=== PATIENT | male | born 1975 | race Caucasian/White ===

== ENCOUNTER → 2016-07-12 | Outpatient (CLI) | payer OTHER ==
--- NOTE | 2016-07-12 12:44 | XR ---
EXAMINATION TYPE: XR chest 2V DATE OF EXAM: 07/12/2016 12:38 PM COMPARISON: 10/17/2013 INDICATION: Sore throat and white spots, cough and congestion TECHNIQUE: Frontal and lateral views of the chest are obtained. FINDINGS: The heart size is normal. The pulmonary vasculature is normal. The lungs are clear. IMPRESSION: 1. No acute pulmonary process.
== END | disposition home or self-care (01) ==
LOC: RADXRMAIN 12:18
PROVIDERS: ATTEND Nurse Practitioner Family
DX: R05 Cough (principal); R50.9 Fever, unspecified
CPT/HCPCS: 71020

== ENCOUNTER → 2016-12-06 | Outpatient (CLI) | payer OTHER ==
--- NOTE | 2016-12-06 19:36 | CT ---
EXAMINATION TYPE: CT abdomen pelvis w con DATE OF EXAM: 12/06/2016 COMPARISON: NONE HISTORY: LLQ pain x2 weeks. Hx of diverticulitits. CT DLP: 643.3 mGycm Automated exposure control for dose reduction was used. TECHNIQUE: Helical acquisition of images was performed from the lung bases through the pelvis. CONTRAST: Performed with Oral Contrast and with IV Contrast, patient injected with 100 mL of Omnipaque 300. FINDINGS: There is mild atelectasis at the posterior lung bases. There is no pleural effusion. Liver spleen pancreas appear normal. Bile ducts are not dilated. Gallbladder is absent. There is no a drenal mass. There is an 8 mm calcification in the upper pole right kidney. There is no hydronephrosi s. Ureters are not dilated. There is no retroperitoneal adenopathy. There is no ascites. Bladder dist ends smoothly. There is no pelvic mass. Appendix appears normal. I see no intestinal wall thickening. I see no bony destructive process.: There is spurring in the thoracic and lumbar spine. IMPRESSION: NEGATIVE CT SCAN OF THE ABDOMEN AND PELVIS. NO EVIDENCE OF INFLAMMATORY BOWEL DISEASE OR DIVERTICULIT IS. NORMAL APPENDIX. MINIMAL SUBSEGMENTAL ATELECTASIS AT THE LUNG BASES. THE ATELECTASIS IS NEW MARYANNE RED TO OLD CT SCAN OF 03/28/2016.
== END | disposition home or self-care (01) ==
LOC: RADCTMAIN 17:05
PROVIDERS: ATTEND Surgery
DX: K57.32 Diverticulitis of large intestine without perforation or abscess without bleeding (principal)
CPT/HCPCS: 74177; Q9967

== ENCOUNTER → 2017-04-22 | Outpatient (CLI) | payer OTHER ==
--- NOTE | 2017-04-22 23:01 | MR ---
EXAMINATION TYPE: MR cervical spine wo con DATE OF EXAM: 04/22/2017 COMPARISON: NONE HISTORY: Neck pain, headaches, trent arm weakness x 1 year TECHNIQUE: Multiplanar, multisequence images of the cervical spine were acquired. The cervical vertebra have normal alignment. Cervical spinal cord appears normal. There is no evidenc e of edema. There are small posterior disc herniation to C5-6 C6-7 into the spinal canal. There is de velopmentally adequate canal and no evidence of spinal stenosis. Brainstem appears normal. I see no f ocal bone destruction. There is small posterior C3-4 disc bulge. There are large anterior hypertrophi c osteophytes in the lower cervical spine. IMPRESSION: Small posterior disc herniations at C5-6 and C6-7. No spinal stenosis. Large hypertrophic anterior br idging osteophyte formation at C5-6 and C6-7. This is quite prominent in this relatively young patien t and the possibility of dysphagia exists.
== END | disposition home or self-care (01) ==
LOC: RADMRIMAIN 18:37
PROVIDERS: ATTEND Family Medicine
DX: M50.222 Other cervical disc displacement at C5-C6 level (principal)
CPT/HCPCS: 72141

== ENCOUNTER → 2017-04-25 | Outpatient (CLI) | payer OTHER ==
--- NOTE | 2017-04-25 18:20 | FL ---
EXAMINATION TYPE: Left shoulder fluoroscopic-guided arthrogram injection. 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 PROCEDURES: 1. Left shoulder fluoroscopy. 2. Left shoulder arthrogram. Total fluoroscopy time: 1 minute. Total images: 2 TECHNIQUE: The procedure, risks, and alternatives, were discussed with the patient, who requested that mar goodman The consent form was signed, and teach-back occurred. The site/side of the procedure was marked with a line with participation by the patient. The accompan mayra paperwork was verified for consistency. A directed history and physical exam was performed prior to the procedure. Medication reconciliation was performed by ancillary personnel. A critical pause was performed with assisting personnel just pr ior to the procedure, and the patient's identity was confirmed using 2 identifiers. Imaging guidance was utilized to select the precise skin entry point just prior to the procedure. The left shoulder was prepped and draped in the usual sterile fashion and local 1% lidocaine anesthes ia was instilled. Under fluoroscopic guidance, a 22 gauge spinal needle was introduced into the left glenohumeral joint. Appropriate needle tip position was confirmed after a small amount of contrast i njection. Approximately 12 ml of a mixture of Omnipaque 240 iodinated contrast and gadolinium was injected into the glenohumeral joint. Postprocedure images show inadvertent prominent injection into the subcoraco id bursa. The needle was removed and dressing placed. The patient tolerated the procedure well. There was no immediate complication. After the procedure, the patient's condition was unchanged. Estimated blood loss was minimal. IMPRESSION: Technically successful left shoulder arthrogram injection for MRI. Some inadvertent prominent subcora coid bursal injection is noted. No immediate complication.
--- NOTE | 2017-04-29 07:22 | MR ---
EXAMINATION TYPE: MR arthrogram left shoulder DATE OF EXAM: 04/25/2017 COMPARISON: 09/06/2026 HISTORY: 42-year-old male left shoulder pain, strain or ligament, pain for 4 weeks. 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 Technique: Multiplanar, multisequence images of the left shoulder were obtained after intra-articular injection of a gadolinium mixture. Refer to arthrogram injection of the same day for further details . FINDINGS: The long head biceps tendon is intact and remains appropriately situated along the bicipital groove. There was inadvertent partial injection into the subscapularis tendon with some injected contrast dis secting along the planes of the subscapularis myotendinous junction. The subscapularis tendon remains intact. Additional inadvertent injection distending the subcoracoid bursa. There is mild to moderate distention of the glenohumeral joint after arthrogram injection. Mild degenerative changes at the acromioclavicular joint. No significant mass effect onto the underly ing myotendinous junction of the supraspinatus. There is trace fluid within the subacromial/subdeltoid bursa and heterogeneous signal of the supraspi natus tendon. Some intrasubstance changes noted on the coronal T2 FS image but no abnormal extension of contrast noted within the tendon. The infraspinatus tendon remains intact. There is isolated mild fatty filtration and mild edema of the teres minor muscle belly. No mass lesio n within the quadrilateral space. Otherwise, no atrophy of the rotator cuff musculature. There is a small tear of the superior labrum at and just behind the biceps anchor, new from 2009. The re is some fluid signal extending along the labral chondral junction of the anterior superior quadran t that was present previously suspected represent a sublabral foramen. Mild dysplasia of the posterio r inferior corner of the glenoid. No para labral cyst. Overall glenohumeral joint appears intact and overall articular cartilage appears maintained. No Hill-Sachs deformity or os acromiale. IMPRESSION: 1. New small SLAP tear. 2. Supraspinatus and lesser degree of infraspinatus tendinosis. There is some intrasubstance change n oted within the supraspinatus tendon. No high-grade partial or full-thickness rotator cuff tear. 3. Isolated mild fatty atrophy and mild muscle edema of the teres minor. This can be seen in the sett ing of quadrilateral space syndrome. Clinically correlate. 4. Mild subacromial/subdeltoid bursal effusion could represent a mild bursitis.
== END | disposition home or self-care (01) ==
LOC: RADFLMAIN 13:04
PROVIDERS: ATTEND Family Medicine
DX: S43.492A Other sprain of left shoulder joint, initial encounter (principal); M75.92 Shoulder lesion, unspecified, left shoulder; R60.0 Localized edema; M62.58 Muscle wasting and atrophy, not elsewhere classified, other site; M25.412 Effusion, left shoulder
CPT/HCPCS: 23350; 73040; 73222; Q9966; A9581

== ENCOUNTER → 2020-09-23 | Outpatient (CLI) | payer OTHER ==
--- NOTE | 2020-09-23 09:08 | XR ---
EXAMINATION TYPE: XR shoulder complete RT DATE OF EXAM: 09/23/2020 COMPARISON: NONE HISTORY: Pain TECHNIQUE: Shoulder examined in 3 views FINDINGS: The humeral head articulates with the glenoid. The acromio-clavicular junction is normal. No acute fractures or dislocations are evident. If dedicated imaging of the acromioclavicular joints would be of benefit, without with weights could be performed to evaluate for ligament injury. A follow up study can be performed 7-10 days from acute trauma for continued pain. IMPRESSION: 1. Normal three-view right Shoulder
== END | disposition home or self-care (01) ==
LOC: RADXRMAIN 08:32
PROVIDERS: ATTEND Family Medicine
DX: M25.511 Pain in right shoulder (principal)

== ENCOUNTER 2020-12-22 14:04 | Emergency (ER) | payer OTHER ==
[2020-12-22 14:13] VITALS: RESP 16; TEMP 97.4
[2020-12-22 15:05] LABS: Basophils # (A) 0.1 k/uL (0-0.2); Basophils % (A) 1 %; Eosinophils # (A) 0.1 k/uL (0-0.7); Eosinophils % (A) 1 %; HCT 42.2 % (39.0-53.0); HGB 14.2 gm/dL (13.0-17.5); Lymphocytes % (A) 20 %; MCH 29.5 pg (25.0-35.0); MCHC 33.7 g/dL (31.0-37.0); MCV 87.4 fL (80.0-100.0); Mean Platelet Volume 8.5; Monocytes # (A) 0.6 k/uL (0-1.0); Monocytes % (A) 6 %; Neutrophils # (A) 7.1 k/uL (1.3-7.7); Neutrophils % (A) 71 %; Platelet Count 201 k/uL (150-450); RBC 4.83 m/uL (4.30-5.90); RDW 13.7 % (11.5-15.5)
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
--- NOTE | 2020-12-22 15:15 | XR ---
EXAMINATION TYPE: XR chest 2V DATE OF EXAM: 12/22/2020 COMPARISON: 07/12/2016 HISTORY: 45-year-old male weakness, dizziness and headaches. TECHNIQUE: PA and lateral views FINDINGS: Heart borderline enlarged. Aorta within normal limits. Interstitial prominence new from prior. No con solidation, pneumothorax, or pleural effusion. Some asymmetric widening of the left AC joint. IMPRESSION: 1. Borderline heart size and new interstitial prominence. Consider surveillance to exclude early pulm onary vascular congestion. 2. Asymmetric widening of the left AC joint new from 2017. This could still reflect an old injury. Co rrelate for any point tenderness here.
[2020-12-22 15:18] LABS: ALT 28 U/L (4-49); AST 25 U/L (17-59); African American GFR (CKD) >90 (>60 ml/min/1.73 sqM); Alkaline Phosphatase 103 U/L (38-126); Anion Gap 6 mmol/L; Blood Urea Nitrogen 10 mg/dL (9-20); Calcium 9.2 mg/dL (8.4-10.2); Carbon Dioxide 27 mmol/L (22-30); Chloride 108 mmol/L (98-107); Creatine Kinase 108 U/L (55-170); Glucose 110 mg/dL (74-99); Magnesium 1.9 mg/dL (1.6-2.3); Non-African American GFR(CKD) >90 (>60 ml/min/1.73 sqM); Sodium 141 mmol/L (137-145); Total Bilirubin 0.4 mg/dL (0.2-1.3); Total Protein 6.8 g/dL (6.3-8.2)
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
[2020-12-22] MEDS ORDERED: KETOROLAC 15 MG/ML 1 ML VIAL IVP STA (16:25)
[2020-12-22] MEDS ORDERED: ORPHENADRINE 30 MG/ML 2 ML VIAL IVP STA (16:25)
[2020-12-22 17:20] VITALS: BP 141/73; PULSE 78
== END 2020-12-22 17:19 | disposition home or self-care (01) ==
LOC: EC 14:04
DX: T75.00XA Unspecified effects of lightning, initial encounter (principal); R51.9 Headache, unspecified; E78.5 Hyperlipidemia, unspecified; F17.200 Nicotine dependence, unspecified, uncomplicated; I10 Essential (primary) hypertension; K21.9 Gastro-esophageal reflux disease without esophagitis; M19.90 Unspecified osteoarthritis, unspecified site; F12.90 Cannabis use, unspecified, uncomplicated
CPT/HCPCS: 36415; 93005; 80053; 82550; 83605; 83735; 84484; 85025; 71046; 70450; 99284; 96374; 96375; J2360; J1885

== ENCOUNTER → 2021-05-30 | Outpatient (CLI) | payer OTHER ==
--- NOTE | 2021-05-31 09:05 | ECHOS ---
STRESS ECHOCARDIOGRAM INDICATIONS: Chest pain. BASELINE HEART RATE: 84 BASELINE BLOOD PRESSURE: 149/92 MAXIMUM HEART RATE: 169 MAXIMUM BLOOD PRESSURE: 235/112 85% MPHR: 148 100% MPHR: 174 METS: 10.7 MAXIMUM STAGE REACHED: 4 TOTAL EXERCISE TIME: 9:20 CLINICAL INFORMATION: Baseline EKG shows sinus rhythm, normal axis, normal intervals. Patient exercised on Misbah protocol for a total of 9-1/2 minutes, achieving 11 METS, 97% of predicted maximal heart rate, without chest pain or diagnostic ST-segment depression. Baseline echo shows normal left ventricular size, wall motion, systolic function. Post exercise there is normal hyperdynamic response of all segments of myocardium noted. CONCLUSIONS: 1. Good exercise tolerance. 2. Negative stress test by EKG criteria. 3. Negative stress echo. MMODL / IJN: [id number] /
== END | disposition home or self-care (01) ==
LOC: RADNMMAIN 08:46
PROVIDERS: ATTEND Family Medicine
DX: R07.9 Chest pain, unspecified (principal)
CPT/HCPCS: 93351

== ENCOUNTER 2021-09-22 06:03 | Day surgery (SDC) | payer OTHER ==
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
[2021-09-21 11:39] VITALS: BMI 28.7
[2021-09-22] MEDS ORDERED: HYDROmorphone 0.5 MG/0.5 ML SYRINGE IVP PRN (06:15)
[2021-09-22] MEDS ORDERED: LIDOCAINE 1% (10MG/ML) FOR IV START INTRADERMA PRN (06:15)
[2021-09-22] MEDS ORDERED: LACTATED RINGERS 1,000 ML IV SCH (06:15)
[2021-09-22] MEDS ORDERED: MIDAZOLAM 2 MG/2 ML VIAL IV PRN (06:15)
[2021-09-22] MEDS ORDERED: DEXAMETHASONE SOD PHOSPHATE 4 MG/ML 1 ML VIAL IV ONE (06:15)
[2021-09-22] MEDS ORDERED: ONDANSETRON 4 MG/2 ML VIAL IVP ONE (06:15)
[2021-09-22] MEDS ORDERED: MIDAZOLAM 2 MG/2 ML VIAL IV ONE (06:58)
[2021-09-22 07:23] LABS: Basophils # (A) 0.1 k/uL (0-0.2); Basophils % (A) 1 %; Eosinophils # (A) 0.2 k/uL (0-0.7); Eosinophils % (A) 2 %; HCT 45.6 % (39.0-53.0); HGB 15.6 gm/dL (13.0-17.5); Lymphocytes # (A) 2.3 k/uL (1.0-4.8); Lymphocytes % (A) 26 %; MCH 30.3 pg (25.0-35.0); MCHC 34.1 g/dL (31.0-37.0); MCV 88.7 fL (80.0-100.0); Mean Platelet Volume 8.6; Monocytes # (A) 0.6 k/uL (0-1.0); Monocytes % (A) 7 %; Neutrophils # (A) 5.4 k/uL (1.3-7.7); Neutrophils % (A) 63 %; Platelet Count 235 k/uL (150-450); RBC 5.14 m/uL (4.30-5.90); RDW 13.9 % (11.5-15.5); WBC 8.6 k/uL (3.8-10.6)
[2021-09-22 07:38] LABS: ALT 25 U/L (4-49); AST 26 U/L (17-59); African American GFR (CKD) >90 (>60 ml/min/1.73 sqM); Albumin 4.2 g/dL (3.5-5.0); Alkaline Phosphatase 106 U/L (38-126); Anion Gap 8 mmol/L; Blood Urea Nitrogen 18 mg/dL (9-20); Calcium 9.3 mg/dL (8.4-10.2); Carbon Dioxide 25 mmol/L (22-30); Chloride 108 mmol/L (98-107); Glucose 113 mg/dL (74-99); Non-African American GFR(CKD) >90 (>60 ml/min/1.73 sqM); Potassium 4.4 mmol/L (3.5-5.1); Sodium 141 mmol/L (137-145); Total Bilirubin 0.7 mg/dL (0.2-1.3); Total Protein 7.6 g/dL (6.3-8.2)
[2021-09-22] MEDS ORDERED: PHENYLEPHRINE-0.9% NACL SYG 1,000 MCG/10 ML SYRINGE ONE (07:40)
[2021-09-22] MEDS ORDERED: fentaNYL (PF) 50 MCG/ML 2 ML AMP ONE (07:40)
[2021-09-22] MEDS ORDERED: SUCCINYLCHOLINE CHLORIDE VIAL 200 MG/10 ML VIAL IV ONE (07:40)
[2021-09-22] MEDS ORDERED: LIDOCAINE 1% INJ 10MG/ML (20 ML MDV) ONE (07:40)
[2021-09-22] MEDS ORDERED: ROPIVACAINE 5 MG/ML 30 ML VIAL ONE (07:40)
[2021-09-22] MEDS ORDERED: PROPOFOL 10 MG/ML 20 ML VIAL IV ONE (07:40)
[2021-09-22] MEDS ORDERED: EPINEPHrine (PF) 1 ML in SODIUM CHLORIDE 0.9% IRRIGATIO 3,000 ML IRRIGATION ONE ×8 (07:44)
[2021-09-22] MEDS ORDERED: LACTATED RINGERS 1,000 ML IV ONE (08:52)
--- NOTE | 2021-09-22 09:20 | P.OP ---
Date of Procedure: 09/22/21 Preoperative Diagnosis: Right rotator cuff tearsymptomatic Postoperative Diagnosis: 3 cm rotator cuff tear Procedure(s) Performed: Right shoulder arthroscopic subacromial decompression/rotator cuff repair Implants: Arthrex 4.75 mm swivel lock anchor 2, 5.5 mm swivel lock anchor 2 Anesthesia: abebe REES Surgeon: Pa Nguyen Lobbyist #1: Hector Higgins Estimated Blood Loss (ml): 10 Pathology: none sent Condition: stable Disposition: PACU Indications for Procedure: The patient's a 46-year-old male presents with right shoulder pain after a recent injury. Upon evaluation he is noted of an acute rotator cuff tear. A di scussion of the risks and benefits of operative intervention was made with patient. He opted to proceed with surgery. Operative risks to include infection, neurovascular injury, development of blood clots, possible tendon rerupture, possible postoperative stiffness and need for subsequent procedures was discussed. Informed consent was obtained. Operative Findings: As below Description of Procedure: The patient was brought to the operating room, and after induction of general anesthesia was placed in a beachchair position. A preoperative interscalene block was placed for postoperative analgesia. I examined the right shoulder. There was no gross block to passive motion or gross glenohumeral instability. The right upper extremity was prepped and draped in normal fashion. The bony outlines the acromion, distal clavicle, and coracoid process were outlined with a skin marker. The glenohumeral joint was inflated with 50 mL of saline utilizing a spinal needle from posterior approach. A posterior portal was made through a 5 mm skin incision 1 cm medial and inferior to the posterior lateral border time. A blunt trocar was used to easily into the joint. Diagnostic arthroscopy was performed. An anterior portal was made just lateral to the coracoid process entering the joint above the subscapularis tendon. The subscapularis tendon appeared to be intact. Anterior labrum was intact. The inferior recess was inspected. The posterior labrum was intact. The biceps tendon along with its anchor appeared to be intact. On inspection the rotator cuff, a full-thickness tear involving the supraspinatus was noted. The arthroscope was placed into the subacromial space. A lateral portal was made 2 centimeters inferior to the anterior lateral border of the acromion. The rotator cuff was then mobilized with a traction suture. This was then easily brought back to the greater tuberosity. The soft tissue on the undersurface of the acromion was debrided with a motorized shaver and electrocautery clearly defining the anterior medial and lateral borders as well as the distal clavicle. An anterior inferior acromioplasty was performed with a motorized be starting anterolateral, then extending this posteriorly, then extending this medially. I converted to a flat acromion and this was verified in the posterior and lateral viewing portals. The greater tuberosity was lightly decorticating with a shaver down to a bleeding bony surface. An accessory superior lateral portals made just off the lateral edge of the acromion for anchor placement. 2 anchors were then placed just off the articular surface with the appropriate starting awl. 4.75 mm anchors preloaded with #2 fiber tape were placed. Good purchase was o btained. These fiber tapes were then passed the rotator cuff with a scorpion suture passer. A lateral row was created crisscrossing these tapes. 5.5 mm swivel lock anchors x2 were placed laterally. Good purchase was obtained. Final arthroscopic view showed adequate compression at the footprint. The arthroscope was then removed. The portals were closed with simple 3-0 nylon sutures. A sterile dressing was applied in addition to a sling. The patient was then awoken from general anesthesia and transferred to recovery room in good condition. Blood loss was estimated at 10 mL. No complications were incurred. Sponge and needle counts were correct in the case. Hectro RILEY assisted and the major components of the case to include arm positioning, anchor placement, and rotator cuff repair.
[2021-09-22 09:28] VITALS: TEMP 97.2
[2021-09-22 10:45] VITALS: RESP 18
[2021-09-22 10:55] VITALS: BP 145/91; PULSE 81
--- NOTE | 2021-09-24 21:17 | P.ANPRN ---
Procedure Note - Anesthesia - Nerve Block Performed Right Interscalene Single Time Out Performed: Yes Date of Procedure: 09/22/21 Procedure Start Time: 06:57 Procedure Stop Time: 07:02 Location of Patient: PreOp Indication: Acute Post-Operative Pain, Requested by Surgeon Sedation Type: Sedate with meaningful contact maintained Preparation: Sterile Prep Position: Supine Needle Types: Pajunk Needle Gauge: 21 Ultrasound used to visualize needle placement: Yes Ultrasound used to observe medication spread: Yes Blood Aspirated: No Pain Paresthesia on Injection Noted: No Resistance on Injection: Normal Image Stored and Saved: Yes Events: Uneventful and Well Tolerated (Ropivacaine 0.5% 25 mL plus dexamethasone 4 mg)
== END 2021-09-22 11:32 | disposition home or self-care (01) ==
LOC: OR 06:03
PROVIDERS: ATTEND Orthopaedic Surgery
DX: M75.101 Unspecified rotator cuff tear or rupture of right shoulder, not specified as traumatic (principal); I10 Essential (primary) hypertension; F41.9 Anxiety disorder, unspecified; M19.90 Unspecified osteoarthritis, unspecified site; F17.210 Nicotine dependence, cigarettes, uncomplicated; Z79.899 Other long term (current) drug therapy; Z80.9 Family history of malignant neoplasm, unspecified
CPT/HCPCS: 29826; 29827; 64415; 76942; 80053; 85025; C1713 ×3; C1894; J2250; J0330; J1100; J0690; J2405; J0171; J2001; J3010; J2795; J2370; J2704

== ENCOUNTER → 2022-07-11 | Outpatient (CLI) | payer OTHER ==
--- NOTE | 2022-07-11 08:11 | MR ---
EXAMINATION TYPE: MR shoulder RT wo con DATE OF EXAM: 07/11/2022 COMPARISON: Prior MRI right shoulder August 07, 2021 HISTORY: Rt shoulder pain for 3 months with difficulty raising arm overhead, history of prior surgery September 22, 2021 TECHNIQUE: Multiplanar, multisequence imaging of the right shoulder is performed without contrast. FINDINGS: Rotator Cuff: Interval surgical repair of distal supraspinatus tear with artifact from metallic nails noted. There is increased signal with areas of partial tearing throughout the distal supraspinatus t endon, a smaller residual or new articular surface tear is identified measuring 7 mm in length AP dakota meter sagittal image 6 by 4 to 5 mm in diameter coronal image 11. Some new interstitial tearing along the distal infraspinatus tendon with increased signal. Rotator cuff muscle bulk is preserved. Acromioclavicular Joint: Moderate to severe narrowing and mild spurring redemonstrated. Mild to moder ate capsular hypertrophy redemonstrated. Mass effect with change in the course of the underlying supr aspinatus muscle bulk near the myotendinous junction is again seen. Glenohumeral Joint: Small to moderate size joint effusion on current exam new from prior. No signific ant spurring. Labrum: The superior labrum show some areas of increased signal suggesting degenerative tearing simil ar to prior. Biceps Tendon: The long head of biceps is in normal location within bicipital groove. Bone marrow signal: No focal abnormal marrow signal is appreciated. Other: No additional significant abnormality is appreciated. IMPRESSION: 1. Interval rotator cuff surgery. Small full-thickness articular surface tear of supraspinatus tendon on current study is identified. There is more prominent tendinopathy/interstitial tearing of the dis gian supraspinatus tendon on current study. Some new interstitial tearing of the distal infraspinatus tendon on current study. Persistent AC joint arthropathy with suggestion of underlying impingement.
== END | disposition home or self-care (01) ==
LOC: RADMRIMAIN 06:32
PROVIDERS: ATTEND Orthopaedic Surgery
DX: M75.111 Incomplete rotator cuff tear or rupture of right shoulder, not specified as traumatic (principal); M19.011 Primary osteoarthritis, right shoulder

== ENCOUNTER 2022-09-14 06:08 | Day surgery (SDC) | payer OTHER ==
--- NOTE | 2022-09-13 08:19 | P.HPOR ---
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 He is reaching way from his body when he felt a pop. He previously underwent rotator cuff repair September 2021 and initially did well. He is now having pain with overhead activity and at night. Review of Systems As per HPI Past Medical History Past Medical History: GERD/Reflux, Hyperlipidemia, Hypertension, Osteoarthritis (OA) Additional Past Medical History / Comment(s): Hx Diverticulosis, hx pancreatitis, irregular heartbeat, chronic lower back and right shoulder pain. History of Any Multi-Drug Resistant Organisms: None Reported Past Surgical History: Cholecystectomy, Orthopedic Surgery Additional Past Surgical History / Comment(s): Heel surgery, left shoulder surgery , rt shoulder sx. Past Anesthesia/Blood Transfusion Reactions: Previous Problems w/ Anesthesia Additional Past Anesthesia/Blood Transfusion Reaction / Comment(s): Difficult to awaken.Groggy Smoking Status: Current every day smoker - Past Family History Mother Family Medical History: Cancer Additional Family Medical History / Comment(s): Lymphoma. Father Family Medical History: Coronary Artery Disease (CAD), Eye Disorder, Hyperlipidemia, Hypertension, Myocardial Infarction ([place]) Additional Family Medical History / Comment(s): Bone cancer, , CABG, macular degeneration. Medications and Allergies Home Medications Medication Instructions Recorded Confirmed Type lisinopriL [Zestril] 20 mg PO QAM 10/17/13 09/11/22 History Meloxicam [Mobic] 15 mg PO QAM 01/02/16 09/11/22 History Atorvastatin [Lipitor] 20 mg PO DAILY #90 tablet 04/19/16 09/11/22 Rx atenoloL [Tenormin] 50 mg PO HS 12/22/20 09/11/22 History HYDROcodone/APAP 7.5-325MG [[place] 1 each PO Q6HR PRN #28 tab 09/22/21 09/11/22 Rx 7.5] Allergies Allergy/AdvReac Type Severity Reaction Status Date / Time No Known Allergies Allergy Verified 09/11/22 11:44 Physical Examination - Shoulder right Tenderness with palpation: anterior Pain: with forward flexion ROM: forward flexion: 160 degrees ROM: internal rotation: lower lumbar ROM: external rotation: 50 degrees Strength: abduction: 5/5 Strength: external rotation: 5/5 Tests: internal impingement tests: positive Results The patient is a well-developed well-nourished male proximal 5 foot 10, 202 pounds of mesomorphic habitus. HEENT exam is nonfocal, neck is supple. He's tender about the right shoulder anterior subacromial space. Moderate crepitus is noted. Impingement tests positive. His distal neurovascular appears intact right upper extremity. - Diagnostic results Shoulder MRI: image reviewed (MRI of the right shoulder shows evidence of a small full-thickness tear involving the distal supraspinatus as well as interstitial tearing. Acromioclavicular joint arthritis is noted. There is also potentially a labral tear.) Assessment and Plan Assessment: Recurrent right rotator cuff tear Right proximal bicipital tendinosis/subluxation Right acromioclavicular joint arthritis Plan: I talked to the patient regarding his condition along with treatment options. At this point he is quite symptomatic after this recurrent injury. After thorough discussion he opts to proceed with surgery. We'll plan to proceed with right shoulder arthroscopic evaluation with possible revision rotator cuff repair/subacromial decompression/distal clavicular resection. We'll also consider biceps tenotomy if needed. We will perform as an outpatient procedure. Risks and benefits were discussed at length Rolanda Capps.
[~2022-09-14 06:08] MED LIST: DEXAMETHASONE SOD PHOSPHATE 4 MG/ML 1 ML VIAL IV ONE; LACTATED RINGERS 1,000 ML IV SCH; LIDOCAINE 1% (10MG/ML) FOR IV START INTRADERMA PRN; ONDANSETRON 4 MG/2 ML VIAL IVP ONE
[2022-09-14 06:41] VITALS: TEMP 97.2
[2022-09-14] MEDS ORDERED: METOCLOPRAMIDE 5 MG/ML 2 ML VIAL IVP PRN (07:00)
[2022-09-14] MEDS ORDERED: HYDROmorphone 0.5 MG/0.5 ML SYRINGE IVP PRN (07:00)
[2022-09-14] MEDS ORDERED: MIDAZOLAM 2 MG/2 ML VIAL IVP ONE (07:12)
[2022-09-14] MEDS ORDERED: fentaNYL (PF) 50 MCG/ML 2 ML AMP ONE (07:53)
[2022-09-14] MEDS ORDERED: PROPOFOL 10 MG/ML 20 ML VIAL IV ONE (07:53)
[2022-09-14] MEDS ORDERED: GLYCOPYRROLATE 0.2 MG/ML 2 ML VIAL ONE (07:53)
[2022-09-14] MEDS ORDERED: DEXAMETHASONE SOD PHOSPHATE 4 MG/ML 1 ML VIAL ONE (07:53)
[2022-09-14] MEDS ORDERED: NEOSTIGMINE 1 MG/ML 10 ML VIAL ONE (07:53)
[2022-09-14] MEDS ORDERED: ROPIVACAINE 5 MG/ML 30 ML VIAL ONE (07:53)
[2022-09-14] MEDS ORDERED: SUCCINYLCHOLINE CHLORIDE 200 MG/10 ML VIAL IV ONE (07:53)
[2022-09-14] MEDS ORDERED: ROCURONIUM 10 MG/ML (5 ML VIAL) IV ONE (07:53)
[2022-09-14] MEDS ORDERED: LIDOCAINE 2% INJ 20 MG/ML (2 ML VIAL) ONE (07:53)
[2022-09-14] MEDS ORDERED: EPINEPHrine (PF) 1 ML in SODIUM CHLORIDE 0.9% IRRIGATIO 3,000 ML IRRIGATION ONE ×8 (07:56)
--- NOTE | 2022-09-14 09:01 | P.OP ---
Date of Procedure: 09/14/22 Preoperative Diagnosis: Status post right rotator cuff repair with possible re-tear Postoperative Diagnosis: Type II superior labral tear/proximal biceps partial tear, bursitis right shoulder, partial thickness rotator cuff tear Procedure(s) Performed: Right shoulder arthroscopic revision subacromial decompression/bursectomy/biceps tenotomy/rotator cuff debridement Anesthesia: abebe REES Surgeon: Pa Nguyen Towel Sewer #1: Hector Higgins Estimated Blood Loss (ml): 10 Pathology: none sent Condition: stable Disposition: PACU Indications for Procedure: The patient's a 47-year-old male who presents after reinjuring his right shoulder with persistent pain and mechanical symptoms. He previously underwent right rotator cuff repair in September 2021. A discussion of the risks and benefits of operative intervention versus conservative measures was made with the patient. He opted to proceed with surgery. Operative risks to include infection, neurovascular injury, development of blood clots, possible incomplete resolution of symptoms, possible tendon rerupture, and possible need for subsequent procedures was discussed. Informed consent was obtained. Operative Findings: As below Description of Procedure: The patient was brought to the operating room, and after induction of general anesthesia was placed in a beachchair position. A preoperative interscalene block was placed for postoperative analgesia. I examined the right shoulder. There was no gross block to passive motion or gross glenohumeral instability. The right upper extremity was prepped and draped in normal fashion. The bony outlines the acromion, distal clavicle, and coracoid process were outlined with a skin marker. The glenohumeral joint was inflated with 50 mL of saline utilizing a spinal needle from posterior approach. A posterior portal was made through a 5 mm skin incision 1 cm medial and inferior to the posterior lateral border time. A blunt trocar was used to easily into the joint. Diagnostic arthroscopy was performed. An anterior portal was made just lateral to the coracoid process entering the joint above the subscapularis tendon. The subscapularis tendon appeared to be intact. Anterior labrum was intact. The inferior recess was inspected. The posterior labrum was intact. There was a high-grade partial-thickness tear of the long head of the biceps involving interarticular portion along with a type II superior labral tear. It was elected to proceed with release at this point. This was released from the superior labrum with electrocautery and was allowed to retract to the bicipital groove. On inspection the rotator cuff, there was partial tearing of the anterior aspect the supraspinatus involving approximately 10-20% of the thickness. The remaining rotator cuff appeared to be intact. This was debrided with a motorized shaver. The arthroscope was placed into the subacromial space. A lateral portal was made 2 centimeters inferior to the anterior lateral border of the acromion. The soft tissue on the undersurface of the acromion was debrided with a motorized shaver and electrocautery clearly defining the anterior medial and lateral borders as well as the distal clavicle. There appeared to be some recurrence of anterior calcification that was removed with a motorized bur. Significant bursitis was encountered. This was debrided with a motorized shaver. The rotator cuff was inspected on the bursal surface. It appeared to be intact. The previous repair appeared intact. The arthroscope was then removed. The portals were closed with simple 3-0 nylon sutures. A sterile dressing was applied in addition to a sling. The patient was then awoken from general anesthesia and transferred to recovery room in good condition. Blood loss was estimated at 10 mL. No complications were incurred. Sponge and needle counts were correct in the case. Hector RILEY assisted and the major components of the case to include arm positioning, debridement, decompression, and tenotomy.
[2022-09-14 10:29] VITALS: PULSE 69; RESP 18
[2022-09-14 10:46] VITALS: BP 133/86
== END 2022-09-14 11:43 | disposition home or self-care (01) ==
LOC: OR 06:08
PROVIDERS: ATTEND Orthopaedic Surgery
DX: M75.51 Bursitis of right shoulder (principal); S43.431A Superior glenoid labrum lesion of right shoulder, initial encounter; M75.111 Incomplete rotator cuff tear or rupture of right shoulder, not specified as traumatic; G89.18 Other acute postprocedural pain; I10 Essential (primary) hypertension; E78.5 Hyperlipidemia, unspecified; F17.200 Nicotine dependence, unspecified, uncomplicated; K21.9 Gastro-esophageal reflux disease without esophagitis; M19.90 Unspecified osteoarthritis, unspecified site; Z90.49 Acquired absence of other specified parts of digestive tract; Z98.890 Other specified postprocedural states; Z82.49 Family history of ischemic heart disease and other diseases of the circulatory system; Z83.49 Family history of other endocrine, nutritional and metabolic diseases; Z79.899 Other long term (current) drug therapy
CPT/HCPCS: 64415; 76942; 29823; 29826; J2250; J0330; J1100; J2710; J0690; J2405; J0171; J3010; J2795; J2704; J2001

== ENCOUNTER → 2023-01-28 | Outpatient (CLI) | payer OTHER ==
[2023-01-29 03:37] LABS: HGB 15.4 d/dL (13.0-17.0); MCH 29.5 pg (27.0-32.0); MCHC 32.8 d/dL (32.0-37.0); Mean Platelet Volume 12.8 FL (9.5-12.2); NRBC Per 100 WBC 0 X 10*3/uL (0.00-0.01); Platelet Count 223 X 10*3/uL (140-440); RBC 5.22 X 10*6/uL (4.40-5.60)
[2023-01-29 03:38] LABS: Basophils # (A) 0.05 X 10*3/uL (0.00-0.10); Basophils % (A) 0.4 %; Eosinophils # (A) 0.11 X 10*3/uL (0.04-0.35); Eosinophils % (A) 0.9 %; Lymphocytes # (A) 2.34 X 10*3/uL (0.90-5.00); Monocytes # (A) 0.88 X 10*3/uL (0.20-1.00); Monocytes % (A) 7.5 %; Neutrophils # (A) 8.27 X 10*3/uL (1.80-7.70); Neutrophils % (A) 70.8 %
[2023-01-29 03:46] LABS: ALT 23 U/L (10-49); AST 21 U/L (14-35); Albumin 4.8 d/dL (3.8-4.9); Albumin/Globulin Ratio 1.71 Ratio (1.60-3.17); Alkaline Phosphatase 123 U/L (41-126); BUN/Creat Ratio 15.09 Ratio (12.00-20.00); Blood Urea Nitrogen 16.6 mg/dL (9.0-27.0); Calcium 10.2 mg/dL (8.7-10.3); Chloride 106 mmol/L (96-109); Globulin 2.8 d/dL (1.6-3.3); Glucose 91 mg/dL (70-110); Lipase 27 U/L (14-60); Potassium 5.1 mmol/L (3.5-5.5); Sodium 143 mmol/L (135-145); Total Bilirubin 0.4 mg/dL (0.3-1.2); Total Protein 7.6 d/dL (6.2-8.2)
[2023-01-29 15:08] LABS: Cryptosporidium Antigen Negative (Negative)
== END | disposition home or self-care (01) ==
LOC: LABWHC1 16:14
PROVIDERS: ATTEND Family Medicine
DX: R19.7 Diarrhea, unspecified (principal); R10.32 Left lower quadrant pain
CPT/HCPCS: 36415; 80053; 83690; 85025; 87045; 87046; 87324; 87328; 87329

== ENCOUNTER 2023-05-01 07:58 | Day surgery (SDC) | payer OTHER ==
[2023-04-29 12:43] VITALS: BMI 26.5
[~2023-05-01 07:58] MED LIST changes: -DEXAMETHASONE SOD PHOSPHATE 4 MG/ML 1 ML VIAL IV ONE; -LIDOCAINE 1% (10MG/ML) FOR IV START INTRADERMA PRN; -ONDANSETRON 4 MG/2 ML VIAL IVP ONE
[2023-05-01 08:52] VITALS: TEMP 97.5
[2023-05-01] MEDS ORDERED: PROPOFOL 10 MG/ML 20 ML VIAL IV ONE (08:54)
[2023-05-01] MEDS ORDERED: LIDOCAINE 2% (PF) 20 MG/ML 5 ML VIAL ONE (08:54)
--- NOTE | 2023-05-01 09:11 | P.PCN ---
Date of Procedure: 05/01/23 Procedure(s) Performed: Brief history: Patient is a pleasant 48-year-old white male scheduled for an elective upper endoscopy as well as colonoscopy as a part of evaluation of upper abdominal pain associated with chronic diarrhea of since December of this year. His been having problems anywhere from 5-10 a day which are loose to watery in consistency with no blood or mucus in the stool. Stool studies were negative. Procedure performed: Esophagogastroduodenoscopy with biopsy Colonoscopy with biopsy Preoperative diagnosis: Abdominal pain Chronic diarrhea Anesthesia: MAC Procedure: After informed consent was obtained from the patient was brought into the endoscopy unit and IV sedation was administered by anesthesia under continuous monitoring. Initially upper endoscopy was done. The Olympus GF 160 video endoscope was inserted inserted into the mouth and esophagus intubated without any difficulty and was gradually advanced into the stomach and duodenum and carefully examined. The bulb and second part of the duodenum appeared normal. Biopsies were done from the duodenum to rule out celiac disease. The scope was then withdrawn into the stomach adequately insufflated with air and upon careful examination the antrum had mild gastritis and biopsies were done from this area. Mucosa of the body, cardia and fundus appeared normal. There was small amount of retained food in the stomach suggestive of gastroparesis. The scope was then withdrawn into the esophagus. The GE junction was located at 40 cm to the incisors. It appeared regular with no erythema erosions or ulcerations. Rest of the esophagus appeared normal. Patient tolerated the procedure well. At this time the patient continued to remain sedation. Initial digital rectal examination was normal. Olympus CF 160 video colonoscope was then inserted into the rectum and gradually advanced to the cecum without any difficulty. Careful examination was performed as the scope was gradually being withdrawn. The prep was excellent. The cecum, ascending colon, transverse colon, descending colon, sigmoid colon and rectum appeared normal. In the sigmoid colon there was a 3 mm polyp that was removed by cold biopsy. Random biopsies were done from ascending and descending colon to rule out microscopic/collagenous colitis Retroflexion was performed in the rectum and no lesions were noted. Patient tolerated the procedure well. Impression: 1. Upper endoscopy revealed mild antral gastritis and small amount of retained food in the stomach suggestive of gastroparesis 2. Colonoscopy revealed a 3 mm; polyp status post cold biopsy. Rest of the colon appeared normal. Recommendations: Findings of this examination were discussed with the patient as well as his family. He was advised to follow with the biopsy results. He'll be seen in office in 2 weeks. The meantime he'll continue with Bentyl 10 mg 3 times daily as needed.. Recommend repeat colonoscopy in 10 years.
[2023-05-01 09:44] VITALS: BP 130/78; PULSE 78; RESP 18
== END 2023-05-01 09:45 | disposition home or self-care (01) ==
LOC: ORWHC2ENDO 07:58
PROVIDERS: ATTEND Internal Medicine Gastroenterology
DX: K31.89 Other diseases of stomach and duodenum (principal); D12.5 Benign neoplasm of sigmoid colon; K52.9 Noninfective gastroenteritis and colitis, unspecified; K29.50 Unspecified chronic gastritis without bleeding; I49.9 Cardiac arrhythmia, unspecified; I10 Essential (primary) hypertension; E78.5 Hyperlipidemia, unspecified; F17.210 Nicotine dependence, cigarettes, uncomplicated; K21.9 Gastro-esophageal reflux disease without esophagitis; Z79.1 Long term (current) use of non-steroidal anti-inflammatories (NSAID); Z79.84 Long term (current) use of oral hypoglycemic drugs; Z79.899 Other long term (current) drug therapy; Z90.49 Acquired absence of other specified parts of digestive tract; Z98.890 Other specified postprocedural states
CPT/HCPCS: 88305; 88313; 45380; 43239; J2704; J2001

== ENCOUNTER 2023-09-29 19:08 | Inpatient (IN) | payer OTHER ==
--- NOTE | 2023-09-29 19:58 | XR ---
EXAMINATION TYPE: XR chest 2V DATE OF EXAM: 09/29/2023 7:51 PM CLINICAL INDICATION:Male, 48 years old with history of Chest Pain; [facility] COMPARISON: Chest radiographs from 12/22/2020 TECHNIQUE: XR chest 2V Frontal and lateral views of the chest. FINDINGS: Lungs/Pleura: There is no evidence of pleural effusion, focal consolidation, or pneumothorax. Pulmonary vascularity: Unremarkable. Heart/mediastinum: Cardiomediastinal silhouette is unremarkable. Musculoskeletal: No acute osseous pathology. IMPRESSION: No acute cardiopulmonary disease/process.
[2023-09-29] MEDS: SODIUM CHLORIDE 0.9% 1,000 ML IV STA (20:42)
[2023-09-29] MEDS: MAG HYDROX/AL HYDROX/SIMETH 30 ML, HYOSCYAMINE ELIXIR 10 ML, LIDOCAINE VISCOUS 2% 10 ML PO STA (20:44)
[2023-09-29] MEDS: PANTOPRAZOLE 40 MG/10 ML VIAL IVP STA (20:46)
[2023-09-29 20:47] LABS: Basophils # (A) 0.1 k/uL (0-0.2); Basophils % (A) 1 %; Eosinophils # (A) 0.1 k/uL (0-0.7); Eosinophils % (A) 1 %; HCT 44.4 % (39.0-53.0); HGB 14.8 gm/dL (13.0-17.5); Lymphocytes # (A) 1.8 k/uL (1.0-4.8); Lymphocytes % (A) 13 %; MCH 29.8 pg (25.0-35.0); MCHC 33.3 g/dL (31.0-37.0); MCV 89.5 fL (80.0-100.0); Mean Platelet Volume 9.5; Monocytes # (A) 0.7 k/uL (0-1.0); Monocytes % (A) 5 %; Neutrophils # (A) 11.1 k/uL (1.3-7.7); Neutrophils % (A) 80 %; Platelet Count 162 k/uL (150-450); RBC 4.96 m/uL (4.30-5.90); RDW 13.6 % (11.5-15.5); WBC 13.9 k/uL (3.8-10.6)
[2023-09-29 21:00] LABS: ALT 27 U/L (4-49); AST 25 U/L (17-59); African American GFR (CKD) >90 (>60 ml/min/1.73 sqM); Albumin 4.3 g/dL (3.5-5.0); Alkaline Phosphatase 103 U/L (38-126); Amylase 51 U/L (30-110); Anion Gap 8 mmol/L; Blood Urea Nitrogen 22 mg/dL (9-20); Calcium 9.8 mg/dL (8.4-10.2); Carbon Dioxide 24 mmol/L (22-30); Chloride 108 mmol/L (98-107); Glucose 108 mg/dL (74-99); Magnesium 1.6 mg/dL (1.6-2.3); Non-African American GFR(CKD) >90 (>60 ml/min/1.73 sqM); Potassium 3.7 mmol/L (3.5-5.1); Sodium 140 mmol/L (137-145); Total Bilirubin 0.6 mg/dL (0.2-1.3); Total Protein 7.2 g/dL (6.3-8.2)
[2023-09-29 21:03] LABS: INR 0.9 (<1.2); Partial Thromboplastin Time 22.8 sec (22.0-30.0); Prothrombin Time 10.5 sec (10.0-12.5)
[2023-09-29] MEDS: ONDANSETRON 4 MG/2 ML VIAL IVP STA (21:18)
[2023-09-29 21:32] LABS: Lipase 2507 U/L (23-300)
[2023-09-29 21:39] LABS: Appearance,Urine Clear (Clear); Bilirubin,Urine Negative (Negative); Blood,Urine Negative (Negative); Color,Urine Light Yellow; Glucose,Urine (UA) Negative (Negative); Ketones,Urine Negative (Negative); Leukocyte Esterase,Urine Negative (Negative); Nitrite,Urine Negative (Negative); Protein,Urine Negative (Negative); Specific Gravity,Urine 1.023 (1.001-1.035); Urobilinogen,Urine <2.0 mg/dL (<2.0)
[2023-09-29] MEDS: NITROGLYCERIN SL TABS 0.4 MG TAB SUBLINGUAL PRN (21:42)
[2023-09-29] MEDS: ASPIRIN 81 MG PO STA (21:49)
--- NOTE | 2023-09-29 22:17 | CT ---
EXAM: CT Abdomen and Pelvis With Intravenous Contrast CLINICAL HISTORY: ITS.REASON CT Reason: pancreatitis TECHNIQUE: Axial computed tomography images of the abdomen and pelvis with intravenous contrast. CTDI is 20.7 mGy and DLP is 1055.5 mGy-cm. This CT exam was performed using one or more of the following dose reduction techniques: automated exposure control, adjustment of the mA and/or kV according to patient size, and/or use of iterative reconstruction technique. COMPARISON: No relevant prior studies available. FINDINGS: Lung bases: Unremarkable. No mass. No consolidation. ABDOMEN: Liver: Hepatic steatosis. Gallbladder and bile ducts: Cholecystectomy. No ductal dilation. Pancreas: Unremarkable. No mass. No ductal dilation. Spleen: Unremarkable. No splenomegaly. Adrenals: Unremarkable. No mass. Kidneys and ureters: Nonobstructing 4 mm RIGHT upper pole renal stone. No hydronephrosis or delayed nephrogram. Stomach and bowel: Diverticulosis, without acute diverticulitis. No bowel obstruction. No free air. PELVIS: Appendix: No acute appendicitis. Bladder: Unremarkable. No mass. Reproductive: Unremarkable as visualized. ABDOMEN and PELVIS: Intraperitoneal space: See above. Bones/joints: Degenerative changes of the spine. No acute fracture. No dislocation. Soft tissues: Unremarkable. Vasculature: Atherosclerotic changes of the aorta. No abdominal aortic aneurysm. Lymph nodes: Unremarkable. No enlarged lymph nodes. IMPRESSION: 1. No hydronephrosis or delayed nephrogram. 2. Cholecystectomy. 3. Nonobstructing 4 mm RIGHT upper pole renal stone. 4. Diverticulosis, without acute diverticulitis. No bowel obstruction. No free air.
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
[2023-09-29] MEDS ORDERED: NALOXONE 0.4 MG/ML 1 ML VIAL IV PRN (22:19)
[2023-09-29] MEDS ORDERED: ONDANSETRON 4 MG/2 ML VIAL IVP PRN (22:29)
[2023-09-29] MEDS: HEPARIN SOD,PORK IN 0.45% NACL 25,000 UNIT in 0.45% NACL 1 250ML.BAG IV SCH (22:30)
[2023-09-29] MEDS: HEPARIN SODIUM 1,000 UN/ML (10ML VL) IV ONE (22:30)
[2023-09-29] MEDS: SODIUM CHLORIDE 0.9% 1,000 ML IV SCH (23:54)
[2023-09-29] MEDS: atenoloL 50 MG TAB PO SCH (23:57)
[2023-09-29] MEDS: ATORVASTATIN 20 MG TAB PO SCH (23:57)
[2023-09-29] MEDS: NITROGLYCERIN OINT 1 INCH/GM PACKET TOPICAL SCH (23:58)
[2023-09-30 03:16] LABS: Basophils # (A) 0.1 k/uL (0-0.2); Basophils % (A) 1 %; Eosinophils # (A) 0.1 k/uL (0-0.7); Eosinophils % (A) 1 %; HCT 40.8 % (39.0-53.0); HGB 13.9 gm/dL (13.0-17.5); Lymphocytes # (A) 2.8 k/uL (1.0-4.8); Lymphocytes % (A) 25 %; MCH 30.5 pg (25.0-35.0); MCHC 34.1 g/dL (31.0-37.0); MCV 89.3 fL (80.0-100.0); Mean Platelet Volume 9.7; Monocytes # (A) 0.7 k/uL (0-1.0); Monocytes % (A) 6 %; Neutrophils # (A) 7.7 k/uL (1.3-7.7); Neutrophils % (A) 67 %; Platelet Count 159 k/uL (150-450); RBC 4.57 m/uL (4.30-5.90); WBC 11.5 k/uL (3.8-10.6)
[2023-09-30 03:42] LABS: Partial Thromboplastin Time 55.4 sec (22.0-30.0)
[2023-09-30 03:49] LABS: African American GFR (CKD) >90 (>60 ml/min/1.73 sqM); Anion Gap 4 mmol/L; Blood Urea Nitrogen 16 mg/dL (9-20); Calcium 8.9 mg/dL (8.4-10.2); Carbon Dioxide 25 mmol/L (22-30); Chloride 110 mmol/L (98-107); Glucose 105 mg/dL (74-99); Non-African American GFR(CKD) >90 (>60 ml/min/1.73 sqM); Sodium 139 mmol/L (137-145)
[2023-09-30 08:41] LABS: ALT 26 U/L (4-49); AST 25 U/L (17-59); African American GFR (CKD) >90 (>60 ml/min/1.73 sqM); Albumin 3.7 g/dL (3.5-5.0); Alkaline Phosphatase 90 U/L (38-126); Anion Gap 3 mmol/L; Blood Urea Nitrogen 15 mg/dL (9-20); Calcium 9.1 mg/dL (8.4-10.2); Carbon Dioxide 26 mmol/L (22-30); Chloride 110 mmol/L (98-107); Glucose 99 mg/dL (74-99); Lipase 432 U/L (23-300); Non-African American GFR(CKD) >90 (>60 ml/min/1.73 sqM); Sodium 139 mmol/L (137-145); Total Bilirubin 0.7 mg/dL (0.2-1.3); Total Protein 6.4 g/dL (6.3-8.2)
[2023-09-30] MEDS: ACETAMINOPHEN TAB 325 MG TAB PO PRN (08:49)
[2023-09-30] MEDS: ASPIRIN 81 MG PO SCH (08:49)
[2023-09-30] MEDS: lisinopriL 20 MG TAB PO SCH (08:49)
[2023-09-30] MEDS: PANTOPRAZOLE 40 MG/10 ML VIAL IV SCH (08:50)
[2023-09-30] MEDS ORDERED: NITROGLYCERIN SL TABS 0.4 MG TAB SUBLINGUAL PRN (09:00)
[2023-09-30] MEDS: ASPIRIN 325 MG TAB PO STA (09:04)
[2023-09-30] MEDS: ATORVASTATIN 80 MG TAB PO STA (09:07)
[2023-09-30] MEDS: NICOTINE 21MG/24HR PATCH TRANSDERM SCH (09:14)
[2023-09-30] MEDS: SODIUM CHLORIDE 0.9% 1,000 ML in EMPTY BAG 1 BAG IV SCH (09:15)
[2023-09-30 09:31] LABS: Glucose,Whole Blood 152 mg/dL (70-110)
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
[2023-09-30] MEDS: SODIUM CHLORIDE 0.9% 1,000 ML IV ONE (12:28)
[2023-09-30] MEDS ORDERED: fentaNYL (PF) 50 MCG/ML 2 ML AMP ONE (13:00)
[2023-09-30] MEDS ORDERED: HEPARIN SODIUM 1,000 UN/ML (10ML VL) ONE (13:00)
[2023-09-30] MEDS ORDERED: LIDOCAINE 1% INJ 10MG/ML (20 ML MDV) ONE (13:00)
[2023-09-30] MEDS ORDERED: VERAPAMIL 2.5 MG/ML 2 ML AMP ONE (13:00)
[2023-09-30] MEDS: MIDAZOLAM 2 MG/2 ML VIAL IVP ONE (13:09)
[2023-09-30] MEDS: LIDOCAINE 1% INJ 10MG/ML (20 ML MDV) SQ ONE (13:09)
[2023-09-30] MEDS: fentaNYL (PF) 50 MCG/ML 2 ML AMP IVP ONE (13:09)
[2023-09-30] MEDS: VERAPAMIL SYRINGE (5 MG/10 ML) INTRAARTER ONE (13:12)
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
[2023-09-30] MEDS: HEPARIN SODIUM 1,000 UN/ML (10ML VL) IVP ONE (13:26)
[2023-09-30] MEDS: IOPAMIDOL-370 100ML BTL INJ ONE (13:28)
[2023-09-30] MEDS ORDERED: RX INFO: IV CONTRAST WAS GIVEN 1 EACH MISC MISCELLANE PRN (13:35)
--- NOTE | 2023-09-30 13:41 | P.PCN ---
Date of Procedure: 09/30/23 Operative Findings: CARDIAC CATHETERIZATION PERFORMING PHYSICIAN: Ray Berman MD, RPVI PROCEDURE PERFORMED: 1. Selective right and left coronary angiogram 2. Left heart catheterization 3. Ultrasound-guided access of the right radial artery INDICATION: Acute non-ST elevation myocardial infarction COMPLICATION: None APPROACH: Right radial artery LEVEL OF SEDATION: Moderate with a sedation length of [] minutes PROCEDURE DESCRIPTION: After obtaining an informed consent, the patient was brought to cardiac labour market economist. Local anesthesia was performed using lidocaine subcutaneously. The right radial artery was cannulated using Seldinger technique, the guidewire passed easily, following that we advanced a 5-Austrian sheath dilator assembly, the wire and dilator were removed and sheath was flushed. Following that, 2 mg of verapamil along with 4000 unit heparin were given. Selective right and left coronary angiogram using a 6-Austrian JR4 and JL 3.5 catheters. Following that we did left heart catheterization using 6-Austrian pigtail catheter. The procedure was completed there was no complication. SELECTIVE CORONARY ANGIOGRAM: The right coronary artery: Large-caliber vessel and nondominant vessel with severe disease in the midportion Left main: It is hard to exclude disease involving the distal left main coronary artery The left circumflex: Large-caliber vessel and a dominant vessel. The proximal left circumflex has a critical lesion appears to be in the range of 80 to 90%. This is just proximal to the bifurcation of the first obtuse marginal branch which appears to have mild disease only. The distal left circumflex appears to have mild disease only. The ramus intermedius: Appears to have mild to moderate disease with no high-grade stenosis identified The left anterior descending artery: Large-caliber vessel. The ostial and proximal LAD has a tubular lesion appears to be up to about 80%. The mid and distal LAD appeared to have mild disease only. HEMODYNAMICS: LVEDP was 18 mmHg with no significant gradient across aortic valve CONCLUSION: 1. Severe two-vessel's coronary artery disease involving a dominant left circumflex and left anterior descending artery 2. Mildly elevated left-sided filling pressure POSTPROCEDURE MANAGEMENT: Medical treatment Consult surgery for the evaluation of CABG
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
[2023-09-30] MEDS: SODIUM CHLORIDE 0.9% 1,000 ML IV SCH (16:01)
--- NOTE | 2023-09-30 16:40 | US ---
EXAMINATION TYPE: US vein mapping BIL DATE OF EXAM: 09/30/2023 4:24 PM COMPARISON: NONE CLINICAL INDICATION: Male, 48 years old with history of preop cardiac surgery; Pre op cardiac surgery SIDE PERFORMED: bilateral TECHNIQUE: Lower extremity saphenous vein is examined and measured utilizing real time linear array sonography. Patient History: Previous DVT: no Vascular Surgery: no Discoloration: no Hypertension: yes Diabetes: no Paralysis: no Varicosities: no Edema: no DUPLEX FINDINGS: Greater Saphenous: Color flow seen Measurements in mm: Right Greater Saphenous: Groin: 5.4 x 4.8 mm High Thigh: 3.4 x 2.7 mm Mid Thigh: 3.7 x 3.2 mm Above Knee: 3.5 x 3.1 mm Knee: 3.4 x 2.8 mm Below Knee: 2.3 x 1.9 mm Mid Calf: 2.0 x 1.8 mm At Ankle: 2.4 x 2.1 mm Left Greater Saphenous: Groin: 5.7 x 5.3 mm High Thigh: 3.1 x 2.9 mm Mid Thigh: 2.5 x 2.1 mm Above Knee: 3.1 x 2.5 mm Knee: 3.1 x 2.5 mm Below Knee: 3.0 x 2.7 mm Mid Calf: 3.1 x 2.6 mm At Ankle: 3.1 x 2.6 mm IMPRESSION: 1. Bilateral GSV measurements listed above. 2. Performing surgeon to determine viability as conduit.
--- NOTE | 2023-09-30 16:41 | US ---
EXAMINATION TYPE: Pre-Operative Non-Invasive Evaluation of the hand for Potential Radial Artery Piyush almeida, Measurements only DATE OF EXAM: 09/30/2023 4:24 PM CLINICAL INDICATION: Male, 48 years old with history of measurements only; pre op cardiac surgery SIDE PERFORMED: left TECHNIQUE: Radial artery is measured utilizing real time linear array sonography. Dominant hand: right Duplex Findings: Radial Artery: Color flow seen Measurements in mm, transverse view: Left Radial: Proximal: 3.7 x 3.6 mm Mid: 3.5 x 2.9 mm Distal: 3.0 x 3.2 mm IMPRESSION: 1. Left radial artery measurements listed above. 2. Performing surgeon to determine viability as conduit.
--- NOTE | 2023-09-30 16:42 | US ---
EXAMINATION TYPE: US carotid duplex BILAT DATE OF EXAM: 09/30/2023 COMPARISON: NONE CLINICAL INDICATION: Male, 48 years old with history of preop cardiac surgery; pre op cardiac surgery TECHNIQUE: Carotid duplex ultrasound examination. Indirect Doppler criteria was utilized. FINDINGS: EXAM MEASUREMENTS: RIGHT: Peak Systolic Velocity (PSV) cm/sec ----- Right CCA: 62.7 ----- Right ICA: 82.3 ----- Right ECA: 84.5 ICA/CCA ratio: 1.3 RIGHT: End Diastole cm/sec ----- Right CCA: 23.5 ----- Right ICA: 36.2 ----- Right ECA: 18.6 LEFT: Peak Systolic Velocity (PSV) cm/sec ----- Left CCA: 83.4 ----- Left ICA: 73.5 ----- Left ECA: 95.6 ICA/CCA ratio: 0.9 LEFT: End Diastole cm/sec ----- Left CCA: 27.4 ----- Left ICA: 38.4 ----- Left ECA: 21.9 VERTEBRALS (direction of flow): Right Vertebral: Antegrade Left Vertebral: Antegrade Rhythm: Normal COMPOSITOR APPRENTICE NOTES: Mild plaque bilateral bifurcations. No evidence of significant stenosis IMPRESSION: Less than 50% stenosis of the bilateral carotid bifurcations. Criteria for Assigning % of Stenosis / Diameter reduction (Estimation based on the indirect measurements of the internal carotid artery velocities (ICA PSV). 1. Normal (no stenosis)=ICA PSV < 125 cm/s: ratio < 2.0: ICA EDV<40 cm/s. 2. Less than 50% stenosis=ICA PSV < 125 cm/s: ratio < 2.0: ICA EDV<40 cm/s. 3. 50 to 69% stenosis=ICA PSV of 125 to 230 cm/s: ration 2.0 ? 4.0: ICA EDV 40-100 cm/s. 4. Greater than 70% stenosis to near occlusion= ICA PSV > 230 cm/s: ratio > 4.0: ICA EDV > 100 cm/s. 5. Near occlusion= ICA PSV velocities may be low or undetectable: variable ratio and ICA EDV. 6. Total occlusion=unable to detect flow.
--- NOTE | 2023-09-30 17:27 | CT ---
EXAMINATION TYPE: CT chest wo con CT DLP: 375 mGycm, Automated exposure control for dose reduction was used. DATE OF EXAM: 09/30/2023 5:17 PM COMPARISON: 09/29/2023 radiograph CLINICAL INDICATION:Male, 48 years old with history of assess aorta for clampability; PHH, Assess aor ta for clampability. TECHNIQUE: Multiple axial images were obtained through the chest. Sagittal and coronal reformats were created for review. Contrast used: mL of (None if empty) Oral contrast used: (None if empty) FINDINGS: LUNGS/ PLEURA: Mild dependent paraseptal emphysema changes. No evidence for focal consolidation, pneu mothorax or pleural fusion. AIRWAY: Patent and unremarkable. HEART: Size within normal limits. MEDIASTINUM: No gross evidence of adenopathy. VASCULATURE: No aortic aneurysm. The ascending thoracic aorta measures up to 29 mm. No evidence for descending thoracic aorta aneurysm. There is a three-vessel aortic arch. Minimal atherosclerosis note d. MUSCULOSKELETAL: No acute osseous abnormalities SOFT TISSUES/LYMPH NODES: Unremarkable. LOWER NECK: No significant findings. UPPER ABDOMEN: No significant findings. IMPRESSION: 1. No evidence for aortic aneurysm. 2. Three-vessel aortic arch with minimal atherosclerotic ossifications. 3. Mild emphysema.
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
[2023-10-01 03:56] LABS: HCT 42.4 % (39.0-53.0); HGB 13.8 gm/dL (13.0-17.5); MCH 29.7 pg (25.0-35.0); MCHC 32.6 g/dL (31.0-37.0); MCV 91.1 fL (80.0-100.0); Mean Platelet Volume 9.1; Platelet Count 150 k/uL (150-450); RBC 4.66 m/uL (4.30-5.90); RDW 13.7 % (11.5-15.5); WBC 10.3 k/uL (3.8-10.6)
[2023-10-01 04:06] LABS: ALT 23 U/L (4-49); AST 21 U/L (17-59); African American GFR (CKD) >90 (>60 ml/min/1.73 sqM); Albumin 3.5 g/dL (3.5-5.0); Alkaline Phosphatase 97 U/L (38-126); Anion Gap 3 mmol/L; Blood Urea Nitrogen 15 mg/dL (9-20); Calcium 8.5 mg/dL (8.4-10.2); Carbon Dioxide 26 mmol/L (22-30); Chloride 111 mmol/L (98-107); Glucose 141 mg/dL (74-99); Lipase 163 U/L (23-300); Magnesium 1.8 mg/dL (1.6-2.3); Non-African American GFR(CKD) >90 (>60 ml/min/1.73 sqM); Potassium 3.6 mmol/L (3.5-5.1); Sodium 140 mmol/L (137-145); Total Bilirubin 0.5 mg/dL (0.2-1.3); Total Protein 6.1 g/dL (6.3-8.2)
[2023-10-01] MEDS ORDERED: HEPARIN SODIUM,PORCINE 10,000 UNIT in SODIUM CHLORIDE 0.9% 1,000 ML IRRIGATION PRN (07:00)
[2023-10-01] MEDS ORDERED: HEPARIN SODIUM,PORCINE (1 ML) 2,500 UNIT in SODIUM CHLORIDE 0.9% 250 ML IRRIGATION PRN (07:00)
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
--- NOTE | 2023-10-01 08:30 | US ---
EXAMINATION TYPE: US arterial LE single level DATE OF EXAM: 10/01/2023 8:08 AM CLINICAL INDICATION: Male, 48 years old with history of Ankle Brachial Index (IGNACIA); Pre op cardiac centeno rgery History of: Smoker: Current Hypertension: Yes Diabetic: No Hyperlipidemia: Yes TIA/CVA: No MD: Yes Doppler Waveforms: Right: Multiphasic Left: Multiphasic Right Brachial Pressure: Deferred due to recent heart cath Left Brachial Pressure: 160 Ankle-Brachial Indices: Right: 1.10 Left: 1.15 (Vessel hardening > 1.4; Normal 0.9 - 1.4, Moderate 0.7 - 0.9, Severe 0.5-0.7) IMPRESSION: Normal ankle-brachial indices bilaterally.
[2023-10-01 09:03] LABS: Hepatitis A Antibody IgM Nonreactive (Nonreactive); Hepatitis B Core IgM Nonreactive (Nonreactive); Hepatitis B Surface Antigen Nonreactive (Nonreactive); Hepatitis C IgG Antibody Nonreactive (Nonreactive)
[2023-10-01 09:18] LABS: Chol/HDL Ratio 3.06 Ratio; LDL Cholesterol,Calculated 52.8 mg/dL (0.0-131.0)
--- NOTE | 2023-10-01 09:58 | P.PN ---
Subjective Progress Note Date: 10/01/23 Principal diagnosis: Coronary artery disease, non-STEMI this admission, elevated lipase. 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 Denies any pain or shortness of breath currently. Remains in sinus rhythm, on room air. Ambulating without difficulty. Patient was seen yesterday by Dr. Arzola with recommendations for open heart surgery this admission, tentatively scheduled for . All questions were answered. 5 m walk test completed, #1 4.6 seconds, #2 4.5 sec, #3 4.2 sec. No other new concerns. Objective - Vital Signs Vital signs: Vital Signs Temp 98.4 F 10/01/23 08:00 Pulse 75 10/01/23 08:00 Resp 16 10/01/23 08:00 BP 130/71 10/01/23 08:00 Pulse Ox 97 10/01/23 08:00 FiO2 Intake & Output 09/30/23 10/01/23 10/01/23 18:59 06:59 18:59 Intake Total 380 647.042 240 Balance 380 647.042 240 Weight 90.718 kg Intake: IV 200 Intake, IV Titration 647.042 Amount Heparin Sod,Pork in 0.45% 297.042 NaCl 25,000 unit In 0.45 % NaCl 1 250ml.bag @ 11 UNITS/KG/HR 9.979 mls/hr IV .Q24H [facility] Rx#: [id number] Sodium Chloride 0.9% 1, 350 000 ml @ 75 mls/hr IV . [id number] [facility] Rx#:[id number] Oral 180 240 Other: Voiding Method Toilet # Voids 1 - Exam CONSTITUTIONAL: Appears comfortable, cooperative, no acute distress RESPIRATORY: Lungs sounds diminished bilaterally. Respirations even, nonlabored. Currently on room air with oxygen saturation 97%. Able to achieve 3000 mL on incentive spirometry. Strong cough. CARDIOVASCULAR: S1, S2 present. Regular rate and rhythm, sinus rhythm on telemetry. Palpable peripheral pulses bilaterally. No edema present. No calf pain or tenderness noted GASTROINTESTINAL: Abdomen soft, nontender, nondistended. Active bowel sounds present 4 quadrants. Tolerating diet GENITOURINARY: Continues to void INTEGUMENTARY: Skin is warm and dry NEUROLOGIC: Cranial nerves II through XII intact MUSKULOSKELETAL: Able to move all extremities, strength equal bilaterally, gait normal PSYCHIATRIC: Alert and oriented to person place and time, appropriate affect, intact judgment and insight - Allied health notes Allied health notes reviewed: nursing - Labs CBC & Chem 7: 10/01/23 03:30 10/01/23 03:30 Labs: Abnormal Lab Results - Last 24 Hours (Table) 10/01/23 10/01/23 10/01/23 Range/Units 03:30 03:30 03:30 APTT 31.7 H (22.0-30.0) sec Chloride 111 H (98-107) mmol/L Glucose 141 H (74-99) mg/dL Hemoglobin A1c 6.1 H (<=6.0) % Total Protein 6.1 L (6.3-8.2) g/dL HDL Cholesterol 39.20 L (40.00-60.00) mg/dL Assessment and Plan Assessment: Coronary artery disease, non-STEMI this admission Elevated lipase, trending down Hypertension Hyperlipidemia, treated, cholesterol 120, LDL 53 Pancreatitis Chronic low back pain Current tobacco dependence, preoperative FEV1 85% of predicted Current daily marijuana use Family history of premature coronary artery disease Plan: Continue to maximize medical therapy with aspirin, statin, beta-malina Increase activity as tolerated Encourage incentive spirometry use Reinforced smoking cessation education Preoperative teaching continues Currently our plan is for off-pump myocardial revascularization with left internal mammary artery and endoscopic vein harvest, ligation of the left atrial appendage by Dr. Arzola on September Appreciate pulmonology recommendations Medical management of other comorbidities per internal medicine, GI, cardiology, pulmonology More recommendations to follow
--- NOTE | 2023-10-01 11:17 | P.PN ---
Subjective HISTORY OF PRESENT ILLNESS: This is a 48-year-old male with a past medical history significant for hypertension, hyperlipidemia, GERD, pancreatitis, and nicotine dependence. Patient used to follow in the office with Dr. Dhillon but does not follow with a eligibility and occupancy interviewer at this time. We have been asked to see the patient in consultation for elevated troponins. Patient examined at the bedside in the emergency room. Patient states about 5 days ago he had an episode of heartburn. He states that he took Tums with relief of his pain. He states over the course of the last few days he continues to have these episodes of heartburn and each time it comes back it is worse than prior. The patient does report the pain occurs each time after he eats something. He states yesterday he ate pizza for lunch. He states afterwards he took Tums but did not have any relief. He does report feeling short of breath and also having some chest discomfort. He denied feeling diaphoretic. He reports a family history of CAD in his dad. Patient is a [place] cigarette smoker and smokes 1 pack/day. DIAGNOSTICS: - EKG reveals sinus mechanism with nonspecific ST-T wave changes. - Chest xray negative for acute process. - Laboratory data: WBC 11.5. Hemoglobin 13.9. Platelet count 159. Sodium 139. Potassium 4.0. BUN 15. Creatinine 0.87. Troponin 0.338. 0.573. Lipase 2503. - Current home cardiac medications include lisinopril 20 mg daily, Lipitor 40 mg at night, atenolol 50 mg at night. - Patient underwent stress echocardiogram in May 2021 which was negative for ischemia 10/01/2023 Patient is status postcardiac catheterization with Dr. Berman yesterday revealing severe two-vessel coronary artery disease involving a dominant left circumflex and left anterior descending artery. Mildly elevated left-sided filling pressures. CT surgery was consulted for CABG evaluation. Patient examined this morning at bedside. Patient denies chest pain or pressure. He denies shortness of breath. Vital signs are stable. Telemetry reveals sinus mechanism. PHYSICAL EXAM: VITAL SIGNS: Reviewed. GENERAL: Well-developed in no acute distress. HEENT: Head is normocephalic. Pupils are equal, round. Sclerae anicteric. Mucous membranes of the mouth are moist. Neck supple. No JVD or thyromegaly LUNGS: Respirations even and unlabored. Lungs essentially clear to auscultation bilaterally. HEART: Regular rate and rhythm. S1 and S2 heard. ABDOMEN: Soft. Nondistended. Nontender. EXTREMITIES: Normal range of motion. No clubbing or cyanosis. Peripheral pulses intact. No lower extremity edema NEUROLOGIC: Awake and alert. Oriented x 3. ASSESSMENT: Non-STEMI, s/p cardiac catheterization as above Pancreatitis Hypertension Hyperlipidemia GERD History of pancreatitis Nicotine dependence PLAN: 2D echo has been ordered. Await results. Continue IV heparin Continue current cardiac medications Patient is tentatively scheduled for CABG on Further recommendations pending patient course Nurse practitioner note has been reviewed by physician. Signing provider agrees with the documented findings, assessment, and plan of care documented by INTERACTIVE MEDIA DIRECTOR as a scribe. Objective - Vital Signs Vital signs: Vital Signs Temp 98.4 F 10/01/23 08:00 Pulse 75 10/01/23 08:00 Resp 16 10/01/23 08:00 BP 130/71 10/01/23 08:00 Pulse Ox 97 10/01/23 08:00 FiO2 Intake & Output 09/30/23 10/01/23 10/01/23 18:59 06:59 18:59 Intake Total 380 647.042 240 Balance 380 647.042 240 Weight 90.718 kg Intake: IV 200 Intake, IV Titration 647.042 Amount Heparin Sod,Pork in 0.45% 297.042 NaCl 25,000 unit In 0.45 % NaCl 1 250ml.bag @ 11 UNITS/KG/HR 9.979 mls/hr IV .Q24H [facility] Rx#: [id number] Sodium Chloride 0.9% 1, 350 000 ml @ 75 mls/hr IV . [id number] [facility] Rx#:[id number] Oral 180 240 Other: Voiding Method Toilet # Voids 1 - Labs CBC & Chem 7: 10/01/23 03:30 10/01/23 03:30 Labs: Abnormal Lab Results - Last 24 Hours (Table) 10/01/23 10/01/23 10/01/23 Range/Units 03:30 03:30 03:30 APTT 31.7 H (22.0-30.0) sec Chloride 111 H (98-107) mmol/L Glucose 141 H (74-99) mg/dL Hemoglobin A1c 6.1 H (<=6.0) % Total Protein 6.1 L (6.3-8.2) g/dL HDL Cholesterol 39.20 L (40.00-60.00) mg/dL
[2023-10-01] MEDS ORDERED: DEXTROSE 50% SYRINGE 50 ML IVP PRN ×2 (12:30)
[2023-10-01] MEDS: HEPARIN SODIUM 1,000 UN/ML (10ML VL) IV PRN (12:32)
--- NOTE | 2023-10-01 12:41 | P.PN ---
Subjective Progress Note Date: 10/01/23 H&P Date: 09/30/23 Chief Complaint: Chest pain This is a pleasant 48-year-old gentleman with past medical history significant for family history of CAD ,nicotine dependence, chronic low back pain, hypertension, hyperlipidemia and multiple other medical issues presented to the ER with complaints of midsternal chest pain radiating through to his back actuat ing off and on for the last 5 days, worsened yesterday, accompanied by nausea and throwing up of his own sputum. Previously relieved with Tums. Reports occurs with exertion and at rest, before and after eating. elevated troponins and elevated lipase of 2507 with normal LFTs on admission, decreased down to 432. Troponin 0.338, 0.573 . EKG reported sinus rhythm, nonspecific ST-T wave changes as per cardiology's review. Chest x-ray reported nonacute. history of prior pancreatitis status postcholecystectomy 2015, pathology reported no stones. Reports occasional alcohol use of a couple beers.CT abdomen pelvis with contrast reports no hydronephrosis or delayed nephrogram. Cholecystectomy. Nonobstructing 4 mm right upper pole renal stone. Diverticulosis without acute diverticulitis. No bowel obstruction. No free air. Afebrile, WBC 11.5, hemoglobin 13.9, platelets 159, INR 1. Sodium 139, potassium 4, bicarb 26, BUN 15, creatinine 0.87. UA negative 10/01/2023 completed cardiac catheterization reporting severe CAD of dominant left circumflex and LAD. Evaluated by cardiothoracic surgery and patient is tentatively scheduled for CABG on . Anticoagulated on heparin drip. Telemetry sinus rhythm. Currently denies any chest pain, palpitations or shortness of breath. Lipase normalized, 163. Denies abdominal pain. Denies nausea vomiting or diarrhea. Hemoglobin A1c 6.1, blood sugars controlled. Objective - Vital Signs Vital signs: Vital Signs Temp 98.0 F 10/01/23 04:00 Pulse 60 10/01/23 04:11 Resp 16 10/01/23 04:11 BP 117/66 10/01/23 04:00 Pulse Ox 97 10/01/23 04:00 FiO2 Intake & Output 09/30/23 10/01/23 10/01/23 18:59 06:59 18:59 Intake Total 380 647.042 Balance 380 647.042 Weight 90.718 kg Intake: IV 200 Intake, IV Titration 647.042 Amount Heparin Sod,Pork in 0.45% 297.042 NaCl 25,000 unit In 0.45 % NaCl 1 250ml.bag @ 11 UNITS/KG/HR 9.979 mls/hr IV .Q24H [facility] Rx#: [id number] Sodium Chloride 0.9% 1, 350 000 ml @ 75 mls/hr IV . [id number] [facility] Rx#:[id number] Oral 180 Other: Voiding Method Toilet # Voids 1 - Exam GENERAL: Alert and oriented x 3, sitting up in bed,NAD HEENT: Atraumatic, normocephalic, Pupils equal round, reactive to light,sclera anicteric, normal conjunctiva. NECK: Supple, no JVD. LUNGS: Unlabored, equal air entry, CTA. HEART: Regular rate and rhythm without murmurs, rubs or gallops.S1S2 Normal ABDOMEN: Soft, nondistended, nontender, no guarding, no rigidity, positive bowel sounds EXTREMITIES: No pitting or edema. No clubbing or cyanosis. NEUROLOGICAL: Cranial nerves II through XII grossly intact. No focal deficits. SKIN: Warm, Dry,no rashes noted. - Labs CBC & Chem 7: 10/01/23 03:30 10/01/23 03:30 Labs: Abnormal Lab Results - Last 24 Hours (Table) 09/30/23 09/30/23 09/30/23 Range/Units 07:45 07:45 09:29 APTT 40.4 H (22.0-30.0) sec Chloride 110 H (98-107) mmol/L Glucose (74-99) mg/dL POC Glucose (mg/dL) 152 H (70-110) mg/dL Total Protein (6.3-8.2) g/dL Lipase 432 H (23-300) U/L 10/01/23 10/01/23 Range/Units 03:30 03:30 APTT 31.7 H (22.0-30.0) sec Chloride 111 H (98-107) mmol/L Glucose 141 H (74-99) mg/dL POC Glucose (mg/dL) (70-110) mg/dL Total Protein 6.1 L (6.3-8.2) g/dL Lipase (23-300) U/L Assessment and Plan Assessment: Elevated troponins, acute NSTEMI, status post cardiac cath reporting multivessel CAD including severe CAD of dominant left circumflex and LAD, CABG pending Diabetes mellitus, new onset, hemoglobin A1c 6.1 Acute pancreatitis, in a patient with prior history of pancreatitis status post cholecystectomy 2015. Etiology unclear, resolved Hypertension Hyperlipidemia Ongoing nicotine dependence Gastroesophageal reflux disease Plan: Continue on current medication regimen ,monitoring and symptomatic treatment. Echo pending .Anticoagulated on heparin drip. CABG scheduled for . Aggressive pulmonary toileting with incentive spirometer reinforced. Smoking cessation reinforced. Diet adjusted to include consistent carb and placed on NovoLog sliding scale .prognosis guarded given multiple complex m edical issues. The impression and plan of care has been dictated as directed. : I performed a history and examination of this patient, discussed the same with the dictator. I agree with the dictator's note ,documented as a scribe. Any additional findings or plans will be noted.
--- NOTE | 2023-10-01 14:20 | P.PN ---
Subjective Progress Note Date: 10/01/23 Principal diagnosis: Pancreatitis This is a pleasant 48-year-old male who presented to the emergency department with complaints of chest pain that radiated to his back. He was admitted with NSTEMI, noted to have elevated troponins and elevated lipase at 2507. He underwent a CT of the abdomen pelvis that showed no acute findings. He does have a history of cholecystectomy done in 2016 with pathology reporting no stones noted. He has had history in the past of abdominal pain and chronic diarrhea and underwent an EGD and colonoscopy and on 05/01/[address] Marcano. Upper endoscopy revealed mild antral gastritis and small amount of retained food consistent with gastroparesis. Colonoscopy with findings of colon polyp status post polypectomy. Patient does state that he had pancreatitis before and cyst was told it was from his gallbladder that is when he had his gallbladder removed. He denies any regular alcohol use and no recent new medications. Today's labs WBC 11.5 hemoglobin 13.9 hematocrit 40 platelet count 159,000 INR 1.0 sodium 139 potassium 4.0 BUN 15 creatinine 0.87 total bilirubin 0.7 AST 25 ALT 26 alkaline phosphatase 90 lipase 432. 10/01/2023 Patient seen and examined today as a follow-up. Yesterday he underwent cardiac catheterization with findings of severe two-vessel coronary artery disease with consultation to cardiothoracic surgery who are planning on doing CABG this coming . Patient states abdominal pain is improved. He denies any chest pain at this time. No nausea or vomiting. LFTs and lipase normal. Lipase improved from 432 yesterday to 163 today. Objective - Vital Signs Vital signs: Vital Signs Temp 98.4 F 10/01/23 08:00 Pulse 75 10/01/23 08:00 Resp 16 10/01/23 08:00 BP 130/71 10/01/23 08:00 Pulse Ox 97 10/01/23 08:00 FiO2 Intake & Output 09/30/23 10/01/23 10/01/23 18:59 06:59 18:59 Intake Total 380 647.042 240 Balance 380 647.042 240 Weight 90.718 kg Intake: IV 200 Intake, IV Titration 647.042 Amount Heparin Sod,Pork in 0.45% 297.042 NaCl 25,000 unit In 0.45 % NaCl 1 250ml.bag @ 11 UNITS/KG/HR 9.979 mls/hr IV .Q24H [facility] Rx#: [id number] Sodium Chloride 0.9% 1, 350 000 ml @ 75 mls/hr IV . [id number] [facility] Rx#:[id number] Oral 180 240 Other: Voiding Method Toilet # Voids 1 - Exam General appearance: The patient is alert, oriented, appears in no acute distress. HET: Head is normocephalic and atraumatic. Conjunctiva pink. Sclera anicteric. Neck: Supple without lymphadenopathy. Abdomen: Soft, nontender, nondistended with bowel sounds. No guarding or rigidity. Extremities: Normal skin color and turgor. No pedal edema Skin: No rashes, no jaundice Neurological: No focal deficits. Alert and oriented. - Labs CBC & Chem 7: 10/01/23 03:30 10/01/23 03:30 Labs: Abnormal Lab Results - Last 24 Hours (Table) 10/01/23 10/01/23 10/01/23 Range/Units 03:30 03:30 03:30 APTT 31.7 H (22.0-30.0) sec Chloride 111 H (98-107) mmol/L Glucose 141 H (74-99) mg/dL Hemoglobin A1c 6.1 H (<=6.0) % Total Protein 6.1 L (6.3-8.2) g/dL HDL Cholesterol 39.20 L (40.00-60.00) mg/dL Assessment and Plan (1) Pancreatitis Narrative/Plan: 48-year-old male presenting with chest pain with elevated troponins and NSTEMI also noted to have elevated lipase on admission to as high as 2507. He had normal LFTs at that time. Previous history of pancreatitis related to g allbladder however no gallstones at that time. He is status post cholecystectomy in 2016 for cholecystitis. No reported alcohol use and no new medications. Unclear etiology of pancreatitis. Patient is being worked up by cardiology for NSTEMI and is scheduled to undergo cardiac catheterization. Will obtain triglycerides and MARTELL, IgG4. Pancreatitis resolved. Triglycerides 140, IgG4 normal and MARTELL negative Current Visit: Yes Status: Acute Code(s): K85.90 - ACUTE PANCREATITIS WITHOUT NECROSIS OR INFECTION, UNSP SNOMED Code(s): 22029450 (2) NSTEMI (non-ST elevated myocardial infarction) Current Visit: Yes Status: Acute Code(s): I21.4 - NON-ST ELEVATION (NSTEMI) MYOCARDIAL INFARCTION SNOMED Code(s): 70585234 Plan: 1. Continue symptomatic and supportive care 2. Patient may have heart healthy diet 3. Continue with workup and recommendations from cardiology 4. Pancreatitis resolved. No further workup indicated. 5. Rest of medical management per primary medical team Thank you for this consultation, we will sign off at this time. Dr. Kenn Marcano I agree with the dictator's note, documented as a scribe by Kathy Moeller.
[2023-10-01] MEDS: INSULIN ASPART (NovoLOG) 100 UNIT/ML VIAL SQ SCH (17:12)
--- NOTE | 2023-10-01 17:13 | CA ---
Transthoracic Echo Report Name: Alejandro Aden Age: 48 Gender: M : 1975 Exam Date: 09/30/2023 17:27 Exam Location: [facility] Ht (in): 70 Wt (lb): 200 Ordering Physician: Harris Truong MD Attending/Referring Phys: Recorder Hel[employer] Sruthi Cooper RDCS Procedure CPT: Indications: nstemi Cardiac Hx: Technical Quality: Technically difficult study Contrast 1: Definity Total Dose (mL): 2 Contrast 2: Total Dose (mL): MEASUREMENTS (Male / Female) Normal Values 2D ECHO LV Diastolic Diameter PLAX 4.5 cm 4.2 - 5.9 / 3.9 - 5.3 cm LV Systolic Diameter PLAX 3.0 cm IVS Diastolic Thickness 1.3 cm 0.6 - 1.0 / 0.6 - 0.9 cm LVPW Diastolic Thickness 1.0 cm 0.6 - 1.0 / 0.6 - 0.9 cm LV Relative Wall Thickness 0.5 RV Internal Dim ED PLAX 2.9 cm LA Volume 45.4 cm??? 18 - 58 / 22 - 52 cm??? LA Volume Index 21.3 cm???/m??? 16 - 28 cm???/m??? M-MODE Aortic Root Diameter MM 3.1 cm LA Systolic Diameter MM 3.7 cm LA Ao Ratio MM 1.2 AV Cusp Separation MM 2.7 cm DOPPLER AV Peak Velocity 134.7 cm/s AV Peak Gradient 7.3 mmHg AV Mean Velocity 90.1 cm/s AV Mean Gradient 3.8 mmHg AV Velocity Time Integral 26.4 cm LVOT Peak Velocity 93.0 cm/s LVOT Peak Gradient 3.5 mmHg LVOT Velocity Time Integral 19.6 cm MV Area PHT 2.8 cm??? Mitral E Point Velocity 93.1 cm/s Mitral A Point Velocity 98.4 cm/s Mitral E to A Ratio 0.9 MV Deceleration Time 275.2 ms MV E' Velocity 10.9 cm/s Mitral E to MV E' Ratio 8.6 FINDINGS Left Ventricle Mildly increased left ventricular wall thickness. Left ventricular cavity size normal. No obvious regional wall motion abnormalities. Left ventricular ejection fraction is estimated at 50-55 %. Grade 1 diastolic dysfunction. Right Ventricle Normal right ventricular size and function. Right ventricular systolic pressure within normal limits. Right Atrium Normal right atrial size. Left Atrium Normal left atrial size. Mitral Valve Structurally normal mitral valve. Mild mitral regurgitation. Mild mitral annular calcification. Aortic Valve Trileaflet aortic valve. No aortic valve stenosis or regurgitation. Tricuspid Valve Structurally normal tricuspid valve. Mild tricuspid regurgitation. Pulmonic Valve Structurally normal pulmonic valve. Pericardium No pericardial effusion. Aorta Normal size aortic root and proximal ascending aorta. CONCLUSIONS Normal LV function Mild mitral regurgitation Previewed by: Dr. Leonardo Marcano MD (Electronically Signed) Final Date: 01 October 2023 17:12
[2023-10-01 17:20] LABS: Glucose,Whole Blood 106 mg/dL (70-110)
[2023-10-01] MEDS: ALPRAZolam 0.25 MG TAB PO PRN (18:37)
[2023-10-01 20:04] LABS: Glucose,Whole Blood 121 mg/dL (70-110)
[2023-10-02 05:57] LABS: Glucose,Whole Blood 107 mg/dL (70-110)
--- NOTE | 2023-10-02 10:20 | P.PN ---
Subjective Progress Note Date: 10/02/23 Principal diagnosis: Coronary artery disease, non-STEMI this admission, elevated lipase. History of hypertension, hyperlipidemia, pancreatitis, chronic low back pain, current toba tobacco weigher dependence, current daily marijuana use, and family history of premature coronary artery disease The patient was seen and examined this morning sitting up in bed on the cardiac stepdown unit in no acute distress. Denies any pain or shortness of breath currently, does state he is very anxious for surgery tomorrow. Remains in sinus rhythm, on room air. Ambulating without difficulty. No other new concerns. Objective - Vital Signs Vital signs: Vital Signs Temp 97.9 F 10/02/23 08:00 Pulse 71 10/02/23 08:00 Resp 16 10/02/23 08:00 BP 141/73 10/02/23 08:00 Pulse Ox 98 10/02/23 09:37 FiO2 Intake & Output 10/01/23 10/02/23 10/02/23 18:59 06:59 18:59 Intake Total 894.062 241.356 180 Balance 894.062 241.356 180 Weight 90.718 kg 84.6 kg Intake: IV 50 0.9 50 Intake, IV Titration 174.062 191.356 Amount Heparin Sod,Pork in 0.45% 174.062 191.356 NaCl 25,000 unit In 0.45 % NaCl 1 250ml.bag @ 11 UNITS/KG/HR 9.979 mls/hr IV .Q24H [facility] Rx#: [id number] Oral 720 180 Other: Voiding Method Toilet Toilet Toilet # Voids 3 1 0 - Exam CONSTITUTIONAL: Appears comfortable, cooperative, no acute distress RESPIRATORY: Lungs sounds diminished bilaterally. Respirations even, nonlabored. Currently on room air with oxygen saturation 98%. Able to achieve 4000 mL on incentive spirometry. Strong cough. CARDIOVASCULAR: S1, S2 present. Regular rate and rhythm, sinus rhythm on telemetry. Palpable peripheral pulses bilaterally. No edema present. No calf pain or tenderness noted GASTROINTESTINAL: Abdomen soft, nontender, nondistended. Active bowel sounds present 4 quadrants. Tolerating diet GENITOURINARY: Continues to void INTEGUMENTARY: Skin is warm and dry NEUROLOGIC: Cranial nerves II through XII intact MUSKULOSKELETAL: Able to move all extremities, strength equal bilaterally, gait normal PSYCHIATRIC: Alert and oriented to person place and time, appropriate affect, intact judgment and insight - Labs CBC & Chem 7: 10/01/23 03:30 10/01/23 03:30 Labs: Abnormal Lab Results - Last 24 Hours (Table) 10/01/23 10/01/23 10/01/23 Range/Units 03:30 11:06 18:29 APTT 41.3 H 71.6 H (22.0-30.0) sec POC Glucose (mg/dL) (70-110) mg/dL IgG2 155.80 L (241.80-700.30) mg/dL IgG3 10.40 L (21.82-176.00) mg/dL 10/01/23 10/02/23 Range/Units 20:02 05:34 APTT 67.4 H (22.0-30.0) sec POC Glucose (mg/dL) 121 H (70-110) mg/dL IgG2 (241.80-700.30) mg/dL IgG3 (21.82-176.00) mg/dL Assessment and Plan Assessment: Coronary artery disease, non-STEMI this admission Elevated lipase, trending down Hypertension Hyperlipidemia, treated, cholesterol 120, LDL 53 Pancreatitis Chronic low back pain Current tobacco dependence, preoperative FEV1 85% of predicted Current daily marijuana use Family history of premature coronary artery disease Plan: Continue to maximize medical therapy with aspirin, statin, beta-malina Increase activity as tolerated Encourage incentive spirometry use Reinforced smoking cessation education Preoperative teaching continues Our plan is for off-pump myocardial revascularization with left internal mammary artery and endoscopic vein harvest, ligation of the left atrial appendage by Dr. Arzola on September Appreciate pulmonology recommendations Medical management of other comorbidities per internal medicine, GI, cardiology, pulmonology More recommendations to follow
--- NOTE | 2023-10-02 10:59 | P.PN ---
Subjective HISTORY OF PRESENT ILLNESS: This is a 48-year-old male with a past medical history significant for hypertension, hyperlipidemia, GERD, pancreatitis, and nicotine dependence. Patient used to follow in the office with Dr. Dhillon but does not follow with a clinical data programmer at this time. We have been asked to see the patient in consultation for elevated troponins. Patient examined at the bedside in the emergency room. Patient states about 5 days ago he had an episode of heartburn. He states that he took Tums with relief of his pain. He states over the course of the last few days he continues to have these episodes of heartburn and each time it comes back it is worse than prior. The patient does report the pain occurs each time after he eats something. He states yesterday he ate pizza for lunch. He states afterwards he took Tums but did not have any relief. He does report feeling short of breath and also having some chest discomfort. He denied feeling diaphoretic. He reports a family history of CAD in his dad. 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 DIAGNOSTICS: - EKG reveals sinus mechanism with nonspecific ST-T wave changes. - Chest xray negative for acute process. - Laboratory data: WBC 11.5. Hemoglobin 13.9. Platelet count 159. Sodium 139. Potassium 4.0. BUN 15. Creatinine 0.87. Troponin 0.338. 0.573. Lipase 2503. - Current home cardiac medications include lisinopril 20 mg daily, Lipitor 40 mg at night, atenolol 50 mg at night. - Patient underwent stress echocardiogram in May 2021 which was negative for ischemia 10/01/2023 Patient is status postcardiac catheterization with Dr. Berman yesterday revealing severe two-vessel coronary artery disease involving a dominant left circumflex and left anterior descending artery. Mildly elevated left-sided filling pressures. CT surgery was consulted for CABG evaluation. Patient examined this morning at bedside. Patient denies chest pain or pressure. He denies shortness of breath. Vital signs are stable. Telemetry reveals sinus mechanism. 10/02/2023 Patient examined this morning at bedside. Patient denies chest pain or pressu re. He denies shortness of breath. Vital signs are stable. Telemetry reveals sinus mechanism. Carotid Doppler completed revealing less than 50% stenosis bilaterally. Echocardiogram completed revealing ejection fraction 50 to 55%, mild MR and mild TR PHYSICAL EXAM: VITAL SIGNS: Reviewed. GENERAL: Well-developed in no acute distress. HEENT: Head is normocephalic. Pupils are equal, round. Sclerae anicteric. Mucous membranes of the mouth are moist. Neck supple. No JVD or thyromegaly LUNGS: Respirations even and unlabored. Lungs essentially clear to auscultation bilaterally. HEART: Regular rate and rhythm. S1 and S2 heard. ABDOMEN: Soft. Nondistended. Nontender. EXTREMITIES: Normal range of motion. No clubbing or cyanosis. Peripheral pulses intact. No lower extremity edema NEUROLOGIC: Awake and alert. Oriented x 3. ASSESSMENT: Non-STEMI, s/p cardiac catheterization as above Pancreatitis Hypertension Hyperlipidemia GERD History of pancreatitis Nicotine dependence PLAN: Continue IV heparin Continue current cardiac medications Smoking cessation encouraged. Patient currently on a nicotine patch. Patient to be referred to the [place] quit line upon discharge. Patient is tentatively scheduled for CABG on Further recommendations pending patient course Nurse practitioner note has been reviewed by physician. Signing provider agrees with the documented findings, assessment, and plan of care documented by MACHINE OPERATOR GENERAL as a scribe. Objective - Vital Signs Vital signs: Vital Signs Temp 97.9 F 10/02/23 08:00 Pulse 71 10/02/23 08:00 Resp 16 10/02/23 08:00 BP 141/73 10/02/23 08:00 Pulse Ox 98 10/02/23 09:37 FiO2 Intake & Output 10/01/23 10/02/23 10/02/23 18:59 06:59 18:59 Intake Total 894.062 241.356 180 Balance 894.062 241.356 180 Weight 90.718 kg 84.6 kg Intake: IV 50 0.9 50 Intake, IV Titration 174.062 191.356 Amount Heparin Sod,Pork in 0.45% 174.062 191.356 NaCl 25,000 unit In 0.45 % NaCl 1 250ml.bag @ 11 UNITS/KG/HR 9.979 mls/hr IV .Q24H [facility] Rx#: [id number] Oral 720 180 Other: Voiding Method Toilet Toilet Toilet # Voids 3 1 1 - Labs CBC & Chem 7: 10/01/23 03:30 10/01/23 03:30 Labs: Abnormal Lab Results - Last 24 Hours (Table) 10/01/23 10/01/23 10/01/23 Range/Units 03:30 11:06 18:29 APTT 41.3 H 71.6 H (22.0-30.0) sec POC Glucose (mg/dL) (70-110) mg/dL IgG2 155.80 L (241.80-700.30) mg/dL IgG3 10.40 L (21.82-176.00) mg/dL 10/01/23 10/02/23 Range/Units 20:02 05:34 APTT 67.4 H (22.0-30.0) sec POC Glucose (mg/dL) 121 H (70-110) mg/dL IgG2 (241.80-700.30) mg/dL IgG3 (21.82-176.00) mg/dL
[2023-10-02 11:39] LABS: Glucose,Whole Blood 87 mg/dL (70-110)
[2023-10-02] MEDS: MUPIROCIN 2% OINT 22 GM TUBE NASAL SCH (12:21)
--- NOTE | 2023-10-02 13:55 | P.PN ---
Subjective Progress Note Date: 10/02/23 Principal diagnosis: Multivessel coronary artery disease, non-ST elevation myocardial infarction Patient is a 48-year-old white male with past medical history significant for hypertension, hyperlipidemia, pancreatitis, current tobacco dependence, daily marijuana smoker, and family history of premature coronary artery disease. His primary care provider is Dr. Martinez. Patient originally presented to the emergency room 09/29/2023 complaining of chest pain. This had been ongoing for the last 4 to 5 days. Described as epigastric and nonradiating. Associated intermittent nausea. Initially, thought this was heartburn, Tums no longer alleviated the pain, and for this reason the patient came to the emergency room. Of note, his lipase level was elevated at 2507. CT of the abdomen and pelvis showed no hydronephrosis, nonobstructing 4 mm right upper pole renal stone, prior cholecystectomy, and diverticulosis without diverticulitis. Otherwise, no obvious acute intra-abdominal pathology. Troponins were also elevated while in the emergency room. Patient was thought to have a non-ST elevation OR. He did undergo heart catheterization yesterday, which found severe two-vessel coronary artery disease involving the dominant left circumflex and left anterior descen ding artery. There were mildly elevated left-sided filling pressures. A consult was placed for cardiothoracic surgical evaluation. Patient is undergoing the normal preoperative CABG workup. We are asked to see this patient for a pulmonary evaluation and preoperative pulmonary clearance. Patient has no known history of pulmonary disease such as COPD or asthma. He does smoke tobacco approximately 1 pack/day. He also is a daily marijuana smoker. Patient did have a bedside spirometry which showed an FEV1 of 3.38 L or 85% of predicted. Chest CT showed three-vessel aortic arch with minimal a therosclerotic ossifications and mild emphysema. He is currently sitting up in bed, on room air, in no acute distress. He denies any further chest pain. Heparin is infusing per protocol. Normal saline is infusing at 75 mL/h. Most recent lab work includes an unremarkable CBC and BMP. Lipase level has normalized and is down to 163. Patient denies any further abdominal discomfort. No nausea or vomiting. Tolerating diet. Denies significant alcohol use. Vitals are hemodynamically stable. Reevaluate today on 10/02/2023, patient is scheduled to undergo myocardial revascularization tomorrow. Pulmonary [place] patient is asymptomatic, no cough no wheezing no shortness of breath, PFT showed no evidence of any significant obstruction in spite of his [id number] smoking history. Patient is on heparin, PTT today is 67.4 Objective - Vital Signs Vital signs: Vital Signs Temp 97.9 F 10/02/23 08:00 Pulse 62 10/02/23 12:00 Resp 16 10/02/23 12:00 BP 142/88 10/02/23 12:00 Pulse Ox 97 10/02/23 12:00 FiO2 Intake & Output 10/01/23 10/02/23 10/02/23 18:59 06:59 18:59 Intake Total 894.062 241.356 418.644 Balance 894.062 241.356 418.644 Weight 90.718 kg 84.6 kg Intake: IV 50 0.9 50 Intake, IV Titration 174.062 191.356 58.644 Amount Heparin Sod,Pork in 0.45% 174.062 191.356 58.644 NaCl 25,000 unit In 0.45 % NaCl 1 250ml.bag @ 11 UNITS/KG/HR 9.979 mls/hr IV .Q24H [facility] Rx#: [id number] Oral 720 360 Other: Voiding Method Toilet Toilet Toilet # Voids 3 1 1 - Exam GENERAL EXAM: Reveals a pleasant 48-year-old white male in no distress HEAD: Normocephalic and atraumatic EYES: Normal reaction of pupils, equal size. NOSE: Clear with pink turbinates. THROAT: No erythema or exudates. NECK: No masses, no JVD. CHEST: No chest wall deformity. LUNGS: Lear bilaterally no crackles rhonchi or wheezes CVS: S1 and S2 normal with no audible murmur, regular rhythm. No extra heart sounds ABDOMEN: No hepatosplenomegaly, active bowel sounds, no guarding or rigidity. SKIN: No rashes CENTRAL NERVOUS SYSTEM: Alert and oriented x 3 no gross focal deficit EXTREMITIES: No clubbing edema or cyanosis - Labs CBC & Chem 7: 10/01/23 03:30 10/01/23 03:30 Labs: Abnormal Lab Results - Last 24 Hours (Table) 10/01/23 10/01/23 10/02/23 Range/Units 18:29 20:02 05:34 APTT 71.6 H 67.4 H (22.0-30.0) sec POC Glucose (mg/dL) 121 H (70-110) mg/dL Crossmatch 10/02/23 Range/Units 10:48 APTT (22.0-30.0) sec POC Glucose (mg/dL) (70-110) mg/dL Crossmatch See Detail Assessment and Plan Assessment: Impression: Acute Non-ST elevation OR Multivessel coronary artery disease, heart catheterization performed yesterday, which found severe two-vessel coronary artery disease involving the dominant left circumflex and left anterior descending artery. Acute pancreatitis, Lipase levels have normalized Hypertension Hyperlipidemia Chronic ongoing tobacco dependence, reportedly smokes 1 pack/day Current daily marijuana use Family history of premature coronary artery disease Recommendation: Reviewed his PFT again Counseled regarding smoking cessation Advised to continue incentive spirometry and practice before surgery Patient is considered low operative risk. Proceed with CABG tomorrow Will continue to follow Time with Patient: Less than 30
--- NOTE | 2023-10-02 14:41 | P.PN ---
Subjective Progress Note Date: 10/02/23 H&P Date: 09/30/23 Chief Complaint: Chest pain This is a pleasant 48-year-old gentleman with past medical history significant for family history of CAD ,nicotine dependence, chronic low back pain, hypertension, hyperlipidemia and multiple other medical issues presented to the ER with complaints of midsternal chest pain radiating through to his back actuat ing off and on for the last 5 days, worsened yesterday, accompanied by nausea and throwing up of his own sputum. Previously relieved with Tums. Reports occurs with exertion and at rest, before and after eating. elevated troponins and elevated lipase of 2507 with normal LFTs on admission, decreased down to 432. Troponin 0.338, 0.573 . EKG reported sinus rhythm, nonspecific ST-T wave changes as per cardiology's review. Chest x-ray reported nonacute. history of prior pancreatitis status postcholecystectomy 2015, pathology reported no stones. Reports occasional alcohol use of a couple beers.CT abdomen pelvis with contrast reports no hydronephrosis or delayed nephrogram. Cholecystectomy. Nonobstructing 4 mm right upper pole renal stone. Diverticulosis without acute diverticulitis. No bowel obstruction. No free air. Afebrile, WBC 11.5, hemoglobin 13.9, platelets 159, INR 1. Sodium 139, potassium 4, bicarb 26, BUN 15, creatinine 0.87. UA negative 10/01/2023 completed cardiac catheterization reporting severe CAD of dominant left circumflex and LAD. Evaluated by cardiothoracic surgery and patient is tentatively scheduled for CABG on . Anticoagulated on heparin drip. Telemetry sinus rhythm. Currently denies any chest pain, palpitations or shortness of breath. Lipase normalized, 163. Denies abdominal pain. Denies nausea vomiting or diarrhea. Hemoglobin A1c 6.1, blood sugars controlled. 10/02/2023 telemetry sinus rhythm. Echo reported normal LV function, mild mitral regurgitation. anticoagulated on heparin drip. denies chest pain, palpitations or shortness of breath. Maintained on prn Xanax, nicotine patch. Scheduled for CABG tomorrow. Objective - Vital Signs Vital signs: Vital Signs Temp 97.9 F 10/02/23 08:00 Pulse 71 10/02/23 08:00 Resp 16 10/02/23 08:00 BP 141/73 10/02/23 08:00 Pulse Ox 98 10/02/23 09:37 FiO2 Intake & Output 10/01/23 10/02/23 10/02/23 18:59 06:59 18:59 Intake Total 894.062 241.356 180 Balance 894.062 241.356 180 Weight 90.718 kg 84.6 kg Intake: IV 50 0.9 50 Intake, IV Titration 174.062 191.356 Amount Heparin Sod,Pork in 0.45% 174.062 191.356 NaCl 25,000 unit In 0.45 % NaCl 1 250ml.bag @ 11 UNITS/KG/HR 9.979 mls/hr IV .Q24H [facility] Rx#: [id number] Oral 720 180 Other: Voiding Method Toilet Toilet Toilet # Voids 3 1 1 - Exam GENERAL: Alert and oriented x 3, sitting up in chair,NAD HEENT: Atraumatic, normocephalic, Pupils equal round, reactive to light,sclera anicteric, normal conjunctiva. NECK: Supple, no JVD. LUNGS: Unlabored, equal air entry, CTA. HEART: Regular rate and rhythm without murmurs, rubs or gallops.S1S2 Normal ABDOMEN: Soft, nondistended, nontender, no guarding, no rigidity, positive bowel sounds EXTREMITIES: No pitting or edema. No clubbing or cyanosis. NEUROLOGICAL: Cranial nerves II through XII grossly intact. No focal deficits. SKIN: Warm, Dry,no rashes noted. - Labs CBC & Chem 7: 10/01/23 03:30 10/01/23 03:30 Labs: Abnormal Lab Results - Last 24 Hours (Table) 10/01/23 10/01/23 10/01/23 Range/Units 03:30 11:06 18:29 APTT 41.3 H 71.6 H (22.0-30.0) sec POC Glucose (mg/dL) (70-110) mg/dL IgG2 155.80 L (241.80-700.30) mg/dL IgG3 10.40 L (21.82-176.00) mg/dL 10/01/23 10/02/23 Range/Units 20:02 05:34 APTT 67.4 H (22.0-30.0) sec POC Glucose (mg/dL) 121 H (70-110) mg/dL IgG2 (241.80-700.30) mg/dL IgG3 (21.82-176.00) mg/dL Assessment and Plan Assessment: Acute NSTEMI, status post cardiac cath reporting multivessel CAD including severe CAD of dominant left circumflex and LAD, CABG pending Diabetes mellitus, new onset, hemoglobin A1c 6.1 Acute pancreatitis, in a patient with prior history of pancreatitis status post cholecystectomy 2015. Etiology unclear, resolved Hypertension Hyperlipidemia Ongoing nicotine dependence Gastroesophageal reflux disease Plan: Continue on current medication regimen ,monitoring and symptomatic treatment. Maintain on nicotine patch, anxiolytics.Anticoagulated on heparin drip. CABG scheduled for tomorrow. Continue aggressive pulmonary toileting with incentive spirometer reinforced. Smoking cessation reinforced. prognosis guarded given multiple complex medical issues. The impression and plan of care has been dictated as directed. : I performed a history and examination of this patient, discussed the same with the dictator. I agree with the dictator's note ,documented as a scribe. Any additional findings or plans will be noted.
[2023-10-02 16:32] LABS: Glucose,Whole Blood 91 mg/dL (70-110)
[2023-10-02 20:21] LABS: Glucose,Whole Blood 140 mg/dL (70-110)
[2023-10-02] MEDS: ALPRAZolam 0.5 MG TAB PO PRN (21:03)
[2023-10-03] MEDS ORDERED: INSULIN REGULAR 100 UNIT in SODIUM CHLORIDE 0.9% 100 ML IV SCH (05:00)
[2023-10-03] MEDS ORDERED: NOREPINEPHRINE 4 MG in SODIUM CHLORIDE 0.9% 250 ML IV SCH (05:00)
[2023-10-03] MEDS: METOPROLOL TARTRATE 25 MG TAB PO ONE (05:33)
[2023-10-03] MEDS: ASPIRIN 325 MG TAB PO ONE (05:33)
[2023-10-03] MEDS: ATORVASTATIN 10 MG TAB PO ONE (05:33)
[2023-10-03 06:17] LABS: Glucose,Whole Blood 107 mg/dL (70-110)
[2023-10-03] MEDS: LACTATED RINGERS 1,000 ML IV ONE (06:28)
[2023-10-03] MEDS: SODIUM CHLORIDE 0.9% 50 ML with ceFAZolin 2,000 MG IV ONE (08:20)
[2023-10-03] MEDS: SODIUM CHLORIDE 0.9% 500 ML 500 ML with HEPARIN SODIUM,PORCINE (1 ML) 5,000 UNIT IV ONE (08:28)
[2023-10-03] MEDS: PAPAVERINE 360 MG in SODIUM CHLORIDE 0.9% 90 ML IV ONE ×2 (08:28→18:39)
[2023-10-03] MEDS: ceFAZolin 1,000 MG in SODIUM CHLORIDE 0.9% 1,000 ML IRRIGATION ONE (08:29)
[2023-10-03 08:48] LABS: ABG Base Excess 0.1 mmol/L; ABG Glucose Whole Blood 96 mg/dL (75-99); ABG HCO3 26 mmol/L (21-25); ABG Hematocrit 39 % (34.0-46.0); ABG Ionized Calcium 4.8 mg/dL (4.5-5.3); ABG Lactic Acid Whole Blood 1.2 mmol/L (0.5-1.6); ABG Oxygen Saturation >99.4 % (94-97); ABG PCO2 46 mmHg (35-45); ABG PH 7.36 (7.35-7.45); ABG PO2 315 mmHg (83-108); ABG Potassium Whole Blood 3.9 mmol/L (3.4-4.5); ABG Sodium Whole Blood 141 mmol/L (135-146); Allen Test Performed? Yes
[2023-10-03 09:48] LABS: ABG Base Excess -0.5 mmol/L; ABG Glucose Whole Blood 121 mg/dL (75-99); ABG HCO3 25 mmol/L (21-25); ABG Hematocrit 37 % (34.0-46.0); ABG Ionized Calcium 4.6 mg/dL (4.5-5.3); ABG Lactic Acid Whole Blood 0.6 mmol/L (0.5-1.6); ABG Oxygen Saturation >99.4 % (94-97); ABG PCO2 45 mmHg (35-45); ABG PH 7.36 (7.35-7.45); ABG PO2 309 mmHg (83-108); ABG Sodium Whole Blood 140 mmol/L (135-146); Allen Test Performed? Yes
[2023-10-03 10:34] LABS: ABG Base Excess -0.9 mmol/L; ABG Glucose Whole Blood 133 mg/dL (75-99); ABG HCO3 24 mmol/L (21-25); ABG Hematocrit 36 % (34.0-46.0); ABG Ionized Calcium 4.5 mg/dL (4.5-5.3); ABG Lactic Acid Whole Blood 0.6 mmol/L (0.5-1.6); ABG Oxygen Saturation >99.4 % (94-97); ABG PCO2 38 mmHg (35-45); ABG PO2 303 mmHg (83-108); ABG Potassium Whole Blood 3.8 mmol/L (3.4-4.5); ABG Sodium Whole Blood 142 mmol/L (135-146); Allen Test Performed? Yes
[2023-10-03] MEDS ORDERED: AMIODARONE 360 MG in DEXTROSE 5% IN WATER 200 ML IV PRN (10:56)
[2023-10-03] MEDS ORDERED: Magnesium Replacement Protocol 1 EACH MISC MISCELLANE PRN (10:56)
[2023-10-03] MEDS ORDERED: BENZOCAINE/MENTHOL LOZENG 1 EACH LOZENGE MUCOUS MEM PRN (10:56)
[2023-10-03] MEDS ORDERED: CALCIUM GLUCONATE IN NACL 2 GM in SALINE 1 100ML.BAG IVPB PRN (10:56)
[2023-10-03] MEDS ORDERED: DEXTROSE 50% SYRINGE 50 ML IVP PRN ×2 (10:56)
[2023-10-03] MEDS ORDERED: DEXTROSE 5% IN WATER 100 ML with AMIODARONE 150 MG IV PRN (10:56)
[2023-10-03] MEDS ORDERED: hydrALAZINE HCL 20 MG/ML 1 ML VIAL IVP PRN (10:56)
[2023-10-03] MEDS ORDERED: Potassium Replacement Protocol 1 EACH MISC MISCELLANE PRN (10:56)
[2023-10-03] MEDS ORDERED: AMIODARONE 450 MG in DEXTROSE 5% IN WATER 250 ML IV PRN (10:56)
--- NOTE | 2023-10-03 11:08 | P.OP ---
Date of Procedure: 10/03/23 Preoperative Diagnosis: 3v CAD, NSTEMI HTN HLD Postoperative Diagnosis: Same Procedure(s) Performed: 1. Off pump coronary artery bypass grafting x 1. Left internal thoracic artery (in-situ) to left anterior descending coronary artery. 2. Left atrial appendage ligation using #35mm AtriClip 3. Graft flow measurements using the Medi-Stim flow meter system 4. Trans-esophageal echo Implants: #35 AtriClip Anesthesia: MIRANDAA Surgeon: Thang Arzola [employer]orer [employer] #1: Enrique Willams Laborer [employer] #2: Clari Hodges Estimated Blood Loss (ml): 200 Pathology: none sent Condition: critical Disposition: ICU Indications for Procedure: This patient is a 48 year-old M with a hx of htn and hld who presented with chest pain. He was diagnosed with NSTEMI and coronary angiography revealed significant LAD and circumflex disease. His STS risk of morbidity and mortality was discussed with him and CABG was recommended. Operative Findings: ORTEZ 1.75mm good conduit, LAD 1.5mm good target. ORTEZ-LAD Flow 30ml/min, P.I. 2.8 Description of Procedure: The patient underwent central line, arterial line, and [place] catheter placement in the pre-operative suite by the anesthesia team. The patient was then brought to the operating room and placed in the supine position. General anesthesia was induced and the patient was prepped from the chin to the ankles in the usual sterile fashion. A time-out was performed and antibiotics were given. A midline incision was made on the chest and carried down to bone. A median sternotomy was performed. Hemostasis on the bone was achieved using electrocautery and some bone wax. The left pleura was entered and the left internal thoracic artery was harvested in a skeletonized fashion. The patient was systemically heparinized and the CHRISTOPHER was transected and placed in a papaverine jacuzzi. A left sided chest tube was placed. The pericardium was incised in a reverse T-fashion and a pericardial cradle was created. Stay sutures were placed. #35mm AtriClip was placed on the left atrial appendage. With ACT > 250, the octopus sabilizer was placed on the mid to distal LAD which was a good target. An ateriorotomy was made and 1.5mm shunt inserted. An end to side anastomosis between the CHRISTOPHER and LAD was performed using a running 7-0 prolene. The shunt was removed prior to tieing down the suture. At this point, graft flows was measured and it was excellent. At this point, protamine was given and hemostasis was secured. A 32F chest tube was placed in the mediastinum The pericardium was re-approximated partially and the sternum was closed with pioneer cables and layers of suture. The patient was transported to CVICU on only nitro gtt.
[2023-10-03] MEDS: IPRATROPIUM-ALBUTEROL 3 ML NEB INHALATION SCH ×2 (11:24→22:03)
[2023-10-03 11:37] LABS: Glucose,Whole Blood 126 mg/dL (70-110)
[2023-10-03] MEDS: LACTATED RINGERS 1,000 ML IV SCH ×2 (11:39→18:39)
[2023-10-03] MEDS: NITROGLYCERIN-D5W PMX 50 MG in DEXTROSE/WATER 1 250ML.BAG IV SCH ×2 (11:40→18:39)
[2023-10-03 11:45] LABS: Basophils # (A) 0.1 k/uL (0-0.2); Basophils % (A) 1 %; Eosinophils # (A) 0.1 k/uL (0-0.7); Eosinophils % (A) 2 %; HCT 37.8 % (39.0-53.0); HGB 12.7 gm/dL (13.0-17.5); Lymphocytes # (A) 1.4 k/uL (1.0-4.8); Lymphocytes % (A) 15 %; MCHC 33.7 g/dL (31.0-37.0); MCV 89.2 fL (80.0-100.0); Mean Platelet Volume 10.6; Monocytes # (A) 0.4 k/uL (0-1.0); Monocytes % (A) 4 %; Neutrophils # (A) 7.5 k/uL (1.3-7.7); Neutrophils % (A) 79 %; Platelet Count 115 k/uL (150-450); RBC 4.24 m/uL (4.30-5.90); WBC 9.5 k/uL (3.8-10.6)
[2023-10-03] MEDS: INSULIN REGULAR 100 UNIT in SODIUM CHLORIDE 0.9% 100 ML IV SCH (11:49)
[2023-10-03 11:57] LABS: Partial Thromboplastin Time 24.6 sec (22.0-30.0); Prothrombin Time 11.3 sec (10.0-12.5)
[2023-10-03] MEDS: ALBUMIN HUMAN 5% 250 ML in EMPTY BAG 1 BAG IVPB PRN (12:00)
[2023-10-03 12:05] LABS: ABG HCO3 26 mmol/L (21-25); ABG PCO2 46 mmHg (35-45); ABG PH 7.35 (7.35-7.45); ABG PO2 208 mmHg (83-108); ABG TCO2 27 mmol/L (19-24); Allen Test Performed? Yes
[2023-10-03] MEDS: ACETAMINOPHEN IV (For NPO) 1,000 MG in EMPTY BAG 1 BAG IVPB SCH (12:18)
[2023-10-03] MEDS: CLEVIDIPINE BUTYRATE 25 MG in EMPTY BAG 1 BAG IV SCH ×2 (12:20→18:38)
--- NOTE | 2023-10-03 12:21 | XR ---
EXAMINATION TYPE: XR chest 1V portable DATE OF EXAM: 10/03/2023 COMPARISON: 09/29/2023 INDICATION: Postop cardiac surgery TECHNIQUE: Single frontal view of the chest is obtained. FINDINGS: The heart size is mild the prominent. The pulmonary vasculature is normal. Some mild scattered infiltrates are within the left lung and at the right base. Correlate for atelect asis or pulmonary edema. Nasogastric tube transverses the thorax with the tip in the left upper quadrant of the abdomen. Left- sided chest tube is curled within the lateral left chest. [place] catheter tip is in the distal rig ht main pulmonary artery region. Mediastinal tube is present. Sternotomy wires are present. IMPRESSION: 1. Scattered mild increased lung markings left lung and right lung base. Correlate for atelectasis an d pulmonary edema. 2. Lines and catheters discussed above
[2023-10-03 12:29] LABS: Ionized Calcium 4.7 mg/dL (4.5-5.3)
[2023-10-03 12:50] LABS: ALT 86 U/L (4-49); AST 127 U/L (17-59); African American GFR (CKD) >90 (>60 ml/min/1.73 sqM); Albumin 3.5 g/dL (3.5-5.0); Alkaline Phosphatase 72 U/L (38-126); Anion Gap 4 mmol/L; Blood Urea Nitrogen 11 mg/dL (9-20); Calcium 8.2 mg/dL (8.4-10.2); Carbon Dioxide 24 mmol/L (22-30); Chloride 111 mmol/L (98-107); Glucose 122 mg/dL (74-99); Non-African American GFR(CKD) >90 (>60 ml/min/1.73 sqM); Potassium 3.6 mmol/L (3.5-5.1); Sodium 139 mmol/L (137-145); Total Bilirubin 0.8 mg/dL (0.2-1.3); Total Protein 5.7 g/dL (6.3-8.2)
[2023-10-03 12:57] LABS: Glucose,Whole Blood 122 mg/dL (70-110)
[2023-10-03] MEDS: POTASSIUM CHLORIDE 10 MEQ in WATER FOR INJECTION 1 100ML.BAG IVPB SCH ×2 (13:09→18:12)
[2023-10-03] MEDS: DEXMEDETOMIDINE/0.9% NACL(PMX) 400 MCG in EMPTY BAG 1 BAG IV SCH (13:15)
[2023-10-03 14:14] LABS: Glucose,Whole Blood 134 mg/dL (70-110)
[2023-10-03 14:49] LABS: Basophils # (A) 0.1 k/uL (0-0.2); Basophils % (A) 0 %; Eosinophils % (A) 0 %; HCT 39.4 % (39.0-53.0); HGB 13.2 gm/dL (13.0-17.5); Lymphocytes # (A) 1.4 k/uL (1.0-4.8); Lymphocytes % (A) 11 %; MCH 30.2 pg (25.0-35.0); MCHC 33.4 g/dL (31.0-37.0); MCV 90.4 fL (80.0-100.0); Mean Platelet Volume 9.3; Monocytes # (A) 0.5 k/uL (0-1.0); Monocytes % (A) 4 %; Neutrophils # (A) 10.4 k/uL (1.3-7.7); Neutrophils % (A) 84 %; Platelet Count 143 k/uL (150-450); RBC 4.36 m/uL (4.30-5.90); RDW 13.7 % (11.5-15.5); WBC 12.4 k/uL (3.8-10.6)
[2023-10-03 15:29] LABS: Glucose,Whole Blood 133 mg/dL (70-110)
[2023-10-03 15:59] LABS: ABG Base Excess -0.9 mmol/L; ABG HCO3 25 mmol/L (21-25); ABG Oxygen Saturation 97.5 % (94-97); ABG PCO2 43 mmHg (35-45); ABG PH 7.36 (7.35-7.45); ABG PO2 72 mmHg (83-108); ABG TCO2 26 mmol/L (19-24); Allen Test Performed? Yes
--- NOTE | 2023-10-03 16:00 | P.PN ---
Subjective Progress Note Date: 10/03/23 Patient is a 48-year-old white male with past medical history significant for hypertension, hyperlipidemia, pancreatitis, current tobacco dependence, daily marijuana smoker, and family history of premature coronary artery disease. His primary care provider is Dr. Martinez. Patient originally presented to the emergency room 09/29/2023 complaining of chest pain. This had been ongoing for the last 4 to 5 days. Described as epigastric and nonradiating. Associated intermittent nausea. Initially, thought this was heartburn, Tums no longer alleviated the pain, and for this reason the patient came to the emergency room. Of note, his lipase level was elevated at 2507. CT of the abdomen and pelvis showed no hydronephrosis, nonobstructing 4 mm right upper pole renal stone, prior cholecystectomy, and diverticulosis without diverticulitis. Otherwise, no obvious acute intra-abdominal pathology. Troponins were also elevated while in the emergency room. Patient was thought to have a non-ST elevation ID. He did undergo heart catheterization yesterday, which found severe two-vessel coronary artery disease involving the dominant left circumflex and left anterior descending artery. There were mildly elevated left-sided filling pressures. A consult was placed for cardiothoracic surgical evaluation. Patient is undergoing the normal preoperative CABG workup. We are asked to see this patien t for a pulmonary evaluation and preoperative pulmonary clearance. Patient has no known history of pulmonary disease such as COPD or asthma. He does smoke tobacco approximately 1 pack/day. He also is a daily marijuana smoker. Patient did have a bedside spirometry which showed an FEV1 of 3.38 L or 85% of predicted. Chest CT showed three-vessel aortic arch with minimal atherosclerotic ossifications and mild emphysema. He is currently sitting up in bed, on room air, in no acute distress. He denies any further chest pain. Heparin is infusing per protocol. Normal saline is infusing at 75 mL/h. Most recent lab work includes an unremarkable CBC and BMP. Lipase level has normalized and is down to 163. Patient denies any further abdominal discomfort. No nausea or vomiting. Tolerating diet. Denies significant alcohol use. Vitals are hemodynamically stable. Reevaluate today on 10/02/2023, patient is scheduled to undergo myocardial revascularization tomorrow. Pulmonary [place] patient is asymptomatic, no cough no wheezing no shortness of breath, PFT showed no evidence of any significant obstruction in spite of his [id number] smoking history. Patient is on heparin, PTT today is 67.4 The patient is seen today October 03, 2023 postoperatively in the intensive care unit. He did undergo off-pump coronary artery bypass grafting x 1 utilizing a ORTEZ to the LAD. Left atrial appendage ligation using a 33 mm AtriClip. He is intubated on the mechanical ventilator with settings of assist-control mode at a rate of 14, tidal volume 500, FiO2 50% and a PEEP of 5. Blood gases revealed a PaO2 of 208, pCO2 of 46 and a pH of 7.35 on 100% FiO2. Chest x-ray shows scattered mild increased lung markings of the left lung and right lung base. Suspect atelectasis. [place]-Dary catheter is in place. Cardiac output 9.3. Cardiac index 4.6. PA pressures 36/18. CVP 12. Left mediastinal chest tube in place. He is currently on Precedex at 0.6 mcg/mg/h. Propofol at 10 mcg/mg/min. Insulin drip at 1 unit/h. Nitroglycerin drip at 5 mcg/min. Lactated Ringer's at 50 MLS per hour. White count 12.4. Hemoglobin 13.2. Platelets 143. Sodium 139. Potassium 3.6. Bicarb 24. BUN 11. Creatinine 0.70. Glucose 122. He remains on bronchodilators. Objective - Vital Signs Vital signs: Vital Signs Temp 96.3 F L 10/03/23 15:00 Pulse 82 10/03/23 15:29 Resp 17 10/03/23 15:15 BP 110/70 10/03/23 12:00 Pulse Ox 93 L 10/03/23 15:15 FiO2 40 10/03/23 15:33 Intake & Output 10/02/23 10/03/23 10/03/23 18:59 06:59 18:59 Intake Total 598.486 244 1224.234 Output Total 2140 Balance 598.644 930 -813.766 Weight 83.7 kg Intake: IV 450 229 0.9 450 CO/CI 90 LR 50 Pressure bags 36 Intake, IV Titration 58.644 1097.234 Amount ACETAMINOPHEN IV (For NPO 100 ) 1,000 mg In Empty Bag 1 bag @ 400 mls/hr IVPB Q6HR [facility] Rx#:[id number] Albumin Human 5% 250 ml 500 In Empty Bag 1 bag @ 250 mls/hr IVPB Q1HR PRN Rx#: [id number] Clevidipine Butyrate 25 17.400 mg In Empty Bag 1 bag @ 1 MG/HR 2 mls/hr IV .Q24H [facility] Rx#:[id number] Dexmedetomidine/0.9% NaCl 28.389 (Pmx) 400 mcg In Empty Bag 1 bag @ Titrate IV . Q0M [facility] Rx#:[id number] Heparin Sod,Pork in 0.45% 58.644 NaCl 25,000 unit In 0.45 % NaCl 1 250ml.bag @ 11 UNITS/KG/HR 9.979 mls/hr IV .Q24H [facility] Rx#: [id number] Insulin Regular 100 unit 1.271 In Sodium Chloride 0.9% 100 ml @ Per Protocol IV .Q0M [facility] Rx#:[id number] Insulin Regular 100 unit 0.5 In Sodium Chloride 0.9% 100 ml @ Titrate IV .Q0M [facility] Rx#:[id number] Lactated Ringers 1,000 ml 150 @ 50 mls/hr IV .Q20H [facility] Rx#:[id number] Nitroglycerin-D5w Pmx 50 27.775 mg In Dextrose/Water 1 250ml.bag @ 5 MCG/MIN 1.5 mls/hr IV .Q24H [facility] Rx#: [id number] Potassium Chloride 10 meq 200 In Water For Injection 1 100ml.bag @ 100 mls/hr IVPB Q1H [facility] Rx#: [id number] propofoL 1,000 mg In 71.899 Empty Bag 1 bag @ Titrate IV .Q0M [facility] Rx#: [id number] Oral 540 480 Output: Chest Tube Drainage 295 Left 75 Mediastinal 220 Urine 1670 Estimated Blood Loss 175 Other: Voiding Method Toilet Toilet Indwelling Catheter # Voids 1 3 ABP, PAP, CO, CI - Last Documented Arterial Blood Pressure 109/55 Pulmonary Artery Pressure 34/19 Cardiac Output 9.3 Cardiac Index 4.6 - Exam GENERAL EXAM: Intubated, sedated 48-year-old male patient currently on the mechanical ventilator, in no apparent distress. HEAD: Normocephalic. EYES: Sluggish reaction of pupils, equal size. NOSE: Clear with pink turbinates. THROAT: Oral endotracheal and gastric tube secured in place. No erythema or exudates. NECK: Right IJ [place]-Dary catheter in place, no masses, no JVD. CHEST: Sternal dressing dry and intact. Heart hugger in place. Left and mediastinal chest tubes in place. LUNGS: Equal air entry with no crackles, wheeze, rhonchi or dullness. CVS: S1 and S2 normal with no audible murmur, regular rhythm. ABDOMEN: No hepatosplenomegaly, no guarding or rigidity. SPINE: No scoliosis or deformity SKIN: No rashes CENTRAL NERVOUS SYSTEM: Sedated, tone is normal in all 4 extremities. EXTREMITIES: SCDs in place. There is no peripheral edema. No clubbing, no cyanosis. Peripheral pulses are intact. - Labs CBC & Chem 7: 10/03/23 14:35 10/03/23 11:41 Labs: Abnormal Lab Results - Last 24 Hours (Table) 10/02/23 10/02/23 10/03/23 Range/Units 10:48 20:06 11:36 WBC (3.8-10.6) k/uL RBC (4.30-5.90) m/uL Hgb (13.0-17.5) gm/dL Hct (39.0-53.0) % Plt Count (150-450) k/uL Neutrophils # (1.3-7.7) k/uL ABG pCO2 (35-45) mmHg ABG pO2 (83-108) mmHg ABG HCO3 (21-25) mmol/L ABG Total CO2 (19-24) mmol/L ABG O2 Saturation (94-97) % Chloride (98-107) mmol/L Glucose (74-99) mg/dL POC Glucose (mg/dL) 140 H 126 H (70-110) mg/dL Calcium (8.4-10.2) mg/dL AST (17-59) U/L ALT (4-49) U/L Total Protein (6.3-8.2) g/dL Crossmatch See Detail 10/03/23 10/03/23 10/03/23 Range/Units 11:41 11:41 12:01 WBC (3.8-10.6) k/uL RBC 4.24 L (4.30-5.90) m/uL Hgb 12.7 L (13.0-17.5) gm/dL Hct 37.8 L (39.0-53.0) % Plt Count 115 L (150-450) k/uL Neutrophils # (1.3-7.7) k/uL ABG pCO2 46 H (35-45) mmHg ABG pO2 208 H (83-108) mmHg ABG HCO3 26 H (21-25) mmol/L ABG Total CO2 27 H (19-24) mmol/L ABG O2 Saturation 100.0 H (94-97) % Chloride 111 H (98-107) mmol/L Glucose 122 H (74-99) mg/dL POC Glucose (mg/dL) (70-110) mg/dL Calcium 8.2 L (8.4-10.2) mg/dL AST 127 H (17-59) U/L ALT 86 H (4-49) U/L Total Protein 5.7 L (6.3-8.2) g/dL Crossmatch 10/03/23 10/03/23 10/03/23 Range/Units 12:55 14:12 14:35 WBC 12.4 H (3.8-10.6) k/uL RBC (4.30-5.90) m/uL Hgb (13.0-17.5) gm/dL Hct (39.0-53.0) % Plt Count 143 L (150-450) k/uL Neutrophils # 10.4 H (1.3-7.7) k/uL ABG pCO2 (35-45) mmHg ABG pO2 (83-108) mmHg ABG HCO3 (21-25) mmol/L ABG Total CO2 (19-24) mmol/L ABG O2 Saturation (94-97) % Chloride (98-107) mmol/L Glucose (74-99) mg/dL POC Glucose (mg/dL) 122 H 134 H (70-110) mg/dL Calcium (8.4-10.2) mg/dL AST (17-59) U/L ALT (4-49) U/L Total Protein (6.3-8.2) g/dL Crossmatch 10/03/23 Range/Units 15:26 WBC (3.8-10.6) k/uL RBC (4.30-5.90) m/uL Hgb (13.0-17.5) gm/dL Hct (39.0-53.0) % Plt Count (150-450) k/uL Neutrophils # (1.3-7.7) k/uL ABG pCO2 (35-45) mmHg ABG pO2 (83-108) mmHg ABG HCO3 (21-25) mmol/L ABG Total CO2 (19-24) mmol/L ABG O2 Saturation (94-97) % Chloride (98-107) mmol/L Glucose (74-99) mg/dL POC Glucose (mg/dL) 133 H (70-110) mg/dL Calcium (8.4-10.2) mg/dL AST (17-59) U/L ALT (4-49) U/L Total Protein (6.3-8.2) g/dL Crossmatch Microbiology - Last 24 Hours (Table) 09/30/23 17:10 Nasal Screen MRSA/MSSA - Final Nasopharyngeal Swab Assessment and Plan Assessment: Acute Non-ST elevation ID. Status post off-pump coronary artery bypass grafting x 1 utilizing the ORTEZ to the LAD. Left atrial appendage clipping with a 33 mm AtriClip. Postoperative day #0. Multivessel coronary artery disease, heart catheterization performed which found severe two-vessel coronary artery disease involving the dominant left circumflex and left anterior descending artery Acute pancreatitis, Lipase levels have normalized Hypertension Hyperlipidemia Chronic ongoing tobacco dependence, reportedly smokes 1 pack/day Current daily marijuana use Family history of premature coronary artery disease Plan: The patient was seen and evaluated Chest x-ray, ABGs, labs and medications reviewed Ventilator settings adjusted accordingly Will plan for early extubation protocol if tolerated Continue bronchodilators Heparin for DVT prophylaxis We will continue to follow and make further recommendations based on his clinical status I have personally seen and examined the patient, performed the documentation and the assessment and plan as written. Number of minutes spent on the visit: 15.
[2023-10-03] MEDS: ONDANSETRON 4 MG/2 ML VIAL IVP PRN (16:40)
[2023-10-03] MEDS: HEPARIN SODIUM,PORCINE 5,000 UNIT/ML 1 ML VIAL SQ SCH (16:40)
[2023-10-03 16:56] LABS: Glucose,Whole Blood 133 mg/dL (70-110)
[2023-10-03] MEDS: KETOROLAC 15 MG/ML 1 ML VIAL IVP SCH (17:32)
[2023-10-03 17:47] LABS: Basophils % (A) 0 %; Eosinophils % (A) 0 %; HCT 38.4 % (39.0-53.0); HGB 12.6 gm/dL (13.0-17.5); Lymphocytes # (A) 0.8 k/uL (1.0-4.8); Lymphocytes % (A) 5 %; MCH 29.4 pg (25.0-35.0); MCHC 32.8 g/dL (31.0-37.0); MCV 89.4 fL (80.0-100.0); Mean Platelet Volume 9.2; Monocytes # (A) 0.6 k/uL (0-1.0); Monocytes % (A) 4 %; Neutrophils # (A) 13.1 k/uL (1.3-7.7); Neutrophils % (A) 90 %; Platelet Count 141 k/uL (150-450); WBC 14.5 k/uL (3.8-10.6)
[2023-10-03 18:10] LABS: Glucose,Whole Blood 115 mg/dL (70-110)
[2023-10-03] MEDS: ALBUMIN HUMAN 25% 50 ML in EMPTY BAG 1 BAG IVPB ONE ×2 (18:15→18:37)
[2023-10-03] MEDS: ALBUMIN HUMAN 5% 500 ML in EMPTY BAG 1 BAG IVPB ONE ×5 (18:37→18:38)
[2023-10-03] MEDS: ceFAZolin 1,000 MG in SODIUM CHLORIDE 0.9% IRRIGATIO 1,000 ML IRRIGATION ONE (18:38)
[2023-10-03] MEDS: ELECTROLYTE-A SOLUTION 1,000 ML with POTASSIUM CHLORIDE 100 MEQ, MAGNESIUM SULFATE 16 M... IV ONE (18:39)
[2023-10-03] MEDS: MAGNESIUM SULFATE 16.24 MEQ in EMPTY SYRINGE 1 SYR IV ONE (18:39)
[2023-10-03] MEDS: PROTAMINE SULFATE 250 MG in EMPTY BAG 1 BAG IV ONE (18:40)
[2023-10-03] MEDS: TRANEXAMIC ACID 2,000 MG in SODIUM CHLORIDE 0.9% 80 ML IV ONE ×2 (18:40)
[2023-10-03] MEDS: PHENYLEPHRINE 40 MG in SODIUM CHLORIDE 0.9% 250 ML IV ONE (18:40)
--- NOTE | 2023-10-03 19:04 | P.PN ---
Subjective Progress Note Date: 10/03/23 H&P Date: 09/30/23 Chief Complaint: Chest pain This is a pleasant 48-year-old gentleman with past medical history significant for family history of CAD ,nicotine dependence, chronic low back pain, hypertension, hyperlipidemia and multiple other medical issues presented to the ER with complaints of midsternal chest pain radiating through to his back actuat ing off and on for the last 5 days, worsened yesterday, accompanied by nausea and throwing up of his own sputum. Previously relieved with Tums. Reports occurs with exertion and at rest, before and after eating. elevated troponins and elevated lipase of 2507 with normal LFTs on admission, decreased down to 432. Troponin 0.338, 0.573 . EKG reported sinus rhythm, nonspecific ST-T wave changes as per cardiology's review. Chest x-ray reported nonacute. history of prior pancreatitis status postcholecystectomy 2015, pathology reported no stones. Reports occasional alcohol use of a couple beers.CT abdomen pelvis with contrast reports no hydronephrosis or delayed nephrogram. Cholecystectomy. Nonobstructing 4 mm right upper pole renal stone. Diverticulosis without acute diverticulitis. No bowel obstruction. No free air. Afebrile, WBC 11.5, hemoglobin 13.9, platelets 159, INR 1. Sodium 139, potassium 4, bicarb 26, BUN 15, creatinine 0.87. UA negative 10/01/2023 completed cardiac catheterization reporting severe CAD of dominant left circumflex and LAD. Evaluated by cardiothoracic surgery and patient is tentatively scheduled for CABG on . Anticoagulated on heparin drip. Telemetry sinus rhythm. Currently denies any chest pain, palpitations or shortness of breath. Lipase normalized, 163. Denies abdominal pain. Denies nausea vomiting or diarrhea. Hemoglobin A1c 6.1, blood sugars controlled. 10/02/2023 telemetry sinus rhythm. Echo reported normal LV function, mild mitral regurgitation. anticoagulated on heparin drip. denies chest pain, palpitations or shortness of breath. Maintained on prn Xanax, nicotine patch. Scheduled for CABG tomorrow. 10/03/2023 recently admitted into the ICU, status post CABG, graft x 1, ORTEZ to the LAD, off-pump. ventilator dependent with FiO2 60%/+5 of PEEP. Maintained on insulin, nitroglycerin, Precedex and Diprovan drips. Cardiac output 9.3, cardiac index 4.6. Objective - Vital Signs Vital signs: Vital Signs Temp 97.3 F L 10/03/23 18:00 Pulse 89 10/03/23 18:00 Resp 18 10/03/23 18:00 BP 110/70 10/03/23 12:00 Pulse Ox 97 10/03/23 18:00 FiO2 40 10/03/23 15:33 Intake & Output 10/02/23 10/03/23 10/03/23 18:59 06:59 18:59 Intake Total 598.596 684 9431.686 Output Total 2940 Balance 598.644 930 -1240.314 Weight 83.7 kg Intake: IV 450 296 0.9 450 CO/CI 130 LR 50 Pressure bags 63 Intake, IV Titration 58.644 1403.686 Amount ACETAMINOPHEN IV (For NPO 100 ) 1,000 mg In Empty Bag 1 bag @ 400 mls/hr IVPB Q6HR [facility] Rx#:[id number] Albumin Human 5% 250 ml 500 In Empty Bag 1 bag @ 250 mls/hr IVPB Q1HR [facility] Rx#: [id number] Clevidipine Butyrate 25 17.400 mg In Empty Bag 1 bag @ 1 MG/HR 2 mls/hr IV .Q24H [facility] Rx#:[id number] Dexmedetomidine/0.9% NaCl 30.969 (Pmx) 400 mcg In Empty Bag 1 bag @ Titrate IV . Q0M [facility] Rx#:[id number] Heparin Sod,Pork in 0.45% 58.644 NaCl 25,000 unit In 0.45 % NaCl 1 250ml.bag @ 11 UNITS/KG/HR 9.979 mls/hr IV .Q24H [facility] Rx#: [id number] Insulin Regular 100 unit 5.143 In Sodium Chloride 0.9% 100 ml @ Per Protocol IV .Q0M [facility] Rx#:[id number] Insulin Regular 100 unit 0.5 In Sodium Chloride 0.9% 100 ml @ Titrate IV .Q0M [facility] Rx#:[id number] Lactated Ringers 1,000 ml 300 @ 50 mls/hr IV .Q20H [facility] Rx#:[id number] Nitroglycerin-D5w Pmx 50 27.775 mg In Dextrose/Water 1 250ml.bag @ 5 MCG/MIN 1.5 mls/hr IV .Q24H [facility] Rx#: [id number] Potassium Chloride 10 meq 200 In Water For Injection 1 100ml.bag @ 100 mls/hr IVPB Q1H [facility] Rx#: [id number] Potassium Chloride 10 meq 100 In Water For Injection 1 100ml.bag @ 100 mls/hr IVPB Q1H [facility] Rx#: [id number] ceFAZolin 2 gm In Sodium 50 Chloride 0.9% 50 ml @ 100 mls/hr IVPB Q8HR [facility] Rx# :[id number] propofoL 1,000 mg In 71.899 Empty Bag 1 bag @ Titrate IV .Q0M [facility] Rx#: [id number] Oral 540 480 Output: Chest Tube Drainage 385 Left 145 Mediastinal 240 Gastric Drainage 100 Urine 2220 Emesis 60 Estimated Blood Loss 175 Other: Voiding Method Toilet Toilet Indwelling Catheter # Voids 1 3 ABP, PAP, CO, CI - Last Documented Arterial Blood Pressure 137/72 Pulmonary Artery Pressure 40/16 Cardiac Output 8.4 Cardiac Index 4.2 - Exam GENERAL: Intubated and sedated on mechanical ventilator, no apparent distress HEENT: normocephalic NECK:no JVD. Right IJ Diagonal LUNGS: Unlabored, equal air entry, CTA. HEART: Regular rate and rhythm without murmurs, rubs or gallops.S1S2 Normal ABDOMEN: Soft, nondistended, nontender, no rigidity. EXTREMITIES: SCDs on bilateral lower extremities. Peripheral pulses intact. NEUROLOGICAL: Limited exam, sedated. SKIN: Warm, Dry. - Labs CBC & Chem 7: 10/03/23 17:30 10/03/23 17:30 Labs: Abnormal Lab Results - Last 24 Hours (Table) 10/02/23 10/02/23 10/03/23 Range/Units 10:48 20:06 11:36 WBC (3.8-10.6) k/uL RBC (4.30-5.90) m/uL Hgb (13.0-17.5) gm/dL Hct (39.0-53.0) % Plt Count (150-450) k/uL Neutrophils # (1.3-7.7) k/uL Lymphocytes # (1.0-4.8) k/uL ABG pCO2 (35-45) mmHg ABG pO2 (83-108) mmHg ABG HCO3 (21-25) mmol/L ABG Total CO2 (19-24) mmol/L ABG O2 Saturation (94-97) % Chloride (98-107) mmol/L Glucose (74-99) mg/dL POC Glucose (mg/dL) 140 H 126 H (70-110) mg/dL Calcium (8.4-10.2) mg/dL AST (17-59) U/L ALT (4-49) U/L Total Protein (6.3-8.2) g/dL Crossmatch See Detail 10/03/23 10/03/23 10/03/23 Range/Units 11:41 11:41 12:01 WBC (3.8-10.6) k/uL RBC 4.24 L (4.30-5.90) m/uL Hgb 12.7 L (13.0-17.5) gm/dL Hct 37.8 L (39.0-53.0) % Plt Count 115 L (150-450) k/uL Neutrophils # (1.3-7.7) k/uL Lymphocytes # (1.0-4.8) k/uL ABG pCO2 46 H (35-45) mmHg ABG pO2 208 H (83-108) mmHg ABG HCO3 26 H (21-25) mmol/L ABG Total CO2 27 H (19-24) mmol/L ABG O2 Saturation 100.0 H (94-97) % Chloride 111 H (98-107) mmol/L Glucose 122 H (74-99) mg/dL POC Glucose (mg/dL) (70-110) mg/dL Calcium 8.2 L (8.4-10.2) mg/dL AST 127 H (17-59) U/L ALT 86 H (4-49) U/L Total Protein 5.7 L (6.3-8.2) g/dL Crossmatch 10/03/23 10/03/23 10/03/23 Range/Units 12:55 14:12 14:35 WBC 12.4 H (3.8-10.6) k/uL RBC (4.30-5.90) m/uL Hgb (13.0-17.5) gm/dL Hct (39.0-53.0) % Plt Count 143 L (150-450) k/uL Neutrophils # 10.4 H (1.3-7.7) k/uL Lymphocytes # (1.0-4.8) k/uL ABG pCO2 (35-45) mmHg ABG pO2 (83-108) mmHg ABG HCO3 (21-25) mmol/L ABG Total CO2 (19-24) mmol/L ABG O2 Saturation (94-97) % Chloride (98-107) mmol/L Glucose (74-99) mg/dL POC Glucose (mg/dL) 122 H 134 H (70-110) mg/dL Calcium (8.4-10.2) mg/dL AST (17-59) U/L ALT (4-49) U/L Total Protein (6.3-8.2) g/dL Crossmatch 10/03/23 10/03/23 10/03/23 Range/Units 15:26 15:57 16:55 WBC (3.8-10.6) k/uL RBC (4.30-5.90) m/uL Hgb (13.0-17.5) gm/dL Hct (39.0-53.0) % Plt Count (150-450) k/uL Neutrophils # (1.3-7.7) k/uL Lymphocytes # (1.0-4.8) k/uL ABG pCO2 (35-45) mmHg ABG pO2 72 L (83-108) mmHg ABG HCO3 (21-25) mmol/L ABG Total CO2 26 H (19-24) mmol/L ABG O2 Saturation 97.5 H (94-97) % Chloride (98-107) mmol/L Glucose (74-99) mg/dL POC Glucose (mg/dL) 133 H 133 H (70-110) mg/dL Calcium (8.4-10.2) mg/dL AST (17-59) U/L ALT (4-49) U/L Total Protein (6.3-8.2) g/dL Crossmatch 10/03/23 10/03/23 Range/Units 17:30 18:09 WBC 14.5 H (3.8-10.6) k/uL RBC (4.30-5.90) m/uL Hgb 12.6 L (13.0-17.5) gm/dL Hct 38.4 L (39.0-53.0) % Plt Count 141 L (150-450) k/uL Neutrophils # 13.1 H (1.3-7.7) k/uL Lymphocytes # 0.8 L (1.0-4.8) k/uL ABG pCO2 (35-45) mmHg ABG pO2 (83-108) mmHg ABG HCO3 (21-25) mmol/L ABG Total CO2 (19-24) mmol/L ABG O2 Saturation (94-97) % Chloride (98-107) mmol/L Glucose (74-99) mg/dL POC Glucose (mg/dL) 115 H (70-110) mg/dL Calcium (8.4-10.2) mg/dL AST (17-59) U/L ALT (4-49) U/L Total Protein (6.3-8.2) g/dL Crossmatch Assessment and Plan Assessment: Acute NSTEMI, status post cardiac cath reporting multivessel CAD including s evere CAD of dominant left circumflex and LAD, status post CABG, off-pump, grafting x 1 utilizing the ORTEZ to the LAD Diabetes mellitus, new onset, hemoglobin A1c 6.1 Acute pancreatitis, in a patient with prior history of pancreatitis status post cholecystectomy 2016. Etiology unclear, resolved Hypertension Hyperlipidemia Ongoing nicotine dependence Gastroesophageal reflux disease Plan: Continue on current medication regimen ,monitoring and symptomatic treatment. Recently admitted into the ICU status post CABG. ICU management as per flour blender and CTS. The impression and plan of care has been dictated as directed. : I performed a history and examination of this patient, discussed the same with the dictator. I agree with the dictator's note ,documented as a scribe. Any additional findings or plans will be noted.
[2023-10-03 19:31] LABS: Glucose,Whole Blood 113 mg/dL (70-110)
[2023-10-03] MEDS: SENNOSIDES-DOCUSATE SODIUM 1 EACH TAB PO SCH (20:16)
[2023-10-03 20:53] LABS: Glucose,Whole Blood 134 mg/dL (70-110)
[2023-10-03 22:07] LABS: Glucose,Whole Blood 130 mg/dL (70-110)
[2023-10-03 23:05] LABS: Glucose,Whole Blood 130 mg/dL (70-110)
[2023-10-04 00:31] LABS: Glucose,Whole Blood 123 mg/dL (70-110)
[2023-10-04 01:05] LABS: Glucose,Whole Blood 127 mg/dL (70-110)
[2023-10-04 02:10] LABS: Glucose,Whole Blood 127 mg/dL (70-110)
[2023-10-04] MEDS: IPRATROPIUM-ALBUTEROL 3 ML NEB INHALATION PRN (03:33)
[2023-10-04 03:44] LABS: Glucose,Whole Blood 125 mg/dL (70-110)
[2023-10-04 04:14] LABS: Glucose,Whole Blood 141 mg/dL (70-110)
[2023-10-04 05:13] LABS: Glucose,Whole Blood 137 mg/dL (70-110)
[2023-10-04 05:28] LABS: Basophils % (A) 0 %; Eosinophils % (A) 0 %; HCT 41.9 % (39.0-53.0); HGB 13.9 gm/dL (13.0-17.5); Lymphocytes # (A) 0.6 k/uL (1.0-4.8); Lymphocytes % (A) 4 %; MCH 29.7 pg (25.0-35.0); MCHC 33.1 g/dL (31.0-37.0); MCV 89.8 fL (80.0-100.0); Mean Platelet Volume 8.9; Monocytes # (A) 0.7 k/uL (0-1.0); Monocytes % (A) 4 %; Neutrophils # (A) 15.7 k/uL (1.3-7.7); Neutrophils % (A) 92 %; Platelet Count 148 k/uL (150-450); RBC 4.67 m/uL (4.30-5.90); RDW 13.9 % (11.5-15.5); WBC 17.1 k/uL (3.8-10.6)
[2023-10-04 05:33] LABS: Ionized Calcium 4.9 mg/dL (4.5-5.3)
[2023-10-04 05:47] LABS: ALT 76 U/L (4-49); AST 62 U/L (17-59); African American GFR (CKD) >90 (>60 ml/min/1.73 sqM); Albumin 4.3 g/dL (3.5-5.0); Alkaline Phosphatase 80 U/L (38-126); Anion Gap 7 mmol/L; Blood Urea Nitrogen 9 mg/dL (9-20); Calcium 8.8 mg/dL (8.4-10.2); Carbon Dioxide 23 mmol/L (22-30); Chloride 105 mmol/L (98-107); Glucose 134 mg/dL (74-99); Magnesium 1.6 mg/dL (1.6-2.3); Non-African American GFR(CKD) >90 (>60 ml/min/1.73 sqM); Potassium 3.9 mmol/L (3.5-5.1); Sodium 135 mmol/L (137-145); Total Bilirubin 0.9 mg/dL (0.2-1.3); Total Protein 6.6 g/dL (6.3-8.2)
[2023-10-04] MEDS: METOCLOPRAMIDE 5 MG/ML 2 ML VIAL IVP PRN (06:00)
[2023-10-04] MEDS ORDERED: ACETAMINOPHEN TAB 325 MG TAB PO PRN (06:44)
[2023-10-04 06:52] LABS: Glucose,Whole Blood 135 mg/dL (70-110)
[2023-10-04] MEDS: MAGNESIUM SULFATE-D5W PMX 1 GM in DEXTROSE/WATER 1 100ML.BAG IVPB SCH (07:09)
[2023-10-04] MEDS: POTASSIUM CHLORIDE 10 MEQ in WATER FOR INJECTION 1 100ML.BAG IVPB SCH (07:09)
--- NOTE | 2023-10-04 07:20 | XR ---
EXAMINATION TYPE: XR chest 1V portable DATE OF EXAM: 10/04/2023 COMPARISON: 10/03/2023 INDICATION: Postop cardiac surgery TECHNIQUE: Single frontal view of the chest is obtained. FINDINGS: The heart size is enlarged. The pulmonary vasculature is normal. Bibasilar infiltrates are present. Left-sided chest tube is present. No pneumothorax is evident. [place] -Dary catheter is present with the tip in the main pulmonary artery region. Mediastinal tube is prese nt. Nasogastric tube has been removed. IMPRESSION: 1. Mild bibasilar infiltrates. Correlate for atelectasis. Some minimal right pleural effusion may be present. 2. Lines and catheters discussed above.
[2023-10-04] MEDS ORDERED: traMADol 50 MG TAB PO PRN (07:53)
--- NOTE | 2023-10-04 08:08 | P.PN ---
Subjective Progress Note Date: 10/04/23 Principal diagnosis: Coronary artery disease, non-STEMI this admission, elevated lipase. 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 He was successfully extubated yesterday at 16:05. Remains in sinus rhythm, hemodynamically stable. Does complain of expected postsurgical pain, denies shortness of breath. Does states he got nauseous with oxy administration and did have an episode of emesis. He did desaturate and required high flow nasal cannula, will need to watch for aspiration pneumonia. Chest x-ray, labs reviewed. Right internal jugular [place]/Cordis, right radial arterial line, mediastinal/left pleural chest tubes all remain. No other new concerns. Objective - Vital Signs Vital signs: Vital Signs Temp 97.5 F L 10/03/23 19:00 Pulse 91 10/04/23 07:00 Resp 26 H 10/04/23 07:00 BP 132/84 10/04/23 07:00 Pulse Ox 98 10/04/23 07:00 FiO2 10 10/04/23 07:00 Intake & Output 10/03/23 10/04/23 10/04/23 18:59 06:59 18:59 Intake Total 8270.645 9452.697 309 Output Total 2940 1867 80 Balance -1240.314 -563.303 229 Weight 86.1 kg Intake: IV 296 958 309 Albumin Human 5% 250 ml 250 In Empty Bag 1 bag @ 250 mls/hr IVPB Q1HR PRN Rx#: [id number] CO/CI 130 100 LR 50 Lactated Ringers 1,000 ml 550 50 @ 20 mls/hr IV .Q24H [facility] Rx#:[id number] Potassium Chloride 10 meq 100 In Water For Injection 1 100ml.bag @ 100 mls/hr IVPB Q1H [facility] Rx#: [id number] Pressure bags 63 108 9 ceFAZolin 2 gm In Sodium 100 Chloride 0.9% 50 ml @ 100 mls/hr IVPB ONCE ONE Rx# :[id number] Intake, IV Titration 1403.686 245.697 Amount ACETAMINOPHEN IV (For NPO 100 100 ) 1,000 mg In Empty Bag 1 bag @ 400 mls/hr IVPB Q6HR [facility] Rx#:[id number] Albumin Human 5% 250 ml 500 In Empty Bag 1 bag @ 250 mls/hr IVPB Q1HR PRN Rx#: [id number] Clevidipine Butyrate 25 17.400 92.600 mg In Empty Bag 1 bag @ 1 MG/HR 2 mls/hr IV .Q24H [facility] Rx#:[id number] Dexmedetomidine/0.9% NaCl 30.969 (Pmx) 400 mcg In Empty Bag 1 bag @ Titrate IV . Q0M [facility] Rx#:[id number] Insulin Regular 100 unit 5.143 3.097 In Sodium Chloride 0.9% 100 ml @ Per Protocol IV .Q0M [facility] Rx#:[id number] Insulin Regular 100 unit 0.5 In Sodium Chloride 0.9% 100 ml @ Titrate IV .Q0M [facility] Rx#:[id number] Lactated Ringers 1,000 ml 300 50 @ 20 mls/hr IV .Q24H [facility] Rx#:[id number] Nitroglycerin-D5w Pmx 50 27.775 mg In Dextrose/Water 1 250ml.bag @ 5 MCG/MIN 1.5 mls/hr IV .Q24H [facility] Rx#: [id number] Potassium Chloride 10 meq 200 In Water For Injection 1 100ml.bag @ 100 mls/hr IVPB Q1H [facility] Rx#: [id number] Potassium Chloride 10 meq 100 In Water For Injection 1 100ml.bag @ 100 mls/hr IVPB Q1H [facility] Rx#: [id number] ceFAZolin 2 gm In Sodium 50 Chloride 0.9% 50 ml @ 100 mls/hr IVPB Q8HR [facility] Rx# :[id number] propofoL 1,000 mg In 71.899 Empty Bag 1 bag @ Titrate IV .Q0M [facility] Rx#: [id number] Oral 100 Output: Chest Tube Drainage 385 222 Left 145 72 Mediastinal 240 150 Gastric Drainage 100 Urine 2220 1645 80 Emesis 60 Estimated Blood Loss 175 Other: Voiding Method Indwelling Catheter Indwelling Catheter ABP, PAP, CO, CI - Last Documented Arterial Blood Pressure 113/54 Pulmonary Artery Pressure 16/4 Cardiac Output 7 Cardiac Index 3.5 - Exam CONSTITUTIONAL: Appears somewhat comfortable, cooperative, no acute distress RESPIRATORY: Lungs sounds diminished bilaterally. Respirations even, nonlabored. Currently on 10 L high flow nasal cannula with oxygen saturation 98%. Able to achieve 750 mL on incentive spirometry. Strong cough. CARDIOVASCULAR: S1, S2 present. Regular rate and rhythm, sinus rhythm on telemetry. Sternum stable. Palpable peripheral pulses bilaterally. No edema present. No calf pain or tenderness noted. Heart hugger in place with patient demonstrating appropriate use. Antiembolism stockings, SCDs present. GASTROINTESTINAL: Abdomen soft, nontender, nondistended. Hypoactive bowel sounds present 4 quadrants. Tolerating minimal clear liquids. Positive flatus GENITOURINARY: Pachceo present draining clear, yellow urine. Output overnight 50-240 mL per hour INTEGUMENTARY: Skin is warm and dry with evidence of good perfusion. Anterior chest incision well approximated and covered with dry intact dressing NEUROLOGIC: Cranial nerves II through XII intact MUSKULOSKELETAL: Able to move all extremities, strength equal bilaterally, gait normal PSYCHIATRIC: Alert and oriented to person place and time, appropriate affect, intact judgment and insight INVASIVE LINES AND TUBES: Mediastinal/left pleural chest tubes present and connected to wall suction, no air leaks present. Mediastinal tube with 50 mL serosanguineous drainage overnight, 450 mL since surgery. Left pleural chest tube with 32 mL serosanguineous drainage overnight, 190 mL since surgery. Right internal jugular [place]/Cordis, right radial arterial line present. Last CO/CI 7/3.5, PA 20/5, CVP 2. - Allied health notes Allied health notes reviewed: nursing - Labs CBC & Chem 7: 10/04/23 05:10 10/04/23 05:10 Labs: Abnormal Lab Results - Last 24 Hours (Table) 10/02/23 10/03/23 10/03/23 Range/Units 10:48 11:36 11:41 WBC (3.8-10.6) k/uL RBC 4.24 L (4.30-5.90) m/uL Hgb 12.7 L (13.0-17.5) gm/dL Hct 37.8 L (39.0-53.0) % Plt Count 115 L (150-450) k/uL Neutrophils # (1.3-7.7) k/uL Lymphocytes # (1.0-4.8) k/uL ABG pCO2 (35-45) mmHg ABG pO2 (83-108) mmHg ABG HCO3 (21-25) mmol/L ABG Total CO2 (19-24) mmol/L ABG O2 Saturation (94-97) % Sodium (137-145) mmol/L Chloride (98-107) mmol/L Glucose (74-99) mg/dL POC Glucose (mg/dL) 126 H (70-110) mg/dL Calcium (8.4-10.2) mg/dL AST (17-59) U/L ALT (4-49) U/L Total Protein (6.3-8.2) g/dL Crossmatch See Detail 10/03/23 10/03/23 10/03/23 Range/Units 11:41 12:01 12:55 WBC (3.8-10.6) k/uL RBC (4.30-5.90) m/uL Hgb (13.0-17.5) gm/dL Hct (39.0-53.0) % Plt Count (150-450) k/uL Neutrophils # (1.3-7.7) k/uL Lymphocytes # (1.0-4.8) k/uL ABG pCO2 46 H (35-45) mmHg ABG pO2 208 H (83-108) mmHg ABG HCO3 26 H (21-25) mmol/L ABG Total CO2 27 H (19-24) mmol/L ABG O2 Saturation 100.0 H (94-97) % Sodium (137-145) mmol/L Chloride 111 H (98-107) mmol/L Glucose 122 H (74-99) mg/dL POC Glucose (mg/dL) 122 H (70-110) mg/dL Calcium 8.2 L (8.4-10.2) mg/dL AST 127 H (17-59) U/L ALT 86 H (4-49) U/L Total Protein 5.7 L (6.3-8.2) g/dL Crossmatch 10/03/23 10/03/23 10/03/23 Range/Units 14:12 14:35 15:26 WBC 12.4 H (3.8-10.6) k/uL RBC (4.30-5.90) m/uL Hgb (13.0-17.5) gm/dL Hct (39.0-53.0) % Plt Count 143 L (150-450) k/uL Neutrophils # 10.4 H (1.3-7.7) k/uL Lymphocytes # (1.0-4.8) k/uL ABG pCO2 (35-45) mmHg ABG pO2 (83-108) mmHg ABG HCO3 (21-25) mmol/L ABG Total CO2 (19-24) mmol/L ABG O2 Saturation (94-97) % Sodium (137-145) mmol/L Chloride (98-107) mmol/L Glucose (74-99) mg/dL POC Glucose (mg/dL) 134 H 133 H (70-110) mg/dL Calcium (8.4-10.2) mg/dL AST (17-59) U/L ALT (4-49) U/L Total Protein (6.3-8.2) g/dL Crossmatch 10/03/23 10/03/23 10/03/23 Range/Units 15:57 16:55 17:30 WBC 14.5 H (3.8-10.6) k/uL RBC (4.30-5.90) m/uL Hgb 12.6 L (13.0-17.5) gm/dL Hct 38.4 L (39.0-53.0) % Plt Count 141 L (150-450) k/uL Neutrophils # 13.1 H (1.3-7.7) k/uL Lymphocytes # 0.8 L (1.0-4.8) k/uL ABG pCO2 (35-45) mmHg ABG pO2 72 L (83-108) mmHg ABG HCO3 (21-25) mmol/L ABG Total CO2 26 H (19-24) mmol/L ABG O2 Saturation 97.5 H (94-97) % Sodium (137-145) mmol/L Chloride (98-107) mmol/L Glucose (74-99) mg/dL POC Glucose (mg/dL) 133 H (70-110) mg/dL Calcium (8.4-10.2) mg/dL AST (17-59) U/L ALT (4-49) U/L Total Protein (6.3-8.2) g/dL Crossmatch 10/03/23 10/03/23 10/03/23 Range/Units 18:09 19:30 20:52 WBC (3.8-10.6) k/uL RBC (4.30-5.90) m/uL Hgb (13.0-17.5) gm/dL Hct (39.0-53.0) % Plt Count (150-450) k/uL Neutrophils # (1.3-7.7) k/uL Lymphocytes # (1.0-4.8) k/uL ABG pCO2 (35-45) mmHg ABG pO2 (83-108) mmHg ABG HCO3 (21-25) mmol/L ABG Total CO2 (19-24) mmol/L ABG O2 Saturation (94-97) % Sodium (137-145) mmol/L Chloride (98-107) mmol/L Glucose (74-99) mg/dL POC Glucose (mg/dL) 115 H 113 H 134 H (70-110) mg/dL Calcium (8.4-10.2) mg/dL AST (17-59) U/L ALT (4-49) U/L Total Protein (6.3-8.2) g/dL Crossmatch 10/03/23 10/03/23 10/04/23 Range/Units 22:06 23:03 00:28 WBC (3.8-10.6) k/uL RBC (4.30-5.90) m/uL Hgb (13.0-17.5) gm/dL Hct (39.0-53.0) % Plt Count (150-450) k/uL Neutrophils # (1.3-7.7) k/uL Lymphocytes # (1.0-4.8) k/uL ABG pCO2 (35-45) mmHg ABG pO2 (83-108) mmHg ABG HCO3 (21-25) mmol/L ABG Total CO2 (19-24) mmol/L ABG O2 Saturation (94-97) % Sodium (137-145) mmol/L Chloride (98-107) mmol/L Glucose (74-99) mg/dL POC Glucose (mg/dL) 130 H 130 H 123 H (70-110) mg/dL Calcium (8.4-10.2) mg/dL AST (17-59) U/L ALT (4-49) U/L Total Protein (6.3-8.2) g/dL Crossmatch 10/04/23 10/04/23 10/04/23 Range/Units 01:03 02:06 02:59 WBC (3.8-10.6) k/uL RBC (4.30-5.90) m/uL Hgb (13.0-17.5) gm/dL Hct (39.0-53.0) % Plt Count (150-450) k/uL Neutrophils # (1.3-7.7) k/uL Lymphocytes # (1.0-4.8) k/uL ABG pCO2 (35-45) mmHg ABG pO2 (83-108) mmHg ABG HCO3 (21-25) mmol/L ABG Total CO2 (19-24) mmol/L ABG O2 Saturation (94-97) % Sodium (137-145) mmol/L Chloride (98-107) mmol/L Glucose (74-99) mg/dL POC Glucose (mg/dL) 127 H 127 H 125 H (70-110) mg/dL Calcium (8.4-10.2) mg/dL AST (17-59) U/L ALT (4-49) U/L Total Protein (6.3-8.2) g/dL Crossmatch 10/04/23 10/04/23 10/04/23 Range/Units 04:12 05:10 05:10 WBC 17.1 H (3.8-10.6) k/uL RBC (4.30-5.90) m/uL Hgb (13.0-17.5) gm/dL Hct (39.0-53.0) % Plt Count 148 L (150-450) k/uL Neutrophils # 15.7 H (1.3-7.7) k/uL Lymphocytes # 0.6 L (1.0-4.8) k/uL ABG pCO2 (35-45) mmHg ABG pO2 (83-108) mmHg ABG HCO3 (21-25) mmol/L ABG Total CO2 (19-24) mmol/L ABG O2 Saturation (94-97) % Sodium 135 L (137-145) mmol/L Chloride (98-107) mmol/L Glucose 134 H (74-99) mg/dL POC Glucose (mg/dL) 141 H (70-110) mg/dL Calcium (8.4-10.2) mg/dL AST 62 H (17-59) U/L ALT 76 H (4-49) U/L Total Protein (6.3-8.2) g/dL Crossmatch 10/04/23 10/04/23 Range/Units 05:11 06:52 WBC (3.8-10.6) k/uL RBC (4.30-5.90) m/uL Hgb (13.0-17.5) gm/dL Hct (39.0-53.0) % Plt Count (150-450) k/uL Neutrophils # (1.3-7.7) k/uL Lymphocytes # (1.0-4.8) k/uL ABG pCO2 (35-45) mmHg ABG pO2 (83-108) mmHg ABG HCO3 (21-25) mmol/L ABG Total CO2 (19-24) mmol/L ABG O2 Saturation (94-97) % Sodium (137-145) mmol/L Chloride (98-107) mmol/L Glucose (74-99) mg/dL POC Glucose (mg/dL) 137 H 135 H (70-110) mg/dL Calcium (8.4-10.2) mg/dL AST (17-59) U/L ALT (4-49) U/L Total Protein (6.3-8.2) g/dL Crossmatch - Imaging and Cardiology Chest x-ray: report reviewed, image reviewed Assessment and Plan Assessment: Coronary artery disease, non-STEMI this admission, status post single-vessel CABG Elevated lipase, trending down Hypertension Hyperlipidemia, treated, cholesterol 120, LDL 53 Pancreatitis Chronic low back pain Current tobacco dependence, preoperative FEV1 85% of predicted Current daily marijuana use Family history of premature coronary artery disease Plan: Continue to maximize medical therapy with aspirin, Plavix, statin, beta-malina. Will increase beta-malina therapy as tolerated, increased to 25 mg twice daily today Will add lisinopril for afterload reduction, discontinue IV nitro Wean O2 as tolerated. Encourage incentive spirometry use 10 times every hour while awake, bronchodilators per pulmonology Increase activity, ambulate as tolerated Will monitor daily labs and x-rays. Electrolyte replacement per protocol GI/DVT prophylaxis Insulin management per internal medicine. Patient is not diabetic, hemoglobin A1c 6%, should remain on IV insulin for 48 hours postsurgery then may transition to sliding scale coverage per protocol Pain control per current medication regimen. Will discontinue Oxy and add tramadol, will use IV Tylenol every 6 hours for the next 24 hours. Patient encouraged to eat prior to narcotic pain medication Discontinue [place]. Connect Cordis to continuous CVP monitoring Continue chest tubes for another 24 hours, monitor and record output Continue Pacheco catheter for another 24 hours, continue to monitor and record strict accurate intake and output Daily weights More recommendations to follow
[2023-10-04] MEDS: ACETAMINOPHEN IV (For NPO) 1,000 MG in EMPTY BAG 1 BAG IVPB SCH (08:15)
[2023-10-04] MEDS: ATORVASTATIN 40 MG TAB PO SCH (08:16)
[2023-10-04] MEDS: CLOPIDOGREL 75 MG TAB PO SCH (08:16)
[2023-10-04] MEDS: lisinopriL 5 MG TAB PO SCH (08:17)
[2023-10-04] MEDS: ASPIRIN 325 MG TAB PO SCH (08:17)
[2023-10-04] MEDS: METOPROLOL TARTRATE 25 MG TAB PO SCH ×2 (08:17→15:58)
[2023-10-04] MEDS: PANTOPRAZOLE 40 MG/10 ML VIAL IVP SCH (08:17)
[2023-10-04 08:29] LABS: Glucose,Whole Blood 146 mg/dL (70-110)
[2023-10-04] MEDS ORDERED: bisacodyL 10 MG SUPP RECTAL PRN (09:00)
[2023-10-04] MEDS ORDERED: MAGNESIUM HYDROXIDE 2,400 MG/30 ML CUP PO PRN (09:00)
[2023-10-04] MEDS ORDERED: METOPROLOL TARTRATE 12.5 MG TAB PO SCH (09:00)
--- NOTE | 2023-10-04 10:01 | P.PN ---
Subjective Progress Note Date: 10/04/23 Principal diagnosis: Status post CABG The patient is a 48-year-old gentleman with a smoking and hypertension and dyslipidemia who was admitted to the hospital with acute coronary syndrome and underwent a heart catheterization that revealed severe two-vessel coronary artery disease involving the LAD as well as left circumflex coronary artery. Yesterday he underwent CABG x 1 with ORTEZ to LAD. He still have severe disease involving the left circumflex in the AV groove which need to be performed percutaneously down the line. The echo revealed normal LV systolic function October 04, 2023 This is postoperation day #1. The patient overall is doing well. He is extubated. He is hemodynamically stable and has been maintaining normal sinus mechanism. He is on dual antiplatelet therapy along with intermediate intensity statin along with beta-malina. Urine output has been good. Overall he is having a good postoperation course. The examination revealed regular rhythm w ith a distant heart sounds and diminished breathing sounds bilaterally and mild upper extremities edema. The chest x-ray appears to be slightly wet. Assessment Acute coronary syndrome Severe two-vessel coronary artery disease as described above Preserved left ventricular systolic function History of smoking Plan Continue the current medical regimen Continue monitor the kidney function and electrolytes and hemoglobin Continue entering the urine output Watch for any kind of arrhythmia Follow-up with the patient Objective - Vital Signs Vital signs: Vital Signs Temp 99.1 F 10/04/23 09:00 Pulse 82 10/04/23 09:00 Resp 16 10/04/23 09:00 BP 128/87 10/04/23 09:00 Pulse Ox 98 10/04/23 09:00 FiO2 10 10/04/23 07:00 Intake & Output 10/03/23 10/04/23 10/04/23 18:59 06:59 18:59 Intake Total 2850.951 4226.697 894.325 Output Total 2940 1867 265 Balance -1240.314 -563.303 629.325 Weight 86.1 kg Intake: IV 296 958 567 Albumin Human 5% 250 ml 250 In Empty Bag 1 bag @ 250 mls/hr IVPB Q1HR [facility]N Rx#: [id number] CO/CI 130 100 20 LR 50 Lactated Ringers 1,000 ml 550 120 @ 20 mls/hr IV .Q24H [facility] Rx#:[id number] Potassium Chloride 10 meq 100 100 In Water For Injection 1 100ml.bag @ 100 mls/hr IVPB Q1H [facility] Rx#: [id number] Pressure bags 63 108 27 ceFAZolin 2 gm In Sodium 100 50 Chloride 0.9% 50 ml @ 100 mls/hr IVPB ONCE ONE Rx# :[id number] Intake, IV Titration 1403.686 245.697 227.325 Amount ACETAMINOPHEN IV (For NPO 100 100 ) 1,000 mg In Empty Bag 1 bag @ 400 mls/hr IVPB Q6HR [facility] Rx#:[id number] ACETAMINOPHEN IV (For NPO 100 ) 1,000 mg In Empty Bag 1 bag @ 400 mls/hr IVPB Q6HR [facility] Rx#:[id number] Albumin Human 5% 250 ml 500 In Empty Bag 1 bag @ 250 mls/hr IVPB Q1HR PRN Rx#: [id number] Clevidipine Butyrate 25 17.400 92.600 mg In Empty Bag 1 bag @ 1 MG/HR 2 mls/hr IV .Q24H [facility] Rx#:[id number] Dexmedetomidine/0.9% NaCl 30.969 (Pmx) 400 mcg In Empty Bag 1 bag @ Titrate IV . Q0M [facility] Rx#:[id number] Insulin Regular 100 unit 5.143 3.097 0 In Sodium Chloride 0.9% 100 ml @ Per Protocol IV .Q0M [facility] Rx#:[id number] Insulin Regular 100 unit 0.5 In Sodium Chloride 0.9% 100 ml @ Titrate IV .Q0M [facility] Rx#:[id number] Lactated Ringers 1,000 ml 300 50 @ 20 mls/hr IV .Q24H [facility] Rx#:[id number] Magnesium Sulfate-D5w Pmx 100 1 gm In Dextrose/Water 1 100ml.bag @ 100 mls/hr IVPB Q1H [facility] Rx#: [id number] Nitroglycerin-D5w Pmx 50 27.775 27.325 mg In Dextrose/Water 1 250ml.bag @ 5 MCG/MIN 1.5 mls/hr IV .Q24H [facility] Rx#: [id number] Potassium Chloride 10 meq 200 In Water For Injection 1 100ml.bag @ 100 mls/hr IVPB Q1H [facility] Rx#: [id number] Potassium Chloride 10 meq 100 In Water For Injection 1 100ml.bag @ 100 mls/hr IVPB Q1H [facility] Rx#: [id number] ceFAZolin 2 gm In Sodium 50 Chloride 0.9% 50 ml @ 100 mls/hr IVPB Q8HR [facility] Rx# :[id number] propofoL 1,000 mg In 71.899 Empty Bag 1 bag @ Titrate IV .Q0M [facility] Rx#: [id number] Oral 100 100 Output: Chest Tube Drainage 385 222 0 Left 145 72 0 Mediastinal 240 150 0 Gastric Drainage 100 Urine 2220 1645 265 Emesis 60 Estimated Blood Loss 175 Other: Voiding Method Indwelling Catheter Indwelling Catheter ABP, PAP, CO, CI - Last Documented Arterial Blood Pressure 153/70 Pulmonary Artery Pressure 30/11 Cardiac Output 6 Cardiac Index 3 - Labs CBC & Chem 7: 10/04/23 05:10 10/04/23 05:10 Labs: Abnormal Lab Results - Last 24 Hours (Table) 10/02/23 10/03/23 10/03/23 Range/Units 10:48 11:36 11:41 WBC (3.8-10.6) k/uL RBC 4.24 L (4.30-5.90) m/uL Hgb 12.7 L (13.0-17.5) gm/dL Hct 37.8 L (39.0-53.0) % Plt Count 115 L (150-450) k/uL Neutrophils # (1.3-7.7) k/uL Lymphocytes # (1.0-4.8) k/uL ABG pCO2 (35-45) mmHg ABG pO2 (83-108) mmHg ABG HCO3 (21-25) mmol/L ABG Total CO2 (19-24) mmol/L ABG O2 Saturation (94-97) % Sodium (137-145) mmol/L Chloride (98-107) mmol/L Glucose (74-99) mg/dL POC Glucose (mg/dL) 126 H (70-110) mg/dL Calcium (8.4-10.2) mg/dL AST (17-59) U/L ALT (4-49) U/L Total Protein (6.3-8.2) g/dL Crossmatch See Detail 10/03/23 10/03/23 10/03/23 Range/Units 11:41 12:01 12:55 WBC (3.8-10.6) k/uL RBC (4.30-5.90) m/uL Hgb (13.0-17.5) gm/dL Hct (39.0-53.0) % Plt Count (150-450) k/uL Neutrophils # (1.3-7.7) k/uL Lymphocytes # (1.0-4.8) k/uL ABG pCO2 46 H (35-45) mmHg ABG pO2 208 H (83-108) mmHg ABG HCO3 26 H (21-25) mmol/L ABG Total CO2 27 H (19-24) mmol/L ABG O2 Saturation 100.0 H (94-97) % Sodium (137-145) mmol/L Chloride 111 H (98-107) mmol/L Glucose 122 H (74-99) mg/dL POC Glucose (mg/dL) 122 H (70-110) mg/dL Calcium 8.2 L (8.4-10.2) mg/dL AST 127 H (17-59) U/L ALT 86 H (4-49) U/L Total Protein 5.7 L (6.3-8.2) g/dL Crossmatch 10/03/23 10/03/23 10/03/23 Range/Units 14:12 14:35 15:26 WBC 12.4 H (3.8-10.6) k/uL RBC (4.30-5.90) m/uL Hgb (13.0-17.5) gm/dL Hct (39.0-53.0) % Plt Count 143 L (150-450) k/uL Neutrophils # 10.4 H (1.3-7.7) k/uL Lymphocytes # (1.0-4.8) k/uL ABG pCO2 (35-45) mmHg ABG pO2 (83-108) mmHg ABG HCO3 (21-25) mmol/L ABG Total CO2 (19-24) mmol/L ABG O2 Saturation (94-97) % Sodium (137-145) mmol/L Chloride (98-107) mmol/L Glucose (74-99) mg/dL POC Glucose (mg/dL) 134 H 133 H (70-110) mg/dL Calcium (8.4-10.2) mg/dL AST (17-59) U/L ALT (4-49) U/L Total Protein (6.3-8.2) g/dL Crossmatch 10/03/23 10/03/23 10/03/23 Range/Units 15:57 16:55 17:30 WBC 14.5 H (3.8-10.6) k/uL RBC (4.30-5.90) m/uL Hgb 12.6 L (13.0-17.5) gm/dL Hct 38.4 L (39.0-53.0) % Plt Count 141 L (150-450) k/uL Neutrophils # 13.1 H (1.3-7.7) k/uL Lymphocytes # 0.8 L (1.0-4.8) k/uL ABG pCO2 (35-45) mmHg ABG pO2 72 L (83-108) mmHg ABG HCO3 (21-25) mmol/L ABG Total CO2 26 H (19-24) mmol/L ABG O2 Saturation 97.5 H (94-97) % Sodium (137-145) mmol/L Chloride (98-107) mmol/L Glucose (74-99) mg/dL POC Glucose (mg/dL) 133 H (70-110) mg/dL Calcium (8.4-10.2) mg/dL AST (17-59) U/L ALT (4-49) U/L Total Protein (6.3-8.2) g/dL Crossmatch 10/03/23 10/03/23 10/03/23 Range/Units 18:09 19:30 20:52 WBC (3.8-10.6) k/uL RBC (4.30-5.90) m/uL Hgb (13.0-17.5) gm/dL Hct (39.0-53.0) % Plt Count (150-450) k/uL Neutrophils # (1.3-7.7) k/uL Lymphocytes # (1.0-4.8) k/uL ABG pCO2 (35-45) mmHg ABG pO2 (83-108) mmHg ABG HCO3 (21-25) mmol/L ABG Total CO2 (19-24) mmol/L ABG O2 Saturation (94-97) % Sodium (137-145) mmol/L Chloride (98-107) mmol/L Glucose (74-99) mg/dL POC Glucose (mg/dL) 115 H 113 H 134 H (70-110) mg/dL Calcium (8.4-10.2) mg/dL AST (17-59) U/L ALT (4-49) U/L Total Protein (6.3-8.2) g/dL Crossmatch 10/03/23 10/03/23 10/04/23 Range/Units 22:06 23:03 00:28 WBC (3.8-10.6) k/uL RBC (4.30-5.90) m/uL Hgb (13.0-17.5) gm/dL Hct (39.0-53.0) % Plt Count (150-450) k/uL Neutrophils # (1.3-7.7) k/uL Lymphocytes # (1.0-4.8) k/uL ABG pCO2 (35-45) mmHg ABG pO2 (83-108) mmHg ABG HCO3 (21-25) mmol/L ABG Total CO2 (19-24) mmol/L ABG O2 Saturation (94-97) % Sodium (137-145) mmol/L Chloride (98-107) mmol/L Glucose (74-99) mg/dL POC Glucose (mg/dL) 130 H 130 H 123 H (70-110) mg/dL Calcium (8.4-10.2) mg/dL AST (17-59) U/L ALT (4-49) U/L Total Protein (6.3-8.2) g/dL Crossmatch 10/04/23 10/04/23 10/04/23 Range/Units 01:03 02:06 02:59 WBC (3.8-10.6) k/uL RBC (4.30-5.90) m/uL Hgb (13.0-17.5) gm/dL Hct (39.0-53.0) % Plt Count (150-450) k/uL Neutrophils # (1.3-7.7) k/uL Lymphocytes # (1.0-4.8) k/uL ABG pCO2 (35-45) mmHg ABG pO2 (83-108) mmHg ABG HCO3 (21-25) mmol/L ABG Total CO2 (19-24) mmol/L ABG O2 Saturation (94-97) % Sodium (137-145) mmol/L Chloride (98-107) mmol/L Glucose (74-99) mg/dL POC Glucose (mg/dL) 127 H 127 H 125 H (70-110) mg/dL Calcium (8.4-10.2) mg/dL AST (17-59) U/L ALT (4-49) U/L Total Protein (6.3-8.2) g/dL Crossmatch 10/04/23 10/04/23 10/04/23 Range/Units 04:12 05:10 05:10 WBC 17.1 H (3.8-10.6) k/uL RBC (4.30-5.90) m/uL Hgb (13.0-17.5) gm/dL Hct (39.0-53.0) % Plt Count 148 L (150-450) k/uL Neutrophils # 15.7 H (1.3-7.7) k/uL Lymphocytes # 0.6 L (1.0-4.8) k/uL ABG pCO2 (35-45) mmHg ABG pO2 (83-108) mmHg ABG HCO3 (21-25) mmol/L ABG Total CO2 (19-24) mmol/L ABG O2 Saturation (94-97) % Sodium 135 L (137-145) mmol/L Chloride (98-107) mmol/L Glucose 134 H (74-99) mg/dL POC Glucose (mg/dL) 141 H (70-110) mg/dL Calcium (8.4-10.2) mg/dL AST 62 H (17-59) U/L ALT 76 H (4-49) U/L Total Protein (6.3-8.2) g/dL Crossmatch 10/04/23 10/04/23 10/04/23 Range/Units 05:11 06:52 08:27 WBC (3.8-10.6) k/uL RBC (4.30-5.90) m/uL Hgb (13.0-17.5) gm/dL Hct (39.0-53.0) % Plt Count (150-450) k/uL Neutrophils # (1.3-7.7) k/uL Lymphocytes # (1.0-4.8) k/uL ABG pCO2 (35-45) mmHg ABG pO2 (83-108) mmHg ABG HCO3 (21-25) mmol/L ABG Total CO2 (19-24) mmol/L ABG O2 Saturation (94-97) % Sodium (137-145) mmol/L Chloride (98-107) mmol/L Glucose (74-99) mg/dL POC Glucose (mg/dL) 137 H 135 H 146 H (70-110) mg/dL Calcium (8.4-10.2) mg/dL AST (17-59) U/L ALT (4-49) U/L Total Protein (6.3-8.2) g/dL Crossmatch
[2023-10-04 11:03] LABS: Glucose,Whole Blood 125 mg/dL (70-110)
[2023-10-04 11:03] LABS: Glucose,Whole Blood 144 mg/dL (70-110)
[2023-10-04] MEDS: lisinopriL 5 MG TAB PO STA (11:59)
[2023-10-04 12:10] LABS: Glucose,Whole Blood 124 mg/dL (70-110)
[2023-10-04 12:12] VITALS: BMI 27.2
[2023-10-04] MEDS: INSULIN ASPART (NovoLOG) 100 UNIT/ML VIAL SQ SCH (12:15)
--- NOTE | 2023-10-04 14:30 | P.PN ---
Subjective Progress Note Date: 10/04/23 Principal diagnosis: POD #1 off pump coronary artery bypass grafting x 1, left internal thoracic artery (in-situ) to left anterior descending coronary artery, left atrial appendage ligation using #35mm AtriClip, graft flow measurements using the Press Play- Stim flow meter system, trans-esophageal echo Patient is a 48-year-old white male with past medical history significant for hy pertension, hyperlipidemia, pancreatitis, current tobacco dependence, daily marijuana smoker, and family history of premature coronary artery disease. His primary care provider is Dr. Martinez. Patient originally presented to the emergency room 09/29/2023 complaining of chest pain. This had been ongoing for the last 4 to 5 days. Described as epigastric and nonradiating. Associated intermittent nausea. Initially, thought this was heartburn, Tums no longer alleviated the pain, and for this reason the patient came to the emergency room. Of note, his lipase level was elevated [place] 2507. CT of the abdomen and pelvis showed no hydronephrosis, nonobstructing 4 mm right upper pole renal stone, prior cholecystectomy, and diverticulosis without diverticulitis. Otherwise, no obvious acute intra-abdominal pathology. Troponins were also elevated while in the emergency room. Patient was thought to have a non-ST elevation CA. He did undergo heart catheterization yesterday, which found severe two-vessel coronary artery disease involving the dominant left circumflex and left anterior desce nding artery. There were mildly elevated left-sided filling pressures. A consult was placed for cardiothoracic surgical evaluation. Patient is undergoing the normal preoperative CABG workup. We are asked to see this patient for a pulmonary evaluation and preoperative pulmonary clearance. Devon lobo has no known history of pulmonary disease such as COPD or asthma. He does smoke tobacco approximately 1 pack/day. He also is a daily marijuana smoker. Patient did have a bedside spirometry which showed an FEV1 of 3.38 L or 85% of predicted. Chest CT showed three-vessel aortic arch with minimal atherosclerotic ossifications and mild emphysema. He is currently sitting up in bed, on room air, in no acute distress. He denies any further chest pain. Heparin is infusing per protocol. Normal saline is infusing at 75 mL/h. Most recent lab work includes an unremarkable CBC and BMP. Lipase level has normalized and is down to 163. Patient denies any further abdominal discomfort. No nausea or vomiting. Tolerating diet. Denies significant alcohol use. Vitals are hemodynamically stable. Reevaluate today on 10/02/2023, patient is scheduled to undergo myocardial revascularization tomorrow. Pulmonary [place] patient is asymptomatic, no cough no wheezing no shortness of breath, PFT showed no evidence of any significant obstruction in spite of his [id number] smoking history. Patient is on heparin, PTT today is 67.4 The patient is seen today October 03, 2023 postoperatively in the intensive care unit. He did undergo off-pump coronary artery bypass grafting x 1 utilizing a ORTEZ to the LAD. Left atrial appendage ligation using a 33 mm AtriClip. He is intubated on the mechanical ventilator with settings of assist-control mode at a rate of 14, tidal volume 500, FiO2 50% and a PEEP of 5. Blood gases revealed a PaO2 of 208, pCO2 of 46 and a pH of 7.35 on 100% FiO2. Chest x-ray shows scattered mild increased lung markings of the left lung and right lung base. Suspect atelectasis. [place] catheter is in place. Cardiac output 9.3. Cardiac index 4.6. PA pressures 36/18. CVP 12. Left mediastinal chest tube in place. He is currently on Precedex at 0.6 mcg/mg/h. Propofol at 10 mcg/mg/min. Insulin drip at 1 unit/h. Nitroglycerin drip at 5 mcg/min. Lactated Ringer's at 50 MLS per hour. White count 12.4. Hemoglobin 13.2. Platelets 143. Sodium 139. Potassium 3.6. Bicarb 24. BUN 11. Creatinine 0.70. Glucose 122. He remains on bronchodilators. Patient was reevaluated today on 10/04/2023, patient underwent uneventful off- pump coronary artery bypass grafting x 1 utilizing ORTEZ to LAD, and is now postoperative day #1. Patient was extubated at 16: Oh 5 PM, tolerated the extubation well, patient required initially high flow nasal cannula, presently on 2 L nasal cannula with O2 sats of 97%. Chest x-ray is showing mild bibasilar atelectasis, and small minimal right pleural effusion. Lines and catheters seem to be in proper position. WBC count today 17.1 hemoglobin 13.9. Basic metabolic profile is normal. Renal profile is normal. Patient is doing well with incentive spirometry. Does have intermittent episodes of nausea and had 1 episode of emesis. Continues to have right IJ [place], and continues to have mediastinal left pleural chest tubes in place. Objective - Vital Signs Vital signs: Vital Signs Temp 98.4 F 10/04/23 12:00 Pulse 86 10/04/23 13:00 Resp 23 10/04/23 13:00 BP 149/89 10/04/23 13:00 Pulse Ox 97 10/04/23 13:00 FiO2 10 10/04/23 07:00 Intake & Output 10/03/23 10/04/23 10/04/23 18:59 06:59 18:59 Intake Total 2371.051 9895.697 973.554 Output Total 2940 1867 540 Balance -1240.314 -563.303 433.554 Weight 86.1 kg 86.1 kg Intake: IV 296 958 645 Albumin Human 5% 250 ml 250 In Empty Bag 1 bag @ 250 mls/hr IVPB Q1HR PRN Rx#: [id number] CO/CI 130 100 20 LR 50 Lactated Ringers 1,000 ml 550 180 @ 20 mls/hr IV .Q24H [facility] Rx#:[id number] Potassium Chloride 10 meq 100 100 In Water For Injection 1 100ml.bag @ 100 mls/hr IVPB Q1H [facility] Rx#: [id number] Pressure bags 63 108 45 ceFAZolin 2 gm In Sodium 100 50 Chloride 0.9% 50 ml @ 100 mls/hr IVPB ONCE ONE Rx# :[id number] Intake, IV Titration 1403.686 245.697 228.554 Amount ACETAMINOPHEN IV (For NPO 100 100 ) 1,000 mg In Empty Bag 1 bag @ 400 mls/hr IVPB Q6HR [facility] Rx#:[id number] ACETAMINOPHEN IV (For NPO 100 ) 1,000 mg In Empty Bag 1 bag @ 400 mls/hr IVPB Q6HR [facility] Rx#:[id number] Albumin Human 5% 250 ml 500 In Empty Bag 1 bag @ 250 mls/hr IVPB Q1HR PRN Rx#: [id number] Clevidipine Butyrate 25 17.400 92.600 mg In Empty Bag 1 bag @ 1 MG/HR 2 mls/hr IV .Q24H [facility] Rx#:[id number] Dexmedetomidine/0.9% NaCl 30.969 (Pmx) 400 mcg In Empty Bag 1 bag @ Titrate IV . Q0M [facility] Rx#:[id number] Insulin Regular 100 unit 5.143 3.097 1.229 In Sodium Chloride 0.9% 100 ml @ Per Protocol IV .Q0M [facility] Rx#:[id number] Insulin Regular 100 unit 0.5 In Sodium Chloride 0.9% 100 ml @ Titrate IV .Q0M [facility] Rx#:[id number] Lactated Ringers 1,000 ml 300 50 @ 20 mls/hr IV .Q24H [facility] Rx#:[id number] Magnesium Sulfate-D5w Pmx 100 1 gm In Dextrose/Water 1 100ml.bag @ 100 mls/hr IVPB Q1H [facility] Rx#: [id number] Nitroglycerin-D5w Pmx 50 27.775 27.325 mg In Dextrose/Water 1 250ml.bag @ 5 MCG/MIN 1.5 mls/hr IV .Q24H [facility] Rx#: [id number] Potassium Chloride 10 meq 200 In Water For Injection 1 100ml.bag @ 100 mls/hr IVPB Q1H [facility] Rx#: [id number] Potassium Chloride 10 meq 100 In Water For Injection 1 100ml.bag @ 100 mls/hr IVPB Q1H [facility] Rx#: [id number] ceFAZolin 2 gm In Sodium 50 Chloride 0.9% 50 ml @ 100 mls/hr IVPB Q8HR [facility] Rx# :[id number] propofoL 1,000 mg In 71.899 Empty Bag 1 bag @ Titrate IV .Q0M [facility] Rx#: [id number] Oral 100 100 Output: Chest Tube Drainage 385 222 80 Left 145 72 40 Mediastinal 240 150 40 Gastric Drainage 100 Urine 2220 1645 460 Emesis 60 Estimated Blood Loss 175 Other: Voiding Method Indwelling Catheter Indwelling Catheter Indwelling Catheter ABP, PAP, CO, CI - Last Documented Arterial Blood Pressure 159/83 Pulmonary Artery Pressure 30/11 Cardiac Output 6 Cardiac Index 3 - Exam GENERAL EXAM: Reveals a pleasant 48-year-old white male in no distress, on 2 L nasal cannula HEAD: Normocephalic and atraumatic EYES: Normal reaction of pupils, equal size. NOSE: Clear with pink turbinates. THROAT: No erythema or exudates. NECK: No masses, no JVD. CHEST: No chest wall deformity. LUNGS: Minimal crackles at the bases no rhonchi no wheezes CVS: S1 and S2 normal with no audible murmur, regular rhythm. No extra heart sounds ABDOMEN: No hepatosplenomegaly, active bowel sounds, no guarding or rigidity. SKIN: No rashes CENTRAL NERVOUS SYSTEM: Alert and oriented x 3 no gross focal deficit EXTREMITIES: No clubbing edema or cyanosis - Labs CBC & Chem 7: 10/04/23 05:10 10/04/23 05:10 Labs: Abnormal Lab Results - Last 24 Hours (Table) 10/02/23 10/03/23 10/03/23 Range/Units 10:48 14:35 15:26 WBC 12.4 H (3.8-10.6) k/uL Hgb (13.0-17.5) gm/dL Hct (39.0-53.0) % Plt Count 143 L (150-450) k/uL Neutrophils # 10.4 H (1.3-7.7) k/uL Lymphocytes # (1.0-4.8) k/uL ABG pO2 (83-108) mmHg ABG Total CO2 (19-24) mmol/L ABG O2 Saturation (94-97) % Sodium (137-145) mmol/L Glucose (74-99) mg/dL POC Glucose (mg/dL) 133 H (70-110) mg/dL AST (17-59) U/L ALT (4-49) U/L Crossmatch See Detail 10/03/23 10/03/23 10/03/23 Range/Units 15:57 16:55 17:30 WBC 14.5 H (3.8-10.6) k/uL Hgb 12.6 L (13.0-17.5) gm/dL Hct 38.4 L (39.0-53.0) % Plt Count 141 L (150-450) k/uL Neutrophils # 13.1 H (1.3-7.7) k/uL Lymphocytes # 0.8 L (1.0-4.8) k/uL ABG pO2 72 L (83-108) mmHg ABG Total CO2 26 H (19-24) mmol/L ABG O2 Saturation 97.5 H (94-97) % Sodium (137-145) mmol/L Glucose (74-99) mg/dL POC Glucose (mg/dL) 133 H (70-110) mg/dL AST (17-59) U/L ALT (4-49) U/L Crossmatch 10/03/23 10/03/23 10/03/23 Range/Units 18:09 19:30 20:52 WBC (3.8-10.6) k/uL Hgb (13.0-17.5) gm/dL Hct (39.0-53.0) % Plt Count (150-450) k/uL Neutrophils # (1.3-7.7) k/uL Lymphocytes # (1.0-4.8) k/uL ABG pO2 (83-108) mmHg ABG Total CO2 (19-24) mmol/L ABG O2 Saturation (94-97) % Sodium (137-145) mmol/L Glucose (74-99) mg/dL POC Glucose (mg/dL) 115 H 113 H 134 H (70-110) mg/dL AST (17-59) U/L ALT (4-49) U/L Crossmatch 10/03/23 10/03/23 10/04/23 Range/Units 22:06 23:03 00:28 WBC (3.8-10.6) k/uL Hgb (13.0-17.5) gm/dL Hct (39.0-53.0) % Plt Count (150-450) k/uL Neutrophils # (1.3-7.7) k/uL Lymphocytes # (1.0-4.8) k/uL ABG pO2 (83-108) mmHg ABG Total CO2 (19-24) mmol/L ABG O2 Saturation (94-97) % Sodium (137-145) mmol/L Glucose (74-99) mg/dL POC Glucose (mg/dL) 130 H 130 H 123 H (70-110) mg/dL AST (17-59) U/L ALT (4-49) U/L Crossmatch 10/04/23 10/04/23 10/04/23 Range/Units 01:03 02:06 02:59 WBC (3.8-10.6) k/uL Hgb (13.0-17.5) gm/dL Hct (39.0-53.0) % Plt Count (150-450) k/uL Neutrophils # (1.3-7.7) k/uL Lymphocytes # (1.0-4.8) k/uL ABG pO2 (83-108) mmHg ABG Total CO2 (19-24) mmol/L ABG O2 Saturation (94-97) % Sodium (137-145) mmol/L Glucose (74-99) mg/dL POC Glucose (mg/dL) 127 H 127 H 125 H (70-110) mg/dL AST (17-59) U/L ALT (4-49) U/L Crossmatch 10/04/23 10/04/23 10/04/23 Range/Units 04:12 05:10 05:10 WBC 17.1 H (3.8-10.6) k/uL Hgb (13.0-17.5) gm/dL Hct (39.0-53.0) % Plt Count 148 L (150-450) k/uL Neutrophils # 15.7 H (1.3-7.7) k/uL Lymphocytes # 0.6 L (1.0-4.8) k/uL ABG pO2 (83-108) mmHg ABG Total CO2 (19-24) mmol/L ABG O2 Saturation (94-97) % Sodium 135 L (137-145) mmol/L Glucose 134 H (74-99) mg/dL POC Glucose (mg/dL) 141 H (70-110) mg/dL AST 62 H (17-59) U/L ALT 76 H (4-49) U/L Crossmatch 10/04/23 10/04/23 10/04/23 Range/Units 05:11 06:52 08:27 WBC (3.8-10.6) k/uL Hgb (13.0-17.5) gm/dL Hct (39.0-53.0) % Plt Count (150-450) k/uL Neutrophils # (1.3-7.7) k/uL Lymphocytes # (1.0-4.8) k/uL ABG pO2 (83-108) mmHg ABG Total CO2 (19-24) mmol/L ABG O2 Saturation (94-97) % Sodium (137-145) mmol/L Glucose (74-99) mg/dL POC Glucose (mg/dL) 137 H 135 H 146 H (70-110) mg/dL AST (17-59) U/L ALT (4-49) U/L Crossmatch 10/04/23 10/04/23 10/04/23 Range/Units 09:44 11:01 12:05 WBC (3.8-10.6) k/uL Hgb (13.0-17.5) gm/dL Hct (39.0-53.0) % Plt Count (150-450) k/uL Neutrophils # (1.3-7.7) k/uL Lymphocytes # (1.0-4.8) k/uL ABG pO2 (83-108) mmHg ABG Total CO2 (19-24) mmol/L ABG O2 Saturation (94-97) % Sodium (137-145) mmol/L Glucose (74-99) mg/dL POC Glucose (mg/dL) 144 H 125 H 124 H (70-110) mg/dL AST (17-59) U/L ALT (4-49) U/L Crossmatch Assessment and Plan Assessment: Impression: Coronary artery disease, non-STEMI this admission, status post single-vessel CABG, postoperative day #1 Benign essential hypertension Dyslipidemia Pancreatitis, resolving Chronic low back pain Current tobacco dependence, preoperative FEV1 85% of predicted Current daily marijuana use Family history of premature coronary artery disease Recommendation: Continue maximizing medical therapy including beta-malina statin Plavix and aspirin Continue bronchodilators and incentive spirometry Continue GI DVT prophylaxis Ambulation Discontinue unnecessary lines and catheters Daily weights Daily x-rays of the chest Daily labs Will continue to Time with Patient: Less than 30
--- NOTE | 2023-10-04 15:00 | P.PN ---
Subjective Progress Note Date: 10/04/23 H&P Date: 09/30/23 Chief Complaint: Chest pain This is a pleasant 48-year-old gentleman with past medical history significant for family history of CAD ,nicotine dependence, chronic low back pain, hypertension, hyperlipidemia and multiple other medical issues presented to the ER with complaints of midsternal chest pain radiating through to his back actuat ing off and on for the last 5 days, worsened yesterday, accompanied by nausea and throwing up of his own sputum. Previously relieved with Tums. Reports occurs with exertion and at rest, before and after eating. elevated troponins and elevated lipase of 2507 with normal LFTs on admission, decreased down to 432. Troponin 0.338, 0.573 . EKG reported sinus rhythm, nonspecific ST-T wave changes as per cardiology's review. Chest x-ray reported nonacute. history of prior pancreatitis status postcholecystectomy 2015, pathology reported no stones. Reports occasional alcohol use of a couple beers.CT abdomen pelvis with contrast reports no hydronephrosis or delayed nephrogram. Cholecystectomy. Nonobstructing 4 mm right upper pole renal stone. Diverticulosis without acute diverticulitis. No bowel obstruction. No free air. Afebrile, WBC 11.5, hemoglobin 13.9, platelets 159, INR 1. Sodium 139, potassium 4, bicarb 26, BUN 15, creatinine 0.87. UA negative 10/01/2023 completed cardiac catheterization reporting severe CAD of dominant left circumflex and LAD. Evaluated by cardiothoracic surgery and patient is tentatively scheduled for CABG on . Anticoagulated on heparin drip. Telemetry sinus rhythm. Currently denies any chest pain, palpitations or shortness of breath. Lipase normalized, 163. Denies abdominal pain. Denies nausea vomiting or diarrhea. Hemoglobin A1c 6.1, blood sugars controlled. 10/02/2023 telemetry sinus rhythm. Echo reported normal LV function, mild mitral regurgitation. anticoagulated on heparin drip. denies chest pain, palpitations or shortness of breath. Maintained on prn Xanax, nicotine patch. Scheduled for CABG tomorrow. 10/03/2023 recently admitted into the ICU, status post CABG, graft x 1, ORTEZ to the LAD, off-pump. ventilator dependent with FiO2 60%/+5 of PEEP. Maintained on insulin, nitroglycerin, Precedex and Diprovan drips. Cardiac output 9.3, cardiac index 4.6. 10/04/2023 extubated yesterday afternoon, currently sitting up in chair, maintaining O2 sats in the high 90s on 2 L nasal cannula. Emesis x 1- chest x- ray reports mild bibasilar infiltrates, correlate for atelectasis, minimal right pleural effusion .cardiac output 6, cardiac index 3 .telemetry sinus rhythm, maintained on nitroglycerin drip, Plavix, aspirin, beta-malina, statin. pain controlled. Tmax 99.1, WBC 17.1, hemoglobin 13.9, platelets 148, renal function stable. Blood sugars controlled. Objective - Vital Signs Vital signs: Vital Signs Temp 98.4 F 10/04/23 12:00 Pulse 79 10/04/23 14:00 Resp 16 10/04/23 14:00 BP 134/84 10/04/23 14:00 Pulse Ox 95 10/04/23 14:00 FiO2 10 10/04/23 07:00 Intake & Output 10/03/23 10/04/23 10/04/23 18:59 06:59 18:59 Intake Total 4711.516 6497.697 1125.554 Output Total 2940 1867 680 Balance -1240.314 -563.303 445.554 Weight 86.1 kg 86.1 kg Intake: IV 296 958 697 Albumin Human 5% 250 ml 250 In Empty Bag 1 bag @ 250 mls/hr IVPB Q1HR PRN Rx#: [id number] CO/CI 130 100 20 LR 50 Lactated Ringers 1,000 ml 550 220 @ 20 mls/hr IV .Q24H [facility] Rx#:[id number] Potassium Chloride 10 meq 100 100 In Water For Injection 1 100ml.bag @ 100 mls/hr IVPB Q1H [facility] Rx#: [id number] Pressure bags 63 108 57 ceFAZolin 2 gm In Sodium 100 50 Chloride 0.9% 50 ml @ 100 mls/hr IVPB ONCE ONE Rx# :[id number] Intake, IV Titration 1403.686 245.697 328.554 Amount ACETAMINOPHEN IV (For NPO 100 100 ) 1,000 mg In Empty Bag 1 bag @ 400 mls/hr IVPB Q6HR [facility] Rx#:[id number] ACETAMINOPHEN IV (For NPO 200 ) 1,000 mg In Empty Bag 1 bag @ 400 mls/hr IVPB Q6HR [facility] Rx#:[id number] Albumin Human 5% 250 ml 500 In Empty Bag 1 bag @ 250 mls/hr IVPB Q1HR PRN Rx#: [id number] Clevidipine Butyrate 25 17.400 92.600 mg In Empty Bag 1 bag @ 1 MG/HR 2 mls/hr IV .Q24H [facility] Rx#:[id number] Dexmedetomidine/0.9% NaCl 30.969 (Pmx) 400 mcg In Empty Bag 1 bag @ Titrate IV . Q0M [facility] Rx#:[id number] Insulin Regular 100 unit 5.143 3.097 1.229 In Sodium Chloride 0.9% 100 ml @ Per Protocol IV .Q0M [facility] Rx#:[id number] Insulin Regular 100 unit 0.5 In Sodium Chloride 0.9% 100 ml @ Titrate IV .Q0M [facility] Rx#:[id number] Lactated Ringers 1,000 ml 300 50 @ 20 mls/hr IV .Q24H [facility] Rx#:[id number] Magnesium Sulfate-D5w Pmx 100 1 gm In Dextrose/Water 1 100ml.bag @ 100 mls/hr IVPB Q1H [facility] Rx#: [id number] Nitroglycerin-D5w Pmx 50 27.775 27.325 mg In Dextrose/Water 1 250ml.bag @ 5 MCG/MIN 1.5 mls/hr IV .Q24H [facility] Rx#: [id number] Potassium Chloride 10 meq 200 In Water For Injection 1 100ml.bag @ 100 mls/hr IVPB Q1H [facility] Rx#: [id number] Potassium Chloride 10 meq 100 In Water For Injection 1 100ml.bag @ 100 mls/hr IVPB Q1H [facility] Rx#: [id number] ceFAZolin 2 gm In Sodium 50 Chloride 0.9% 50 ml @ 100 mls/hr IVPB Q8HR [facility] Rx# :[id number] propofoL 1,000 mg In 71.899 Empty Bag 1 bag @ Titrate IV .Q0M [facility] Rx#: [id number] Oral 100 100 Output: Chest Tube Drainage 385 222 120 Left 145 72 60 Mediastinal 240 150 60 Gastric Drainage 100 Urine 2220 1645 560 Emesis 60 Estimated Blood Loss 175 Other: Voiding Method Indwelling Catheter Indwelling Catheter Indwelling Catheter ABP, PAP, CO, CI - Last Documented Arterial Blood Pressure 145/78 Pulmonary Artery Pressure 30/11 Cardiac Output 6 Cardiac Index 3 - Exam GENERAL: Alert and oriented x 3, sitting up in chair, no acute distress HEENT: normocephalic NECK: Supple, no JVD LUNGS: Unlabored, equal air entry, fine bibasilar crackles HEART: Regular rate and rhythm without murmurs, rubs or gallops.S1S2 Normal ABDOMEN: Soft, nondistended, nontender, no rigidity. EXTREMITIES: SCDs on bilateral lower extremities. NEUROLOGICAL: Cranial nerves II through XII grossly intact, no gross focal deficit SKIN: Warm, Dry. - Labs CBC & Chem 7: 10/04/23 05:10 10/04/23 05:10 Labs: Abnormal Lab Results - Last 24 Hours (Table) 10/02/23 10/03/23 10/03/23 Range/Units 10:48 08:48 09:48 WBC (3.8-10.6) k/uL Hgb (13.0-17.5) gm/dL Hct (39.0-53.0) % Plt Count (150-450) k/uL Neutrophils # (1.3-7.7) k/uL Lymphocytes # (1.0-4.8) k/uL ABG pCO2 46 H (35-45) mmHg ABG pO2 315 H 309 H (83-108) mmHg ABG HCO3 26 H (21-25) mmol/L ABG Total CO2 (19-24) mmol/L ABG O2 Saturation >99.4 H >99.4 H (94-97) % ABG Glucose 121 H (75-99) mg/dL Hemoglobin 12.6 L 12.1 L (13.0-17.5) gm/dL Sodium (137-145) mmol/L Glucose (74-99) mg/dL POC Glucose (mg/dL) (70-110) mg/dL AST (17-59) U/L ALT (4-49) U/L Arterial Blood Glucose 121 H (75-99) mg/dL Crossmatch See Detail 10/03/23 10/03/23 10/03/23 Range/Units 10:34 14:35 15:26 WBC 12.4 H (3.8-10.6) k/uL Hgb (13.0-17.5) gm/dL Hct (39.0-53.0) % Plt Count 143 L (150-450) k/uL Neutrophils # 10.4 H (1.3-7.7) k/uL Lymphocytes # (1.0-4.8) k/uL ABG pCO2 (35-45) mmHg ABG pO2 303 H (83-108) mmHg ABG HCO3 (21-25) mmol/L ABG Total CO2 (19-24) mmol/L ABG O2 Saturation >99.4 H (94-97) % ABG Glucose 133 H (75-99) mg/dL Hemoglobin 11.7 L (13.0-17.5) gm/dL Sodium (137-145) mmol/L Glucose (74-99) mg/dL POC Glucose (mg/dL) 133 H (70-110) mg/dL AST (17-59) U/L ALT (4-49) U/L Arterial Blood Glucose 133 H (75-99) mg/dL Crossmatch 10/03/23 10/03/23 10/03/23 Range/Units 15:57 16:55 17:30 WBC 14.5 H (3.8-10.6) k/uL Hgb 12.6 L (13.0-17.5) gm/dL Hct 38.4 L (39.0-53.0) % Plt Count 141 L (150-450) k/uL Neutrophils # 13.1 H (1.3-7.7) k/uL Lymphocytes # 0.8 L (1.0-4.8) k/uL ABG pCO2 (35-45) mmHg ABG pO2 72 L (83-108) mmHg ABG HCO3 (21-25) mmol/L ABG Total CO2 26 H (19-24) mmol/L ABG O2 Saturation 97.5 H (94-97) % ABG Glucose (75-99) mg/dL Hemoglobin (13.0-17.5) gm/dL Sodium (137-145) mmol/L Glucose (74-99) mg/dL POC Glucose (mg/dL) 133 H (70-110) mg/dL AST (17-59) U/L ALT (4-49) U/L Arterial Blood Glucose (75-99) mg/dL Crossmatch 10/03/23 10/03/23 10/03/23 Range/Units 18:09 19:30 20:52 WBC (3.8-10.6) k/uL Hgb (13.0-17.5) gm/dL Hct (39.0-53.0) % Plt Count (150-450) k/uL Neutrophils # (1.3-7.7) k/uL Lymphocytes # (1.0-4.8) k/uL ABG pCO2 (35-45) mmHg ABG pO2 (83-108) mmHg ABG HCO3 (21-25) mmol/L ABG Total CO2 (19-24) mmol/L ABG O2 Saturation (94-97) % ABG Glucose (75-99) mg/dL Hemoglobin (13.0-17.5) gm/dL Sodium (137-145) mmol/L Glucose (74-99) mg/dL POC Glucose (mg/dL) 115 H 113 H 134 H (70-110) mg/dL AST (17-59) U/L ALT (4-49) U/L Arterial Blood Glucose (75-99) mg/dL Crossmatch 10/03/23 10/03/23 10/04/23 Range/Units 22:06 23:03 00:28 WBC (3.8-10.6) k/uL Hgb (13.0-17.5) gm/dL Hct (39.0-53.0) % Plt Count (150-450) k/uL Neutrophils # (1.3-7.7) k/uL Lymphocytes # (1.0-4.8) k/uL ABG pCO2 (35-45) mmHg ABG pO2 (83-108) mmHg ABG HCO3 (21-25) mmol/L ABG Total CO2 (19-24) mmol/L ABG O2 Saturation (94-97) % ABG Glucose (75-99) mg/dL Hemoglobin (13.0-17.5) gm/dL Sodium (137-145) mmol/L Glucose (74-99) mg/dL POC Glucose (mg/dL) 130 H 130 H 123 H (70-110) mg/dL AST (17-59) U/L ALT (4-49) U/L Arterial Blood Glucose (75-99) mg/dL Crossmatch 10/04/23 10/04/23 10/04/23 Range/Units 01:03 02:06 02:59 WBC (3.8-10.6) k/uL Hgb (13.0-17.5) gm/dL Hct (39.0-53.0) % Plt Count (150-450) k/uL Neutrophils # (1.3-7.7) k/uL Lymphocytes # (1.0-4.8) k/uL ABG pCO2 (35-45) mmHg ABG pO2 (83-108) mmHg ABG HCO3 (21-25) mmol/L ABG Total CO2 (19-24) mmol/L ABG O2 Saturation (94-97) % ABG Glucose (75-99) mg/dL Hemoglobin (13.0-17.5) gm/dL Sodium (137-145) mmol/L Glucose (74-99) mg/dL POC Glucose (mg/dL) 127 H 127 H 125 H (70-110) mg/dL AST (17-59) U/L ALT (4-49) U/L Arterial Blood Glucose (75-99) mg/dL Crossmatch 10/04/23 10/04/23 10/04/23 Range/Units 04:12 05:10 05:10 WBC 17.1 H (3.8-10.6) k/uL Hgb (13.0-17.5) gm/dL Hct (39.0-53.0) % Plt Count 148 L (150-450) k/uL Neutrophils # 15.7 H (1.3-7.7) k/uL Lymphocytes # 0.6 L (1.0-4.8) k/uL ABG pCO2 (35-45) mmHg ABG pO2 (83-108) mmHg ABG HCO3 (21-25) mmol/L ABG Total CO2 (19-24) mmol/L ABG O2 Saturation (94-97) % ABG Glucose (75-99) mg/dL Hemoglobin (13.0-17.5) gm/dL Sodium 135 L (137-145) mmol/L Glucose 134 H (74-99) mg/dL POC Glucose (mg/dL) 141 H (70-110) mg/dL AST 62 H (17-59) U/L ALT 76 H (4-49) U/L Arterial Blood Glucose (75-99) mg/dL Crossmatch 10/04/23 10/04/23 10/04/23 Range/Units 05:11 06:52 08:27 WBC (3.8-10.6) k/uL Hgb (13.0-17.5) gm/dL Hct (39.0-53.0) % Plt Count (150-450) k/uL Neutrophils # (1.3-7.7) k/uL Lymphocytes # (1.0-4.8) k/uL ABG pCO2 (35-45) mmHg ABG pO2 (83-108) mmHg ABG HCO3 (21-25) mmol/L ABG Total CO2 (19-24) mmol/L ABG O2 Saturation (94-97) % ABG Glucose (75-99) mg/dL Hemoglobin (13.0-17.5) gm/dL Sodium (137-145) mmol/L Glucose (74-99) mg/dL POC Glucose (mg/dL) 137 H 135 H 146 H (70-110) mg/dL AST (17-59) U/L ALT (4-49) U/L Arterial Blood Glucose (75-99) mg/dL Crossmatch 10/04/23 10/04/23 10/04/23 Range/Units 09:44 11:01 12:05 WBC (3.8-10.6) k/uL Hgb (13.0-17.5) gm/dL Hct (39.0-53.0) % Plt Count (150-450) k/uL Neutrophils # (1.3-7.7) k/uL Lymphocytes # (1.0-4.8) k/uL ABG pCO2 (35-45) mmHg ABG pO2 (83-108) mmHg ABG HCO3 (21-25) mmol/L ABG Total CO2 (19-24) mmol/L ABG O2 Saturation (94-97) % ABG Glucose (75-99) mg/dL Hemoglobin (13.0-17.5) gm/dL Sodium (137-145) mmol/L Glucose (74-99) mg/dL POC Glucose (mg/dL) 144 H 125 H 124 H (70-110) mg/dL AST (17-59) U/L ALT (4-49) U/L Arterial Blood Glucose (75-99) mg/dL Crossmatch Assessment and Plan Assessment: Acute NSTEMI, status post cardiac cath reporting multivessel CAD including severe CAD of dominant left circumflex and LAD, status post CABG, off-pump, grafting x 1 utilizing the ORTEZ to the LAD Diabetes mellitus, new onset, hemoglobin A1c 6.1 Acute pancreatitis, in a patient with prior history of pancreatitis status post cholecystectomy 2015. Etiology unclear, resolved Hypertension Hyperlipidemia Ongoing nicotine dependence Gastroesophageal reflux disease Plan: Continue on current medication regimen ,monitoring and symptomatic treatment. ICU management as per tank driver and CTS. aggressive pulmonary toileting with incentive spirometer reinforced. GI and DVT prophylaxis in place. Increase ambulation as tolerated. The impression and plan of care has been dictated as directed. : I performed a history and examination of this patient, discussed the same with the dictator. I agree with the dictator's note ,documented as a scribe. Any additional findings or plans will be noted.
[2023-10-04 17:04] LABS: Glucose,Whole Blood 127 mg/dL (70-110)
[2023-10-04 20:13] LABS: Glucose,Whole Blood 129 mg/dL (70-110)
[2023-10-05 05:12] LABS: Basophils % (A) 0 %; Eosinophils % (A) 0 %; HCT 39.1 % (39.0-53.0); HGB 13.3 gm/dL (13.0-17.5); Lymphocytes # (A) 1.4 k/uL (1.0-4.8); Lymphocytes % (A) 8 %; MCH 30.5 pg (25.0-35.0); MCV 89.9 fL (80.0-100.0); Monocytes # (A) 0.9 k/uL (0-1.0); Monocytes % (A) 5 %; Neutrophils # (A) 14.1 k/uL (1.3-7.7); Neutrophils % (A) 85 %; Platelet Count 141 k/uL (150-450); RBC 4.35 m/uL (4.30-5.90); RDW 14.3 % (11.5-15.5); WBC 16.6 k/uL (3.8-10.6)
[2023-10-05 06:14] LABS: Ionized Calcium 5.1 mg/dL (4.5-5.3)
[2023-10-05 06:33] LABS: ALT 53 U/L (4-49); AST 39 U/L (17-59); African American GFR (CKD) >90 (>60 ml/min/1.73 sqM); Albumin 3.8 g/dL (3.5-5.0); Alkaline Phosphatase 80 U/L (38-126); Anion Gap 8 mmol/L; Blood Urea Nitrogen 15 mg/dL (9-20); Carbon Dioxide 24 mmol/L (22-30); Chloride 104 mmol/L (98-107); Glucose 108 mg/dL (74-99); Non-African American GFR(CKD) >90 (>60 ml/min/1.73 sqM); Potassium 4.4 mmol/L (3.5-5.1); Sodium 136 mmol/L (137-145); Total Bilirubin 0.9 mg/dL (0.2-1.3); Total Protein 6.2 g/dL (6.3-8.2)
[2023-10-05 06:40] LABS: Glucose,Whole Blood 127 mg/dL (70-110)
--- NOTE | 2023-10-05 08:32 | P.PN ---
Subjective Progress Note Date: 10/05/23 Principal diagnosis: Status post CABG The patient is a 48-year-old gentleman with a smoking and hypertension and dyslipidemia who was admitted to the hospital with acute coronary syndrome and underwent a heart catheterization that revealed severe two-vessel coronary artery disease involving the LAD as well as left circumflex coronary artery. Yesterday he underwent CABG x 1 with ORTEZ to LAD. He still have severe disease involving the left circumflex in the AV groove which need to be performed percutaneously down the line. The echo revealed normal LV systolic function October 04, 2023 This is postoperation day #1. The patient overall is doing well. He is extubated. He is hemodynamically stable and has been maintaining normal sinus mechanism. He is on dual antiplatelet therapy along with intermediate intensity statin along with beta-malina. Urine output has been good. Overall he is having a good postoperation course. The examination revealed regular rhythm w ith a distant heart sounds and diminished breathing sounds bilaterally and mild upper extremities edema. The chest x-ray appears to be slightly wet. October 13, 2023 The patient was seen and evaluated this morning. He seems to be stable. He has been maintaining normal sinus mechanism. Urine output has been adequate. The chest x-ray was reviewed and seems to be stable. He reports no cardiovascular symptoms at this point. I would advise continue the current medical regimen and slowly uptitrate the dose of beta-malina and continue dual antiplatelet therapy along with statin. Assessment Acute coronary syndrome Severe two-vessel coronary artery disease as described above Preserved left ventricular systolic function History of smoking Plan Consider uptitrating the dose of beta-malina Continue the current medical regimen Continue monitor the kidney function and electrolytes and hemoglobin Continue entering the urine output Watch for any kind of arrhythmia Follow-up with the patient Objective - Vital Signs Vital signs: Vital Signs Temp 98.6 F 10/05/23 04:00 Pulse 92 10/05/23 07:00 Resp 19 10/05/23 07:00 BP 130/85 10/05/23 07:00 Pulse Ox 95 10/05/23 07:00 FiO2 10 10/04/23 07:00 Intake & Output 10/04/23 10/05/23 10/05/23 18:59 06:59 18:59 Intake Total 1549.554 312 26 Output Total 910 670 60 Balance 639.554 -358 -34 Weight 86.1 kg 85.6 kg Intake: IV 801 312 26 Albumin Human 5% 250 ml 250 In Empty Bag 1 bag @ 250 mls/hr IVPB Q1HR PRN Rx#: [id number] CO/CI 20 Lactated Ringers 1,000 ml 300 240 20 @ 20 mls/hr IV .Q24H [facility] Rx#:[id number] Potassium Chloride 10 meq 100 In Water For Injection 1 100ml.bag @ 100 mls/hr IVPB Q1H [facility] Rx#: [id number] Pressure bags 81 72 6 ceFAZolin 2 gm In Sodium 50 Chloride 0.9% 50 ml @ 100 mls/hr IVPB ONCE ONE Rx# :[id number] Intake, IV Titration 428.554 Amount ACETAMINOPHEN IV (For NPO 300 ) 1,000 mg In Empty Bag 1 bag @ 400 mls/hr IVPB Q6HR [facility] Rx#:[id number] Insulin Regular 100 unit 1.229 In Sodium Chloride 0.9% 100 ml @ Per Protocol IV .Q0M [facility] Rx#:[id number] Magnesium Sulfate-D5w Pmx 100 1 gm In Dextrose/Water 1 100ml.bag @ 100 mls/hr IVPB Q1H [facility] Rx#: [id number] Nitroglycerin-D5w Pmx 50 27.325 mg In Dextrose/Water 1 250ml.bag @ 5 MCG/MIN 1.5 mls/hr IV .Q24H [facility] Rx#: [id number] Oral 320 Output: Chest Tube Drainage 150 70 0 Left 80 30 0 Mediastinal 70 40 0 Urine 760 600 60 Other: Voiding Method Indwelling Catheter Indwelling Catheter ABP, PAP, CO, CI - Last Documented Arterial Blood Pressure 144/72 Pulmonary Artery Pressure 30/11 Cardiac Output 6 Cardiac Index 3 - Labs CBC & Chem 7: 10/05/23 04:35 10/05/23 04:35 Labs: Abnormal Lab Results - Last 24 Hours (Table) 10/03/23 10/03/23 10/03/23 Range/Units 08:48 09:48 10:34 WBC (3.8-10.6) k/uL Plt Count (150-450) k/uL Neutrophils # (1.3-7.7) k/uL ABG pCO2 46 H (35-45) mmHg ABG pO2 315 H 309 H 303 H (83-108) mmHg ABG HCO3 26 H (21-25) mmol/L ABG O2 Saturation >99.4 H >99.4 H >99.4 H (94-97) % ABG Glucose 121 H 133 H (75-99) mg/dL Hemoglobin 12.6 L 12.1 L 11.7 L (13.0-17.5) gm/dL Sodium (137-145) mmol/L Glucose (74-99) mg/dL POC Glucose (mg/dL) (70-110) mg/dL ALT (4-49) U/L Total Protein (6.3-8.2) g/dL Arterial Blood Glucose 121 H 133 H (75-99) mg/dL 10/04/23 10/04/23 10/04/23 Range/Units 09:44 11:01 12:05 WBC (3.8-10.6) k/uL Plt Count (150-450) k/uL Neutrophils # (1.3-7.7) k/uL ABG pCO2 (35-45) mmHg ABG pO2 (83-108) mmHg ABG HCO3 (21-25) mmol/L ABG O2 Saturation (94-97) % ABG Glucose (75-99) mg/dL Hemoglobin (13.0-17.5) gm/dL Sodium (137-145) mmol/L Glucose (74-99) mg/dL POC Glucose (mg/dL) 144 H 125 H 124 H (70-110) mg/dL ALT (4-49) U/L Total Protein (6.3-8.2) g/dL Arterial Blood Glucose (75-99) mg/dL 10/04/23 10/04/23 10/05/23 Range/Units 17:02 20:12 04:35 WBC 16.6 H (3.8-10.6) k/uL Plt Count 141 L (150-450) k/uL Neutrophils # 14.1 H (1.3-7.7) k/uL ABG pCO2 (35-45) mmHg ABG pO2 (83-108) mmHg ABG HCO3 (21-25) mmol/L ABG O2 Saturation (94-97) % ABG Glucose (75-99) mg/dL Hemoglobin (13.0-17.5) gm/dL Sodium (137-145) mmol/L Glucose (74-99) mg/dL POC Glucose (mg/dL) 127 H 129 H (70-110) mg/dL ALT (4-49) U/L Total Protein (6.3-8.2) g/dL Arterial Blood Glucose (75-99) mg/dL 10/05/23 10/05/23 Range/Units 04:35 06:39 WBC (3.8-10.6) k/uL Plt Count (150-450) k/uL Neutrophils # (1.3-7.7) k/uL ABG pCO2 (35-45) mmHg ABG pO2 (83-108) mmHg ABG HCO3 (21-25) mmol/L ABG O2 Saturation (94-97) % ABG Glucose (75-99) mg/dL Hemoglobin (13.0-17.5) gm/dL Sodium 136 L (137-145) mmol/L Glucose 108 H (74-99) mg/dL POC Glucose (mg/dL) 127 H (70-110) mg/dL ALT 53 H (4-49) U/L Total Protein 6.2 L (6.3-8.2) g/dL Arterial Blood Glucose (75-99) mg/dL
--- NOTE | 2023-10-05 08:33 | XR ---
EXAMINATION TYPE: XR chest 1V portable DATE OF EXAM: 10/05/2023 Comparison: 10/04/2023 Clinical History: 48-year-old male Post Operative Cardiac Surgery Findings: Median sternotomy wires are present with post-CABG clips. Mediastinal drain and left chest tube. Leland kelly of right IJ [place]-Dary catheter. The IJ sheath remains in place. There are small bilateral pleural effusions, right greater than left with similar mild increased interstitial density and some patchy bibasilar density. Heart remains enlarged. Impression: Similar pulmonary vascular congestion along with small effusions with adjacent atelectasis and/or con solidation.
[2023-10-05] MEDS: PANTOPRAZOLE 40 MG TABLET PO SCH (09:27)
[2023-10-05] MEDS: lisinopriL 10 MG TAB PO SCH (09:34)
--- NOTE | 2023-10-05 09:44 | P.PN ---
Subjective Progress Note Date: 10/05/23 Principal diagnosis: Coronary artery disease, non-STEMI this admission, elevated lipase. Past medical history significant for hypertension, hyperlipidemia, pancreatitis, chronic low back pain, current tobacco dependence, current daily marijuana use, and family history of premature coronary artery disease. POD #2 off pump coronary artery bypass grafting x 1, left internal thoracic artery (in-situ) to left anterior descending coronary artery, left atrial appendage ligation using #35mm AtriClip, graft flow measurements using the Flutter- Stim flow meter system, trans-esophageal echo. The patient was seen and examined in follow-up this morning October 05, 2023 at his bedside in the intensive care unit. He is currently sitting up to the bedside chair, is awake, alert, oriented x 3 and is in no acute apparent distress. Denies any complaints of shortness of breath although is complaining of some surgical type pain with taking a deep breath, currently rating his pain 3 or 4 out of 10 on the pain scale. Oxygen saturations are 95% on room air and he is achieving 1000 mL on his incentive spirometry with encouragement. Bedside telemetry is showing normal sinus rhythm heart rate 96 bpm. Right IJ cordis remains in place with continuous CVP monitoring, current CVP pressure is 4 mmHg. The patient has been up ambulating in the intensive care unit hallway with standby assistance from nursing and therapy staff and tolerating well. Mediastinal and left pleural chest tubes remain in place to low continuous wall suction -20 cm H2O. No air leak is present. Mediastinal chest tube draining thin serosanguineous drainage with 30 mL output in the last 8 hours and 150 mL output in the last 24 hours. Left pleural chest tube draining 20 mL output in the last 8 hours and 110 mL output in the last 24 hours. Chest x-ray and laboratory results were reviewed. Objective - Vital Signs Vital signs: Vital Signs Temp 98.6 F 10/05/23 04:00 Pulse 92 10/05/23 07:00 Resp 19 10/05/23 07:00 BP 130/85 10/05/23 07:00 Pulse Ox 95 10/05/23 07:00 FiO2 10 10/04/23 07:00 Intake & Output 10/04/23 10/05/23 10/05/23 18:59 06:59 18:59 Intake Total 1549.554 312 26 Output Total 910 670 60 Balance 639.554 -358 -34 Weight 86.1 kg 85.6 kg Intake: IV 801 312 26 Albumin Human 5% 250 ml 250 In Empty Bag 1 bag @ 250 mls/hr IVPB Q1HR PRN Rx#: [id number] CO/CI 20 Lactated Ringers 1,000 ml 300 240 20 @ 20 mls/hr IV .Q24H [facility] Rx#:[id number] Potassium Chloride 10 meq 100 In Water For Injection 1 100ml.bag @ 100 mls/hr IVPB Q1H [facility] Rx#: [id number] Pressure bags 81 72 6 ceFAZolin 2 gm In Sodium 50 Chloride 0.9% 50 ml @ 100 mls/hr IVPB ONCE ONE Rx# :[id number] Intake, IV Titration 428.554 Amount ACETAMINOPHEN IV (For NPO 300 ) 1,000 mg In Empty Bag 1 bag @ 400 mls/hr IVPB Q6HR [facility] Rx#:[id number] Insulin Regular 100 unit 1.229 In Sodium Chloride 0.9% 100 ml @ Per Protocol IV .Q0M [facility] Rx#:[id number] Magnesium Sulfate-D5w Pmx 100 1 gm In Dextrose/Water 1 100ml.bag @ 100 mls/hr IVPB Q1H [facility] Rx#: [id number] Nitroglycerin-D5w Pmx 50 27.325 mg In Dextrose/Water 1 250ml.bag @ 5 MCG/MIN 1.5 mls/hr IV .Q24H [facility] Rx#: [id number] Oral 320 Output: Chest Tube Drainage 150 70 0 Left 80 30 0 Mediastinal 70 40 0 Urine 760 600 60 Other: Voiding Method Indwelling Catheter Indwelling Catheter ABP, PAP, CO, CI - Last Documented Arterial Blood Pressure 144/72 Pulmonary Artery Pressure 30/11 Cardiac Output 6 Cardiac Index 3 - Exam CONSTITUTIONAL: Sitting up to the bedside chair in the intensive care unit, appears comfortable, cooperative, no apparent acute distress. HEENT: Neck is supple, no JVD, no lymphadenopathy. Right IJ Cordis in place and functioning. RESPIRATORY: Lungs sounds essentially clear throughout, diminished to his bilateral bases. Respirations are symmetrical and nonlabored. Currently on room air with oxygen saturations 95%. Able to achieve 1000 mL on his incentive spirometry. Strong cough. CARDIOVASCULAR: Regular rhythm and rate. S1 and S2 present, negative for S3, gallop or murmur. Sternum is stable. Palpable peripheral pulses bilaterally. No calf pain or tenderness noted. Heart hugger in place with patient demonstrating appropriate use. Knee-high BECCA hose and sequential compression devices in place to his bilateral lower extremities. GASTROINTESTINAL: Abdomen soft, nontender, nondistended. Active bowel sounds present 4 quadrants. Tolerating diet. Passing flatus. No guarding or rigidity. GENITOURINARY: Pacheco present draining clear, yellow urine. Urine output 450 mL in the last 8 hours. INTEGUMENTARY: Skin is warm and dry with no evidence of clubbing or cyanosis. Midline sternal incision clean dry and well approximated, covered with dry intact dressing. NEUROLOGIC: Cranial nerves II through XII intact. No focal deficits. MUSKULOSKELETAL: Able to move all extremities, strength equal bilaterally. PSYCHIATRIC: Alert and oriented to person place and time, appropriate affect, intact judgment and insight. INVASIVE LINES AND TUBES: Mediastinal/left pleural chest tubes present and connected to low continuous wall suction, no air leaks present. Mediastinal tube with 30 mL of thin serosanguineous drainage overnight, 150 mL output in the last 24 hours. Left pleural chest tube with 20 mL of thin serosanguineous drainage overnight, 110 mL output in the last 24 hours. Ventricular epicardial pacemaker wires present, connected to generator, VVI backup rate 50 bpm. Right internal jugular Cordis, right radial arterial line present. Current CVP 4 mmHg. - Allied health notes Allied health notes reviewed: nursing - Labs CBC & Chem 7: 10/05/23 04:35 10/05/23 04:35 Labs: Abnormal Lab Results - Last 24 Hours (Table) 10/03/23 10/03/23 10/03/23 Range/Units 08:48 09:48 10:34 WBC (3.8-10.6) k/uL Plt Count (150-450) k/uL Neutrophils # (1.3-7.7) k/uL ABG pCO2 46 H (35-45) mmHg ABG pO2 315 H 309 H 303 H (83-108) mmHg ABG HCO3 26 H (21-25) mmol/L ABG O2 Saturation >99.4 H >99.4 H >99.4 H (94-97) % ABG Glucose 121 H 133 H (75-99) mg/dL Hemoglobin 12.6 L 12.1 L 11.7 L (13.0-17.5) gm/dL Sodium (137-145) mmol/L Glucose (74-99) mg/dL POC Glucose (mg/dL) (70-110) mg/dL ALT (4-49) U/L Total Protein (6.3-8.2) g/dL Arterial Blood Glucose 121 H 133 H (75-99) mg/dL 10/04/23 10/04/23 10/04/23 Range/Units 09:44 11:01 12:05 WBC (3.8-10.6) k/uL Plt Count (150-450) k/uL Neutrophils # (1.3-7.7) k/uL ABG pCO2 (35-45) mmHg ABG pO2 (83-108) mmHg ABG HCO3 (21-25) mmol/L ABG O2 Saturation (94-97) % ABG Glucose (75-99) mg/dL Hemoglobin (13.0-17.5) gm/dL Sodium (137-145) mmol/L Glucose (74-99) mg/dL POC Glucose (mg/dL) 144 H 125 H 124 H (70-110) mg/dL ALT (4-49) U/L Total Protein (6.3-8.2) g/dL Arterial Blood Glucose (75-99) mg/dL 10/04/23 10/04/23 10/05/23 Range/Units 17:02 20:12 04:35 WBC 16.6 H (3.8-10.6) k/uL Plt Count 141 L (150-450) k/uL Neutrophils # 14.1 H (1.3-7.7) k/uL ABG pCO2 (35-45) mmHg ABG pO2 (83-108) mmHg ABG HCO3 (21-25) mmol/L ABG O2 Saturation (94-97) % ABG Glucose (75-99) mg/dL Hemoglobin (13.0-17.5) gm/dL Sodium (137-145) mmol/L Glucose (74-99) mg/dL POC Glucose (mg/dL) 127 H 129 H (70-110) mg/dL ALT (4-49) U/L Total Protein (6.3-8.2) g/dL Arterial Blood Glucose (75-99) mg/dL 04/20/24 04/20/24 Range/Units 04:35 06:39 WBC (3.8-10.6) k/uL Plt Count (150-450) k/uL Neutrophils # (1.3-7.7) k/uL ABG pCO2 (35-45) mmHg ABG pO2 (83-108) mmHg ABG HCO3 (21-25) mmol/L ABG O2 Saturation (94-97) % ABG Glucose (75-99) mg/dL Hemoglobin (13.0-17.5) gm/dL Sodium 136 L (137-145) mmol/L Glucose 108 H (74-99) mg/dL POC Glucose (mg/dL) 127 H (70-110) mg/dL ALT 53 H (4-49) U/L Total Protein 6.2 L (6.3-8.2) g/dL Arterial Blood Glucose (75-99) mg/dL - Imaging and Cardiology Chest x-ray: report reviewed, image reviewed Assessment and Plan Assessment: Coronary artery disease, non-STEMI this admission, status post single-vessel CABG Elevated lipase, trending down Hypertension Hyperlipidemia, treated, cholesterol 120, LDL 53 Pancreatitis Chronic low back pain Current tobacco dependence, preoperative FEV1 85% of predicted Current daily marijuana use Family history of premature coronary artery disease Plan: Continue to maximize medical therapy with aspirin, Plavix, statin, and beta- malina. Will increase beta-malina therapy as tolerated, increased to 50 mg twice daily today. Continue lisinopril for afterload reduction. Encourage incentive spirometry use 10 times every hour while awake, bronchodilators per pulmonology. Increase activity, ambulate as tolerated. PT/OT/cardiac rehab following. Will monitor daily labs and chest x-rays. Electrolyte replacement per protocol GI/DVT prophylaxis. Insulin management per internal medicine. Patient is not diabetic, hemoglobin A1c 6%, should remain on IV insulin for 48 hours postsurgery then may transition to sliding scale coverage per protocol Pain control per current medication regimen. Will discontinue Oxy and add tramadol, will use IV Tylenol every 6 hours for the next 24 hours. Patient encouraged to eat prior to narcotic pain medication Discontinue right IJ Cordis, discontinue right radial arterial line. We remove his chest tubes today. Keep ventricular epicardial pacemaker wires in place and grounded. Discontinue Pacheco catheter, continue to monitor and record strict accurate int guillermina and output. May bladder scan every 6 hours and as needed postvoid residual, if greater than 300 mL of urine may straight cath. Daily weights. Shower daily starting tomorrow October 06, 2023. We will place transfer orders to the third floor cardiac stepdown unit, transfer when bed available. Discharge planning is in place, anticipate discharge home within the next 48 hours with home health care. More recommendations to follow based on patient's clinical course. Time with Patient: Greater than 30
[2023-10-05] MEDS: METOPROLOL TARTRATE 50 MG TAB PO SCH (10:24)
--- NOTE | 2023-10-05 11:33 | P.PN ---
Shahid Allen seen evaluated in the intensive care unit. He is status post chest tube removal. He is postop day #2 for a coronary bypass graft x 1 vessel of the left internal thoracic artery to the left anterior descending coronary artery. Originally admitted with a non-STEMI on 09/29/2023. Currently complains of some fatigue and pain but otherwise feels much better now that the chest tube has been discontinued. His Pacheco catheter is also been discontinued. Signs are stable with a heart rate in the 90s respiratory rate normal pulse oximetry 92% on 2 L of O2 via nasal cannula. Laboratory studies for this morning show leukocytosis WBC count 16 6 hemoglobin is 13 3. Electrolytes are normal. Hemoglobin A1c was checked and it is 6.0. Being followed by cardiology cardiothoracic surgery and critical care. Notes reviewed today. Objective - Vital Signs Vital signs: Vital Signs Temp 98.2 F 10/05/23 08:00 Pulse 99 10/05/23 11:00 Resp 21 10/05/23 11:00 BP 122/91 10/05/23 11:00 Pulse Ox 92 L 10/05/23 11:00 FiO2 10 10/04/23 07:00 Intake & Output 10/04/23 10/05/23 10/05/23 18:59 06:59 18:59 Intake Total 1549.554 312 158 Output Total 910 670 240 Balance 639.554 -358 -82 Weight 86.1 kg 85.6 kg Intake: IV 801 312 108 Albumin Human 5% 250 ml 250 In Empty Bag 1 bag @ 250 mls/hr IVPB Q1HR [facility] Rx#: [id number] CO/CI 20 Invasive Line 7 10 Lactated Ringers 1,000 ml 300 240 80 @ 20 mls/hr IV .Q24H [facility] Rx#:[id number] Potassium Chloride 10 meq 100 In Water For Injection 1 100ml.bag @ 100 mls/hr IVPB Q1H [facility] Rx#: [id number] Pressure bags 81 72 18 ceFAZolin 2 gm In Sodium 50 Chloride 0.9% 50 ml @ 100 mls/hr IVPB ONCE ONE Rx# :[id number] Intake, IV Titration 428.554 Amount ACETAMINOPHEN IV (For NPO 300 ) 1,000 mg In Empty Bag 1 bag @ 400 mls/hr IVPB Q6HR [facility] Rx#:[id number] Insulin Regular 100 unit 1.229 In Sodium Chloride 0.9% 100 ml @ Per Protocol IV .Q0M [facility] Rx#:[id number] Magnesium Sulfate-D5w Pmx 100 1 gm In Dextrose/Water 1 100ml.bag @ 100 mls/hr IVPB Q1H [facility] Rx#: [id number] Nitroglycerin-D5w Pmx 50 27.325 mg In Dextrose/Water 1 250ml.bag @ 5 MCG/MIN 1.5 mls/hr IV .Q24H [facility] Rx#: [id number] Oral 320 50 Output: Chest Tube Drainage 150 70 30 Left 80 30 10 Mediastinal 70 40 20 Urine 760 600 210 Other: Voiding Method Indwelling Catheter Indwelling Catheter Indwelling Catheter ABP, PAP, CO, CI - Last Documented Arterial Blood Pressure 144/79 Pulmonary Artery Pressure 30/11 Cardiac Output 6 Cardiac Index 3 - Exam General: The patient is awake and alert, in minimal distress, he has O2 via nasal cannula. SCDs are in place on his lower extremities Neck: The neck is supple, there is no thyromegaly, lymphadenopathy, tenderness or JVD. Cardiovascular: S1S2 is normal, There is a regular rate and rhythm. No murmur, rub or gallop is appreciated. Respiratory: Lungs are clear to auscultation bilaterally, respirations are non-labored, breath sounds are equal. Gastrointestinal: Soft, non-distended, non-tender abdomen without masses or organomegaly noted. There is no rebound or guarding present. Bowel sounds are unremarkable. Musculoskeletal: Normal ROM, no tenderness, There is no pedal edema. There is no calf tenderness or swelling. No cords were appreciated. Neurological: CN II-XII intact, there are no obvious motor or sensory deficits. Coordination appears grossly intact. Speech is normal. Skin: Skin is warm and dry and no rashes or lesions are noted. - Labs CBC & Chem 7: 10/05/23 04:35 10/05/23 04:35 Labs: Abnormal Lab Results - Last 24 Hours (Table) 10/03/23 10/03/23 10/03/23 Range/Units 08:48 09:48 10:34 WBC (3.8-10.6) k/uL Plt Count (150-450) k/uL Neutrophils # (1.3-7.7) k/uL ABG pCO2 46 H (35-45) mmHg ABG pO2 315 H 309 H 303 H (83-108) mmHg ABG HCO3 26 H (21-25) mmol/L ABG O2 Saturation >99.4 H >99.4 H >99.4 H (94-97) % ABG Glucose 121 H 133 H (75-99) mg/dL Hemoglobin 12.6 L 12.1 L 11.7 L (13.0-17.5) gm/dL Sodium (137-145) mmol/L Glucose (74-99) mg/dL POC Glucose (mg/dL) (70-110) mg/dL ALT (4-49) U/L Total Protein (6.3-8.2) g/dL Arterial Blood Glucose 121 H 133 H (75-99) mg/dL 10/04/23 10/04/23 10/04/23 Range/Units 12:05 17:02 20:12 WBC (3.8-10.6) k/uL Plt Count (150-450) k/uL Neutrophils # (1.3-7.7) k/uL ABG pCO2 (35-45) mmHg ABG pO2 (83-108) mmHg ABG HCO3 (21-25) mmol/L ABG O2 Saturation (94-97) % ABG Glucose (75-99) mg/dL Hemoglobin (13.0-17.5) gm/dL Sodium (137-145) mmol/L Glucose (74-99) mg/dL POC Glucose (mg/dL) 124 H 127 H 129 H (70-110) mg/dL ALT (4-49) U/L Total Protein (6.3-8.2) g/dL Arterial Blood Glucose (75-99) mg/dL 10/05/23 10/05/23 10/05/23 Range/Units 04:35 04:35 06:39 WBC 16.6 H (3.8-10.6) k/uL Plt Count 141 L (150-450) k/uL Neutrophils # 14.1 H (1.3-7.7) k/uL ABG pCO2 (35-45) mmHg ABG pO2 (83-108) mmHg ABG HCO3 (21-25) mmol/L ABG O2 Saturation (94-97) % ABG Glucose (75-99) mg/dL Hemoglobin (13.0-17.5) gm/dL Sodium 136 L (137-145) mmol/L Glucose 108 H (74-99) mg/dL POC Glucose (mg/dL) 127 H (70-110) mg/dL ALT 53 H (4-49) U/L Total Protein 6.2 L (6.3-8.2) g/dL Arterial Blood Glucose (75-99) mg/dL Assessment and Plan (1) S/P coronary artery bypass graft x 1 Current Visit: Yes Status: Acute Code(s): Z95.1 - PRESENCE OF AORTOCORONARY BYPASS GRAFT SNOMED Code(s): 725835502 (2) NSTEMI (non-ST elevated myocardial infarction) Current Visit: Yes Status: Acute Code(s): I21.4 - NON-ST ELEVATION (NSTEMI) MYOCARDIAL INFARCTION SNOMED Code(s): 22909283 (3) Acute pancreatitis Current Visit: No Status: Acute Code(s): K85.9 - ACUTE PANCREATITIS, UNSPECIFIED * DO NOT USE * SNOMED Code(s): 364614994 (4) Essential (primary) hypertension Current Visit: Yes Status: Acute Code(s): I10 - ESSENTIAL (PRIMARY) HYPERTENSION SNOMED Code(s): 27432699 (5) Mixed hyperlipidemia Current Visit: Yes Status: Acute Code(s): E78.2 - MIXED HYPERLIPIDEMIA SNOMED Code(s): 856274522 (6) Gastro-esophageal reflux disease without esophagitis Current Visit: Yes Status: Acute Code(s): K21.9 - GASTRO-ESOPHAGEAL REFLUX DISEASE WITHOUT ESOPHAGITIS SNOMED Code(s): 153266456 (7) CAD (coronary artery disease) Current Visit: Yes Status: Acute Code(s): I25.10 - ATHSCL HEART DISEASE OF [place] CORONARY ARTERY W/O ANG PCTRS SNOMED Code(s): 83392065 Plan: His pancreatitis is since resolved. He has a borderline hemoglobin A1c repeated at 6.0. This appears stable. He continues to improve. Will wait on further recommendations from his cardiothoracic surgeon along with critical care cardiology. Repeat labs in a.m., he will be reevaluated in the next 24 hours
[2023-10-05 11:59] LABS: Glucose,Whole Blood 94 mg/dL (70-110)
--- NOTE | 2023-10-05 12:43 | P.PN ---
Subjective Progress Note Date: 10/05/23 Principal diagnosis: POD #2 off pump coronary artery bypass grafting x 1, left internal thoracic artery (in-situ) to left anterior descending coronary artery, left atrial appendage ligation using #35mm AtriClip, graft flow measurements using the [employer]- Stim flow meter system, trans-esophageal echo Patient is a 48-year-old white male with past medical history significant for hy pertension, hyperlipidemia, pancreatitis, current tobacco dependence, daily marijuana smoker, and family history of premature coronary artery disease. His primary care provider is Dr. Martinez. Patient originally presented to the emergency room 09/29/2023 complaining of chest pain. This had been ongoing for the last 4 to 5 days. Described as epigastric and nonradiating. Associated intermittent nausea. Initially, thought this was heartburn, Tums no longer alleviated the pain, and for this reason the patient came to the emergency room. Of note, his lipase level was elevated at 2507. CT of the abdomen and pelvis showed no hydronephrosis, nonobstructing 4 mm right upper pole renal stone, prior cholecystectomy, and diverticulosis without diverticulitis. Otherwise, no obvious acute intra-abdominal pathology. Troponins were also elevated while in the emergency room. Patient was thought to have a non-ST elevation [place]. He did undergo heart catheterization yesterday, which found severe two-vessel coronary artery disease involving the dominant left circumflex and left anterior desce nding artery. There were mildly elevated left-sided filling pressures. A consult was placed for cardiothoracic surgical evaluation. Patient is undergoing the normal preoperative CABG workup. We are asked to see this patient for a pulmonary evaluation and preoperative pulmonary clearance. Devon lobo has no known history of pulmonary disease such as COPD or asthma. He does smoke tobacco approximately 1 pack/day. He also is a daily marijuana smoker. Patient did have a bedside spirometry which showed an FEV1 of 3.38 L or 85% of predicted. Chest CT showed three-vessel aortic arch with minimal atherosclerotic ossifications and mild emphysema. He is currently sitting up in bed, on room air, in no acute distress. He denies any further chest pain. Heparin is infusing per protocol. Normal saline is infusing at 75 mL/h. Most recent lab work includes an unremarkable CBC and BMP. Lipase level has normalized and is down to 163. Patient denies any further abdominal discomfort. No nausea or vomiting. Tolerating diet. Denies significant alcohol use. Vitals are hemodynamically stable. Reevaluate today on 10/02/2023, patient is scheduled to undergo myocardial revascularization tomorrow. Pulmonary [place] patient is asymptomatic, no cough no wheezing no shortness of breath, PFT showed no evidence of any significant obstruction in spite of his [id number] smoking history. Patient is on heparin, PTT today is 67.4 The patient is seen today October 03, 2023 postoperatively in the intensive care unit. He did undergo off-pump coronary artery bypass grafting x 1 utilizing a ORTEZ to the LAD. Left atrial appendage ligation using a 33 mm AtriClip. He is intubated on the mechanical ventilator with settings of assist-control mode at a rate of 14, tidal volume 500, FiO2 50% and a PEEP of 5. Blood gases revealed a PaO2 of 208, pCO2 of 46 and a pH of 7.35 on 100% FiO2. Chest x-ray shows scattered mild increased lung markings of the left lung and right lung base. Suspect atelectasis. Woodson-Dary catheter is in place. Cardiac output 9.3. Cardiac index 4.6. PA pressures 36/18. CVP 12. Left mediastinal chest tube in place. He is currently on Precedex at 0.6 mcg/mg/h. Propofol at 10 mcg/mg/min. Insulin drip at 1 unit/h. Nitroglycerin drip at 5 mcg/min. Lactated Ringer's at 50 MLS per hour. White count 12.4. Hemoglobin 13.2. Platelets 143. Sodium 139. Potassium 3.6. Bicarb 24. BUN 11. Creatinine 0.70. Glucose 122. He remains on bronchodilators. Patient was reevaluated today on 10/04/2023, patient underwent uneventful off- pump coronary artery bypass grafting x 1 utilizing ORTEZ to LAD, and is now postoperative day #1. Patient was extubated at 16: Oh 5 PM, tolerated the extubation well, patient required initially high flow nasal cannula, presently on 2 L nasal cannula with O2 sats of 97%. Chest x-ray is showing mild bibasilar atelectasis, and small minimal right pleural effusion. Lines and catheters seem to be in proper position. WBC count today 17.1 hemoglobin 13.9. Basic metabolic profile is normal. Renal profile is normal. Patient is doing well with incentive spirometry. Does have intermittent episodes of nausea and had 1 episode of emesis. Continues to have right IJ Woodson/Cordis, and continues to have mediastinal left pleural chest tubes in place. Patient was reevaluated today on 10/05/2023, patient is sitting at the bedside chair, awake alert oriented x 3, does not seem to be in any distress, his surgical pain is fairly under control, 3 out of 10 on the pain scale. Patient is on room air O2 saturation 95% achieving about a liter of incentive spirometry, patient continues to have right IJ cordis in place with continuous CVP monitoring. Has been ambulating in the ICU,/hallway, mediastinal and left pleural chest tubes remain in place to low continuous suction no airleak is noted, chest x-ray is showing minimal atelectasis, no evidence of congestive heart failure. WBC count is 16.6 hemoglobin 14.3 basic metabolic profile is normal renal profile showed a BUN of 15 creatinine 0.87 Objective - Vital Signs Vital signs: Vital Signs Temp 97.8 F 10/05/23 12:00 Pulse 97 10/05/23 12:00 Resp 18 10/05/23 12:00 BP 140/94 10/05/23 12:00 Pulse Ox 95 10/05/23 12:00 FiO2 10 10/04/23 07:00 Intake & Output 10/04/23 10/05/23 10/05/23 18:59 06:59 18:59 Intake Total 1549.554 312 318 Output Total 910 670 490 Balance 639.554 -358 -172 Weight 86.1 kg 85.6 kg Intake: IV 801 312 118 Albumin Human 5% 250 ml 250 In Empty Bag 1 bag @ 250 mls/hr IVPB Q1HR PRN Rx#: [id number] CO/CI 20 Invasive Line 7 20 Lactated Ringers 1,000 ml 300 240 80 @ 20 mls/hr IV .Q24H [facility] Rx#:[id number] Potassium Chloride 10 meq 100 In Water For Injection 1 100ml.bag @ 100 mls/hr IVPB Q1H [facility] Rx#: [id number] Pressure bags 81 72 18 ceFAZolin 2 gm In Sodium 50 Chloride 0.9% 50 ml @ 100 mls/hr IVPB ONCE ONE Rx# :[id number] Intake, IV Titration 428.554 Amount ACETAMINOPHEN IV (For NPO 300 ) 1,000 mg In Empty Bag 1 bag @ 400 mls/hr IVPB Q6HR [facility] Rx#:[id number] Insulin Regular 100 unit 1.229 In Sodium Chloride 0.9% 100 ml @ Per Protocol IV .Q0M [facility] Rx#:[id number] Magnesium Sulfate-D5w Pmx 100 1 gm In Dextrose/Water 1 100ml.bag @ 100 mls/hr IVPB Q1H [facility] Rx#: [id number] Nitroglycerin-D5w Pmx 50 27.325 mg In Dextrose/Water 1 250ml.bag @ 5 MCG/MIN 1.5 mls/hr IV .Q24H [facility] Rx#: [id number] Oral 320 200 Output: Chest Tube Drainage 150 70 30 Left 80 30 10 Mediastinal 70 40 20 Urine 760 600 460 Other: Voiding Method Indwelling Catheter Indwelling Catheter Indwelling Catheter ABP, PAP, CO, CI - Last Documented Arterial Blood Pressure 144/79 Pulmonary Artery Pressure 30/11 Cardiac Output 6 Cardiac Index 3 - Exam GENERAL EXAM: Reveals a pleasant 48-year-old white male in no distress, on room air HEAD: Normocephalic and atraumatic EYES: Normal reaction of pupils, equal size. NOSE: Clear with pink turbinates. THROAT: No erythema or exudates. NECK: No masses, no JVD. CHEST: No chest wall deformity. LUNGS: Clear bilaterally minimal wheezing noted at the left base CVS: S1 and S2 normal with no audible murmur, regular rhythm. No extra heart sounds ABDOMEN: No hepatosplenomegaly, active bowel sounds, no guarding or rigidity. SKIN: No rashes CENTRAL NERVOUS SYSTEM: Alert and oriented x 3 no gross focal deficit EXTREMITIES: No clubbing edema or cyanosis - Labs CBC & Chem 7: 10/05/23 04:35 10/05/23 04:35 Labs: Abnormal Lab Results - Last 24 Hours (Table) 10/03/23 10/03/23 10/03/23 Range/Units 08:48 09:48 10:34 WBC (3.8-10.6) k/uL Plt Count (150-450) k/uL Neutrophils # (1.3-7.7) k/uL ABG pCO2 46 H (35-45) mmHg ABG pO2 315 H 309 H 303 H (83-108) mmHg ABG HCO3 26 H (21-25) mmol/L ABG O2 Saturation >99.4 H >99.4 H >99.4 H (94-97) % ABG Glucose 121 H 133 H (75-99) mg/dL Hemoglobin 12.6 L 12.1 L 11.7 L (13.0-17.5) gm/dL Sodium (137-145) mmol/L Glucose (74-99) mg/dL POC Glucose (mg/dL) (70-110) mg/dL ALT (4-49) U/L Total Protein (6.3-8.2) g/dL Arterial Blood Glucose 121 H 133 H (75-99) mg/dL 10/04/23 10/04/23 10/05/23 Range/Units 17:02 20:12 04:35 WBC 16.6 H (3.8-10.6) k/uL Plt Count 141 L (150-450) k/uL Neutrophils # 14.1 H (1.3-7.7) k/uL ABG pCO2 (35-45) mmHg ABG pO2 (83-108) mmHg ABG HCO3 (21-25) mmol/L ABG O2 Saturation (94-97) % ABG Glucose (75-99) mg/dL Hemoglobin (13.0-17.5) gm/dL Sodium (137-145) mmol/L Glucose (74-99) mg/dL POC Glucose (mg/dL) 127 H 129 H (70-110) mg/dL ALT (4-49) U/L Total Protein (6.3-8.2) g/dL Arterial Blood Glucose (75-99) mg/dL 10/05/23 10/05/23 Range/Units 04:35 06:39 WBC (3.8-10.6) k/uL Plt Count (150-450) k/uL Neutrophils # (1.3-7.7) k/uL ABG pCO2 (35-45) mmHg ABG pO2 (83-108) mmHg ABG HCO3 (21-25) mmol/L ABG O2 Saturation (94-97) % ABG Glucose (75-99) mg/dL Hemoglobin (13.0-17.5) gm/dL Sodium 136 L (137-145) mmol/L Glucose 108 H (74-99) mg/dL POC Glucose (mg/dL) 127 H (70-110) mg/dL ALT 53 H (4-49) U/L Total Protein 6.2 L (6.3-8.2) g/dL Arterial Blood Glucose (75-99) mg/dL Assessment and Plan Assessment: Impression: Coronary artery disease, non-STEMI this admission, status post single-vessel CABG, postoperative day #2 Benign essential hypertension Dyslipidemia Pancreatitis, resolving Chronic low back pain Current tobacco dependence, preoperative FEV1 85% of predicted Current daily marijuana use Family history of premature coronary artery disease Recommendation: Continue maximal l medical therapy including beta-malina statin Plavix and aspirin Continue bronchodilators and incentive spirometry Continue GI DVT prophylaxis Continue ambulation and incentive spirometry Daily labs Daily x-rays of the chest Continue to follow Time with Patient: Less than 30
[2023-10-05] MEDS: ACETAMINOPHEN TAB 325 MG TAB PO PRN (15:06)
[2023-10-05 16:36] LABS: Glucose,Whole Blood 124 mg/dL (70-110)
[2023-10-05] MEDS: MD COMMUNICATION TO PHARMACY 1 EACH MISC PO ONE ×2 (17:54)
[2023-10-05] MEDS: MANNITOL 25% 12.5 GM/50 ML VIAL IV ONE ×2 (17:54)
[2023-10-05] MEDS: SODIUM BICARB 8.4% 50 ML SYR (1 MEQ/ML) IV ONE (17:55)
[2023-10-05] MEDS: PROTAMINE SULFATE 10 MG/ML 25 ML VIAL IV ONE (17:55)
[2023-10-05] MEDS: PHENYLEPHRINE 10 MG/ML VIAL IV ONE (17:55)
[2023-10-05] MEDS: NITROGLYCERIN-D5W PMX 25 MG/250 ML BTL IV ONE (17:55)
[2023-10-05] MEDS: HEPARIN SODIUM,PORCINE (1 ML) 5,000 UNIT in SODIUM CHLORIDE 0.9% 500 ML 500 ML IV ONE (17:56)
[2023-10-05] MEDS: CALCIUM CHLORIDE 100 MG/ML 10 ML SYRINGE IVP ONE (17:57)
[2023-10-05] MEDS: ELECTROLYTE-A SOLUTION 1,000 ML with POTASSIUM CHLORIDE 40 MEQ, MAGNESIUM SULFATE 16 ME... IV ONE (17:57)
[2023-10-05] MEDS: CHLORHEXIDINE GLUCONATE 15 ML CUP MUCOUS MEM ONE (17:57)
[2023-10-05] MEDS: HEPARIN SODIUM 1,000 UN/ML (10ML VL) IV ONE (17:57)
[2023-10-05 20:06] LABS: Glucose,Whole Blood 150 mg/dL (70-110)
[2023-10-05] MEDS: NICOTINE 14MG/24HR PATCH TRANSDERM SCH (20:06)
[2023-10-06 06:15] LABS: Glucose,Whole Blood 115 mg/dL (70-110)
--- NOTE | 2023-10-06 07:37 | XR ---
EXAMINATION TYPE: XR chest 2V DATE OF EXAM: 10/06/2023 COMPARISON: 10/05/2023 HISTORY: 48-year-old male postop CABG TECHNIQUE: PA and lateral views FINDINGS: Heart mildly enlarged. Median sternotomy wires and post-CABG clips. Interval removal left chest tube and mediastinal drains. The right IJ sheath has also been removed. Retained epicardial pacer leads. I nterstitial prominence is similar. There are ongoing small bilateral pleural effusions. No appreciabl e pneumothorax. IMPRESSION: Post-CABG changes. Similar mild pulmonary vascular congestion. Similar small bilateral pleural effusi ons with adjacent atelectasis and or consolidation.
[2023-10-06] MEDS: lisinopriL 20 MG TAB PO SCH (08:27)
[2023-10-06] MEDS: METOPROLOL TARTRATE 50 MG TAB PO SCH ×2 (08:27→20:17)
--- NOTE | 2023-10-06 09:09 | P.PN ---
Subjective Progress Note Date: 10/06/23 Principal diagnosis: Coronary artery disease, non-STEMI this admission, elevated lipase. Past medical history significant for hypertension, hyperlipidemia, pancreatitis, chronic low back pain, current tobacco dependence, current daily marijuana use, and family history of premature coronary artery disease. POD #3 off pump coronary artery bypass grafting x 1, left internal thoracic artery (in-situ) to left anterior descending coronary artery, left atrial appendage ligation using #35mm AtriClip, graft flow measurements using the [employer]- Stim flow meter system, trans-esophageal echo. Patient was seen and examined in follow-up today October 06, 2023 at his bedside on the third floor cardiac stepdown unit. He is currently sitting up to the bedside chair, is awake, alert, oriented x 3 and is in no acute apparent distress. Patient denies any complaints of shortness of breath or pain at this time, although he complained of lack of sleep throughout the night due to thinking about work. The patient is tolerating his breakfast. Oxygen saturations are 99% on 2 L nasal cannula and he is achieving 1500 mL on his incentive spirometry with encouragement. Chest tubes were removed yesterday without incident. Ventricular epicardial pacemaker wires remain in place and are grounded. Remote telemetry is showing normal sinus rhythm heart rate 91 bpm. He remains hemodynamically stable and is currently on no inotropic or pressor support. Voiding without difficulty since his Pacheco catheter has been removed. Chest x-ray results reviewed, laboratory results remain pending. Objective - Vital Signs Vital signs: Vital Signs Temp 98.0 F 10/06/23 08:25 Pulse 109 H 10/06/23 08:25 Resp 16 10/06/23 08:25 BP 145/95 10/06/23 08:25 Pulse Ox 94 L 10/06/23 08:25 FiO2 10 10/04/23 07:00 Intake & Output 10/05/23 10/06/23 10/06/23 18:59 06:59 18:59 Intake Total 488 10 Output Total 640 750 Balance -152 -750 10 Weight 84.5 kg Intake: IV 138 10 Invasive Line 3 5 5 Invasive Line 7 35 5 Lactated Ringers 1,000 ml 80 @ 20 mls/hr IV .Q24H [facility] Rx#:[id number] Pressure bags 18 Oral 350 Output: Chest Tube Drainage 30 Left 10 Mediastinal 20 Urine 610 750 Other: Voiding Method Indwelling Catheter Urinal Urinal # Bowel Movements 1 ABP, PAP, CO, CI - Last Documented Arterial Blood Pressure 144/79 Pulmonary Artery Pressure 30/11 Cardiac Output 6 Cardiac Index 3 - Exam CONSTITUTIONAL: Sitting up to the bedside chair in the intensive care unit, appears comfortable, cooperative, no apparent acute distress. HEENT: Neck is supple, no JVD, no lymphadenopathy. RESPIRATORY: Lungs sounds essentially clear throughout, diminished to his bilateral bases. Respirations are symmetrical and nonlabored. Currently on 2 L nasal cannula with oxygen saturations 99%. Able to achieve 1500 mL on his incentive spirometry. Strong cough. CARDIOVASCULAR: Regular rhythm and rate. S1 and S2 present, negative for S3, gallop or murmur. Sternum is stable. Palpable peripheral pulses bilaterally. No calf pain or tenderness noted. Heart hugger in place with patient demonstrating appropriate use. Knee-high BECCA hose and sequential compression devices in place to his bilateral lower extremities. GASTROINTESTINAL: Abdomen soft, nontender, nondistended. Active bowel sounds present 4 quadrants. Tolerating diet. Passing flatus. No guarding or rigidity. Bowel movement yesterday 10/05/2023. GENITOURINARY: F continues to void. Urine output 750 mL in the last 8 hours. INTEGUMENTARY: Skin is warm and dry with no evidence of clubbing or cyanosis. Midline sternal incision clean dry and well approximated, covered with dry intact dressing. NEUROLOGIC: Cranial nerves II through XII intact. No focal deficits. MUSKULOSKELETAL: Able to move all extremities, strength equal bilaterally. PSYCHIATRIC: Alert and oriented to person place and time, appropriate affect, intact judgment and insight. INVASIVE LINES AND TUBES: Ventricular epicardial pacemaker wires present, connected to generator, VVI backup rate 50 bpm. - Allied health notes Allied health notes reviewed: nursing - Labs CBC & Chem 7: 10/05/23 04:35 10/05/23 04:35 Labs: Abnormal Lab Results - Last 24 Hours (Table) 10/05/23 10/05/23 10/06/23 Range/Units 16:35 20:05 06:14 POC Glucose (mg/dL) 124 H 150 H 115 H (70-110) mg/dL - Imaging and Cardiology Chest x-ray: report reviewed, image reviewed Assessment and Plan Assessment: Coronary artery disease, non-STEMI this admission, status post single-vessel CABG Elevated lipase, trending down Hypertension Hyperlipidemia, treated, cholesterol 120, LDL 53 Pancreatitis Chronic low back pain Current tobacco dependence, preoperative FEV1 85% of predicted Current daily marijuana use Family history of premature coronary artery disease Plan: Continue to maximize medical therapy with aspirin, Plavix, statin, and beta- malina. Will increase metoprolol to tartrate 75 mg p.o. twice daily with hold parameters. Increase lisinopril 20 mg p.o. daily for afterload reduction, with hold parameters. Encourage incentive spirometry use 10 times every hour while awake, br onchodilators per pulmonology. Increase activity, ambulate as tolerated. PT/OT/cardiac rehab following. Will monitor daily labs and chest x-rays. Electrolyte replacement per protocol GI/DVT prophylaxis. Insulin management per internal medicine. Pain control per current medication regimen. Keep ventricular epicardial pacemaker wires in place. Continue to monitor and record strict accurate intake and output. May bladder scan every 6 hours and as needed postvoid residual, if greater than 300 mL of urine may straight cath. Daily weights. Shower daily. Discharge planning is in place, anticipate discharge home within the next 24 hours with home health care. More recommendations to follow based on patient's clinical course. Time with Patient: Greater than 30
--- NOTE | 2023-10-06 11:14 | P.PN ---
Shahid Allen seen evaluated in the intensive care unit. He is status post chest tube removal. He is postop day #2 for a coronary bypass graft x 1 vessel of the left internal thoracic artery to the left anterior descending coronary artery. Originally admitted with a non-STEMI on 09/29/2023. Currently complains of some fatigue and pain but otherwise feels much better now that the chest tube has been discontinued. His Pacheco catheter is also been discontinued. Signs are stable with a heart rate in the 90s respiratory rate normal pulse oximetry 92% on 2 L of O2 via nasal cannula. Laboratory studies for this morning show leukocytosis WBC count 16 6 hemoglobin is 13 3. Electrolytes are normal. Hemoglobin A1c was checked and it is 6.0. Being followed by cardiology cardiothoracic surgery and critical care. Notes reviewed today. October 06, 2023: Patient is reevaluated today. He has been the stepdown unit. He is status post coronary bypass graft x 1 vessel of the left internal thoracic artery to the left anterior descending coronary artery. Postop day #3 today. He was admitted with non-STEMI on September 29, 2023. He is doing much better t danica. The chest tubes have been out a day his Pacheco catheter has been out a day. He is up ambulating the halls regularly. He feels much better. He has a nicotine patch. Smoking cessation was discussed at length with him today. Vital signs are essentially normal some very minimal tachycardia. Pulse ox is 94% on room air. No laboratory studies this morning. Cardiothoracic surgery note reviewed from today. Objective - Vital Signs Vital signs: Vital Signs Temp 98.0 F 10/06/23 08:25 Pulse 104 H 10/06/23 09:44 Resp 16 10/06/23 08:25 BP 145/95 10/06/23 08:25 Pulse Ox 94 L 10/06/23 08:25 FiO2 10 10/04/23 07:00 Intake & Output 10/05/23 10/06/23 10/06/23 18:59 06:59 18:59 Intake Total 488 130 Output Total 640 750 Balance -152 -750 130 Weight 84.5 kg Intake: IV 138 10 Invasive Line 3 5 5 Invasive Line 7 35 5 Lactated Ringers 1,000 ml 80 @ 20 mls/hr IV .Q24H [facility] Rx#:[id number] Pressure bags 18 Oral 350 120 Output: Chest Tube Drainage 30 Left 10 Mediastinal 20 Urine 610 750 Other: Voiding Method Indwelling Catheter Urinal Urinal # Bowel Movements 1 ABP, PAP, CO, CI - Last Documented Arterial Blood Pressure 144/79 Pulmonary Artery Pressure 30/11 Cardiac Output 6 Cardiac Index 3 - Exam General: The patient is awake and alert, in nol distress, he is in a chair at bedside Neck: The neck is supple, there is no thyromegaly, lymphadenopathy, tenderness or JVD. Cardiovascular: S1S2 is normal, There is a regular rate and rhythm. No murmur, rub or gallop is appreciated. Cardiac binder is in place. Respiratory: Lungs are clear to auscultation bilaterally, respirations are non-labored, breath sounds are equal. Gastrointestinal: Soft, non-distended, non-tender abdomen without masses or organomegaly noted. There is no rebound or guarding present. Bowel sounds are unremarkable. Musculoskeletal: Normal ROM, no tenderness, There is no pedal edema. There is no calf tenderness or swelling. No cords were appreciated. Neurological: CN II-XII intact, there are no obvious motor or sensory deficits. Coordination appears grossly intact. Speech is normal. Skin: Skin is warm and dry and no rashes or lesions are noted. - Labs CBC & Chem 7: 10/05/23 04:35 10/05/23 04:35 Labs: Abnormal Lab Results - Last 24 Hours (Table) 10/05/23 10/05/23 10/06/23 Range/Units 16:35 20:05 06:14 POC Glucose (mg/dL) 124 H 150 H 115 H (70-110) mg/dL Assessment and Plan (1) S/P coronary artery bypass graft x 1 Current Visit: Yes Status: Acute Code(s): Z95.1 - PRESENCE OF AORTOCORONARY BYPASS GRAFT SNOMED Code(s): 233276638 (2) NSTEMI (non-ST elevated myocardial infarction) Current Visit: Yes Status: Acute Code(s): I21.4 - NON-ST ELEVATION (NSTEMI) MYOCARDIAL INFARCTION SNOMED Code(s): 24473245 (3) Acute pancreatitis Current Visit: No Status: Acute Code(s): K85.9 - ACUTE PANCREATITIS, UNSPECIFIED * DO NOT USE * SNOMED Code(s): 574857967 (4) Essential (primary) hypertension Current Visit: Yes Status: Acute Code(s): I10 - ESSENTIAL (PRIMARY) HYPERTENSION SNOMED Code(s): 31040632 (5) Mixed hyperlipidemia Current Visit: Yes Status: Acute Code(s): E78.2 - MIXED HYPERLIPIDEMIA SNOMED Code(s): 414059842 (6) Gastro-esophageal reflux disease without esophagitis Current Visit: Yes Status: Acute Code(s): K21.9 - GASTRO-ESOPHAGEAL REFLUX DISEASE WITHOUT ESOPHAGITIS SNOMED Code(s): 539371521 (7) CAD (coronary artery disease) Current Visit: Yes Status: Acute Code(s): I25.10 - ATHSCL HEART DISEASE OF [place] CORONARY ARTERY W/O ANG PCTRS SNOMED Code(s): 57834515 (8) Smoker Current Visit: Yes Status: Acute Code(s): F17.200 - NICOTINE DEPENDENCE, UNSPECIFIED, UNCOMPLICATED SNOMED Code(s): 63380430 Plan: He continues to improve. Smoking cessation was discussed at length him today fo r 3 minutes. Currently has a nicotine patch in place. Repeat labs in AM. Will be reevaluated next 24 hours.
[2023-10-06 11:33] LABS: Glucose,Whole Blood 116 mg/dL (70-110)
--- NOTE | 2023-10-06 12:10 | P.PN ---
Subjective Progress Note Date: 10/06/23 Principal diagnosis: Status post CABG The patient is a 48-year-old gentleman with a smoking and hypertension and dyslipidemia who was admitted to the hospital with acute coronary syndrome and underwent a heart catheterization that revealed severe two-vessel coronary artery disease involving the LAD as well as left circumflex coronary artery. Yesterday he underwent CABG x 1 with ORTEZ to LAD. He still have severe disease involving the left circumflex in the AV groove which need to be performed percutaneously down the line. The echo revealed normal LV systolic function October 04, 2023 This is postoperation day #1. The patient overall is doing well. He is extubated. He is hemodynamically stable and has been maintaining normal sinus mechanism. He is on dual antiplatelet therapy along with intermediate intensity statin along with beta-malina. Urine output has been good. Overall he is having a good postoperation course. The examination revealed regular rhythm w ith a distant heart sounds and diminished breathing sounds bilaterally and mild upper extremities edema. The chest x-ray appears to be slightly wet. October 05, 2023 The patient was seen and evaluated this morning. He seems to be stable. He has been maintaining normal sinus mechanism. Urine output has been adequate. The chest x-ray was reviewed and seems to be stable. He reports no cardiovascular symptoms at this point. I would advise continue the current medical regimen and slowly uptitrate the dose of beta-malina and continue dual antiplatelet therapy along with statin. October 06, 2023 The patient was seen and evaluated this morning. He is doing well. He is asymptomatic. The pressure and heart rate are elevated and the dose of metoprolol as well as lisinopril have increased earlier today which I would agree on. Beside that he is on dual antiplatelet therapy along with a statin. From a cardiovascular standpoint of view, I would continue the current medical regimen with possible discharge in the next 24 hours. The examination revealed regular rhythm with a distant heart sounds and clear breathing sounds bilaterally and no edema was noted. Assessment Acute coronary syndrome Severe two-vessel coronary artery disease as described above Preserved left ventricular systolic function History of smoking Plan Consider uptitrating the dose of beta-malina Agree about increasing the dose of beta-malina and lisinopril Continue dual antiplatelet therapy and statin Possible discharge in the next 24 hours Objective - Vital Signs Vital signs: Vital Signs Temp 97.8 F 04/21/24 11:46 Pulse 96 10/06/23 11:46 Resp 16 10/06/23 11:46 BP 149/98 10/06/23 11:46 Pulse Ox 97 10/06/23 11:46 FiO2 10 10/04/23 07:00 Intake & Output 10/05/23 10/06/23 10/06/23 18:59 06:59 18:59 Intake Total 488 135 Output Total 640 750 Balance -152 -750 135 Weight 84.5 kg Intake: IV 138 15 Invasive Line 3 5 5 Invasive Line 7 35 10 Lactated Ringers 1,000 ml 80 @ 20 mls/hr IV .Q24H [facility] Rx#:[id number] Pressure bags 18 Oral 350 120 Output: Chest Tube Drainage 30 Left 10 Mediastinal 20 Urine 610 750 Other: Voiding Method Indwelling Catheter Urinal Urinal # Bowel Movements 1 ABP, PAP, CO, CI - Last Documented Arterial Blood Pressure 144/79 Pulmonary Artery Pressure 30/11 Cardiac Output 6 Cardiac Index 3 - Labs CBC & Chem 7: 10/05/23 04:35 10/05/23 04:35 Labs: Abnormal Lab Results - Last 24 Hours (Table) 10/05/23 10/05/23 10/06/23 Range/Units 16:35 20:05 06:14 POC Glucose (mg/dL) 124 H 150 H 115 H (70-110) mg/dL 10/06/23 Range/Units 11:31 POC Glucose (mg/dL) 116 H (70-110) mg/dL
[2023-10-06 13:26] LABS: ALT 34 U/L (4-49); AST 27 U/L (17-59); African American GFR (CKD) >90 (>60 ml/min/1.73 sqM); Alkaline Phosphatase 84 U/L (38-126); Anion Gap 10 mmol/L; Blood Urea Nitrogen 25 mg/dL (9-20); Calcium 9.4 mg/dL (8.4-10.2); Carbon Dioxide 23 mmol/L (22-30); Chloride 106 mmol/L (98-107); Glucose 113 mg/dL (74-99); Non-African American GFR(CKD) >90 (>60 ml/min/1.73 sqM); Potassium 4.3 mmol/L (3.5-5.1); Sodium 139 mmol/L (137-145); Total Bilirubin 0.8 mg/dL (0.2-1.3); Total Protein 6.8 g/dL (6.3-8.2)
[2023-10-06 13:33] LABS: Basophils % (A) 0 %; Eosinophils # (A) 0.1 k/uL (0-0.7); Eosinophils % (A) 1 %; HCT 39.5 % (39.0-53.0); HGB 12.9 gm/dL (13.0-17.5); Lymphocytes # (A) 1.4 k/uL (1.0-4.8); Lymphocytes % (A) 10 %; MCH 29.4 pg (25.0-35.0); MCHC 32.7 g/dL (31.0-37.0); MCV 90.1 fL (80.0-100.0); Mean Platelet Volume 10.3; Monocytes # (A) 0.8 k/uL (0-1.0); Monocytes % (A) 6 %; Neutrophils # (A) 11.2 k/uL (1.3-7.7); Neutrophils % (A) 82 %; Platelet Count 184 k/uL (150-450); RBC 4.39 m/uL (4.30-5.90); WBC 13.7 k/uL (3.8-10.6)
--- NOTE | 2023-10-06 16:16 | P.PN ---
Subjective Progress Note Date: 10/06/23 Patient is a 48-year-old white male with past medical history significant for hypertension, hyperlipidemia, pancreatitis, current tobacco dependence, daily marijuana smoker, and family history of premature coronary artery disease. His primary care provider is Dr. Martinez. Patient originally presented to the emergency room 09/29/2023 complaining of chest pain. This had been ongoing for the last 4 to 5 days. Described as epigastric and nonradiating. Associated intermittent nausea. Initially, thought this was heartburn, Tums no longer alleviated the pain, and for this reason the patient came to the emergency room. Of note, his lipase level was elevated [place] 2507. CT of the abdomen and pelvis showed no hydronephrosis, nonobstructing 4 mm right upper pole renal stone, prior cholecystectomy, and diverticulosis without diverticulitis. Otherwise, no obvious acute intra-abdominal pathology. Troponins were also elevated while in the emergency room. Patient was thought to have a non-ST elevation HI. He did undergo heart catheterization yesterday, which found severe two-vessel coronary artery disease involving the dominant left circumflex and left anterior descending artery. There were mildly elevated left-sided filling pressures. A consult was placed for cardiothoracic surgical evaluation. Patient is undergoing the normal preoperative CABG workup. We are asked to see this patien t for a pulmonary evaluation and preoperative pulmonary clearance. Patient has no known history of pulmonary disease such as COPD or asthma. He does smoke tobacco approximately 1 pack/day. He also is a daily marijuana smoker. Patient did have a bedside spirometry which showed an FEV1 of 3.38 L or 85% of predicted. Chest CT showed three-vessel aortic arch with minimal atherosclerotic ossifications and mild emphysema. He is currently sitting up in bed, on room air, in no acute distress. He denies any further chest pain. Heparin is infusing per protocol. Normal saline is infusing at 75 mL/h. Most recent lab work includes an unremarkable CBC and BMP. Lipase level has normalized and is down to 163. Patient denies any further abdominal discomfort. No nausea or vomiting. Tolerating diet. Denies significant alcohol use. Vitals are hemodynamically stable. Reevaluate today on 10/02/2023, patient is scheduled to undergo myocardial revascularization tomorrow. Pulmonary [place] patient is asymptomatic, no cough no wheezing no shortness of breath, PFT showed no evidence of any significant obstruction in spite of his [id number] smoking history. Patient is on heparin, PTT today is 67.4 The patient is seen today October 03, 2023 postoperatively in the intensive care unit. He did undergo off-pump coronary artery bypass grafting x 1 utilizing a ORTEZ to the LAD. Left atrial appendage ligation using a 33 mm AtriClip. He is intubated on the mechanical ventilator with settings of assist-control mode at a rate of 14, tidal volume 500, FiO2 50% and a PEEP of 5. Blood gases revealed a PaO2 of 208, pCO2 of 46 and a pH of 7.35 on 100% FiO2. Chest x-ray shows scattered mild increased lung markings of the left lung and right lung base. Suspect atelectasis. [place] catheter is in place. Cardiac output 9.3. Cardiac index 4.6. PA pressures 36/18. CVP 12. Left mediastinal chest tube in place. He is currently on Precedex at 0.6 mcg/mg/h. Propofol at 10 mcg/mg/min. Insulin drip at 1 unit/h. Nitroglycerin drip at 5 mcg/min. Lactated Ringer's at 50 MLS per hour. White count 12.4. Hemoglobin 13.2. Platelets 143. Sodium 139. Potassium 3.6. Bicarb 24. BUN 11. Creatinine 0.70. Glucose 122. He remains on bronchodilators. Patient was reevaluated today on 10/04/2023, patient underwent uneventful off- pump coronary artery bypass grafting x 1 utilizing ORTEZ to LAD, and is now postoperative day #1. Patient was extubated at 16: Oh 5 PM, tolerated the extubation well, patient required initially high flow nasal cannula, presently on 2 L nasal cannula with O2 sats of 97%. Chest x-ray is showing mild bibasilar atelectasis, and small minimal right pleural effusion. Lines and catheters seem to be in proper position. WBC count today 17.1 hemoglobin 13.9. Basic metabolic profile is normal. Renal profile is normal. Patient is doing well with incentive spirometry. Does have intermittent episodes of nausea and had 1 episode of emesis. Continues to have right IJ [place]/Cordis, and continues to have mediastinal left pleural chest tubes in place. Patient was reevaluated today on 10/05/2023, patient is sitting at the bedside chair, awake alert oriented x 3, does not seem to be in any distress, his surgical pain is fairly under control, 3 out of 10 on the pain scale. Patient is on room air O2 saturation 95% achieving about a liter of incentive spiromet ry, patient continues to have right IJ cordis in place with continuous CVP monitoring. Has been ambulating in the ICU,/hallway, mediastinal and left pleural chest tubes remain in place to low continuous suction no airleak is noted, chest x-ray is showing minimal atelectasis, no evidence of congestive heart failure. WBC count is 16.6 hemoglobin 14.3 basic metabolic profile is normal renal profile showed a BUN of 15 creatinine 0.87 The patient is seen today October 06, 2019 for follow-up on the selective care unit. He is currently sitting up in a chair. Awake and alert in no acute distress. He is maintaining good O2 saturations in the 90s on room air. Chest tubes have been removed. Pacer wires remain in place and grounded. X-ray reveals postop Changes. Similar mild pulmonary vascular congestion. Small bilateral effusions with adjacent atelectasis. The patient is working well with the incentive spirometer. He has been up with assistance. Continued on bronchodilators. Heparin for DVT prophylaxis. White count 13.7. Hemoglobin 12.9. Platelets 184. Sodium 139. Potassium 4.3. Bicarb 23. BUN 25. Creatinine 0.87. Objective - Vital Signs Vital signs: Vital Signs Temp 97.8 F 10/06/23 11:46 Pulse 100 10/06/23 12:26 Resp 16 10/06/23 11:46 BP 149/98 10/06/23 11:46 Pulse Ox 97 10/06/23 11:46 FiO2 10 10/04/23 07:00 Intake & Output 10/05/23 10/06/23 10/06/23 18:59 06:59 18:59 Intake Total 488 255 Output Total 640 750 Balance -152 -750 255 Weight 84.5 kg Intake: IV 138 15 Invasive Line 3 5 5 Invasive Line 7 35 10 Lactated Ringers 1,000 ml 80 @ 20 mls/hr IV .Q24H [facility] Rx#:[id number] Pressure bags 18 Oral 350 240 Output: Chest Tube Drainage 30 Left 10 Mediastinal 20 Urine 610 750 Other: Voiding Method Indwelling Catheter Urinal Urinal # Bowel Movements 1 ABP, PAP, CO, CI - Last Documented Arterial Blood Pressure 144/79 Pulmonary Artery Pressure 30/11 Cardiac Output 6 Cardiac Index 3 - Exam GENERAL EXAM: Awake, alert 48-year-old male patient currently on room air, in no apparent distress. HEAD: Normocephalic. EYES: Sluggish reaction of pupils, equal size. NOSE: Clear with pink turbinates. THROAT: No erythema or exudates. NECK: No masses, no JVD. CHEST: Sternal dressing dry and intact. Heart hugger in place. LUNGS: Equal air entry with no crackles, wheeze, rhonchi or dullness. CVS: S1 and S2 normal with no audible murmur, regular rhythm. ABDOMEN: No hepatosplenomegaly, no guarding or rigidity. SPINE: No scoliosis or deformity SKIN: No rashes CENTRAL NERVOUS SYSTEM: No focal deficits, tone is normal in all 4 extremities. EXTREMITIES: SCDs in place. There is no peripheral edema. No clubbing, no cyanosis. Peripheral pulses are intact. - Labs CBC & Chem 7: 10/06/23 12:10 10/06/23 12:10 Labs: Abnormal Lab Results - Last 24 Hours (Table) 10/05/23 10/05/23 10/06/23 Range/Units 16:35 20:05 06:14 WBC (3.8-10.6) k/uL Hgb (13.0-17.5) gm/dL Neutrophils # (1.3-7.7) k/uL BUN (9-20) mg/dL Glucose (74-99) mg/dL POC Glucose (mg/dL) 124 H 150 H 115 H (70-110) mg/dL 10/06/23 10/06/23 10/06/23 Range/Units 11:31 12:10 12:10 WBC 13.7 H (3.8-10.6) k/uL Hgb 12.9 L (13.0-17.5) gm/dL Neutrophils # 11.2 H (1.3-7.7) k/uL BUN 25 H (9-20) mg/dL Glucose 113 H (74-99) mg/dL POC Glucose (mg/dL) 116 H (70-110) mg/dL Assessment and Plan Assessment: Acute Non-ST elevation HI. Status post off-pump coronary artery bypass grafting x 1 utilizing the ORTEZ to the LAD. Left atrial appendage clipping with a 33 mm AtriClip. Postoperative day #3. Multivessel coronary artery disease, heart catheterization performed which found severe two-vessel coronary artery disease involving the dominant left circumflex and left anterior descending artery Acute pancreatitis, Lipase levels have normalized Hypertension Hyperlipidemia Chronic ongoing tobacco dependence, reportedly smokes 1 pack/day Current daily marijuana use Family history of premature coronary artery disease Plan: The patient was seen and evaluated Chest x-ray,labs and medications reviewed Stable and on room air Working well with the incentive spirometer Increase his activity as tolerated Continue bronchodilators Heparin for DVT prophylaxis We will continue to follow I have personally seen and examined the patient, performed the documentation and the assessment and plan as written. Number of minutes spent on the visit: 10.
[2023-10-06 16:46] LABS: Glucose,Whole Blood 136 mg/dL (70-110)
[2023-10-06 20:13] LABS: Glucose,Whole Blood 122 mg/dL (70-110)
[2023-10-06] MEDS: MELATONIN 3 MG TABLET PO SCH (22:06)
[2023-10-06] MEDS: hydrALAZINE HCL 20 MG/ML 1 ML VIAL IVP STA (22:27)
[2023-10-07] MEDS: ALPRAZolam 0.25 MG TAB PO STA (01:59)
[2023-10-07 06:02] LABS: Glucose,Whole Blood 113 mg/dL (70-110)
--- NOTE | 2023-10-07 08:49 | P.PN ---
Subjective Progress Note Date: 10/07/23 Principal diagnosis: Coronary artery disease, non-STEMI this admission, elevated lipase. 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 Remains in sinus rhythm, hemodynamically stable, hypertensive overnight and was given IV hydralazine as well as beta-malina and NURIS inhibitor were increased yesterday. States pain is mostly controlled with current medication regimen, patient's main concern is that he really has hardly slept in the last 3 nights, has had some very vivid dreams waking him up in a cold sweat. Would like to go home today. Labs, chest x-rays reviewed. No other new concerns. Objective - Vital Signs Vital signs: Vital Signs Temp 97.9 F 10/07/23 04:00 Pulse 96 10/07/23 08:38 Resp 16 10/07/23 04:00 BP 133/87 10/07/23 04:00 Pulse Ox 96 10/07/23 08:41 FiO2 10 10/04/23 07:00 Intake & Output 10/06/23 10/07/23 10/07/23 18:59 06:59 18:59 Intake Total 597 10 Output Total 450 450 450 Balance 147 -440 -450 Weight 84.1 kg Intake: IV 15 10 Invasive Line 3 5 Invasive Line 7 10 10 Oral 582 Output: Urine 450 450 450 Other: Voiding Method Urinal Urinal # Voids 1 # Bowel Movements 1 ABP, PAP, CO, CI - Last Documented Arterial Blood Pressure 144/79 Pulmonary Artery Pressure 30/11 Cardiac Output 6 Cardiac Index 3 - Exam CONSTITUTIONAL: Appears comfortable, cooperative, no acute distress RESPIRATORY: Lungs sounds diminished bilaterally. Respirations even, nonlabored. Currently on room air with oxygen saturation 95%. Able to achieve 1500 mL on incentive spirometry. Strong cough. CARDIOVASCULAR: S1, S2 present. Regular rate and rhythm, sinus rhythm on telemetry. Sternum stable. Palpable peripheral pulses bilaterally. No edema present. No calf pain or tenderness noted. Heart hugger in place with patient demonstrating appropriate use. Antiembolism stockings, SCDs present. GASTROINTESTINAL: Abdomen soft, nontender, nondistended. Active bowel sounds present 4 quadrants. Tolerating diet. Positive bowel movement 10/04 GENITOURINARY: Continues to void INTEGUMENTARY: Skin is warm and dry with evidence of good perfusion. Anterior chest incision well approximated NEUROLOGIC: Cranial nerves II through XII intact MUSKULOSKELETAL: Able to move all extremities, strength equal bilaterally, gait normal PSYCHIATRIC: Alert and oriented to person place and time, appropriate affect, intact judgment and insight INVASIVE LINES AND TUBES: Ventricular epicardial wire present, grounded - Allied health notes Allied health notes reviewed: nursing - Labs CBC & Chem 7: 10/06/23 12:10 10/06/23 12:10 Labs: Abnormal Lab Results - Last 24 Hours (Table) 10/06/23 10/06/23 10/06/23 Range/Units 11:31 12:10 12:10 WBC 13.7 H (3.8-10.6) k/uL Hgb 12.9 L (13.0-17.5) gm/dL Neutrophils # 11.2 H (1.3-7.7) k/uL BUN 25 H (9-20) mg/dL Glucose 113 H (74-99) mg/dL POC Glucose (mg/dL) 116 H (70-110) mg/dL 10/06/23 10/06/23 10/07/23 Range/Units 16:44 20:12 06:01 WBC (3.8-10.6) k/uL Hgb (13.0-17.5) gm/dL Neutrophils # (1.3-7.7) k/uL BUN (9-20) mg/dL Glucose (74-99) mg/dL POC Glucose (mg/dL) 136 H 122 H 113 H (70-110) mg/dL - Imaging and Cardiology Chest x-ray: report reviewed, image reviewed Assessment and Plan Assessment: Coronary artery disease, non-STEMI this admission, status post single-vessel CABG Elevated lipase, trending down Hypertension Hyperlipidemia, treated, cholesterol 120, LDL 53 Pancreatitis Chronic low back pain Current tobacco dependence, preoperative FEV1 85% of predicted Current daily marijuana use Family history of premature coronary artery disease Plan: Continue to maximize medical therapy with aspirin, Plavix, statin, beta-malina. Will increase beta-malina therapy as tolerated Continue lisinopril for afterload reduction Wean O2 as tolerated. Encourage incentive spirometry use 10 times every hour while awake, bronchodilators per pulmonology Increase activity, ambulate as tolerated Will monitor daily labs and x-rays. Electrolyte replacement per protocol GI/DVT prophylaxis Insulin management per internal medicine. Patient is not diabetic, hemoglobin A1c 6% Pain control per current medication regimen Epicardial pacemaker wire discontinued without incident Continue to monitor and record strict accurate intake and output Daily weights Anticipate discharge to home with home care this afternoon More recommendations to follow
--- NOTE | 2023-10-07 08:56 | XR ---
EXAMINATION TYPE: XR chest 1V portable DATE OF EXAM: 10/07/2023 Comparison: 10/06/2023 Clinical History: 48-year-old male postop CABG Findings: Median sternotomy wires are present post CABG clips. Heart mildly enlarged. Mild interstitial promine nce remains. Similar small bilateral effusions. Impression: Post-CABG changes with similar mild pulmonary vascular congestion along with small pleural effusions.
[2023-10-07 09:52] VITALS: RESP 17
--- NOTE | 2023-10-07 11:13 | P.PN ---
Subjective Progress Note Date: 10/07/23 H&P Date: 09/30/23 Chief Complaint: Chest pain This is a pleasant 48-year-old gentleman with past medical history significant for family history of CAD ,nicotine dependence, chronic low back pain, hypertension, hyperlipidemia and multiple other medical issues presented to the ER with complaints of midsternal chest pain radiating through to his back actuat ing off and on for the last 5 days, worsened yesterday, accompanied by nausea and throwing up of his own sputum. Previously relieved with Tums. Reports occurs with exertion and at rest, before and after eating. elevated troponins and elevated lipase of 2507 with normal LFTs on admission, decreased down to 432. Troponin 0.338, 0.573 . EKG reported sinus rhythm, nonspecific ST-T wave changes as per cardiology's review. Chest x-ray reported nonacute. history of prior pancreatitis status postcholecystectomy 2015, pathology reported no stones. Reports occasional alcohol use of a couple beers.CT abdomen pelvis with contrast reports no hydronephrosis or delayed nephrogram. Cholecystectomy. Nonobstructing 4 mm right upper pole renal stone. Diverticulosis without acute diverticulitis. No bowel obstruction. No free air. Afebrile, WBC 11.5, hemoglobin 13.9, platelets 159, INR 1. Sodium 139, potassium 4, bicarb 26, BUN 15, creatinine 0.87. UA negative 10/01/2023 completed cardiac catheterization reporting severe CAD of dominant left circumflex and LAD. Evaluated by cardiothoracic surgery and patient is tentatively scheduled for CABG on . Anticoagulated on heparin drip. Telemetry sinus rhythm. Currently denies any chest pain, palpitations or shortness of breath. Lipase normalized, 163. Denies abdominal pain. Denies nausea vomiting or diarrhea. Hemoglobin A1c 6.1, blood sugars controlled. 10/02/2023 telemetry sinus rhythm. Echo reported normal LV function, mild mitral regurgitation. anticoagulated on heparin drip. denies chest pain, palpitations or shortness of breath. Maintained on prn Xanax, nicotine patch. Scheduled for CABG tomorrow. 10/03/2023 recently admitted into the ICU, status post CABG, graft x 1, ORTEZ to the LAD, off-pump. ventilator dependent with FiO2 60%/+5 of PEEP. Maintained on insulin, nitroglycerin, Precedex and Diprovan drips. Cardiac output 9.3, cardiac index 4.6. 10/04/2023 extubated yesterday afternoon, currently sitting up in chair, maintaining O2 sats in the high 90s on 2 L nasal cannula. Emesis x 1- chest x- ray reports mild bibasilar infiltrates, correlate for atelectasis, minimal right pleural effusion .cardiac output 6, cardiac index 3 .telemetry sinus rhythm, maintained on nitroglycerin drip, Plavix, aspirin, beta-malina, statin. pain controlled. Tmax 99.1, WBC 17.1, hemoglobin 13.9, platelets 148, renal function stable. Blood sugars controlled. 10/07/2023 Reports sleep deprivation, pain better controlled .hypertensive during the night, received IV hydralazine with NURIS inhibitor and beta-malina doses increased. Discharge planning in progress for later today as per CTS. sitting up in recliner, no acute distress. Telemetry sinus rhythm. Denies chest pain, palpitations or shortness of breath. Maintaining O2 sats in the high 90s on room air. Ambulated in the hallway yesterday, tolerated exertion well. Denies lightheadedness dizziness or focal deficits. Chest x-ray reported post CABG c hanges with similar mild pulmonary vascular congestion along with small pleural effusions. Incentive spirometer up to 1500. Objective - Vital Signs Vital signs: Vital Signs Temp 98.8 F 10/07/23 07:50 Pulse 96 10/07/23 08:49 Resp 17 10/07/23 08:00 BP 140/92 10/07/23 07:50 Pulse Ox 96 10/07/23 08:41 FiO2 10 10/04/23 07:00 Intake & Output 10/06/23 10/07/23 10/07/23 18:59 06:59 18:59 Intake Total 597 10 5 Output Total 450 450 450 Balance 147 -440 -445 Weight 84.1 kg Intake: IV 15 10 5 Invasive Line 3 5 Invasive Line 7 10 10 5 Oral 582 Output: Urine 450 450 450 Other: Voiding Method Urinal Urinal Urinal # Voids 1 # Bowel Movements 1 ABP, PAP, CO, CI - Last Documented Arterial Blood Pressure 144/79 Pulmonary Artery Pressure 30/11 Cardiac Output 6 Cardiac Index 3 - Exam GENERAL: Alert and oriented x 3, sitting up in chair, no acute distress HEENT: normocephalic NECK: Supple, no JVD LUNGS: Unlabored, equal air entry, essentially clear to auscultation with bila teral bases diminished HEART: Regular rate and rhythm without murmurs, rubs or gallops.S1S2 Normal ABDOMEN: Soft, nondistended, nontender, no rigidity. EXTREMITIES: SCDs on bilateral lower extremities. NEUROLOGICAL: Cranial nerves II through XII grossly intact, no gross focal deficit SKIN: Warm, Dry. - Labs CBC & Chem 7: 10/06/23 12:10 10/06/23 12:10 Labs: Abnormal Lab Results - Last 24 Hours (Table) 10/06/23 10/06/23 10/06/23 Range/Units 11:31 12:10 12:10 WBC 13.7 H (3.8-10.6) k/uL Hgb 12.9 L (13.0-17.5) gm/dL Neutrophils # 11.2 H (1.3-7.7) k/uL BUN 25 H (9-20) mg/dL Glucose 113 H (74-99) mg/dL POC Glucose (mg/dL) 116 H (70-110) mg/dL 10/06/23 10/06/23 10/07/23 Range/Units 16:44 20:12 06:01 WBC (3.8-10.6) k/uL Hgb (13.0-17.5) gm/dL Neutrophils # (1.3-7.7) k/uL BUN (9-20) mg/dL Glucose (74-99) mg/dL POC Glucose (mg/dL) 136 H 122 H 113 H (70-110) mg/dL Assessment and Plan Assessment: Acute NSTEMI, status post cardiac cath reporting multivessel CAD including severe CAD of dominant left circumflex and LAD, status post CABG, off-pump, grafting x 1 utilizing the ORTEZ to the LAD Diabetes mellitus, new onset, hemoglobin A1c 6.1 Acute pancreatitis, in a patient with prior history of pancreatitis status post cholecystectomy 2015. Etiology unclear, resolved Hypertension Hyperlipidemia Ongoing nicotine dependence Gastroesophageal reflux disease Plan: Continue on current medication regimen ,monitoring and symptomatic treatment. Discharge planning in progress as per CTS .Aggressive pulmonary toileting with incentive spirometer reinforced. Increase ambulation as tolerated. Smoking sensation reinforced. The impression and plan of care has been dictated as directed. : I performed a history and examination of this patient, discussed the same with the dictator. I agree with the dictator's note ,documented as a scribe. Any additional findings or plans will be noted.
--- NOTE | 2023-10-07 11:30 | P.DS ---
Providers Date of admission: 09/29/23 22:19 Expected date of discharge: 10/07/23 Attending physician: Thang Arzola MD Consults: 09/29/23 22:29 Consult Physician Routine Consulting Provider: [facility] Consult Reason/Comments: nstemi Do you want consulting provider notified?: Yes 09/30/23 13:41 Consult Physician Routine Consulting Provider: Luke Yeboah Consult Reason/Comments: eval. for CABG Do you want consulting provider notified?: Already Contacted 10/01/23 06:27 Consult Physician Routine Consulting Provider: Dominique Gonzalez Consult Reason/Comments: preop cabg Do you want consulting provider notified?: Already Contacted 10/02/23 10:30 Consult to Anesthesia Routine Consulting Provider: Anesthesia,Services Consult Reason/Comments: Cardiac Surgery Pre-Op 10/03/23 10:56 Consult Physician Routine Consulting Provider: Dontae Martinez Consult Reason/Comments: med mgmt Do you want consulting provider notified?: Already Contacted Primary care physician: Dontae Martinez Hospital Course: FINAL DIAGNOSIS: Coronary artery disease, non-STEMI this admission, status post single-vessel CABG Elevated lipase, trending down Hypertension Hyperlipidemia, treated, cholesterol 120, LDL 53 Pancreatitis Chronic low back pain Current tobacco dependence, preoperative FEV1 85% of predicted Current daily marijuana use Family history of premature coronary artery disease PRINCIPAL PROCEDURE: Off pump coronary artery bypass grafting x 1, left internal thoracic artery (in- situ) to left anterior descending coronary artery Left atrial appendage ligation using #35mm AtriClip Graft flow measurements using the Medi-Stim flow meter system Trans-esophageal echo HISTORY OF PRESENT ILLNESS: This is a 48-year-old gentleman who follows outpatient with Dr. Martinez for primary care. He presented to [facility] emergency room with complaints of chest pain. In the ER he was noted to have elevated troponins and was ruled in for non-STEMI. This gentleman was admitted for evaluation and treatment with consultation placed to cardiology. He underwent heart catheterization by Dr. Berman revealing ostial and proximal LAD stenosis 80%, proximal left circumflex stenosis 80 to 90%, and severe disease in the midportion of the right coronary artery. Consultation was placed to cardiothoracic surgery for surgical revascularization recommendations. He was r ecommended to undergo urgent coronary artery bypass surgery. The usual perioperative course was discussed in detail with the patient and his family, all risks and benefits were explained, all questions were answered, and consent was obtained to proceed with surgery. The patient was kept inpatient due to the nature of her disease process. HOSPITAL COURSE: The patient was brought to the preoperative area 10/03/23, prepared in the usual fashion, and subsequently taken to the operating room where Dr. Arzola performed single-vessel CABG. Upon completion of surgery the patient was transferred to the cardiovascular intensive care unit where he was recovered and monitored hemodynamically. He was extubated, all lines, tubes, and drips were discontinued when appropriate, and he was transferred to 3 S. cardiac stepdown unit for further monitoring and rehabilitation. His oxygen was titrated down, he continued to work with physical and occupational therapy, he was tolerating oral diet, his pain was controlled, and he was ready to be discharged to home with [facility] on [facility] day [facility]4. He received written and verbal instruction regarding his medications, activity restrictions, signs and symptoms requiring physician notification, and follow-up appointments. Patient Condition at Discharge: Stable Plan - Discharge Summary Discharge Rx Participant: No New Discharge Prescriptions: New Nicotine 14Mg/24Hr Patch [Habitrol] 1 patch TRANSDERM DAILY #30 patch Metoprolol Tartrate [Lopressor] 100 mg PO BID #60 tab Acetaminophen Tab [Tylenol] 650 mg PO Q4HR PRN tab PRN Reason: Fever and/ or Mild Pain Aspirin 325 mg PO DAILY #30 tab Melatonin 6 mg PO HS PRN tab PRN Reason: Insomnia Clopidogrel [Plavix] 75 mg PO DAILY #30 tab Pantoprazole [Protonix] 40 mg PO AC-BRKFST #30 tab Sennosides-Docusate Sodium [Senokot-S] 2 each PO HS PRN tab PRN Reason: Constipation Continue lisinopriL [Zestril] 20 mg PO DAILY Meloxicam [Mobic] 15 mg PO DAILY Atorvastatin [Lipitor] 40 mg PO HS buPROPion XL [Wellbutrin XL] 150 mg PO DIRECTED Discontinued atenoloL [Tenormin] 50 mg PO HS Omeprazole [PriLOSEC] 20 mg PO DAILY Discharge Medication List lisinopriL [Zestril] 20 mg PO DAILY 10/17/13 [History] Meloxicam [Mobic] 15 mg PO DAILY 01/02/16 [History] buPROPion XL [Wellbutrin XL] 150 mg PO DIRECTED 04/29/23 [History] Atorvastatin [Lipitor] 40 mg PO HS 09/30/23 [History] Acetaminophen Tab [Tylenol] 650 mg PO Q4HR PRN tab 10/07/23 [Rx] Aspirin 325 mg PO DAILY #30 tab 10/07/23 [Rx] Clopidogrel [Plavix] 75 mg PO DAILY #30 tab 10/07/23 [Rx] Melatonin 6 mg PO HS PRN tab 10/07/23 [Rx] Metoprolol Tartrate [Lopressor] 100 mg PO BID #60 tab 10/07/23 [Rx] Nicotine 14Mg/24Hr Patch [Habitrol] 1 patch TRANSDERM DAILY #30 patch 10/07/23 [Rx] Pantoprazole [Protonix] 40 mg PO AC-BRKFST #30 tab 10/07/23 [Rx] Sennosides-Docusate Sodium [Senokot-S] 2 each PO HS PRN tab 10/07/23 [Rx] Follow up Appointment(s)/Referral(s): Dominique Gonzalez MD [STAFF PHYSICIAN] - 10/30/23 9:00 am Meli Dudley NPC [Nurse Practitioner] - 10/09/23 10:30 am (You will be seen in the surgeon's office behind the hospital in [facility], [address] Office phone number is ; come after your appointment with Dr. Berman) Rehab [facility],Cardiac [NON-STAFF] - 4 Weeks (You will receive a phone call in approximately 4-6 weeks for evaluation for cardiac rehab) Ray Berman MD [STAFF PHYSICIAN] - 10/09/23 9:30 am [facility] [NON-STAFF] - 1-2 Days ([facility] will call you to arrange a visit; You should be seen the day after discharge then 2 times per week for 4 weeks) Dontae Martinez MD [Primary Care Provider] - 10/17/23 1:45 pm Thang Arzola MD [STAFF PHYSICIAN] - 10/28/23 2:30 pm Ambulatory/Diagnostic Orders: Complete Blood Count w/diff [LAB.AMB] Time Frame: 3 Days, Location: None Selected Comprehensive Metabolic Panel [LAB.AMB] Time Frame: 3 Days, Location: None Selected Activity/Diet/Wound Care/Special Instructions: DISCHARGE INSTRUCTIONS: 1. No driving for 4 weeks, or until physician gives their ok. 2. The patient should sleep in their own bed, no medical bed needed. 3. Stairs are not an issue. If the bedroom is upstairs, it is advised that the patient go up at night and down in the morning for the first week. Go slowly, using handrail and take 1 step at a time. 4. BECCA hose are to be worn for 30 days post surgery or until physician discontinues. 5. Heart hugger is to be worn 100% of the time until physician disc ontinues.(except when showering) 6. No lifting, pushing, or pulling more than 10 pounds for 12 weeks. The physician will advise of any restriction changes. 7. The patient is expected to continue the prescribed walking program. 8. Continue pain control per as needed orders. 9. Continue with incentive spirometry and splinting/heart hugger until otherwise directed by the physician. 10. Must shower daily using liquid antibacterial soap 11. Routine sternal incision care. No powders, lotions, ointments on incisions. No dressings are necessary on incisions unless they are draining. Dermabond tape is to remain on sternal incision until surgeon follow-up. 12. Please call surgeon/CONSTRUCTION EQUIPMENT OPERATOR for temp greater than 101 F or purulent drainage from incisions. 13. You should weigh yourself daily, record and bring log with you to follow up appointments. 14. All prescriptions given by surgeon for 30 days. Refills need to be filled through labor economist/primary care physician. 15. A Red armband has been placed on the patient. It should be worn for 30 days post discharge from surgery and will be removed by the cardiac surgeons. If an ER visit is necessary, please make sure the number on the Red armband is called before going to ER. 16. You have been referred to and are expected to begin Cardiac Rehab in approximately 4-6 weeks. 17. Quitting smoking is the most important step you can take to improve your health. For additional information and assistance to quit smoking, please call the [place] tobacco quit line (0-901-SHFM-NOW/ ) or online: https://www.[place].gov/mdhhs/keep -[place]-healthy/chronicdiseases/tobacco/qhf-qj-fsiw-tobacco HOME HEALTH SERVICES TO PROVIDE: RN SKILLED HOME CARE SERVICES FOR POST-OP SURGICAL PATIENTS WITH THE FOLLOWING: Coronary Artery Bypass Surgery (CABG), Mitral Valve Replacement/Repair ( MVR), Aortic Valve Replacement/Repair (AVR) RN TO CONTINUE EDUCATION FROM ``ROAD TO A HEALTH HEART PATIENT EDUCATION MANUAL (GIVEN TO PATIENT IN THE HOSPITAL) MEDICATION RECONCILIATION WITH EDUCATION NEEDED ON FIRST HOME VISIT EMPHASIZE IMPORTANCE OF WEARING BREAST SUPPORT/HEART HUGGER ENCOURAGE USE OF INCENTIVE SPIROMETER 10 X EVERY HOUR WHILE AWAKE ENCOURAGE UTILIZATION OF LOWER EXTREMITY COMPRESSION STOCKINGS/BECCA HOSE and ELEVATE LEGS ABOVE LEVEL OF HEART WHILE AT REST. ENCOURAGE AMBULATION 3-5x/day INCREASING TOLERATES, WHILE AVOIDING EXTREMES IN TEMPERATURE FREQUENCY: RN TO OPEN THE PATIENT WITHIN 24 HOURS OF DISCHARGE FROM THE HOSPITAL WITH TELEHEALTH INSTALLED AT [facility] [place], RN TO VISIT 2-3 X A WEEK FOR 4 WEEKS ESTAB LISHED BY PATIENT NEEDS. LABORATORY: CBC, CMP TO BE DRAWN ON THE THIRD DAY HOME, (RAN STAT) FAX RESULTS TO [phone]. TELEHEALTH PARAMETERS: WEIGHT: NOTIFY MD OF WEIGHT GAIN OF 2 LBS IN 24 HOURS OR 5 LBS IN ONE WEEK HR: NOTIFY MD OF HR <55 BPM OR HR>100 BPM BP: NOTIFY MD IF BP <90/55 OR BP>140/100 O2 SAT: NOTIFY MD IF PO2<93% ON ROOM AIR SEND TELEHEALTH REPORT TO DREDGE OPERATOR AND CARDIOVASCULAR SURGEON THE FIRST WEEK OF CARE AND THEN BI-WEEKLY. PLEASE ADDITIONALLY COMMUNICATE ANY ABNORMALS AND NEW FINDINGS TO THE SURGEONS OFFICE. Discharge Disposition: HOME WITH HOME HEALTH SERVICES
[2023-10-07 11:49] LABS: Glucose,Whole Blood 164 mg/dL (70-110)
[2023-10-07 12:09] VITALS: TEMP 98.6
[2023-10-07 12:24] LABS: HCT 41.8 % (39.0-53.0); HGB 14.1 gm/dL (13.0-17.5); MCH 30.3 pg (25.0-35.0); MCHC 33.7 g/dL (31.0-37.0); MCV 90.2 fL (80.0-100.0); Platelet Count 261 k/uL (150-450); RBC 4.63 m/uL (4.30-5.90); RDW 14.1 % (11.5-15.5); WBC 14.2 k/uL (3.8-10.6)
[2023-10-07 12:35] LABS: African American GFR (CKD) >90 (>60 ml/min/1.73 sqM); Anion Gap 12 mmol/L; Blood Urea Nitrogen 18 mg/dL (9-20); Calcium 9.4 mg/dL (8.4-10.2); Carbon Dioxide 21 mmol/L (22-30); Chloride 107 mmol/L (98-107); Glucose 147 mg/dL (74-99); Non-African American GFR(CKD) >90 (>60 ml/min/1.73 sqM); Potassium 3.8 mmol/L (3.5-5.1); Sodium 140 mmol/L (137-145)
[2023-10-07] MEDS: buPROPion XL 150 MG TAB.ER.24H PO SCH (12:45)
[2023-10-07 12:55] VITALS: PULSE 90
[2023-10-07 13:41] VITALS: BP 143/88
== END 2023-10-07 13:23 | disposition home health service (06) | DRG 233 ==
LOC: EC 19:08 → 3SCARD 22:19 → 2SICU 10-03 06:10 → 3SCARD 10-05 18:03
PROVIDERS: ADMIT Thoracic Surgery (Cardiothoracic Vascular Surgery); ATTEND Thoracic Surgery (Cardiothoracic Vascular Surgery)
PROC: B2111ZZ Fluoroscopy of Multiple Coronary Arteries using Low Osmolar Contrast (ICD-10-PCS; 2023-09-30)
PROC: 4A023N7 Measurement of Cardiac Sampling and Pressure, Left Heart, Percutaneous Approach (ICD-10-PCS; 2023-09-30 19:50)
PROC: 02L70CK Occlusion of Left Atrial Appendage with Extraluminal Device, Open Approach (ICD-10-PCS; 2023-10-03)
PROC: B24BZZ4 Ultrasonography of Heart with Aorta, Transesophageal (ICD-10-PCS; 2023-10-03)
PROC: 4A0305C Measurement of Arterial Flow, Coronary, Open Approach (ICD-10-PCS; 2023-10-03)
PROC: 02100ZC Bypass Coronary Artery, One Artery from Thoracic Artery, Open Approach (ICD-10-PCS; principal; 2023-10-03 08:00)
DX: I21.4 Non-ST elevation (NSTEMI) myocardial infarction (principal); K85.90 Acute pancreatitis without necrosis or infection, unspecified; F17.210 Nicotine dependence, cigarettes, uncomplicated; I25.119 Atherosclerotic heart disease of native coronary artery with unspecified angina pectoris; I34.0 Nonrheumatic mitral (valve) insufficiency; E11.43 Type 2 diabetes mellitus with diabetic autonomic (poly)neuropathy; I10 Essential (primary) hypertension; G89.29 Other chronic pain; M54.50 Low back pain, unspecified; E78.2 Mixed hyperlipidemia; K31.84 Gastroparesis; K29.70 Gastritis, unspecified, without bleeding; R74.8 Abnormal levels of other serum enzymes; N20.0 Calculus of kidney; K57.90 Diverticulosis of intestine, part unspecified, without perforation or abscess without bleeding; K21.9 Gastro-esophageal reflux disease without esophagitis; Z79.1 Long term (current) use of non-steroidal anti-inflammatories (NSAID); Z79.899 Other long term (current) drug therapy; Z82.49 Family history of ischemic heart disease and other diseases of the circulatory system; Z87.19 Personal history of other diseases of the digestive system; Z72.820 Sleep deprivation
CPT/HCPCS: 36415; 71045; 71046; 71250; 74177; 76937; 80048; 80053; 80061; 80074; 81003; 82150; 82330; 82787; 82805; 83036; 83690; 83735; 84132; 84443; 84478; 84484; 85025; 85027; 85610; 85730; 86038; 86850; 86900; 86901; 86920; 87070; 93005; 93306; 93458; 93880; 93922; 93970; 94002; 94150; 94640; 94760; 96361; 96374; 96375; 99291

== ENCOUNTER 2023-10-17 17:26 | Emergency (ER) | payer SELFPAY ==
[2023-10-17 17:56] VITALS: TEMP 98
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
[2023-10-17] MEDS: HYDROmorphone 0.5 MG/0.5 ML SYRINGE IVP STA (18:30)
[2023-10-17 18:58] LABS: Basophils # (A) 0.1 k/uL (0-0.2); Basophils % (A) 1 %; Eosinophils # (A) 0.4 k/uL (0-0.7); Eosinophils % (A) 4 %; HCT 39.8 % (39.0-53.0); Lymphocytes # (A) 2.4 k/uL (1.0-4.8); Lymphocytes % (A) 19 %; MCH 29.6 pg (25.0-35.0); MCHC 32.8 g/dL (31.0-37.0); MCV 90.4 fL (80.0-100.0); Mean Platelet Volume 7.7; Monocytes # (A) 0.6 k/uL (0-1.0); Monocytes % (A) 5 %; Neutrophils # (A) 8.9 k/uL (1.3-7.7); Neutrophils % (A) 71 %; Platelet Count 391 k/uL (150-450); RDW 13.6 % (11.5-15.5); WBC 12.6 k/uL (3.8-10.6)
[2023-10-17 18:59] LABS: INR 0.9 (<1.2); Prothrombin Time 10.4 sec (10.0-12.5)
[2023-10-17 19:00] LABS: Partial Thromboplastin Time 22.4 sec (22.0-30.0)
[2023-10-17 19:05] LABS: ALT 35 U/L (4-49); AST 26 U/L (17-59); African American GFR (CKD) >90 (>60 ml/min/1.73 sqM); Albumin 4.1 g/dL (3.5-5.0); Alkaline Phosphatase 118 U/L (38-126); Anion Gap 10 mmol/L; Blood Urea Nitrogen 20 mg/dL (9-20); Calcium 9.2 mg/dL (8.4-10.2); Carbon Dioxide 21 mmol/L (22-30); Chloride 106 mmol/L (98-107); Glucose 136 mg/dL (74-99); Lipase 242 U/L (23-300); Magnesium 1.9 mg/dL (1.6-2.3); Non-African American GFR(CKD) >90 (>60 ml/min/1.73 sqM); Sodium 137 mmol/L (137-145); Total Bilirubin 0.7 mg/dL (0.2-1.3); Total Protein 7.2 g/dL (6.3-8.2)
[2023-10-17 19:07] LABS: Potassium 4.4 mmol/L (3.5-5.1)
[2023-10-17 19:13] LABS: NT-Pro-B-Type Natriuretic Pept 434 pg/mL
--- NOTE | 2023-10-17 19:43 | XR ---
EXAMINATION TYPE: XR chest 2V DATE OF EXAM: 10/17/2023 COMPARISON: 10/06/2023 HISTORY: Chest pain TECHNIQUE: Frontal and lateral views of the chest are obtained. FINDINGS: There has been prior CABG surgery. There is mild cardiomegaly without overt pulmonary vascular congestion or interstitial or airspace ed louie. There is mild interstitial prominence in the left lung base posteriorly which was seen previously. Th is likely represents mild chronic interstitial changes although small acute infiltrate not excluded. There is no pleural effusion or pneumothorax. The osseous structures are intact. IMPRESSION: 1. Moderate cardiomegaly without overt CHF. 2. Small interstitial infiltrate in the left lung base posteriorly which could represent chronic inte rstitial changes or acute infiltrate. Short-term follow-up to resolution is recommended.
[2023-10-17] MEDS: AMIODARONE 200 MG TAB PO STA (20:51)
[2023-10-17 21:05] VITALS: BP 96/66; PULSE 59; RESP 16
== END 2023-10-17 21:00 | disposition other institution (70) ==
LOC: EC 17:26
DX: I48.0 Paroxysmal atrial fibrillation (principal); I49.3 Ventricular premature depolarization; F17.200 Nicotine dependence, unspecified, uncomplicated
CPT/HCPCS: 36415; 93005; 83880; 80053; 83690; 83735; 84484; 85025; 85610; 85730; 71046; 99291; 96374; J1170

== ENCOUNTER 2023-12-05 11:21 | Inpatient (IN) | payer BC, OTHER ==
[2023-12-05] MEDS: NITROGLYCERIN SL TABS 0.4 MG TAB SUBLINGUAL STA (11:40)
[2023-12-05] MEDS: ASPIRIN 81 MG PO STA (11:41)
[2023-12-05] MEDS: SODIUM CHLORIDE 0.9% 1,000 ML IV STA (11:42)
[2023-12-05 11:57] LABS: Basophils # (A) 0.1 k/uL (0-0.2); Basophils % (A) 1 %; Eosinophils # (A) 0.2 k/uL (0-0.7); Eosinophils % (A) 2 %; HCT 46.2 % (39.0-53.0); HGB 15.7 gm/dL (13.0-17.5); Lymphocytes # (A) 2.1 k/uL (1.0-4.8); Lymphocytes % (A) 17 %; MCH 30.5 pg (25.0-35.0); MCV 89.7 fL (80.0-100.0); Mean Platelet Volume 8.7; Monocytes # (A) 0.7 k/uL (0-1.0); Monocytes % (A) 6 %; Neutrophils # (A) 8.8 k/uL (1.3-7.7); Neutrophils % (A) 74 %; Platelet Count 261 k/uL (150-450); RBC 5.15 m/uL (4.30-5.90); RDW 13.8 % (11.5-15.5); WBC 11.9 k/uL (3.8-10.6)
[2023-12-05] MEDS: ACETAMINOPHEN TAB 500 MG TAB PO STA (12:04)
[2023-12-05] MEDS: hydrALAZINE HCL 20 MG/ML 1 ML VIAL IVP STA (12:08)
--- NOTE | 2023-12-05 12:17 | XR ---
EXAMINATION TYPE: XR chest 2V DATE OF EXAM: 12/05/2023 COMPARISON: 11-07 INDICATION: Chest pain hypertension TECHNIQUE: Frontal and lateral views of the chest are obtained. FINDINGS: The heart size is normal. The pulmonary vasculature is normal. The lungs are clear. Sternotomy wires are present IMPRESSION: 1. No acute pulmonary process.
[2023-12-05 12:29] LABS: INR 0.9 (<1.2); Partial Thromboplastin Time 23.8 sec (22.0-30.0); Prothrombin Time 10.3 sec (10.0-12.5)
[2023-12-05 12:43] LABS: ALT 42 U/L (4-49); AST 30 U/L (17-59); African American GFR (CKD) 86 (>60 ml/min/1.73 sqM); Albumin 4.8 g/dL (3.5-5.0); Alkaline Phosphatase 126 U/L (38-126); Anion Gap 8 mmol/L; Blood Urea Nitrogen 14 mg/dL (9-20); Calcium 9.5 mg/dL (8.4-10.2); Carbon Dioxide 26 mmol/L (22-30); Chloride 105 mmol/L (98-107); Glucose 105 mg/dL (74-99); Magnesium 1.8 mg/dL (1.6-2.3); Non-African American GFR(CKD) 75 (>60 ml/min/1.73 sqM); Potassium 4.6 mmol/L (3.5-5.1); Sodium 139 mmol/L (137-145); Total Bilirubin 0.7 mg/dL (0.2-1.3)
[2023-12-05] MEDS ORDERED: hydrALAZINE HCL 25 MG TAB PO STA (12:53)
[2023-12-05] MEDS ORDERED: NALOXONE 0.4 MG/ML 1 ML VIAL IV PRN (12:54)
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
[2023-12-05] MEDS: SODIUM CHLORIDE 0.9% 1,000 ML IV SCH (13:07)
[2023-12-05] MEDS: cloNIDine HCL 0.1 MG TAB PO STA (14:36)
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
[2023-12-05 16:47] LABS: Glucose,Whole Blood 213 mg/dL (70-110)
[2023-12-05] MEDS: LORazepam 2 MG/ML INJ IV STA (16:48)
[2023-12-05] MEDS: ONDANSETRON 4 MG/2 ML VIAL IVP PRN (16:48)
[2023-12-05 17:11] LABS: Glucose,Whole Blood 189 mg/dL (70-110)
[2023-12-05] MEDS: CLEVIDIPINE BUTYRATE 25 MG in EMPTY BAG 1 BAG IV SCH (17:15)
[2023-12-05] MEDS ORDERED: LORazepam 2 MG/ML INJ IV PRN (17:19)
--- NOTE | 2023-12-05 17:27 | P.EN ---
48-year-old male with history of recent CABG was at cardiac rehab, was hypertensive to systolics of 200s. Also complaining of headache and generally not feeling well. Was taken down to emergency. While in the emergency patient had an episode of seizure, 2 mg Ativan IV was given. A team was called as well as sound physicians called at bedside. On arrival, patient still in postictal state with gaze deviation. Another 2 mg of IV Ativan given. CT head done which did not show any obvious bleeding. Patient taken up to medical ICU. Orders placed. EKG reviewed which showed sinus rhythm. Plan communicated with ICU attending. Patient will be started on IV Keppra, and Cleviprex drip. Neurology also consulted. Total of 33 minutes spent at bedside.
[2023-12-05] MEDS: levETIRAcetam IV 500 MG/5 ML VIAL IVP SCH (17:28)
[2023-12-05 17:48] LABS: VBG PH 7.22 (7.31-7.41)
[2023-12-05] MEDS: hydrALAZINE HCL 25 MG TAB PO SCH (17:48)
[2023-12-05 17:49] LABS: Basophils # (A) 0.2 k/uL (0-0.2); Basophils % (A) 1 %; Eosinophils # (A) 0.2 k/uL (0-0.7); Eosinophils % (A) 1 %; HCT 54.7 % (39.0-53.0); Lymphocytes # (A) 3.1 k/uL (1.0-4.8); Lymphocytes % (A) 14 %; MCH 28.9 pg (25.0-35.0); MCV 93.4 fL (80.0-100.0); Mean Platelet Volume 8.6; Monocytes # (A) 0.8 k/uL (0-1.0); Monocytes % (A) 4 %; Neutrophils % (A) 80 %; Platelet Count 336 k/uL (150-450); RBC 5.86 m/uL (4.30-5.90); RDW 13.8 % (11.5-15.5); WBC 21.3 k/uL (3.8-10.6)
--- NOTE | 2023-12-05 17:49 | CT ---
EXAMINATION TYPE: CT brain wo con DATE OF EXAM: 12/05/2023 COMPARISON: 12/22/2020 INDICATION: seizure DLP: 1345.2 mGycm, Automated exposure control for dose reduction was used. CONTRAST: None CT of the brain is performed utilizing 3 mm thick sections through the posterior fossa and 3 mm thick sections through the remaining calvarium. Study is performed within 24 hours of arrival to the hosp [facility]. No abnormal hyperdensity is present to suggest an acute intracranial hemorrhage. No mass lesion is evident. No acute infarcts are evident. There is some mild hypodensity within the centrum semiovale right fron gian lobe subcortical white matter could be related to some mild white matter ischemic-type change. Th is may have been present previously No significant hypodensity within the posterior brain. Ventricles and sulci are appropriate for the patient age. Paranasal sinuses and mastoid air cells within the nmbne-lo-sgor are clear. IMPRESSION: 1. Minimal chronic appearing white matter ischemic-type change right frontal lobe. MRI could be per formed as clinically indicated.
[2023-12-05] MEDS: HEPARIN SODIUM,PORCINE 5,000 UNIT/ML 1 ML VIAL SQ SCH (18:17)
[2023-12-05 18:40] LABS: ALT 42 U/L (4-49); AST 41 U/L (17-59); African American GFR (CKD) >90 (>60 ml/min/1.73 sqM); Albumin 5.3 g/dL (3.5-5.0); Alkaline Phosphatase 150 U/L (38-126); Anion Gap 18 mmol/L; Blood Urea Nitrogen 11 mg/dL (9-20); Calcium 9.7 mg/dL (8.4-10.2); Carbon Dioxide 19 mmol/L (22-30); Chloride 106 mmol/L (98-107); Glucose 221 mg/dL (74-99); Magnesium 1.7 mg/dL (1.6-2.3); Non-African American GFR(CKD) 81 (>60 ml/min/1.73 sqM); Potassium 4.2 mmol/L (3.5-5.1); Sodium 143 mmol/L (137-145); Total Protein 9.1 g/dL (6.3-8.2)
[2023-12-05 18:51] LABS: Lactic Acid, Venous 7.1 mmol/L (0.7-2.0)
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
--- NOTE | 2023-12-05 19:05 | CT ---
EXAMINATION TYPE: CT angio head neck DATE OF EXAM: 12/05/2023 HISTORY: Seizure. hypertension. COMPARISON: None CT DLP: 555 mGycm. Automated Exposure Control for Dose Reduction was Utilized. TECHNIQUE: CTA scan of the neck is performed with IV Contrast, patient injected with 65ml mL of Isov ue 370, axial images are obtained, coronal and sagittal reformatted images are reviewed. Three-D jose nstructed images are created on an independent workstation and reviewed. Source images are reviewed. FINDINGS: Carotid/Vascular Structures: There is a 3 vessel arch. Common carotid arteries bifurcate into internal and external carotid arteries without significant wilson w limiting stenosis. There is some motion artifact at this level causing some limitation. Milder degr ees of stenosis may be underestimated. Vertebral arteries are codominant. Internal carotid arteries and vertebral arteries are patent to the skull base. Cervical of [place]: Vertebral basilar system appears normal. Posterior cerebral vasculature is unrema rkable. Internal carotid arteries bifurcate normally into A1 and M1 segments. A2 segments are normal. The anterior communicating artery is patent. The right posterior communicating artery is patent. The left posterior communicating artery is patent. There is some limitation due to motion artifact [place] of [place]. IMPRESSION: 1. No flow-limiting stenosis bilateral carotid bifurcations. 2. Normal [place] of [place] 3. There is some limitation due to motion artifact. NASCET criteria was used in interpretation of this exam?
[2023-12-05 20:47] LABS: Glucose,Whole Blood 93 mg/dL (70-110)
[2023-12-05] MEDS: AMIODARONE 200 MG TAB PO SCH (21:25)
[2023-12-05] MEDS: LACTULOSE 20 GM/30 ML CUP PO SCH (21:26)
[2023-12-05] MEDS: ATORVASTATIN 40 MG TAB PO SCH (21:26)
[2023-12-05] MEDS: METOPROLOL TARTRATE 50 MG TAB PO SCH (21:26)
[2023-12-06 00:53] LABS: Glucose,Whole Blood 162 mg/dL (70-110)
--- NOTE | 2023-12-06 03:41 | XR ---
EXAM: XR Chest, 1 View CLINICAL HISTORY: ITS.REASON XR Reason: increased oxygen demands TECHNIQUE: Frontal view of the chest. COMPARISON: XR Chest dated 12/05/2023 FINDINGS: Lungs: Right basilar atelectasis or airspace disease, new since prior. Pleural space: Unremarkable. No pneumothorax. Heart: Left atrial appendage clip. No cardiomegaly. Mediastinum: Unremarkable. Normal mediastinal contour. Bones/joints: Median sternotomy wires, stable. No acute fracture. IMPRESSION: Right basilar atelectasis or airspace disease, new since prior.
[2023-12-06 04:53] LABS: Basophils # (A) 0.1 k/uL (0-0.2); Basophils % (A) 0 %; Eosinophils % (A) 0 %; HCT 54.2 % (39.0-53.0); HGB 17.3 gm/dL (13.0-17.5); Lymphocytes # (A) 1.1 k/uL (1.0-4.8); Lymphocytes % (A) 6 %; MCV 90.6 fL (80.0-100.0); Mean Platelet Volume 8.3; Monocytes # (A) 0.9 k/uL (0-1.0); Monocytes % (A) 5 %; Neutrophils # (A) 16.9 k/uL (1.3-7.7); Neutrophils % (A) 89 %; Platelet Count 267 k/uL (150-450); RBC 5.98 m/uL (4.30-5.90); RDW 13.9 % (11.5-15.5)
[2023-12-06 05:07] LABS: ALT 43 U/L (4-49); AST 29 U/L (17-59); African American GFR (CKD) >90 (>60 ml/min/1.73 sqM); Albumin 5.1 g/dL (3.5-5.0); Alkaline Phosphatase 147 U/L (38-126); Anion Gap 13 mmol/L; Blood Urea Nitrogen 14 mg/dL (9-20); Calcium 9.4 mg/dL (8.4-10.2); Carbon Dioxide 19 mmol/L (22-30); Chloride 108 mmol/L (98-107); Glucose 103 mg/dL (74-99); Non-African American GFR(CKD) >90 (>60 ml/min/1.73 sqM); Potassium 4.3 mmol/L (3.5-5.1); Sodium 140 mmol/L (137-145); Total Bilirubin 0.9 mg/dL (0.2-1.3); Total Protein 8.6 g/dL (6.3-8.2)
[2023-12-06] MEDS: PANTOPRAZOLE 40 MG TABLET PO SCH (06:38)
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
[2023-12-06] MEDS ORDERED: ASPIRIN 325 MG TAB PO SCH (09:00)
[2023-12-06] MEDS: CLOPIDOGREL 75 MG TAB PO SCH (09:25)
[2023-12-06] MEDS: ASPIRIN 81 MG PO SCH (09:25)
[2023-12-06] MEDS: DULoxetine HCL 60 MG CAPSULE.DR PO SCH (09:26)
[2023-12-06] MEDS: lisinopriL 20 MG TAB PO SCH (11:22)
[2023-12-06] MEDS: hydroCHLOROthiazide 25 MG TAB PO SCH (11:22)
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
--- NOTE | 2023-12-06 12:17 | CA ---
Transthoracic Echo Report Name: Alejandro Aden Age: 48 Gender: M : 1975 Exam Date: 12/06/2023 10:57 Exam Location: [facility] Ht (in): 70 Wt (lb): 195 Ordering Physician: Graeme Laughlin MD ([id number]) Attending/Referring Phys: Card Player Mary Ellen Shi RDCS Procedure CPT: Indications: CAD Cardiac Hx: Technical Quality: Fair Contrast 1: Total Dose (mL): Contrast 2: Total Dose (mL): MEASUREMENTS (Male / Female) Normal Values 2D ECHO LV Diastolic Diameter PLAX 4.4 cm 4.2 - 5.9 / 3.9 - 5.3 cm LV Systolic Diameter PLAX 3.3 cm IVS Diastolic Thickness 1.2 cm 0.6 - 1.0 / 0.6 - 0.9 cm LVPW Diastolic Thickness 1.2 cm 0.6 - 1.0 / 0.6 - 0.9 cm LV Relative Wall Thickness 0.5 RV Internal Dim ED PLAX 2.7 cm LA Systolic Diameter LX 3.6 cm 3.0 - 4.0 / 2.7 - 3.8 cm LV Diastolic Volume MOD BP 44.0 cm??? 67 - 155 / 56 - 104 cm??? LV Systolic Volume MOD BP 25.3 cm??? 22 - 58 / 19 - 49 cm??? LV Ejection Fraction MOD BP 42.4 % >= 55 % LV Cardiac Index MOD BP 628.3 cm???/min???m??? LV Diastolic Volume MOD 4C 46.4 cm??? LV Systolic Volume MOD 4C 27.4 cm??? LV Ejection Fraction MOD 4C 40.9 % LV Cardiac Index MOD 4C 638.3 cm???/min???m??? LV Diastolic Length 4C 6.7 cm LV Systolic Length 4C 6.3 cm LV Diastolic Volume MOD 2C 38.0 cm??? LV Systolic Volume MOD 2C 18.8 cm??? LV Ejection Fraction MOD 2C 50.6 % LV Cardiac Index MOD 2C 648.3 cm???/min???m??? LV Diastolic Length 2C 6.0 cm LV Systolic Length 2C 5.0 cm LA Volume 47.0 cm??? 18 - 58 / 22 - 52 cm??? LA Volume Index 22.3 cm???/m??? 16 - 28 cm???/m??? M-MODE Aortic Root Diameter MM 2.9 cm LA Systolic Diameter MM 3.6 cm LA Ao Ratio MM 1.2 AV Cusp Separation MM 2.0 cm DOPPLER MV Area PHT 2.5 cm??? Mitral E Point Velocity 64.6 cm/s Mitral A Point Velocity 80.1 cm/s Mitral E to A Ratio 0.8 MV Deceleration Time 298.2 ms TR Peak Velocity 172.7 cm/s TR Peak Gradient 11.9 mmHg FINDINGS Left Ventricle Left ventricular ejection fraction is estimated at 55-60 %. Mildly increased septal wall thickness. No obvious regional wall motion abnormalities. Left ventricular cavity size normal. Right Ventricle Normal right ventricular size and function. Right ventricular systolic pressure within normal limits. Right Atrium Mild right atrial dilatation. Left Atrium Normal left atrial size. Mitral Valve Structurally normal mitral valve. Trace to mild mitral regurgitation. No mitral stenosis. Aortic Valve Trileaflet aortic valve. No aortic valve stenosis or regurgitation. Tricuspid Valve Structurally normal tricuspid valve. Trace tricuspid regurgitation. Pulmonic Valve Structurally normal pulmonic valve. No pulmonic regurgitation. No pulmonic stenosis. Pericardium No pericardial or pleural effusion. Aorta Normal size aortic root and proximal ascending aorta. CONCLUSIONS Normal LV systolic function Previewed by: Dr. Ray Berman MD (Electronically Signed) Final Date: 06 December 2023 12:16
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
--- NOTE | 2023-12-06 15:17 | P.PN ---
Subjective Progress Note Date: 12/06/23 I am following-up with patient and he is doing better. He is accompanied with his and agrees he is doing better. No further seizure-like activities overnight or today. Denies of any focal weakness, numbness, visual disturbance. He did acknowledge that sometimes he forgets to take his blood pressure medications. Objective - Vital Signs Vital signs: Vital Signs Temp 98.6 F 12/06/23 12:00 Pulse 56 L 12/06/23 14:00 Resp 29 H 12/06/23 14:00 BP 121/88 12/06/23 14:00 Pulse Ox 97 12/06/23 14:00 FiO2 Intake & Output 12/05/23 12/06/23 12/06/23 18:59 06:59 18:59 Intake Total 84.699 945.334 600.867 Output Total 200 1260 240 Balance -115.301 -314.666 360.867 Weight 87.997 kg 86.5 kg Intake: IV 75 900 600 Sodium Chloride 0.9% 1, 75 900 600 000 ml @ 75 mls/hr IV . [id number] [facility] Rx#:[id number] Intake, IV Titration 9.699 45.334 0.867 Amount Clevidipine Butyrate 25 9.699 45.334 0.867 mg In Empty Bag 1 bag @ 1 MG/HR 2 mls/hr IV .Q24H [facility] Rx#:[id number] Output: Urine 200 1260 240 Other: Voiding Method Indwelling Catheter Indwelling Catheter - Exam GENERAL: The patient is lying in bed and is not in acute distress. NEUROLOGICAL: Higher mental function: The patient is awake, alert, oriented to self, place and time. Patient is following commands. No aphasia and no neglect. Cranial nerves: The pupils are round, equal and reactive to light and accommodation. Visual rubio are full to confrontation throughout. Extraocular movement is intact no nystagmus is noted. Facial sensation is normal to touch throughout. The facial strength is normal throughout. No dysarthria is noted. Shoulder shrug is normal bilaterally. Motor: The strength is 5 over 5 throughout. Normal tone and bulk. Cerebellum: Normal finger to nosebilaterally. Sensation: Sensation is normal to touch throughout. Some of the work-up during this hospital visit consisted of: TSH: 61.3 and free T4 0.90 Prolactin is 15.80 Ammonia is 48 and repeat 25. Chemistry panel as glucose is 221. CT of the head is reported as minimal chronic appearing white matter ischemic type changes right frontal lobe. MRI could be performed as clinically indicated. Reviewed the CT and I agree there is no acute or subacute stroke. CTA head and neck is reported as no flow limiting stenosis bilateral carotid bifurcation. Normal circles of [place]. There is some limitation due to motion artifact. 2D echo: Normal LF systolic function. - Labs CBC & Chem 7: 12/06/23 03:58 12/06/23 03:58 Labs: Abnormal Lab Results - Last 24 Hours (Table) 12/05/23 12/05/23 12/05/23 Range/Units 16:45 16:59 17:37 WBC 21.3 H (3.8-10.6) k/uL RBC (4.30-5.90) m/uL Hct 54.7 H (39.0-53.0) % Neutrophils # 17.0 H (1.3-7.7) k/uL VBG pH (7.31-7.41) VBG HCO3 (24-28) mmol/L Chloride (98-107) mmol/L Carbon Dioxide (22-30) mmol/L Glucose (74-99) mg/dL POC Glucose (mg/dL) 213 H 189 H (70-110) mg/dL Plasma Lactic Acid [place] (0.7-2.0) mmol/L Alkaline Phosphatase (38-126) U/L Ammonia (<30) umol/L Total Protein (6.3-8.2) g/dL Albumin (3.5-5.0) g/dL TSH (0.465-4.680) mIU/L 12/05/23 12/05/23 12/05/23 Range/Units 17:37 17:37 17:37 WBC (3.8-10.6) k/uL RBC (4.30-5.90) m/uL Hct (39.0-53.0) % Neutrophils # (1.3-7.7) k/uL VBG pH 7.22 L (7.31-7.41) VBG HCO3 18 L (24-28) mmol/L Chloride (98-107) mmol/L Carbon Dioxide 19 L (22-30) mmol/L Glucose 221 H (74-99) mg/dL POC Glucose (mg/dL) (70-110) mg/dL Plasma Lactic Acid [place] 7.1 H* (0.7-2.0) mmol/L Alkaline Phosphatase 150 H (38-126) U/L Ammonia 48 H (<30) umol/L Total Protein 9.1 H (6.3-8.2) g/dL Albumin 5.3 H (3.5-5.0) g/dL TSH 61.300 H (0.465-4.680) mIU/L 12/06/23 12/06/23 12/06/23 Range/Units 00:51 03:58 03:58 WBC 19.0 H (3.8-10.6) k/uL RBC 5.98 H (4.30-5.90) m/uL Hct 54.2 H (39.0-53.0) % Neutrophils # 16.9 H (1.3-7.7) k/uL VBG pH (7.31-7.41) VBG HCO3 (24-28) mmol/L Chloride 108 H (98-107) mmol/L Carbon Dioxide 19 L (22-30) mmol/L Glucose 103 H (74-99) mg/dL POC Glucose (mg/dL) 162 H (70-110) mg/dL Plasma Lactic Acid [place] (0.7-2.0) mmol/L Alkaline Phosphatase 147 H (38-126) U/L Ammonia (<30) umol/L Total Protein 8.6 H (6.3-8.2) g/dL Albumin 5.1 H (3.5-5.0) g/dL TSH (0.465-4.680) mIU/L Assessment and Plan Assessment: This note is a 48-year-old gentleman with uncontrolled hypertension, history of coronary artery disease with recent CABG in September 2023, former tobacco use and he stopped smoking since September 2023, hyperlipidemia was sent from cardiac rehab therapy because of chest pain and uncontrolled hypertension. Blood pressure was as high as 217/128. Was given hydralazine. Patient was hypoxic in the mid 80s and heart rate was in 11 and he was hypothermic 95.5. Was felt the patient had gaze deviation towards 1 side and flaccid on 1 side. While in the ICU the nurses stated that he had a flexed posture and trembling and he was in a position. Given a total of 4 mg of Ativan and started on Keppra for concern for seizure by A-team. Concern for new onset of seizure: Possible provoked due to hypertensive emergency vs ?medication induced (hydralazine)--no further seizures overnight or today. Hypertensive emergency---resolved Abnormal thyroid with TSH: 61.3 and free T4 0.90 History of coronary artery disease status post recent CABG in September 2023 History of A-fib and is on amiodarone Dyslipidemia Underlying History of hypertension and its uncontrolled--sometimes misses taking home medication Ex-Heavy tobacco user and stopped since September 2023 Obesity Plan: MRI of the brain with and without is pending. Preliminary routine EEG: is negative for discharges or seizures. Patient is on Keppra 1000 mg every 12 hours that was started by the A-team physician and I will decrease it to 500mg bid. Seizure precautions seizure pads. Recommend avoiding hydralazine if possible Patient is on aspirin 325 daily, Plavix 75 mg daily and Lipitor 40 mg nightly his home medication. Abnormal thyroid with TSH: 61.3 and free T4 0.90 and will defer management to primary and ICU team. Patient was counseled on medication compliance. Will Defer the rest of the medical management to primary and other specialist. The plan is discussed with the patient's was at bedside and the ICU nurse. Time with Patient: Less than 30
--- NOTE | 2023-12-06 15:36 | MR ---
PRE AND POSTCONTRAST ENHANCED MRI OF THE BRAIN: CLINICAL HISTORY: Seizure CONTRAST: Gadavist 9ml Multiplanar and multispin-echo imaging of the brain was performed both before and after the administr ation of contrast. The ventricles, basal cisterns and sulci overlying the cerebral convexities are within normal limits. There is no evidence for midline shift or mass effect. Acute intracranial hemorrhage or extra-axial collection is not evident. There are no abnormal areas of increased or decreased signal intensity within the brain parenchyma. Following contrast administration, there is no evidence for pathologic enhancement or enhancing mass. The paranasal sinuses and mastoid air cells are well-aerated. IMPRESSION: Unremarkable pre and postcontrast enhanced MRI of the brain.
[2023-12-06] MEDS: levETIRAcetam 500 MG TAB PO SCH (20:11)
[2023-12-06] MEDS: METOPROLOL TARTRATE 50 MG TAB PO SCH (20:11)
[2023-12-06] MEDS: ACETAMINOPHEN TAB 325 MG TAB PO PRN (20:11)
[2023-12-06] MEDS: MELATONIN 3 MG TABLET PO PRN (20:11)
--- NOTE | 2023-12-06 21:43 | EEG ---
ELECTROENCEPHALOGRAM REPORT CLINICAL HISTORY: This is a 48-year-old gentleman with seizure-like activity on 12/05/2023. The video EEG is obtained to evaluate for seizure epileptiform activity. RELEVANT MEDICATIONS: Keppra and Ativan. EEG TYPE: A routine 21-channel EEG with video using the 10/20 electrode placement system. DESCRIPTION: Wakefulness is obtained. During awake state, the posterior-dominant rhythm consists of iaa-dw-soccidse voltage of 8.5 to 9 hertz activity that is well modulated and well sustained. There is no physiological stage 2 sleep architecture. There is no focal slowing. Interictal and ictal is none. ACTIVATION PROCEDURE: Photic stimulation did not evoke a posterior driving response. There is no abnormality during the photic stimulation. Hyperventilation is not performed. CLINICAL INTERPRETATION: This is a normal routine EEG. There is no focal slowing, epileptiform discharge, or seizure on the EEG. A normal routine EEG does not rule out underlying epilepsy. Clinical correlation is recommended. ABIOLA / TAMIKO: [id number] /
[2023-12-07] MEDS: LEVOTHYROXINE 100 MCG TAB PO SCH (05:54)
[2023-12-07 06:17] LABS: HGB 14.4 gm/dL (13.0-17.5); MCH 29.7 pg (25.0-35.0); MCHC 33.4 g/dL (31.0-37.0); MCV 88.7 fL (80.0-100.0); Mean Platelet Volume 8.6; Platelet Count 227 k/uL (150-450); RBC 4.85 m/uL (4.30-5.90); RDW 14.1 % (11.5-15.5); WBC 12.4 k/uL (3.8-10.6)
[2023-12-07 06:40] LABS: African American GFR (CKD) >90 (>60 ml/min/1.73 sqM); Anion Gap 5 mmol/L; Blood Urea Nitrogen 15 mg/dL (9-20); Calcium 9.3 mg/dL (8.4-10.2); Carbon Dioxide 24 mmol/L (22-30); Chloride 108 mmol/L (98-107); Glucose 111 mg/dL (74-99); Magnesium 1.7 mg/dL (1.6-2.3); Non-African American GFR(CKD) >90 (>60 ml/min/1.73 sqM); Potassium 3.9 mmol/L (3.5-5.1); Sodium 137 mmol/L (137-145)
[2023-12-07] MEDS: MAGNESIUM SULFATE-D5W PMX 1 GM in DEXTROSE/WATER 1 100ML.BAG IVPB ONE (06:51)
--- NOTE | 2023-12-07 08:27 | P.PN ---
Subjective Progress Note Date: 12/07/23 PROGRESS NOTE The patient is a 48-year-old male with a history of hypertension, prior history of smoking who is followed by Dr. Berman, presented in September with non-STEMI underwent coronary angiography and subsequently CABG with ORTEZ to the LAD. He has been doing well, attending cardiac rehab but yesterday had hypertension prior to starting rehab, was referred to the emergency room, and in the emergency room he had what appears to be a seizure activity. Patient has no prior seizure or epilepsy. He has been feeling well since his CABG, active physically without exertional chest comfort or dyspnea. He denies any dizziness, palpitations or syncope. His blood pressure at home according to him has been stable. He has no peripheral edema, no PND or orthopnea. He was confused during the night and appears to be postictal, awake and alert this morning with no arrhythmia on the monitor. In the cardiac rehab he had a headache. He had a CT angiogram that showed no evidence of significant carotid disease in his brain CT showed no evidence of acute event. December 06: The patient feels well this morning, his blood pressure is under better control. He denies any chest discomfort, dizziness or palpitations. He continues to be in sinus mechanism. His EEG showed no significant abnormalities. His e chocardiogram showed a preserved left ventricular size and systolic function. He has no nausea or vomiting. His urinary output is stable. He had no further seizure activity. Medications: Aspirin, Lipitor 40 mg daily, Plavix 75 mg daily, Cymbalta, hydrochlorothiazide 25 mg daily, Keppra 500 mg twice a day, levothyroxine, lisinopril 40 mg daily, metoprolol 50 mg twice a day PHYSICAL EXAMINATION: Blood pressure 142/92 heart rate 60 LUNGS: Clear to auscultation HEART: Regular rate and rhythm, S1, S2. No S3. Systolic ejection murmur ABDOMEN: Soft, nontender, no organomegaly EXTREMETIES: No edema LAB: Hemoglobin 14.4, BUN 15, creatinine 0.94 IMPRESSION: 1. Hypertensive urgency, under better control 2. Status post CABG 3. 1 episode of seizure activity, etiology unclear 4. Hyperlipidemia PLAN: 1. Continue present therapy 2. Increase physical activity 3. If stable probable discharge home today 4. Follow-up as an outpatient with Dr. Berman Objective - Vital Signs Vital signs: Vital Signs Temp 98.3 F 12/07/23 04:00 Pulse 53 L 12/07/23 07:00 Resp 12 12/07/23 07:00 BP 161/99 12/07/23 07:00 Pulse Ox 94 L 12/07/23 07:00 FiO2 Intake & Output 12/06/23 12/07/23 12/07/23 18:59 06:59 18:59 Intake Total 5333.306 6773 Output Total 382 920 Balance 638.867 395 Weight 89.4 kg Intake: IV 900 1075 Magnesium Sulfate-D5w Pmx 100 1 gm In Dextrose/Water 1 100ml.bag @ 100 mls/hr IVPB ONCE ONE Rx#: [id number] Sodium Chloride 0.9% 1, 900 975 000 ml @ 75 mls/hr IV . [id number] [facility] Rx#:[id number] Intake, IV Titration 0.867 Amount Clevidipine Butyrate 25 0.867 mg In Empty Bag 1 bag @ 1 MG/HR 2 mls/hr IV .Q24H [facility] Rx#:[id number] Oral 120 240 Output: Urine 382 920 Other: Voiding Method Indwelling Catheter Indwelling Catheter - Labs CBC & Chem 7: 12/07/23 05:44 12/07/23 05:44 Labs: Abnormal Lab Results - Last 24 Hours (Table) 12/07/23 12/07/23 Range/Units 05:44 05:44 WBC 12.4 H (3.8-10.6) k/uL Chloride 108 H (98-107) mmol/L Glucose 111 H (74-99) mg/dL
[2023-12-07] MEDS: POTASSIUM CHLORIDE ER 20 MEQ TAB.ER PO SCH (08:28)
--- NOTE | 2023-12-07 10:10 | P.PN ---
Subjective This is a 48-year-old white male well-known to the practice. He had an NSTEMI on September 30, 2023 and underwent a CABG x 1 vessel on October 03, 2023. He does have noted three-vessel coronary disease. He is a former smoker. He has been seen in the office and he reports since the surgery he has had some numbness to his face that extends down to his legs. He is unable to describe it further. He is also been a bit sad. While in cardiac rehab 1 day ago, he began experiencing diaphoresis type symptoms. He was in cardiac rehab he had hypotension followed by significant hypertension. While there he also had a seizure-like activity. He is now resting comfortably in the intensive care unit. He has been seen by cardiology neurology and critical care. Previously blood pressures were 200s over 110s are now much improved with Cleviprex and then he has other medications of heparin and now Keppra. He had a very elevated TSH most likely due to the amiodarone. He was immediately started today on levothyroxine 100 mcg daily. His free T4 is normal along with prolactin. He was found in the ICU is at bedside. He is somnolent but awake alert and oriented x 3. He does not have any complaints at this time. Other than fatigue. Laboratory studies show a leukocytosis with a left shift down from 21.3-19. Blood chemistries were essentially normal. He did have a significantly elevated lactic acid 7.1. Ammonia level was 48. Troponin was negative x 2. December 07, 2023: Patient is resting comfortably intensive care unit for hypertensi ve crisis and possible seizure activity. He is awake and alert a bit somnolent today. He denies any chest pains pressure shortness of breath this time. He is alone in his room. Nursing reports no issues. Vital signs now show blood pressure in the 140s over 90s. Heart rate is in the 50s and 60s, pulse ox is normal on room air. Labs show improved leukocytosis now the WBC count is 12.4 hemoglobin is normal at 14 4, no differential, chemistries are essentially normal today as well. EEG is normal. MRI of the brain is unremarkable prepre- and postcontrast enhanced MRI. The echo shows normal LV function. Objective - Vital Signs Vital signs: Vital Signs Temp 98.6 F 12/07/23 08:00 Pulse 56 L 12/07/23 09:00 Resp 18 12/07/23 09:00 BP 140/95 12/07/23 09:00 Pulse Ox 95 12/07/23 09:00 FiO2 Intake & Output 12/06/23 12/07/23 12/07/23 18:59 06:59 18:59 Intake Total 4541.348 4152 150 Output Total 382 920 0 Balance 638.867 395 150 Weight 89.4 kg Intake: IV 900 1075 150 Magnesium Sulfate-D5w Pmx 100 1 gm In Dextrose/Water 1 100ml.bag @ 100 mls/hr IVPB ONCE ONE Rx#: [id number] Sodium Chloride 0.9% 1, 900 975 150 000 ml @ 75 mls/hr IV . [id number] [facility] Rx#:[id number] Intake, IV Titration 0.867 Amount Clevidipine Butyrate 25 0.867 mg In Empty Bag 1 bag @ 1 MG/HR 2 mls/hr IV .Q24H [facility] Rx#:[id number] Oral 120 240 Output: Urine 382 920 0 Other: Voiding Method Indwelling Catheter Indwelling Catheter Indwelling Catheter # Voids 0 - Exam General: The patient is awake and alert, in no distress, and appears a bit somnolent today. Neck: The neck is supple, there is no thyromegaly, lymphadenopathy, tenderness or JVD. Cardiovascular: S1S2 is normal, There is a regular rate and rhythm. No murmur, rub or gallop is appreciated. Respiratory: Lungs are clear to auscultation bilaterally, respirations are non-labored, breath sounds are equal. Gastrointestinal: Soft, non-distended, non-tender abdomen without masses or organomegaly noted. There is no rebound or guarding present. Bowel sounds are unremarkable. Musculoskeletal: Normal ROM, no tenderness, There is no pedal edema. There is no calf tenderness or swelling. No cords were appreciated. Neurological: CN II-XII intact, there are no obvious motor or sensory deficits. Coordination appears grossly intact. Speech is normal. Skin: Skin is warm and dry and no rashes or lesions are noted. - Labs CBC & Chem 7: 12/07/23 05:44 12/07/23 05:44 Labs: Abnormal Lab Results - Last 24 Hours (Table) 12/07/23 12/07/23 Range/Units 05:44 05:44 WBC 12.4 H (3.8-10.6) k/uL Chloride 108 H (98-107) mmol/L Glucose 111 H (74-99) mg/dL Assessment and Plan (1) Seizure Current Visit: Yes Status: Acute Code(s): R56.9 - UNSPECIFIED CONVULSIONS SNOMED Code(s): 23743646 (2) History of coronary artery bypass graft x 1 Current Visit: Yes Status: Acute Code(s): Z95.1 - PRESENCE OF AORTOCORONARY BYPASS GRAFT SNOMED Code(s): 952417197 (3) Amiodarone-induced thyroiditis Current Visit: Yes Status: Acute Code(s): E06.4 - DRUG-INDUCED THYROIDITIS; T46.2X5A - ADVERSE EFFECT OF OTHER ANTIDYSRHYTHMIC DRUGS, INIT ENCNTR SNOMED Code(s): 418680530910774 (4) Hemiparesis Current Visit: Yes Status: Acute Code(s): G81.90 - HEMIPLEGIA, UNSPECIFIED AFFECTING UNSPECIFIED SIDE SNOMED Code(s): 02922640 (5) Chest pain Current Visit: Yes Status: Acute Code(s): R07.9 - CHEST PAIN, UNSPECIFIED SNOMED Code(s): 18327219 (6) Hypertensive urgency Current Visit: Yes Status: Acute Code(s): I16.0 - HYPERTENSIVE URGENCY SNOMED Code(s): 159632967 (7) CAD (coronary artery disease) Current Visit: No Status: Acute Code(s): I25.10 - ATHSCL HEART DISEASE OF [place] CORONARY ARTERY W/O ANG PCTRS SNOMED Code(s): 63473252 (8) Essential (primary) hypertension Current Visit: No Status: Acute Code(s): I10 - ESSENTIAL (PRIMARY) HYPERTENSION SNOMED Code(s): 82663632 (9) Gastro-esophageal reflux disease without esophagitis Current Visit: No Status: Acute Code(s): K21.9 - GASTRO-ESOPHAGEAL REFLUX DISEASE WITHOUT ESOPHAGITIS SNOMED Code(s): 551829980 Plan: So far his workup has been essentially normal except for the elevated blood pressures. He is now off the Cleviprex. He remains on metoprolol, hydrochlorothiazide, and lisinopril for hypertension control. He has not had any more seizure activity. 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 Overall he is clinically improved. Wait on further recommendations from neurology cardiology and pulmonology/critical care. Will be reevaluated the next 24 hours.
--- NOTE | 2023-12-07 10:46 | P.PN ---
Subjective Progress Note Date: 12/07/23 Principal diagnosis: New onset seizure This is a 48-year-old white male with history of recent CABG, ORTEZ to LAD, patient normally sees Dr. Downs. Since his surgery, patient has been going to cardiac rehab, however yesterday he had an episode of hypotension while in cardiac rehab. Patient was sent to the emergency room, and while in the emergency room, patient received hydralazine, shortly after the patient was noted to have seizure-like activity. Patient was seen by neurology on consultation, according to the neurologist note, patient had gaze deviation and he was flaccid on 1 side. Patient received a total of 4 mg of Ativan, started on Keppra 1000 mg every 12 hours by the 18 physician, was notified about this patient by the 18 physician, and I recommended admitting the patient for further observation in the ICU. No further seizure or seizure-like activities while in the ICU. Patient seems to have been controlled while in the ICU. EEG report is pending MRI report is pending. CT of the brain was basically unremarkable. Looking back at the chart, patient had CABG on 10/08 hours, his postoperative course has been uneventful. Labs today showed leukocytosis with WBC count of 19.0 hemoglobin 17.3 electrolytes are normal bicarb is 19 renal profile is norm al, prolactin level was normal. It was evaluated today on 12/07/2023, patient had no significant events and definitely no seizure-like activity over the last 24 hours. Remains in the ICU, blood pressure is fairly well-controlled. Patient is relatively asymptomatic. His EEG showed no evidence of seizure activity or seizure focus. Remains on Keppra however the dose has been cut down by neurology. Today I plan to transfer the patient out of the ICU to a monitored bed and selective. WBC count 12.4 hemoglobin 14.4 basic metabolic profile is normal and renal profile is normal Objective - Vital Signs Vital signs: Vital Signs Temp 98.6 F 12/07/23 08:00 Pulse 55 L 12/07/23 10:00 Resp 15 12/07/23 10:00 BP 148/94 12/07/23 10:00 Pulse Ox 95 12/07/23 10:00 FiO2 Intake & Output 12/06/23 12/07/23 12/07/23 18:59 06:59 18:59 Intake Total 6367.255 0588 150 Output Total 382 920 0 Balance 638.867 395 150 Weight 89.4 kg Intake: IV 900 1075 150 Magnesium Sulfate-D5w Pmx 100 1 gm In Dextrose/Water 1 100ml.bag @ 100 mls/hr IVPB ONCE ONE Rx#: [id number] Sodium Chloride 0.9% 1, 900 975 150 000 ml @ 75 mls/hr IV . [id number] [facility] Rx#:[id number] Intake, IV Titration 0.867 Amount Clevidipine Butyrate 25 0.867 mg In Empty Bag 1 bag @ 1 MG/HR 2 mls/hr IV .Q24H [facility] Rx#:[id number] Oral 120 240 Output: Urine 382 920 0 Other: Voiding Method Indwelling Catheter Indwelling Catheter Indwelling Catheter # Voids 0 - Exam General: Revealed 48-year-old white male in no distress, on room air Skin: Skin is warm and dry and no rashes or lesions are noted. Eye: Pupils are equal, round and reactive to light, extra-ocular movements are intact; there is normal conjunctiva bilaterally. Ears, nose, mouth and throat: There are moist mucous membranes and no oral lesions. Neck: The neck is supple, there is no tenderness or JVD. Cardiovascular: There is a regular rate and rhythm. No murmur, rub or gallop is appreciated. Respiratory: Clear throughout no crackles rhonchi or wheezes Gastrointestinal: Soft, non-distended, non-tender abdomen without masses or organomegaly noted. There is no rebound or guarding present. Bowel sounds are unremarkable. Back: There is no tenderness to palpation in the midline. There is no obvious deformity. Musculoskeletal: Normal ROM, no tenderness, There is no pedal edema. There is no calf tenderness or swelling. No cords were appreciated. Neurological: CN II-XII intact, Cranial nerves III through XII are intact. There are no obvious motor or sensory deficits. Coordination appears grossly intact. Speech is normal. Psychiatric: Cooperative, appropriate mood & affect, normal judgment. - Labs CBC & Chem 7: 12/07/23 05:44 12/07/23 05:44 Labs: Abnormal Lab Results - Last 24 Hours (Table) 12/07/23 12/07/23 Range/Units 05:44 05:44 WBC 12.4 H (3.8-10.6) k/uL Chloride 108 H (98-107) mmol/L Glucose 111 H (74-99) mg/dL Assessment and Plan Assessment: Impression: Suspect seizure activity, new onset, could be related to hypertension or could be related to the treatment of hypertension/hydralazine History of coronary artery disease and recent CABG hypertensive emergency based on the clinical history. Ex-smoker History of paroxysmal atrial fibrillation, has been on amiodarone. Recommendation: Transfer patient to a monitored bed on 3 S. EEG report was noted, no evidence of seizure focus or activity. Continue Keppra, being addressed by neurology on the case Continue seizure precautions Continue close monitoring of blood pressure Continue cardiac meds including aspirin Plavix Lipitor and beta-blockers Will continue to follow Time with Patient: Less than 30
[2023-12-07] MEDS: amLODIPine 5 MG TAB PO SCH (11:20)
[2023-12-07 11:35] VITALS: BMI 28.3
[2023-12-07] MEDS: CLEVIDIPINE BUTYRATE 25 MG in EMPTY BAG 1 BAG IV SCH (12:51)
[2023-12-07] MEDS: CLEVIDIPINE BUTYRATE 25 MG/50 ML VIAL IV ONE (12:51)
--- NOTE | 2023-12-07 14:07 | P.PN ---
Subjective Progress Note Date: 12/07/23 I am following-up with patient and he is accompanied by his and patient is doing drastically better and no further seizure-like events. But continues to have elevated hypertension SBP in 200 and is on IV Clevidipine. Denies of headache, focal weakness or any new neurological issues. Objective - Vital Signs Vital signs: Vital Signs Temp 98.4 F 12/07/23 12:50 Pulse 61 12/07/23 13:00 Resp 12 12/07/23 13:00 BP 179/112 12/07/23 13:00 Pulse Ox 96 12/07/23 13:00 FiO2 Intake & Output 12/06/23 12/07/23 12/07/23 18:59 06:59 18:59 Intake Total 2109.913 5021 375 Output Total 382 920 500 Balance 638.867 395 -125 Weight 89.4 kg 89.4 kg Intake: IV 900 1075 375 Magnesium Sulfate-D5w Pmx 100 1 gm In Dextrose/Water 1 100ml.bag @ 100 mls/hr IVPB ONCE ONE Rx#: [id number] Sodium Chloride 0.9% 1, 900 975 375 000 ml @ 75 mls/hr IV . [id number] [facility] Rx#:[id number] Intake, IV Titration 0.867 Amount Clevidipine Butyrate 25 0.867 mg In Empty Bag 1 bag @ 1 MG/HR 2 mls/hr IV .Q24H [facility] Rx#:[id number] Oral 120 240 Output: Urine 382 920 500 Other: Voiding Method Indwelling Catheter Indwelling Catheter Indwelling Catheter # Voids 1 - Exam GENERAL: The patient is lying in bed and is not in acute distress. NEUROLOGICAL: Higher mental function: The patient is awake, alert, oriented to self, place and time. Patient is following commands. No aphasia and no neglect. Cranial nerves: The pupils are round, equal and reactive to light and accommodation. Visual rubio are full to confrontation throughout. Extraocular movement is intact no nystagmus is noted. Facial sensation is normal to touch throughout. The facial strength is normal throughout. No dysarthria is noted. Shoulder shrug is normal bilaterally. Motor: The strength is 5 over 5 throughout. Normal tone and bulk. Cerebellum: Normal finger to nosebilaterally. Sensation: Sensation is normal to touch throughout. Some of the work-up during this hospital visit consisted of: TSH: 61.3 and free T4 0.90 Prolactin is 15.80 Ammonia is 48 and repeat 25. Chemistry panel as glucose is 221. CT of the head is reported as minimal chronic appearing white matter ischemic type changes right frontal lobe. MRI could be performed as clinically indicated. Reviewed the CT and I agree there is no acute or subacute stroke. CTA head and neck is reported as no flow limiting stenosis bilateral carotid bifurcation. Normal circles of [place]. There is some limitation due to motion artifact. 2D echo: Normal LF systolic function. MRI Brain: Reported as Uremarkable pre and postcontrast enhanced MRI Brain. I personally reviewed MRI and agree there is no acute or subacute stroke or enhancement but felt there is abnormality on FLAIR in which hyperintensities over the cortical region such as frontal medial bilaterally, temporal, anterior to midbrain, focal oval lesion over the right parietal and small that is nonspecific over right frontal. Routine EEG is normal. - Labs CBC & Chem 7: 12/07/23 05:44 12/07/23 05:44 Labs: Abnormal Lab Results - Last 24 Hours (Table) 12/07/23 12/07/23 Range/Units 05:44 05:44 WBC 12.4 H (3.8-10.6) k/uL Chloride 108 H (98-107) mmol/L Glucose 111 H (74-99) mg/dL Assessment and Plan Assessment: This note is a 48-year-old gentleman with uncontrolled hypertension, history of coronary artery disease with recent CABG in September 2023, former tobacco use and he stopped smoking since September 2023, hyperlipidemia was sent from cardiac rehab therapy because of chest pain and uncontrolled hypertension. Blood pressure was as high as 217/128. Was given hydralazine. Patient was hypoxic in the mid 80s and heart rate was in 11 and he was hypothermic 95.5. Was felt the patient had gaze deviation towards 1 side and flaccid on 1 side. While in the ICU the nurses stated that he had a flexed posture and trembling and he was in a position. Given a total of 4 mg of Ativan and started on Keppra for concern for seizure by A-team. Concern for new onset of seizure: Possible provoked due to hypertensive emergency vs ?medication induced (hydralazine)--no further seizures overnight or today. EEG is normal. MRI Brain w/ and w/o is reported as unremarkable but I felt there is hyperintesnities over different regions mostly cortical. Hypertensive emergency---resolved and now back up again. Abnormal thyroid with TSH: 61.3 and free T4 0.90 History of coronary artery disease status post recent CABG in September 2023 History of A-fib and is on amiodarone Dyslipidemia Underlying History of hypertension and its uncontrolled--sometimes misses taking home medication Ex-Heavy tobacco user and stopped since September 2023 Obesity Plan: MRI Brain: Reported as Uremarkable pre and postcontrast enhanced MRI Brain. I personally reviewed MRI and agree there is no acute or subacute stroke or enhancement but felt there is abnormality on FLAIR in which hyperintensities over the cortical region such as frontal medial bilaterally, temporal, anterior to midbrain, focal oval lesion over the right parietal and small that is nonspecific over right frontal. Will attempt to discuss with reading radiologist. Unsure if changes on FLAIR is due to uncontrolled HTN. Continue Keppra 500mg bid. Seizure precautions seizure pads. Recommend avoiding hydralazine if possible Patient is on aspirin 325 daily, Plavix 75 mg daily and Lipitor 40 mg nightly his home medication. Abnormal thyroid with TSH: 61.3 and free T4 0.90 and will defer management to primary and ICU team. Patient was counseled on medication compliance. Will Defer the rest of the medical management to primary and other specialist. The plan is discussed with the patient, his who was at bedside and the ICU nurse. Time with Patient: Less than 30
[2023-12-08 05:32] LABS: Basophils # (A) 0.1 k/uL (0-0.2); Basophils % (A) 1 %; Eosinophils # (A) 0.1 k/uL (0-0.7); Eosinophils % (A) 1 %; HCT 48.2 % (39.0-53.0); HGB 15.4 gm/dL (13.0-17.5); Lymphocytes # (A) 1.8 k/uL (1.0-4.8); Lymphocytes % (A) 15 %; MCH 28.5 pg (25.0-35.0); MCHC 31.9 g/dL (31.0-37.0); MCV 89.3 fL (80.0-100.0); Mean Platelet Volume 8.5; Monocytes # (A) 0.9 k/uL (0-1.0); Monocytes % (A) 7 %; Neutrophils # (A) 9.6 k/uL (1.3-7.7); Neutrophils % (A) 76 %; Platelet Count 234 k/uL (150-450); RDW 13.8 % (11.5-15.5); WBC 12.6 k/uL (3.8-10.6)
[2023-12-08 05:42] LABS: ALT 35 U/L (4-49); AST 26 U/L (17-59); African American GFR (CKD) >90 (>60 ml/min/1.73 sqM); Albumin 4.3 g/dL (3.5-5.0); Alkaline Phosphatase 117 U/L (38-126); Anion Gap 6 mmol/L; Blood Urea Nitrogen 14 mg/dL (9-20); Calcium 9.5 mg/dL (8.4-10.2); Carbon Dioxide 30 mmol/L (22-30); Chloride 103 mmol/L (98-107); Glucose 119 mg/dL (74-99); Magnesium 1.7 mg/dL (1.6-2.3); Non-African American GFR(CKD) 78 (>60 ml/min/1.73 sqM); Potassium 3.9 mmol/L (3.5-5.1); Sodium 139 mmol/L (137-145); Total Protein 7.3 g/dL (6.3-8.2)
[2023-12-08] MEDS ORDERED: Potassium Replacement Protocol 1 EACH MISC MISCELLANE PRN (06:45)
[2023-12-08] MEDS ORDERED: Magnesium Replacement Protocol 1 EACH MISC MISCELLANE PRN (06:46)
[2023-12-08] MEDS: MAGNESIUM SULFATE-D5W PMX 1 GM in DEXTROSE/WATER 1 100ML.BAG IVPB ONE (06:54)
[2023-12-08] MEDS: POTASSIUM CHLORIDE ER 20 MEQ TAB.ER PO SCH (06:55)
--- NOTE | 2023-12-08 08:32 | P.PN ---
Subjective Progress Note Date: 12/08/23 PROGRESS NOTE The patient is a 48-year-old male with a history of hypertension, prior history of smoking who is followed by Dr. Berman, presented in September with non-STEMI underwent coronary angiography and subsequently CABG with ORTEZ to the LAD. He has been doing well, attending cardiac rehab but yesterday had hypertension prior to starting rehab, was referred to the emergency room, and in the emergency room he had what appears to be a seizure activity. Patient has no prior seizure or epilepsy. He has been feeling well since his CABG, active physically without exertional chest comfort or dyspnea. He denies any dizziness, palpitations or syncope. His blood pressure at home according to him has been stable. He has no peripheral edema, no PND or orthopnea. He was confused during the night and appears to be postictal, awake and alert this morning with no arrhythmia on the monitor. In the cardiac rehab he had a headache. He had a CT angiogram that showed no evidence of significant carotid disease in his brain CT showed no evidence of acute event. December 06: The patient feels well this morning, his blood pressure is under better control. He denies any chest discomfort, dizziness or palpitations. He continues to be in sinus mechanism. His EEG showed no significant abnormalities. His e chocardiogram showed a preserved left ventricular size and systolic function. He has no nausea or vomiting. His urinary output is stable. He had no further seizure activity. December 07: The patient had episodes of hypertension yesterday requiring intravenous treatment. His blood pressure is under better control now. He is complaining of headache and fatigue but no chest discomfort. His breathing is stable. He denies any dizziness or palpitations. He continues to be in sinus mechanism. He denies any nausea or vomiting. He was started on amlodipine. Medications: Aspirin, Lipitor 40 mg daily, Plavix 75 mg daily, Cymbalta, hydrochlorothiazide 25 mg daily, Keppra 500 mg twice a day, levothyroxine, lisinopril 40 mg daily, metoprolol 50 mg twice a day amlodipine 5 mg daily PHYSICAL EXAMINATION: Blood pressure 141/100 heart rate 68 LUNGS: Clear to auscultation HEART: Regular rate and rhythm, S1, S2. No S3. Systolic ejection murmur ABDOMEN: Soft, nontender, no organomegaly EXTREMETIES: No edema LAB: Hemoglobin 15.4, BUN 14, creatinine 1.11 IMPRESSION: 1. Hypertensive urgency, under better control 2. Status post CABG 3. 1 episode of seizure activity, etiology unclear 4. Hyperlipidemia PLAN: 1. Increase amlodipine to 5 mg twice a day 2. Increase physical activity 3. Depending on the trend of the blood pressure further adjustment will be made Objective - Vital Signs Vital signs: Vital Signs Temp 98.3 F 12/08/23 08:00 Pulse 68 12/08/23 08:00 Resp 14 12/08/23 08:00 BP 141/105 12/08/23 08:00 Pulse Ox 97 12/08/23 08:00 FiO2 Intake & Output 12/07/23 12/08/23 12/08/23 18:59 06:59 18:59 Intake Total 588.734 966.900 205 Output Total 1100 550 300 Balance -511.266 416.900 -95 Weight 89.4 kg Intake: IV 585 800 105 0.9 20 Invasive Line 3 30 10 Sodium Chloride 0.9% 1, 585 770 75 000 ml @ 75 mls/hr IV . [id number] [facility] Rx#:[id number] Intake, IV Titration 3.734 166.900 100 Amount Clevidipine Butyrate 25 3.734 16.900 mg In Empty Bag 1 bag @ 1 MG/HR 2 mls/hr IV .Q24H [facility] Rx#:[id number] Magnesium Sulfate-D5w Pmx 100 1 gm In Dextrose/Water 1 100ml.bag @ 100 mls/hr IVPB ONCE ONE Rx#: [id number] Sodium Chloride 0.9% 1, 150 000 ml @ 75 mls/hr IV . [id number] [facility] Rx#:[id number] Output: Urine 1100 550 300 Other: Voiding Method Indwelling Catheter Urinal # Voids 0 0 - Labs CBC & Chem 7: 12/08/23 05:08 12/08/23 05:08 Labs: Abnormal Lab Results - Last 24 Hours (Table) 12/08/23 12/08/23 Range/Units 05:08 05:08 WBC 12.6 H (3.8-10.6) k/uL Neutrophils # 9.6 H (1.3-7.7) k/uL Glucose 119 H (74-99) mg/dL
[2023-12-08] MEDS: amLODIPine 5 MG TAB PO SCH (09:32)
--- NOTE | 2023-12-08 09:54 | P.PN ---
Subjective This is a 48-year-old white male well-known to the practice. He had an NSTEMI on September 30, 2023 and underwent a CABG x 1 vessel on October 03, 2023. He does have noted three-vessel coronary disease. He is a former smoker. He has been seen in the office and he reports since the surgery he has had some numbness to his face that extends down to his legs. He is unable to describe it further. He is also been a bit sad. While in cardiac rehab 1 day ago, he began experiencing diaphoresis type symptoms. He was in cardiac rehab he had hypotension followed by significant hypertension. While there he also had a seizure-like activity. He is now resting comfortably in the intensive care unit. He has been seen by cardiology neurology and critical care. Previously blood pressures were 200s over 110s are now much improved with Cleviprex and then he has other medications of heparin and now Keppra. He had a very elevated TSH most likely due to the amiodarone. He was immediately started today on levothyroxine 100 mcg daily. His free T4 is normal along with prolactin. He was found in the ICU is at bedside. He is somnolent but awake alert and oriented x 3. He does not have any complaints at this time. Other than fatigue. Laboratory studies show a leukocytosis with a left shift down from 21.3-19. Blood chemistries were essentially normal. He did have a significantly elevated lactic acid 7.1. Ammonia level was 48. Troponin was negative x 2. December 07, 2023: Patient is resting comfortably intensive care unit for hypertensi ve crisis and possible seizure activity. He is awake and alert a bit somnolent today. He denies any chest pains pressure shortness of breath this time. He is alone in his room. Nursing reports no issues. Vital signs now show blood pressure in the 140s over 90s. Heart rate is in the 50s and 60s, pulse ox is normal on room air. Labs show improved leukocytosis now the WBC count is 12.4 hemoglobin is normal at 14 4, no differential, chemistries are essentially normal today as well. EEG is normal. MRI of the brain is unremarkable prepre- and postcontrast enhanced MRI. The echo shows normal LV function. December 08, 2023: Patient remains overflowing intensive care unit, he did need some Cleviprex last night to help with blood pressure but is now currently improved. He is on amlodipine, hydrochlorothiazide, lisinopril, and metoprolol for blood pressure control. 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 He has not had any more seizure-like activities. Vital signs are stable today. Labs still show a slight leukocytosis now WBC count is 12.6 electrolytes chemistries are normal. Neurology, cardiology and critical care all following. Objective - Vital Signs Vital signs: Vital Signs Temp 98.3 F 12/08/23 08:00 Pulse 68 12/08/23 08:00 Resp 14 12/08/23 08:00 BP 141/105 12/08/23 08:00 Pulse Ox 97 12/08/23 08:00 FiO2 Intake & Output 12/07/23 12/08/23 12/08/23 18:59 06:59 18:59 Intake Total 588.734 966.900 205 Output Total 1100 550 300 Balance -511.266 416.900 -95 Weight 89.4 kg Intake: IV 585 800 105 0.9 20 Invasive Line 3 30 10 Sodium Chloride 0.9% 1, 585 770 75 000 ml @ 75 mls/hr IV . [id number] [facility] Rx#:[id number] Intake, IV Titration 3.734 166.900 100 Amount Clevidipine Butyrate 25 3.734 16.900 mg In Empty Bag 1 bag @ 1 MG/HR 2 mls/hr IV .Q24H [facility] Rx#:[id number] Magnesium Sulfate-D5w Pmx 100 1 gm In Dextrose/Water 1 100ml.bag @ 100 mls/hr IVPB ONCE ONE Rx#: [id number] Sodium Chloride 0.9% 1, 150 000 ml @ 75 mls/hr IV . [id number] [facility] Rx#:[id number] Output: Urine 1100 550 300 Other: Voiding Method Indwelling Catheter Urinal Urinal # Voids 0 0 - Exam General: The patient is awake and alert, in no distress, and appears a bit somnolent today. Neck: The neck is supple, there is no thyromegaly, lymphadenopathy, tenderness or JVD. Cardiovascular: S1S2 is normal, There is a regular rate and rhythm. No murmur, rub or gallop is appreciated. Respiratory: Lungs are clear to auscultation bilaterally, respirations are non-labored, breath sounds are equal. Gastrointestinal: Soft, non-distended, non-tender abdomen without masses or organomegaly noted. There is no rebound or guarding present. Bowel sounds are unremarkable. Musculoskeletal: Normal ROM, no tenderness, There is no pedal edema. There is no calf tenderness or swelling. No cords were appreciated. Neurological: CN II-XII intact, there are no obvious motor or sensory deficits. Coordination appears grossly intact. Speech is normal. Skin: Skin is warm and dry and no rashes or lesions are noted. - Labs CBC & Chem 7: 12/09/23 06:15 12/08/23 05:08 Labs: Abnormal Lab Results - Last 24 Hours (Table) 12/08/23 12/08/23 Range/Units 05:08 05:08 WBC 12.6 H (3.8-10.6) k/uL Neutrophils # 9.6 H (1.3-7.7) k/uL Glucose 119 H (74-99) mg/dL Assessment and Plan (1) Seizure Current Visit: Yes Status: Acute Code(s): R56.9 - UNSPECIFIED CONVULSIONS SNOMED Code(s): 69336641 (2) History of coronary artery bypass graft x 1 Current Visit: Yes Status: Acute Code(s): Z95.1 - PRESENCE OF AORTOCORONARY BYPASS GRAFT SNOMED Code(s): 968871934 (3) Amiodarone-induced thyroiditis Current Visit: Yes Status: Acute Code(s): E06.4 - DRUG-INDUCED THYROIDITIS; T46.2X5A - ADVERSE EFFECT OF OTHER ANTIDYSRHYTHMIC DRUGS, INIT ENCNTR SNOMED Code(s): 811294806700658 (4) Hemiparesis Current Visit: Yes Status: Acute Code(s): G81.90 - HEMIPLEGIA, UNSPECIFIED AFFECTING UNSPECIFIED SIDE SNOMED Code(s): 63254426 (5) Chest pain Current Visit: Yes Status: Acute Code(s): R07.9 - CHEST PAIN, UNSPECIFIED SNOMED Code(s): 93328849 (6) Hypertensive urgency Current Visit: Yes Status: Acute Code(s): I16.0 - HYPERTENSIVE URGENCY SNOMED Code(s): 821686979 (7) CAD (coronary artery disease) Current Visit: No Status: Acute Code(s): I25.10 - ATHSCL HEART DISEASE OF [place] CORONARY ARTERY W/O ANG PCTRS SNOMED Code(s): 18387692 (8) Essential (primary) hypertension Current Visit: No Status: Acute Code(s): I10 - ESSENTIAL (PRIMARY) HYPERTENSION SNOMED Code(s): 82802410 (9) Gastro-esophageal reflux disease without esophagitis Current Visit: No Status: Acute Code(s): K21.9 - GASTRO-ESOPHAGEAL REFLUX DISEASE WITHOUT ESOPHAGITIS SNOMED Code(s): 702166348 Plan: So far his workup has been essentially normal except for the elevated blood pressures. He is now off the Cleviprex. He remains on metoprolol, hydrochlorothiazide, amlodipine and lisinopril for hypertension control. He has not had any more seizure activity. 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 Overall he is clinically improved. Wait on further recommendations from neurology cardiology and pulmonology/critical care. He will be reevaluated the next 24 hours.
--- NOTE | 2023-12-08 10:40 | P.PN ---
Subjective Progress Note Date: 12/08/23 Principal diagnosis: New onset seizure This is a 48-year-old white male with history of recent CABG, ORTEZ to LAD, patient normally sees Dr. Downs. Since his surgery, patient has been going to cardiac rehab, however yesterday he had an episode of hypotension while in cardiac rehab. Patient was sent to the emergency room, and while in the emergency room, patient received hydralazine, shortly after the patient was noted to have seizure-like activity. Patient was seen by neurology on consultation, according to the neurologist note, patient had gaze deviation and he was flaccid on 1 side. Patient received a total of 4 mg of Ativan, started on Keppra 1000 mg every 12 hours by the 18 physician, was notified about this patient by the 18 physician, and I recommended admitting the patient for further observation in the ICU. No further seizure or seizure-like activities while in the ICU. Patient seems to have been controlled while in the ICU. EEG report is pending MRI report is pending. CT of the brain was basically unremarkable. Looking back at the chart, patient had CABG on 10/08 hours, his postoperative course has been uneventful. Labs today showed leukocytosis with WBC count of 19.0 hemoglobin 17.3 electrolytes are normal bicarb is 19 renal profile is norm al, prolactin level was normal. It was evaluated today on 12/07/2023, patient had no significant events and definitely no seizure-like activity over the last 24 hours. Remains in the ICU, blood pressure is fairly well-controlled. Patient is relatively asymptomatic. His EEG showed no evidence of seizure activity or seizure focus. Remains on Keppra however the dose has been cut down by neurology. Today I plan to transfer the patient out of the ICU to a monitored bed and selective. WBC count 12.4 hemoglobin 14.4 basic metabolic profile is normal and renal profile is normal It was reevaluated today on 12/08/2023, patient had to be kept in the ICU yesterday mostly because of his significantly elevated blood pressure requiring placement on Cleviprex. Over the last 24 hours, his blood pressure medications have been adjusted, and he is on multiple meds for hypertension. Blood pressure seems to be better controlled, he is off Cleviprex this morning. And I plan to transfer the patient out of the ICU to a medical floor/cardiac floor. Patient is now on hydrochlorothiazide 25, Norvasc 5 mg p.o. twice daily lisinopril 40 mg daily and Lopressor 50. Milligrams p.o. twice daily. His labs showed WBC count of 12.6 hemoglobin 15.4 electrolytes are normal renal profile is normal. Clinically the patient is doing great today, asymptomatic. Objective - Vital Signs Vital signs: Vital Signs Temp 98.3 F 12/08/23 08:00 Pulse 68 12/08/23 08:00 Resp 14 12/08/23 08:00 BP 141/105 12/08/23 08:00 Pulse Ox 97 12/08/23 08:00 FiO2 Intake & Output 12/07/23 12/08/23 12/08/23 18:59 06:59 18:59 Intake Total 588.734 966.900 205 Output Total 1100 550 300 Balance -511.266 416.900 -95 Weight 89.4 kg Intake: IV 585 800 105 0.9 20 Invasive Line 3 30 10 Sodium Chloride 0.9% 1, 585 770 75 000 ml @ 75 mls/hr IV . [id number] [facility] Rx#:[id number] Intake, IV Titration 3.734 166.900 100 Amount Clevidipine Butyrate 25 3.734 16.900 mg In Empty Bag 1 bag @ 1 MG/HR 2 mls/hr IV .Q24H [facility] Rx#:[id number] Magnesium Sulfate-D5w Pmx 100 1 gm In Dextrose/Water 1 100ml.bag @ 100 mls/hr IVPB ONCE ONE Rx#: [id number] Sodium Chloride 0.9% 1, 150 000 ml @ 75 mls/hr IV . [id number] [facility] Rx#:[id number] Output: Urine 1100 550 300 Other: Voiding Method Indwelling Catheter Urinal Urinal # Voids 0 0 - Exam General: Revealed 48-year-old white male in no distress, on room air Skin: Skin is warm and dry and no rashes or lesions are noted. Eye: Pupils are equal, round and reactive to light, extra-ocular movements are intact; there is normal conjunctiva bilaterally. Ears, nose, mouth and throat: There are moist mucous membranes and no oral lesions. Neck: The neck is supple, there is no tenderness or JVD. Cardiovascular: There is a regular rate and rhythm. No murmur, rub or gallop is appreciated. Respiratory: Clear throughout no crackles rhonchi or wheezes Gastrointestinal: Soft, non-distended, non-tender abdomen without masses or organomegaly noted. There is no rebound or guarding present. Bowel sounds are unremarkable. Back: There is no tenderness to palpation in the midline. There is no obvious deformity. Musculoskeletal: Normal ROM, no tenderness, There is no pedal edema. There is no calf tenderness or swelling. No cords were appreciated. Neurological: CN II-XII intact, Cranial nerves III through XII are intact. There are no obvious motor or sensory deficits. Coordination appears grossly intact. Speech is normal. Psychiatric: Cooperative, appropriate mood & affect, normal judgment. - Labs CBC & Chem 7: 12/08/23 05:08 12/08/23 05:08 Labs: Abnormal Lab Results - Last 24 Hours (Table) 12/08/23 12/08/23 Range/Units 05:08 05:08 WBC 12.6 H (3.8-10.6) k/uL Neutrophils # 9.6 H (1.3-7.7) k/uL Glucose 119 H (74-99) mg/dL Assessment and Plan Assessment: Impression: Suspect seizure activity, new onset, could be related to hypertension or could be related to the treatment of hypertension/hydralazine History of coronary artery disease and recent CABG hypertensive emergency based on the clinical history. Ex-smoker History of paroxysmal atrial fibrillation, has been on amiodarone. Hypothyroidism on levothyroxine 100 mg p.o. daily Recommendation: Continue present blood pressure medications as listed in HPI Transfer patient to cardiac floor today and possibly discharge home in the next 24 hours EEG report was noted, no evidence of seizure focus or activity. Continue Jeremy neurology is recommending 500 mg twice daily Continue seizure precautions Continue close monitoring of blood pressure Continue cardiac meds including aspirin Plavix Lipitor and beta-blockers Will continue to follow Time with Patient: Less than 30
--- NOTE | 2023-12-08 14:41 | P.PN ---
Subjective Progress Note Date: 12/08/23 I am following-up with patient and he feels he is doing well. No further seizure-like activity. No focal deficits. Objective - Vital Signs Vital signs: Vital Signs Temp 98.4 F 12/08/23 12:00 Pulse 61 12/08/23 12:00 Resp 20 12/08/23 12:00 BP 146/100 12/08/23 12:00 Pulse Ox 100 12/08/23 12:00 FiO2 Intake & Output 12/07/23 12/08/23 12/08/23 18:59 06:59 18:59 Intake Total 588.734 966.900 215 Output Total 1100 550 300 Balance -511.266 416.900 -85 Weight 89.4 kg Intake: IV 585 800 115 0.9 20 Invasive Line 3 30 20 Sodium Chloride 0.9% 1, 585 770 75 000 ml @ 75 mls/hr IV . [id number] [facility] Rx#:[id number] Intake, IV Titration 3.734 166.900 100 Amount Clevidipine Butyrate 25 3.734 16.900 mg In Empty Bag 1 bag @ 1 MG/HR 2 mls/hr IV .Q24H [facility] Rx#:[id number] Magnesium Sulfate-D5w Pmx 100 1 gm In Dextrose/Water 1 100ml.bag @ 100 mls/hr IVPB ONCE ONE Rx#: [id number] Sodium Chloride 0.9% 1, 150 000 ml @ 75 mls/hr IV . [id number] [facility] Rx#:[id number] Output: Urine 1100 550 300 Other: Voiding Method Indwelling Catheter Urinal Urinal # Voids 0 0 - Exam GENERAL: The patient is lying in bed and is not in acute distress. NEUROLOGICAL: Higher mental function: The patient is awake, alert, oriented to self, place and time. Patient is following commands. No aphasia and no neglect. Cranial nerves: The pupils are round, equal and reactive to light and accommodation. Visual rubio are full to confrontation throughout. Extraocular movement is intact no nystagmus is noted. Facial sensation is normal to touch throughout. The facial strength is normal throughout. No dysarthria is noted. Shoulder shrug is normal bilaterally. Motor: The strength is 5 over 5 throughout. Normal tone and bulk. Cerebellum: Normal finger to nosebilaterally. Sensation: Sensation is normal to touch throughout. Some of the work-up during this hospital visit consisted of: TSH: 61.3 and free T4 0.90 Prolactin is 15.80 Ammonia is 48 and repeat 25. Chemistry panel as glucose is 221. CT of the head is reported as minimal chronic appearing white matter ischemic type changes right frontal lobe. MRI could be performed as clinically indicated. Reviewed the CT and I agree there is no acute or subacute stroke. CTA head and neck is reported as no flow limiting stenosis bilateral carotid bifurcation. Normal circles of [place]. There is some limitation due to motion artifact. 2D echo: Normal LF systolic function. MRI Brain: Reported as Uremarkable pre and postcontrast enhanced MRI Brain. I personally reviewed MRI and agree there is no acute or subacute stroke or enhancement but felt there is abnormality on FLAIR in which hyperintensities over the cortical region such as frontal medial bilaterally, temporal, anterior to midbrain, focal oval lesion over the right parietal and small that is nonspecific over right frontal. Routine EEG is normal. - Labs CBC & Chem 7: 12/08/23 05:08 12/08/23 05:08 Labs: Abnormal Lab Results - Last 24 Hours (Table) 12/08/23 12/08/23 Range/Units 05:08 05:08 WBC 12.6 H (3.8-10.6) k/uL Neutrophils # 9.6 H (1.3-7.7) k/uL Glucose 119 H (74-99) mg/dL Assessment and Plan Assessment: This note is a 48-year-old gentleman with uncontrolled hypertension, history of coronary artery disease with recent CABG in September 2023, former tobacco use and he stopped smoking since September 2023, hyperlipidemia was sent from cardiac rehab therapy because of chest pain and uncontrolled hypertension. Blood pressure was as high as 217/128. Was given hydralazine. Patient was hypoxic in the mid 80s and heart rate was in 11 and he was hypothermic 95.5. Was felt the patient had gaze deviation towards 1 side and flaccid on 1 side. While in the ICU the nurses stated that he had a flexed posture and trembling and he was in a position. Given a total of 4 mg of Ativan and started on Keppra for concern for seizure by A-team. Concern for new onset of seizure: Possible provoked due to hypertensive emergency vs ?medication induced (hydralazine)--no further seizures overnight or today. EEG is normal. MRI Brain w/ and w/o is reported as unremarkable but I felt there is hyperintesnities over different regions mostly cortical. Hypertensive emergency---resolved Abnormal thyroid with TSH: 61.3 and free T4 0.90 History of coronary artery disease status post recent CABG in September 2023 History of A-fib and is on amiodarone Dyslipidemia Underlying History of hypertension and its uncontrolled--sometimes misses taking home medication Ex-Heavy tobacco user and stopped since September 2023 Obesity Plan: MRI Brain: Reported as Uremarkable pre and postcontrast enhanced MRI Brain. I personally reviewed MRI and agree there is no acute or subacute stroke or enhancement but felt there is abnormality on FLAIR in which hyperintensities over the cortical region such as frontal medial bilaterally, temporal, anterior to midbrain, focal oval lesion over the right parietal and small that is nonspecific over right frontal. Will attempt to discuss with reading radiologist. Unsure if changes on FLAIR is due to uncontrolled HTN. Continue Keppra 500mg bid. Seizure precautions seizure pads. Recommend avoiding hydralazine if possible Patient is on aspirin 325 daily, Plavix 75 mg daily and Lipitor 40 mg nightly his home medication. Abnormal thyroid with TSH: 61.3 and free T4 0.90 and will defer management to primary and ICU team. Patient was counseled on medication compliance. Will Defer the rest of the medical management to primary and other specialist. The plan is discussed with the patient and the ICU nurse. Dr. Holloway will resume neurology service tomorrow A.M. Time with Patient: Less than 30
[2023-12-09 06:13] VITALS: TEMP 98.1
[2023-12-09 06:47] LABS: Basophils # (A) 0.1 k/uL (0-0.2); Basophils % (A) 1 %; Eosinophils # (A) 0.1 k/uL (0-0.7); Eosinophils % (A) 1 %; HCT 51.6 % (39.0-53.0); HGB 17.2 gm/dL (13.0-17.5); Lymphocytes # (A) 1.5 k/uL (1.0-4.8); Lymphocytes % (A) 14 %; MCH 29.2 pg (25.0-35.0); MCHC 33.3 g/dL (31.0-37.0); MCV 87.8 fL (80.0-100.0); Mean Platelet Volume 8.6; Monocytes # (A) 0.8 k/uL (0-1.0); Monocytes % (A) 7 %; Neutrophils # (A) 8.1 k/uL (1.3-7.7); Neutrophils % (A) 76 %; Platelet Count 241 k/uL (150-450); RBC 5.88 m/uL (4.30-5.90); RDW 13.7 % (11.5-15.5); WBC 10.7 k/uL (3.8-10.6)
--- NOTE | 2023-12-09 07:15 | P.PN ---
Subjective Progress Note Date: 12/09/23 The patient is a pleasant 48-year-old gentleman with a past medical history significant for CAD status post CABG as well as hypertension and dyslipidemia and history of smoking and recent diagnosis of seizure was admitted to the hospital with hypertension emergency. December 09, 2023 The patient was seen this morning. He is asymptomatic at this point. The pressure remains elevated and consistent with stage II hypertension which has somewhat improved because he was at hypertension crisis when he presented to the hospital. He is on max dose of amlodipine and max dose of lisinopril and also he is on hydrochlorothiazide. He is also on beta-malina with him going to Aldactone 25 mg p.o. Daily to the current medical regimen. His potassium and kidney function are within normal limits. The examination is remarkable for regular rhythm with a soft systolic murmur and clear breathing sounds bilateral ly and no edema was noted in the lower extremities Assessment Hypertension crisis with hypertension emergency CAD status post CABG in September History of smoking Dyslipidemia Plan Aldactone in the current medical regimen Continue monitor the blood pressure and heart rate Possible discharge in the next 12 to 24 hours Objective - Vital Signs Vital signs: Vital Signs Temp 98.1 F 12/09/23 04:00 Pulse 73 12/09/23 04:00 Resp 14 12/09/23 04:00 BP 138/109 12/09/23 04:00 Pulse Ox 97 12/09/23 04:00 FiO2 Intake & Output 12/08/23 12/09/23 12/09/23 18:59 06:59 18:59 Intake Total 215 450 Output Total 300 Balance -85 450 Weight 87 kg Intake: IV 115 0.9 20 Invasive Line 3 20 Sodium Chloride 0.9% 1, 75 000 ml @ 75 mls/hr IV . [id number] [facility] Rx#:[id number] Intake, IV Titration 100 Amount Magnesium Sulfate-D5w Pmx 100 1 gm In Dextrose/Water 1 100ml.bag @ 100 mls/hr IVPB ONCE ONE Rx#: [id number] Oral 450 Output: Urine 300 Other: Voiding Method Urinal Toilet # Voids 3 2 - Labs CBC & Chem 7: 12/09/23 06:15 12/08/23 05:08 Labs: Abnormal Lab Results - Last 24 Hours (Table) 12/09/23 Range/Units 06:15 WBC 10.7 H (3.8-10.6) k/uL Neutrophils # 8.1 H (1.3-7.7) k/uL
[2023-12-09] MEDS: SPIRONOLACTONE 25 MG TAB PO SCH (08:23)
--- NOTE | 2023-12-09 12:55 | P.PN ---
Objective - Vital Signs Vital signs: Vital Signs Temp 98.1 F 12/09/23 08:00 Pulse 69 12/09/23 08:00 Resp 18 12/09/23 08:00 BP 128/91 12/09/23 08:00 Pulse Ox 97 12/09/23 08:00 FiO2 Intake & Output 12/08/23 12/09/23 12/09/23 18:59 06:59 18:59 Intake Total 215 450 Output Total 300 Balance -85 450 Weight 87 kg Intake: IV 115 0.9 20 Invasive Line 3 20 Sodium Chloride 0.9% 1, 75 000 ml @ 75 mls/hr IV . [id number] [facility] Rx#:[id number] Intake, IV Titration 100 Amount Magnesium Sulfate-D5w Pmx 100 1 gm In Dextrose/Water 1 100ml.bag @ 100 mls/hr IVPB ONCE ONE Rx#: [id number] Oral 450 Output: Urine 300 Other: Voiding Method Urinal Toilet Toilet # Voids 3 2 1 - Labs CBC & Chem 7: 12/09/23 06:15 12/08/23 05:08 Labs: Abnormal Lab Results - Last 24 Hours (Table) 12/09/23 Range/Units 06:15 WBC 10.7 H (3.8-10.6) k/uL Neutrophils # 8.1 H (1.3-7.7) k/uL
[2023-12-09 13:19] VITALS: PULSE 65
--- NOTE | 2023-12-09 13:35 | P.PN ---
Subjective Progress Note Date: 12/09/23 Principal diagnosis: Hypertensive urgency. This is a 48-year-old white male with history of recent CABG, ORTEZ to LAD, patient normally sees Dr. Downs. Since his surgery, patient has been going to cardiac rehab, however yesterday he had an episode of hypotension while in cardiac rehab. Patient was sent to the emergency room, and while in the emergency room, patient received hydralazine, shortly after the patient was noted to have seizure-like activity. Patient was seen by neurology on consultation, according to the neurologist note, patient had gaze deviation and he was flaccid on 1 side. Patient received a total of 4 mg of Ativan, started on Keppra 1000 mg every 12 hours by the 18 physician, was notified about this patient by the 18 physician, and I recommended admitting the patient for further observation in the ICU. No further seizure or seizure-like activities while in the ICU. Patient seems to have been controlled while in the ICU. EEG report is pending MRI report is pending. CT of the brain was basically unremarkable. Looking back at the chart, patient had CABG on 10/08 hours, his postoperative course has been uneventful. Labs today showed leukocytosis with WBC count of 19.0 hemoglobin 17.3 electrolytes are normal bicarb is 19 renal profile is n ormal, prolactin level was normal. It was evaluated today on 12/07/2023, patient had no significant events and definitely no seizure-like activity over the last 24 hours. Remains in the ICU, blood pressure is fairly well-controlled. Patient is relatively asymptomatic. His EEG showed no evidence of seizure activity or seizure focus. Remains on Keppra however the dose has been cut down by neurology. Today I plan to transfer the patient out of the ICU to a monitored bed and selective. WBC count 12.4 hemoglobin 14.4 basic metabolic profile is normal and renal profile is normal It was reevaluated today on 12/08/2023, patient had to be kept in the ICU yesterday mostly because of his significantly elevated blood pressure requiring placement on Cleviprex. Over the last 24 hours, his blood pressure medications have been adjusted, and he is on multiple meds for hypertension. Blood pressure seems to be better controlled, he is off Cleviprex this morning. And I plan to transfer the patient out of the ICU to a medical floor/cardiac floor. Patient is now on hydrochlorothiazide 25, Norvasc 5 mg p.o. twice daily lisinopril 40 mg daily and Lopressor 50. Milligrams p.o. twice daily. His labs showed WBC count of 12.6 hemoglobin 15.4 electrolytes are normal renal profile is normal. Clin ically the patient is doing great today, asymptomatic. Progress note dated December 09, 2023. The patient is seen today in room 257. The patient initially presented with hypertensive urgency/emergency. At 1 point, the patient was on Cleviprex. The patient is currently on room air. Is not receiving any IV fluids. The patient could be transferred out to 3 S., or, potentially be discharged home. Will leave that up to the primary service, and cardiology. Current labs include a white count 10.7, hemoglobin 17.2, hematocrit 51.6, and a platelet count of 241,000. The patient's magnesium is 1.6. Objective - Vital Signs Vital signs: Vital Signs Temp 98.1 F 12/09/23 12:00 Pulse 65 12/09/23 12:00 Resp 18 12/09/23 12:00 BP 114/76 12/09/23 12:00 Pulse Ox 97 12/09/23 12:00 FiO2 Intake & Output 12/08/23 12/09/23 12/09/23 18:59 06:59 18:59 Intake Total 215 450 Output Total 300 Balance -85 450 Weight 87 kg Intake: IV 115 0.9 20 Invasive Line 3 20 Sodium Chloride 0.9% 1, 75 000 ml @ 75 mls/hr IV . [id number] [facility] Rx#:[id number] Intake, IV Titration 100 Amount Magnesium Sulfate-D5w Pmx 100 1 gm In Dextrose/Water 1 100ml.bag @ 100 mls/hr IVPB ONCE ONE Rx#: [id number] Oral 450 Output: Urine 300 Other: Voiding Method Urinal Toilet Toilet # Voids 3 2 1 - Exam No acute distress, oriented 3. Room air saturation is 97%. HEENT examination is grossly unremarkable. Mucous membranes are moist. No oral lesions. Neck supple. Full range of motion. No adenopathy thyromegaly or neck vein distention. Cardiovascular examination reveals regular rhythm rate. S1-S2 normal. No S3 or S4. No discernible murmur noted. Heart rate is 65 bpm. Lungs reveal clear breath sounds. Breath sounds are equal bilaterally. No adventitious lung sounds including wheezes rhonchi or crackles. Abdomen soft bowel sounds are heard. No masses or tenderness. Extremities are intact. No cyanosis clubbing or edema. Skin is without rash or lesion. Neurologic examination is brief but nonfocal. - Labs CBC & Chem 7: 12/09/23 06:15 12/08/23 05:08 Labs: Abnormal Lab Results - Last 24 Hours (Table) 12/09/23 Range/Units 06:15 WBC 10.7 H (3.8-10.6) k/uL Neutrophils # 8.1 H (1.3-7.7) k/uL Assessment and Plan Assessment: Hypertensive urgency/emergency, resolved. History of coronary artery disease, recent bypass surgery. History of hypertension. Previous history of tobacco use. History of paroxysmal atrial fibrillation. History of hypothyroidism. Plan: Plan dated December 09, 2023. The patient is seen today in room 257. Labs, x-rays, and medications are reviewed. The patient was admitted with a diagnosis of hypertensive urgency/emergency. At one point, the patient was on Cleviprex. Currently, he is being managed with his typical oral medications. We will continue to follow make recommendations. Apparently the patient will either be discharged home, will be sent down to 3 S. floor. Prognosis is guarded. Time with Patient: Less than 30
--- NOTE | 2023-12-09 14:01 | P.DS ---
Providers Date of admission: 12/05/23 12:55 Expected date of discharge: 12/09/23 Attending physician: Dontae Martinez Consults: 12/05/23 12:54 Consult Physician Urgent Consulting Provider: [facility] Consult Reason/Comments: hypertension, chest pain Do you want consulting provider notified?: Yes 12/05/23 13:27 Consult Physician Routine Consulting Provider: Thang Arzola Consult Reason/Comments: chest pain, recent CABG in 09/2023 Do you want consulting provider notified?: Yes 12/05/23 17:20 Consult Physician Urgent Consulting Provider: Isrrael Boyd Consult Reason/Comments: seizures Do you want consulting provider notified?: Already Contacted 12/05/23 17:54 Consult Physician Urgent Consulting Provider: Dominique Gonzalez Consult Reason/Comments: ICU management Do you want consulting provider notified?: Already Contacted Primary care physician: Dontae Martniez Hospital Course: Final Diagnoses: Hypertensive emergency, resolved Suspect seizure activity, new onset possibly related to hypertension, hydralazine New onset hypothyroidism, 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 CAD, recent CABG in September 2023 Chronic paroxysmal atrial fibrillation History of hypertension Prior nicotine dependence, recently quit in September 2023 Hospital course:This is a 48-year-old white male well-known to the practice. He had an NSTEMI on September 30, 2023 and underwent a CABG x 1 vessel on October 03, 2023. He does have noted three-vessel coronary disease. He is a former smoker. He has been seen in the office and he reports since the surgery he has had some numbness to his face that extends down to his legs. He is unable to describe it further. He is also been a bit sad. While in cardiac rehab 1 day ago, he began experiencing diaphoresis type symptoms. He was in cardiac rehab he had hypotension followed by significant hypertension. While there he also had a seizure-like activity. He is now resting comfortably in the intensive care unit. He has been seen by cardiology neurology and critical care. Previously blood pressures were 200s over 110s are now much improved with Cleviprex and then he has other medications of heparin and now Keppra. He had a very elevated TSH most likely due to the amiodarone. He was immediately started today on levothyroxine 100 mcg daily. His free T4 is normal along with prolactin. He was found in the ICU is at bedside. He is somnolent but awake alert and oriented x 3. He does not have any complaints at this time. Other than fatigue. Laboratory studies show a leukocytosis with a left shift down from 21.3-19. Blood chemistries were essentially normal. He did have a significantly elevated lactic acid 7.1. Ammonia level was 48. Troponin was negative x 2. December 07, 2023: Patient is resting comfortably intensive care unit for hypertensive crisis and possible seizure activity. He is awake and alert a bit somnolent today. He denies any chest pains pressure shortness of breath this time. He is alone in his room. Nursing reports no issues. Vital signs now show blood pressure in the 140s over 90s. Heart rate is in the 50s and 60s, pulse ox is normal on room air. Labs show improved leukocytosis now the WBC count is 12.4 hemoglobin is normal at 14 4, no differential, chemistries are essentially normal today as well. EEG is normal. MRI of the brain is unremarkable prepre-and postcontrast enhanced MRI. The echo shows normal LV function. December 08, 2023: Patient remains overflowing intensive care unit, he did need some Cleviprex last night to help with blood pressure but is now currently improved. He is on amlodipine, hydrochlorothiazide, lisinopril, and metoprolol for blood pressure control. 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 He has not had any more seizure-like activities. Vital signs are stable today. Labs still show a slight leukocytosis now WBC count is 12.6 electrolytes chemistries are normal. Neurology, cardiology and critical care all following. He is now off the Cleviprex. He remains on metoprolol, hydrochlorothiazide, amlodipine and lisinopril for hypertension control. He has not had any more sei zure activity. 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 Overall he is clinically improved. Wait on further recommendations from neurology cardiology and pulmonology/critical care. He will be reevaluated the next 24 hours. Remains off of Cleviprex ,blood pressure better controlled. Renal function stable denies chest pain, palpitations or shortness of breath. No further seizure activity reported. Patient will be discharged home today in a stable condition pending final DC recommendations and clearance per cardiology, neurology. The impression and plan of care has been dictated as directed. : I performed a history and examination of this patient, discussed the same with the dictator. I agree with the dictator's note ,documented as a scribe. Any additional findings or plans will be noted. Patient Condition at Discharge: Stable Plan - Discharge Summary Discharge Rx Participant: No New Discharge Prescriptions: New Spironolactone [Aldactone] 25 mg PO BID #60 tab Aspirin 81 mg PO DAILY tab Metoprolol Tartrate [Lopressor] 50 mg PO BID #60 tab hydroCHLOROthiazide [Hydrodiuril] 25 mg PO DAILY #30 tab amLODIPine [Norvasc] 5 mg PO BID #60 tab Levothyroxine Sodium [Synthroid] 100 mcg PO DAILY@0630 #30 tab Continue Atorvastatin [Lipitor] 40 mg PO HS Nicotine 14Mg/24Hr Patch [Habitrol] 1 patch TRANSDERM DAILY #30 patch Acetaminophen Tab [Tylenol] 650 mg PO Q4HR PRN tab PRN Reason: Fever and/ or Mild Pain Sennosides-Docusate Sodium [Senokot-S] 2 tab PO HS PRN PRN Reason: Constipation lisinopriL 40 mg PO DAILY DULoxetine HCL [Cymbalta] 60 mg PO DAILY Melatonin 6 mg PO HS PRN tab PRN Reason: Insomnia Clopidogrel [Plavix] 75 mg PO DAILY #30 tab Pantoprazole [Protonix] 40 mg PO AC-BRKFST #30 tab Discontinued Metoprolol Tartrate [Lopressor] 100 mg PO BID #60 tab Aspirin 325 mg PO DAILY #30 tab Amiodarone [Cordarone] 400 mg PO BID #60 tablet Discharge Medication List Atorvastatin [Lipitor] 40 mg PO HS 09/30/23 [History] Acetaminophen Tab [Tylenol] 650 mg PO Q4HR PRN tab 10/07/23 [Rx] Clopidogrel [Plavix] 75 mg PO DAILY #30 tab 10/07/23 [Rx] Melatonin 6 mg PO HS PRN tab 10/07/23 [Rx] Nicotine 14Mg/24Hr Patch [Habitrol] 1 patch TRANSDERM DAILY #30 patch 10/07/23 [Rx] Pantoprazole [Protonix] 40 mg PO AC-BRKFST #30 tab 10/07/23 [Rx] Sennosides-Docusate Sodium [Senokot-S] 2 tab PO HS PRN 10/17/23 [History] DULoxetine HCL [Cymbalta] 60 mg PO DAILY 12/05/23 [History] lisinopriL 40 mg PO DAILY 12/05/23 [History] Aspirin 81 mg PO DAILY tab 12/09/23 [Rx] Levothyroxine Sodium [Synthroid] 100 mcg PO DAILY@0630 #30 tab 12/09/23 [Rx] Metoprolol Tartrate [Lopressor] 50 mg PO BID #60 tab 12/09/23 [Rx] Spironolactone [Aldactone] 25 mg PO BID #60 tab 12/09/23 [Rx] amLODIPine [Norvasc] 5 mg PO BID #60 tab 12/09/23 [Rx] hydroCHLOROthiazide [Hydrodiuril] 25 mg PO DAILY #30 tab 12/09/23 [Rx] Follow up Appointment(s)/Referral(s): Dontae Martinez MD [Primary Care Provider] - 3 Days Activity/Diet/Wound Care/Special Instructions: Confirm cardiology and CTS follow-up prior to discharge
--- NOTE | 2023-12-09 16:07 | P.PN ---
Subjective Progress Note Date: 12/09/23 Patient was initially seen by Dr. Isrrael Boyd. Please refer to his note for details. Patient is a 48-year-old male with hypertensive emergency and noncompliant with medication, with new onset seizure. Dr. Boyd felt the seizure was possible due to hypertension versus hydralazine. MRI was reported normal, but Dr. Boyd felt that there is flair changes. Patient is on Keppra 500 mg twice daily. Patient also has abnormal thyroid functions. Patient states that he came to the hospital because he was undergoing cardiac rehab and he complained to the therapist about headache and the check blood pressure was very high. There was no confusion or any other focal deficits. However patient and his states that since , he has numbness of the tip of the tongue, upper and lower lip (only on the right half), and some numbness of the feet. He had undergone coronary artery bypass grafting on 10/03/2023. He denies any confusion. At present he feels fine, although still has numbness of the tip of the tongue, but not the right side of the lips. Some of the work-up during this hospital visit consisted of: TSH: 61.3 and free T4 0.90 Prolactin is 15.80 Ammonia is 48 and repeat 25. Chemistry panel as glucose is 221. CT of the head is reported as minimal chronic appearing white matter ischemic type changes right frontal lobe. MRI could be performed as clinically indicated. Reviewed the CT and I agree there is no acute or subacute stroke. CTA head and neck is reported as no flow limiting stenosis bilateral carotid bifurcation. Normal circles of Mireles. There is some limitation due to motion artifact. 2D echo: Normal LF systolic function. MRI Brain: Reported as Uremarkable pre and postcontrast enhanced MRI Brain. Dr. Boyd has reviewed MRI and agree there is no acute or subacute stroke or enhancement but he felt there is abnormality on FLAIR in which hyperintensities over the cortical region such as frontal medial bilaterally, temporal, anterior to midbrain, focal oval lesion over the right parietal and small that is nonspecific over right frontal. Routine EEG is normal. Objective - Vital Signs Vital signs: Vital Signs Temp 98.1 F 12/09/23 12:00 Pulse 65 12/09/23 12:00 Resp 18 12/09/23 12:00 BP 114/76 12/09/23 12:00 Pulse Ox 97 12/09/23 12:00 FiO2 Intake & Output 12/08/23 12/09/23 12/09/23 18:59 06:59 18:59 Intake Total 215 450 Output Total 300 Balance -85 450 Weight 87 kg Intake: IV 115 0.9 20 Invasive Line 3 20 Sodium Chloride 0.9% 1, 75 000 ml @ 75 mls/hr IV . [id number] [facility] Rx#:[id number] Intake, IV Titration 100 Amount Magnesium Sulfate-D5w Pmx 100 1 gm In Dextrose/Water 1 100ml.bag @ 100 mls/hr IVPB ONCE ONE Rx#: [id number] Oral 450 Output: Urine 300 Other: Voiding Method Urinal Toilet Toilet # Voids 3 2 1 - Exam Patient's mental status, speech and language functions are normal. Cranial nerves are normal. Visual rubio are full. Face is symmetric. Tongue protrudes midline. On muscle strength testing there is no pronator drift and the strength is normal in arms and legs, distally and proximally. No ataxia for [id number]-[id number] testing. Sensory to touch is equal. - Labs CBC & Chem 7: 12/09/23 06:15 12/08/23 05:08 Labs: Abnormal Lab Results - Last 24 Hours (Table) 12/09/23 Range/Units 06:15 WBC 10.7 H (3.8-10.6) k/uL Neutrophils # 8.1 H (1.3-7.7) k/uL Assessment and Plan Assessment: This note is a 48-year-old gentleman with uncontrolled hypertension, history of coronary artery disease with recent CABG in September 2023, former tobacco use and he stopped smoking since September 2023, hyperlipidemia was sent from cardiac rehab therapy because of chest pain and uncontrolled hypertension. Blood pressure was as high as 217/128. Was given hydralazine. Patient was hypoxic in the mid 80s and heart rate was in 11 and he was hypothermic 95.5. Was felt the patient had gaze deviation towards 1 side and flaccid on 1 side. While in the ICU the nurses stated that he had a flexed posture and trembling and he was in a position. Given a total of 4 mg of Ativan and started on Keppra for concern for seizure by A-team. Concern for new onset of seizure: Possible provoked due to hypertensive emergency vs ?medication induced (hydralazine)--no further seizures overnight or today. EEG is normal. MRI Brain w/ and w/o is reported as unremarkable but there is hyperintesnities on FLAIR sequences over different regions mostly cortical. Hypertensive emergency/encephalopathy ---resolved Abnormal thyroid with TSH: 61.3 and free T4 0.90 History of coronary artery disease status post recent CABG in September 2023 History of A-fib and is on amiodarone Dyslipidemia Underlying History of hypertension and its uncontrolled--sometimes misses taking home medication Ex-Heavy tobacco user and stopped since September 2023 Obesity Plan: MRI Brain: Reported as uremarkable pre and postcontrast enhanced MRI Brain. As per review of Dr. Boyd, he agreed there is no acute or subacute stroke or enhancement but felt there is abnormality on FLAIR in which hyperintensities over the cortical region such as frontal medial bilaterally, temporal, anterior to midbrain, focal oval lesion over the right parietal and small that is nonspecific over right frontal. I also reviewed MRI, agree with the findings of abnormal FLAIR signal as mentioned by Dr. Boyd. I tried to call radiologist multiple times, but they were busy. One of the radiologist will call me once they are done with stat reads. Continue Keppra 500mg bid. Seizure precautions seizure pads. Recommend avoiding hydralazine if possible Patient is on aspirin 325 daily, Plavix 75 mg daily and Lipitor 40 mg nightly his home medication. Continue these medications. Abnormal thyroid with TSH: 61.3 and free T4 0.90 and will defer management to primary and ICU team. Patient was counseled on medication compliance. Dr. Boyd has mentioned about "history of atrial fibrillation, on amiodarone". Apparently it was documented by the ED on 10/17/2023 for new onset atrial fibrillation, although the EKG done on 10/17/2023 showed sinus bradycardia with no A-fib. He was placed on amiodarone and discharged home from ER. Patient's states that he is currently on amiodarone, for what she was told for atrial fibrillation, but patient himself states he is not taking it. His home medication list does not mention about amiodarone but patient's is very positive that he is taking amiodarone. I called Dr. Downs to clarify this issue, who is not aware of patient having any history of atrial fibrillation. I would recommend 30-day event monitoring to rule out paroxysmal atrial fibrillation. I spoke to Dr. Downs, who agreed for event monitoring. Patient does have history of left atrial appendage ligation with his bypass surgery however. Patient will be discharged home, and follow-up at Dr. Berman office in the morning for event monitor hookup. I would also recommend patient follow-up with neurologist outpatient in 1 to 2 w eeks for management of new onset seizure, which could be related to hypertensive encephalopathy. Patient will be continued on Keppra 500 mg twice daily. Will Defer the rest of the medical management to primary and other specialist. Neurologically clear for discharge. Addendum 12/10/2023: I was able to speak to the reading radiologist about the MRI report. He agreed there is a small focus of increased signal in the region of the right occipital lobe measuring 9 mm on image 23. Also small focus within the left occipital lobe image 14 and small bifrontal lesions as well as within the centrum semiovale on the right on inversion recovery imaging. These are nonspecific and could reflect chronic small vessel ischemic change, features of demyelination or Lyme's disease, as well as chronic migraine headaches or vasculitis. Correlate clinically. I spoke to patient and his on the phone, informed the results. They will have Lyme titer checked by primary physician outpatient. Time with Patient: Greater than 30
[2023-12-09 16:09] VITALS: BP 132/91; RESP 16
== END 2023-12-09 18:01 | disposition home or self-care (01) | DRG 101 ==
LOC: EC 11:21 → 6NMEDSUR 12:54 → OBSVTOIN 12:55 → 2SICU 17:08
PROVIDERS: ADMIT Family Medicine; ATTEND Family Medicine
PROC: 4A10X4Z Monitoring of Central Nervous Electrical Activity, External Approach (ICD-10-PCS; principal; 2023-12-06)
DX: G40.901 Epilepsy, unspecified, not intractable, with status epilepticus (principal); I16.1 Hypertensive emergency; G81.90 Hemiplegia, unspecified affecting unspecified side; K86.1 Other chronic pancreatitis; F17.210 Nicotine dependence, cigarettes, uncomplicated; E78.5 Hyperlipidemia, unspecified; I48.0 Paroxysmal atrial fibrillation; Z95.1 Presence of aortocoronary bypass graft; E03.2 Hypothyroidism due to medicaments and other exogenous substances; T46.2X5A Adverse effect of other antidysrhythmic drugs, initial encounter; T38.1X5A Adverse effect of thyroid hormones and substitutes, initial encounter; I25.10 Atherosclerotic heart disease of native coronary artery without angina pectoris; I25.2 Old myocardial infarction; K21.00 Gastro-esophageal reflux disease with esophagitis, without bleeding; F32.A Depression, unspecified; G89.29 Other chronic pain; X58.XXXA Exposure to other specified factors, initial encounter; Z79.01 Long term (current) use of anticoagulants; E66.9 Obesity, unspecified; Z68.27 Body mass index [BMI] 27.0-27.9, adult; Z90.49 Acquired absence of other specified parts of digestive tract; G47.00 Insomnia, unspecified; M19.90 Unspecified osteoarthritis, unspecified site; M54.50 Low back pain, unspecified; Z79.02 Long term (current) use of antithrombotics/antiplatelets; Z79.82 Long term (current) use of aspirin; Z79.890 Hormone replacement therapy; Z79.899 Other long term (current) drug therapy; Z82.49 Family history of ischemic heart disease and other diseases of the circulatory system; Z91.148 Patient's other noncompliance with medication regimen for other reason; R00.1 Bradycardia, unspecified; I10 Essential (primary) hypertension
CPT/HCPCS: 36415; 70450; 70496; 70498; 70553; 71045; 71046; 80048; 80053; 82140; 82803; 83605; 83735; 84146; 84439; 84443; 84484; 85025; 85027; 85610; 85730; 93005; 93306; 94760; 95816; 96361; 96374; 96375; 99285

== ENCOUNTER 2023-12-23 14:17 | Observation (INO) | payer BC, OTHER ==
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
[2023-12-23] MEDS: ASPIRIN 81 MG PO STA (15:22)
[2023-12-23] MEDS: NITROGLYCERIN OINT 1 INCH/GM PACKET TOPICAL STA (15:25)
[2023-12-23] MEDS: ACETAMINOPHEN TAB 500 MG TAB PO STA (15:33)
[2023-12-23 16:13] LABS: Basophils # (A) 0.1 k/uL (0-0.2); Basophils % (A) 1 %; Eosinophils # (A) 0.1 k/uL (0-0.7); Eosinophils % (A) 1 %; HCT 47.9 % (39.0-53.0); HGB 15.7 gm/dL (13.0-17.5); Lymphocytes # (A) 2.4 k/uL (1.0-4.8); Lymphocytes % (A) 21 %; MCH 28.7 pg (25.0-35.0); MCHC 32.8 g/dL (31.0-37.0); MCV 87.5 fL (80.0-100.0); Mean Platelet Volume 9.5; Monocytes # (A) 0.8 k/uL (0-1.0); Monocytes % (A) 7 %; Neutrophils # (A) 8.2 k/uL (1.3-7.7); Neutrophils % (A) 70 %; Platelet Count 284 k/uL (150-450); RBC 5.48 m/uL (4.30-5.90); WBC 11.7 k/uL (3.8-10.6)
[2023-12-23 16:15] LABS: INR 0.9 (<1.2); Prothrombin Time 10.3 sec (10.0-12.5)
--- NOTE | 2023-12-23 16:21 | XR ---
EXAMINATION TYPE: XR chest 2V DATE OF EXAM: 12/23/2023 COMPARISON: 12/05/2023 HISTORY: Chest pain TECHNIQUE: Frontal and lateral views of the chest are obtained. FINDINGS: There is no focal air space opacity, pleural effusion, or pneumothorax seen. The cardiac silhouette size is within normal limits there are median sternotomy wires. There is a loop recorder p rojecting over the left chest. IMPRESSION: No acute cardiopulmonary process.
[2023-12-23 16:26] LABS: ALT 46 U/L (4-49); AST 33 U/L (17-59); African American GFR (CKD) 47 (>60 ml/min/1.73 sqM); Albumin 4.5 g/dL (3.5-5.0); Alkaline Phosphatase 111 U/L (38-126); Anion Gap 9 mmol/L; Blood Urea Nitrogen 30 mg/dL (9-20); Calcium 10.1 mg/dL (8.4-10.2); Carbon Dioxide 25 mmol/L (22-30); Chloride 104 mmol/L (98-107); Glucose 132 mg/dL (74-99); Magnesium 1.7 mg/dL (1.6-2.3); Non-African American GFR(CKD) 41 (>60 ml/min/1.73 sqM); Potassium 5.1 mmol/L (3.5-5.1); Sodium 138 mmol/L (137-145); Total Bilirubin 0.7 mg/dL (0.2-1.3); Total Protein 7.7 g/dL (6.3-8.2)
[2023-12-23 16:32] LABS: NT-Pro-B-Type Natriuretic Pept 34 pg/mL
[2023-12-23] MEDS ORDERED: NALOXONE 0.4 MG/ML 1 ML VIAL IV PRN (17:13)
[2023-12-23] MEDS: SODIUM CHLORIDE 0.9% 1,000 ML IV STA (17:41)
[2023-12-23] MEDS: SODIUM CHLORIDE 0.9% 250 ML IV STA (17:42)
[2023-12-23] MEDS ORDERED: MELATONIN 3 MG TABLET PO PRN (19:21)
[2023-12-23] MEDS ORDERED: ACETAMINOPHEN TAB 325 MG TAB PO PRN (19:21)
[2023-12-23] MEDS: ATORVASTATIN 40 MG TAB PO SCH (22:58)
[2023-12-24] MEDS: ALPRAZolam 0.5 MG TAB PO STA (01:10)
[2023-12-24] MEDS: LEVOTHYROXINE 100 MCG TAB PO SCH (06:44)
[2023-12-24] MEDS: PANTOPRAZOLE 40 MG TABLET PO SCH (06:48)
[2023-12-24] MEDS: CLOPIDOGREL 75 MG TAB PO SCH (08:16)
[2023-12-24] MEDS: ASPIRIN 81 MG PO SCH (08:16)
[2023-12-24] MEDS: DULoxetine HCL 60 MG CAPSULE.DR PO SCH (08:16)
[2023-12-24] MEDS: NICOTINE 14MG/24HR PATCH TRANSDERM SCH (08:17)
[2023-12-24] MEDS: SODIUM CHLORIDE 0.9% 1,000 ML IV SCH (08:17)
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
[2023-12-24] MEDS ORDERED: SENNOSIDES-DOCUSATE SODIUM 1 EACH TAB PO PRN (10:30)
[2023-12-24 10:39] LABS: Basophils # (A) 0.07 X 10*3/uL (0.00-0.10); Basophils % (A) 0.7 %; Eosinophils # (A) 0.12 X 10*3/uL (0.04-0.35); Eosinophils % (A) 1.2 %; HGB 13.7 g/dL (13.0-17.0); Lymphocytes # (A) 1.98 X 10*3/uL (0.90-5.00); Lymphocytes % (A) 20.6 %; MCH 29.5 pg (27.0-32.0); MCHC 33.4 g/dL (32.0-37.0); MCV 88.4 FL (80.0-97.0); Mean Platelet Volume 11.6 FL (9.5-12.2); Monocytes # (A) 0.81 X 10*3/uL (0.20-1.00); Monocytes % (A) 8.4 %; NRBC Per 100 WBC 0 X 10*3/uL (0.00-0.01); Neutrophils # (A) 6.61 X 10*3/uL (1.80-7.70); Neutrophils % (A) 68.7 %; Platelet Count 225 X 10*3/uL (140-440); RBC 4.64 X 10*6/uL (4.40-5.60); RDW 13.8 % (11.5-14.5); WBC 9.63 X 10*3/uL (4.50-10.00)
[2023-12-24 10:55] LABS: ALT 40 U/L (10-49); AST 25 U/L (14-35); Alkaline Phosphatase 113 U/L (41-126); BUN/Creat Ratio 14.81 Ratio (12.00-20.00); Blood Urea Nitrogen 23.7 mg/dL (9.0-27.0); Calcium 9.2 mg/dL (8.7-10.3); Carbon Dioxide 26.7 mmol/L (21.6-31.8); Chloride 104 mmol/L (96-109); Globulin 2.5 g/dL (1.6-3.3); Glucose 137 mg/dL (70-110); Potassium 4.9 mmol/L (3.5-5.5); Sodium 140 mmol/L (135-145); Total Bilirubin 0.3 mg/dL (0.3-1.2); Total Protein 6.5 g/dL (6.2-8.2)
[2023-12-24] MEDS: ALPRAZolam 0.5 MG TAB PO PRN (23:22)
[2023-12-25] MEDS: METOPROLOL TARTRATE 50 MG TAB PO SCH (09:31)
--- NOTE | 2023-12-25 11:16 | P.PN ---
Subjective Progress Note Date: 12/25/23 History of present illness: The patient is a 48-year-old male with a history of hypertension, prior history of smoking who is followed by Dr. Berman, presented in September 2023 with non-STEMI underwent coronary angiography and subsequently CABG with ORTEZ to the LAD. Patient had recent hospitalization 2 weeks ago with hypertensive emergency and was started on amlodipine, hydrochlorothiazide. He states he had been doing fairly well however had acute onset of feeling significantly short of breath and had to sit down with doing minimal exertion carrying some furniture around with his . He states in between these episodes he felt okay. Denies any actual chest pain or pressure. Blood pressure is noted to be significantly low in the 70s and 80s and additionally has acute kidney injury with creatinine 1.9. He admits he has been urinating fine however some decreased urine output. Denies any fevers or chills. 12/24 Heart rates 110-140's this am. His metoprolol was not resumed. Mild chest discomfort with moving in bed. Feeling better overall today. Creat 1.6. Physical Examination: Vitals reviewed Head: Normocephalic. Eyes: Sclerae nonicteric. Neck: Good carotid upstroke, no bruit, no jugular venous distention. Lungs: Clear to auscultation. Midline scar well-healed Heart: Regular rate and rhythm, S1-S2, no S3, no rub. No murmur. Abdomen: Soft nontender, positive bowel sounds no organomegaly. Extremities: No edema, intact distal pulses. Impression: 1. Dyspnea on exertion, may be related to hypotensive episodes worsened in the extreme heat 2. Hypertension, currently hypotensive, likely related to med changes 2 weeks ago 3. Status post CABG with no evidence of recurrent ischemia 4. History of hyperlipidemia 5. Prior history of smoking 6. SAMANTHA Plan: Kidney function improved. Resumed metoprolol. Blood pressures better. Continue to hold amlodipine and hydrochlorothiazide for now. BNP normal and do not suspect component of heart failure. Does not appear consistent with angina. If it is recurrent consider wearing a heart monitor to rule out any postoperative A. fib or other arrhythmias. Recommend monitoring overnight. Further recommendations to follow. Patient seen and examined in rounds with Dr. Hall, plan of care agreed upon. Objective - Vital Signs Vital signs: Vital Signs Temp 98.1 F 12/25/23 07:00 Pulse 109 H 12/25/23 07:00 Resp 17 12/25/23 07:00 BP 118/83 12/25/23 07:00 Pulse Ox 95 12/25/23 07:00 FiO2 Intake & Output 12/24/23 12/25/23 12/25/23 18:59 06:59 18:59 Intake Total 340 Balance 340 Weight 88.451 kg Intake: Oral 340 Other: # Voids 1 - Labs CBC & Chem 7: 12/24/23 07:44 12/24/23 07:44 Labs: Abnormal Lab Results - Last 24 Hours (Table) 12/24/23 Range/Units 07:44 Creatinine 1.6 H (0.6-1.5) mg/dL Est GFR (CKD-EPI) 53 L (>=60) Glucose 137 H (70-110) mg/dL
[2023-12-25 12:22] LABS: Calcium 9.7 mg/dL (8.7-10.3); Carbon Dioxide 24.4 mmol/L (21.6-31.8); Chloride 101 mmol/L (96-109); Glucose 132 mg/dL (70-110); Potassium 4.4 mmol/L (3.5-5.5); Sodium 139 mmol/L (135-145)
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
[2023-12-25 15:02] VITALS: BP 108/73; PULSE 82; RESP 16; TEMP 98
--- NOTE | 2023-12-26 14:47 | P.DS ---
Providers Date of admission: 12/23/23 17:13 Expected date of discharge: 12/25/23 Attending physician: Ilia Alonzo Consults: 12/23/23 17:13 Consult Physician Urgent Consulting Provider: Ray Berman Consult Reason/Comments: Exertional dyspnea, hypotension Do you want consulting provider notified?: Yes Primary care physician: Dontae [facility] Course: Final diagnoses Dyspnea with exertion, suspect related to hypotension and extreme heat. History of recent inpatient hospitalization for hypertensive emergency with med regimen adjusted to include Norvasc and hydrochlorothiazide, currently on hold History of possible new onset seizure, on last admission in November, neurology workup completed, possibly provoked to hypertensive emergency and hydralazine CAD, recent CABG September 2023 Chronic paroxysmal atrial fibrillation History of hypertension Hyperlipidemia Prior nicotine dependence, recently quit in September 2023 Prior marijuana use, quit in September 2023 Hospital course:This is a 48-year-old gentleman with past medical history significant for recent NSTEMI with CABG September 2023, inpatient hospitalization in November 2023 for hypertension emergency and multiple other medical issues. During his last hospitalization approximately 2 weeks ago patient was started on amlodipine, hydrochlorothiazide. [place], bought a piece of equipment weighing approximately 50 pounds,. He and his carried it across the yard across the driveway to his truck and lifted it up into the truck. States the weather was extremely hot. Status post lift,he immediately developed shortness of breath, improved with sitting down. Denies chest pain, palpitations. patient also has an event monitor placed approximately 1-1/[address] Downs, instructed to wear for 3 weeks and is due to be DC'd on December 30. Hypotensive with systolic blood pressures in the 70s and 80s, with dehydration/acute renal insufficiency, creatinine 1.9. BNP 34.patient reports he has not inhaled any marijuana or nicotine since his CT. Troponins negative x 3 .EKG, reported sinus rhythm, chest x-ray reported nonacute ,evaluated by cardiology. Cardiology following, amlodipine and hydrochlorothiazide on hold, CHF, angina not suspected. receiving IV fluid hydration. Maintain close monitoring of renal function, blood pressure overnight. Anticipate discharge home in a.m. Significant clinical improvement. Encouraged oral intake. Tachycardic earlier than today, resolved. Creatinine 1.3. Patient eager for discharge. DC meds including adjusted- metoprolol tartrate 25 mg twice daily, lisinopril 10 mg nightly, discussed between Dr. Alonzo and Dr. Hall .cleared by cardiology for discharge. Patient will be discharged home today in stable condition with guarded prognosis and advised to follow-up with PCP tomorrow. The impression and plan of care has been dictated as directed. : I performed a history and examination of this patient, discussed the same with the dictator. I agree with the dictator's note ,documented as a scribe. Any additional findings or plans will be noted. Patient Condition at Discharge: Stable Plan - Discharge Summary Discharge Rx Participant: No New Discharge Prescriptions: New lisinopriL [Prinivil] 10 mg PO HS #30 tab Metoprolol Tartrate 25 mg PO BID #60 tab Continue Atorvastatin [Lipitor] 40 mg PO HS Nicotine 14Mg/24Hr Patch [Habitrol] 1 patch TRANSDERM DAILY #30 patch Acetaminophen Tab [Tylenol] 650 mg PO Q4HR PRN tab PRN Reason: Fever and/ or Mild Pain Sennosides-Docusate Sodium [Senokot-S] 2 tab PO HS PRN PRN Reason: Constipation DULoxetine HCL [Cymbalta] 60 mg PO DAILY Aspirin 81 mg PO DAILY tab Melatonin 6 mg PO HS PRN tab PRN Reason: Insomnia Clopidogrel [Plavix] 75 mg PO DAILY #30 tab Pantoprazole [Protonix] 40 mg PO AC-BRKFST #30 tab Levothyroxine Sodium [Synthroid] 100 mcg PO DAILY@0630 #30 tab Discontinued lisinopriL 40 mg PO DAILY Spironolactone [Aldactone] 25 mg PO BID #60 tab Metoprolol Tartrate [Lopressor] 50 mg PO BID #60 tab hydroCHLOROthiazide [Hydrodiuril] 25 mg PO DAILY #30 tab amLODIPine [Norvasc] 5 mg PO BID #60 tab Discharge Medication List Atorvastatin [Lipitor] 40 mg PO HS 09/30/23 [History] Acetaminophen Tab [Tylenol] 650 mg PO Q4HR PRN tab 10/07/23 [Rx] Clopidogrel [Plavix] 75 mg PO DAILY #30 tab 10/07/23 [Rx] Melatonin 6 mg PO HS PRN tab 10/07/23 [Rx] Nicotine 14Mg/24Hr Patch [Habitrol] 1 patch TRANSDERM DAILY #30 patch 10/07/23 [Rx] Pantoprazole [Protonix] 40 mg PO AC-BRKFST #30 tab 10/07/23 [Rx] Sennosides-Docusate Sodium [Senokot-S] 2 tab PO HS PRN 10/17/23 [History] DULoxetine HCL [Cymbalta] 60 mg PO DAILY 12/05/23 [History] Aspirin 81 mg PO DAILY tab 12/09/23 [Rx] Levothyroxine Sodium [Synthroid] 100 mcg PO DAILY@0630 #30 tab 12/09/23 [Rx] Metoprolol Tartrate 25 mg PO BID #60 tab 12/25/23 [Rx] lisinopriL [Prinivil] 10 mg PO HS #30 tab 12/25/23 [Rx] Follow up Appointment(s)/Referral(s): Ray Berman MD [STAFF PHYSICIAN] - 1 Week (Office will call with appointment time and date) Ilia Alonzo Jr, DO [Family Provider] - 12/26/23 Ambulatory/Diagnostic Orders: Basic Metabolic Panel [LAB.AMB] Time Frame: 3 Days, Location: None Selected Discharge Disposition: HOME SELF-CARE
== END 2023-12-25 15:35 | disposition home or self-care (01) ==
LOC: EC 14:17 → 6NMEDSUR 17:13
PROVIDERS: ADMIT Family Medicine; ATTEND Family Medicine
DX: R06.09 Other forms of dyspnea (principal); N17.9 Acute kidney failure, unspecified; E86.0 Dehydration; I95.9 Hypotension, unspecified; I48.0 Paroxysmal atrial fibrillation; I10 Essential (primary) hypertension; I25.10 Atherosclerotic heart disease of native coronary artery without angina pectoris; E78.5 Hyperlipidemia, unspecified; I25.2 Old myocardial infarction; Z79.899 Other long term (current) drug therapy; Z79.02 Long term (current) use of antithrombotics/antiplatelets; Z79.82 Long term (current) use of aspirin; Z79.890 Hormone replacement therapy; Z95.1 Presence of aortocoronary bypass graft; Z87.891 Personal history of nicotine dependence
CPT/HCPCS: 96360; 96361 ×2; 99285; 36415; 93005; 85379; 83880; 80053 ×2; 80048; 83735; 84484; 85025 ×2; 85610; 85730; 71046; G0378 ×3

== ENCOUNTER 2024-01-07 07:52 | Inpatient (IN) | payer BC ==
[~2024-01-07 07:52] MED LIST changes: +HEPARIN SODIUM,PORCINE (1 ML) 2,500 UNIT in SODIUM CHLORIDE 0.9% 250 ML IRRIGATION PRN; +HEPARIN SODIUM,PORCINE 10,000 UNIT in SODIUM CHLORIDE 0.9% 1,000 ML IRRIGATION PRN; -LACTATED RINGERS 1,000 ML IV SCH; +NITROGLYCERIN SL TABS 0.4 MG TAB SUBLINGUAL PRN
[2024-01-07] MEDS: IV FLUID CONTINUATION 1,000 ML IV ONE (08:10)
[2024-01-07] MEDS: SODIUM CHLORIDE 0.9% 1,000 ML in EMPTY BAG 1 BAG IV SCH ×2 (08:10→14:00)
[2024-01-07 08:15] LABS: Basophils # (A) 0.1 k/uL (0-0.2); Basophils % (A) 1 %; Eosinophils # (A) 0.2 k/uL (0-0.7); Eosinophils % (A) 2 %; HCT 40.3 % (39.0-53.0); HGB 13.5 gm/dL (13.0-17.5); Lymphocytes # (A) 1.8 k/uL (1.0-4.8); Lymphocytes % (A) 18 %; MCH 29.6 pg (25.0-35.0); MCHC 33.5 g/dL (31.0-37.0); MCV 88.5 fL (80.0-100.0); Monocytes # (A) 0.5 k/uL (0-1.0); Monocytes % (A) 5 %; Neutrophils # (A) 7.2 k/uL (1.3-7.7); Neutrophils % (A) 73 %; Platelet Count 227 k/uL (150-450); RBC 4.55 m/uL (4.30-5.90); RDW 14.3 % (11.5-15.5); WBC 9.8 k/uL (3.8-10.6)
[2024-01-07 08:44] LABS: African American GFR (CKD) 86 (>60 ml/min/1.73 sqM); Anion Gap 6 mmol/L; Blood Urea Nitrogen 17 mg/dL (9-20); Calcium 9.5 mg/dL (8.4-10.2); Carbon Dioxide 31 mmol/L (22-30); Chloride 104 mmol/L (98-107); Glucose 105 mg/dL (74-99); Non-African American GFR(CKD) 74 (>60 ml/min/1.73 sqM); Potassium 4.3 mmol/L (3.5-5.1); Sodium 141 mmol/L (137-145)
[2024-01-07] MEDS: MIDAZOLAM 2 MG/2 ML VIAL IVP ONE (10:42)
[2024-01-07] MEDS: LIDOCAINE 1% INJ 10MG/ML (20 ML MDV) SQ ONE (10:44)
[2024-01-07] MEDS: VERAPAMIL SYRINGE (5 MG/10 ML) INTRAARTER ONE (10:44)
[2024-01-07] MEDS: HEPARIN SODIUM 1,000 UN/ML (10ML VL) IVP ONE (10:48)
[2024-01-07] MEDS ORDERED: CLOPIDOGREL 75 MG TAB ONE (11:01)
[2024-01-07] MEDS: MORPHINE SULFATE 4 MG/ML SYRINGE IVP ONE ×2 (11:02→11:17)
[2024-01-07] MEDS ORDERED: MORPHINE SULFATE 4 MG/ML SYRINGE ONE (11:03)
[2024-01-07] MEDS: CLOPIDOGREL 75 MG TAB PO ONE (11:07)
[2024-01-07] MEDS: IOPAMIDOL-370 100ML BTL INJ ONE (11:08)
[2024-01-07] MEDS ORDERED: ONDANSETRON 4 MG/2 ML VIAL ONE (11:11)
[2024-01-07] MEDS: ONDANSETRON 4 MG/2 ML VIAL IVP ONE (11:17)
[2024-01-07] MEDS ORDERED: ZOLPIDEM 5 MG TAB PO PRN (11:20)
[2024-01-07] MEDS ORDERED: MAG HYDROX/AL HYDROX/SIMETH 30 ML CUP PO PRN (11:20)
[2024-01-07] MEDS: NITROGLYCERIN SL TABS 0.4 MG TAB SUBLINGUAL ONE (11:20)
[2024-01-07] MEDS ORDERED: NITROGLYCERIN SL TABS 0.4 MG TAB SUBLINGUAL ONE (11:20)
[2024-01-07] MEDS ORDERED: RX INFO: IV CONTRAST WAS GIVEN 1 EACH MISC MISCELLANE PRN (11:20)
[2024-01-07] MEDS ORDERED: ATROPINE SULFATE 0.1 MG/ML 10ML SYRINGE IV PRN (11:20)
--- NOTE | 2024-01-07 11:25 | P.PCN ---
Date of Procedure: 01/07/24 Operative Findings: PERCUTANEOUS CORONARY INTERVENTION Performing physician Ray Berman M.D. Procedure Performed: 1. Successful stenting of the proximal LCx using 3.5 x 15 Xience drug-eluting stent with an excellent angiographic results. 2. Adjunctive use of IVUS 3. Ultrasound-guided access of the right radial art Indication: Critical proximal LCx disease Approach: Right radial art Complications: None Level of Sedation: Moderate with a sedation length of 23 minutes Procedure Discussion: After obtaining informed consent the patient was brought to the cardiac [employer]. The right radial artery was cannulated using micropuncture technique under ultrasound guidance a micropuncture wire passed easily then I placed a 6 Prydeinig 11 cm sheath at the right radial artery. Anticoagulation was initiated using heparin with continuous ACT monitoring. Subsequently the left main was engaged using an EBU 3.5 guiding catheter. Subsequently I wired the left circumflex using a run-through wire after an angiogram was performed. Subsequently I did intravascular ultrasound which showed a diameter around 3.5 mm distal to the lesion. Predilatation was performed using 3.0 mm balloon before I deployed 3.5 x 15 mm stent which was postdilated using 4 mm noncompliant balloon with final angiogram showing excellent angiographic results and the procedure was completed with no complication. The final angiogram showed small nonflow limiting dissection involving the distal edge of the stent but was EASTON-3 flow and the patient was asymptomatic and it was left. Postprocedure Management: 1. Dual antiplatelet therapy using aspirin and Plavix for at least 6-month 2. Aggressive cholesterol control 3. Risk factors modification
[2024-01-07] MEDS: NITROGLYCERIN SL TABS 0.4 MG TAB SUBLINGUAL PRN (12:07)
[2024-01-07] MEDS: hydrALAZINE HCL 20 MG/ML 1 ML VIAL IVP STA ×2 (12:31→18:50)
[2024-01-07] MEDS: ENALAPRILAT 1.25 MG/ML 1 ML VIAL IVP STA (12:32)
[2024-01-07] MEDS: ENALAPRILAT 1.25 MG/ML 1 ML VIAL ONE (12:45)
[2024-01-07] MEDS: NITROGLYCERIN-D5W PMX 50 MG in DEXTROSE/WATER 1 250ML.BAG IV SCH (13:45)
[2024-01-07] MEDS: ASPIRIN 325 MG TAB PO STA (13:55)
[2024-01-07 14:09] LABS: Glucose,Whole Blood 116 mg/dL (70-110)
[2024-01-07] MEDS ORDERED: NALOXONE 0.4 MG/ML 1 ML VIAL IV PRN (16:41)
[2024-01-07] MEDS: ALPRAZolam 0.5 MG TAB PO PRN (17:40)
[2024-01-07] MEDS ORDERED: MORPHINE SULFATE 4 MG/ML SYRINGE IVP PRN (18:43)
[2024-01-07] MEDS: ONDANSETRON 4 MG/2 ML VIAL IVP PRN (18:50)
[2024-01-07] MEDS: ACETAMINOPHEN IV (For NPO) 1,000 MG in EMPTY BAG 1 BAG IVPB ONE (19:15)
[2024-01-07] MEDS: lisinopriL 10 MG TAB PO SCH (20:21)
[2024-01-07] MEDS: METOPROLOL TARTRATE 25 MG TAB PO SCH (20:21)
[2024-01-07] MEDS: ATORVASTATIN 40 MG TAB PO SCH (20:21)
[2024-01-08] MEDS: ACETAMINOPHEN TAB 500 MG TAB PO PRN (01:21)
[2024-01-08] MEDS: hydrALAZINE HCL 20 MG/ML 1 ML VIAL IVP STA (01:50)
[2024-01-08 04:32] LABS: Basophils % (A) 0 %; Eosinophils # (A) 0.1 k/uL (0-0.7); Eosinophils % (A) 0 %; HCT 43.6 % (39.0-53.0); HGB 14.3 gm/dL (13.0-17.5); Lymphocytes # (A) 0.9 k/uL (1.0-4.8); Lymphocytes % (A) 7 %; MCH 29.5 pg (25.0-35.0); MCHC 32.9 g/dL (31.0-37.0); MCV 89.4 fL (80.0-100.0); Mean Platelet Volume 7.7; Monocytes # (A) 0.6 k/uL (0-1.0); Monocytes % (A) 5 %; Neutrophils # (A) 11.9 k/uL (1.3-7.7); Neutrophils % (A) 87 %; Platelet Count 229 k/uL (150-450); RBC 4.87 m/uL (4.30-5.90); RDW 14.3 % (11.5-15.5); WBC 13.7 k/uL (3.8-10.6)
[2024-01-08 04:40] LABS: African American GFR (CKD) >90 (>60 ml/min/1.73 sqM); Anion Gap 7 mmol/L; Blood Urea Nitrogen 11 mg/dL (9-20); Calcium 9.2 mg/dL (8.4-10.2); Carbon Dioxide 25 mmol/L (22-30); Chloride 105 mmol/L (98-107); Glucose 137 mg/dL (74-99); Non-African American GFR(CKD) >90 (>60 ml/min/1.73 sqM); Potassium 3.7 mmol/L (3.5-5.1); Sodium 137 mmol/L (137-145)
[2024-01-08] MEDS: LEVOTHYROXINE 100 MCG TAB PO SCH (06:05)
[2024-01-08] MEDS: POTASSIUM CHLORIDE 10 MEQ in WATER FOR INJECTION 1 100ML.BAG IVPB SCH (06:07)
--- NOTE | 2024-01-08 07:50 | P.PN ---
Subjective Progress Note Date: 01/08/24 The patient is a pleasant 49-year-old gentleman who was admitted to the hospital yesterday and underwent PCI of the left circumflex coronary artery. After the procedure he was hypertensive requiring nitroglycerin IV. January 08, 2024 He was seen and evaluated this morning. He is still having some headache. The pressure is overall is better and not consistent with crisis but stage II hypertension with him going to increase the dose of metoprolol and also increase the dose of lisinopril. Also obtain a CT scan of the head to rule out any intracranial process. Examination is remarkable for regular rhythm with a clear breathing sounds bilaterally and no edema was noted Assessment CAD as described above Hypertension emergency Headache Multiple comorbid conditions Plan Increase the dose of metoprolol and lisinopril Obtain a CT scan of the head Follow-up with the patient Objective - Vital Signs Vital signs: Vital Signs Temp 98.1 F 01/08/24 04:00 Pulse 102 H 01/08/24 07:00 Resp 12 01/08/24 07:00 BP 148/95 01/08/24 07:00 Pulse Ox 97 01/08/24 07:00 FiO2 Intake & Output 01/07/24 01/08/24 01/08/24 18:59 06:59 18:59 Intake Total 709.65 370.275 110 Output Total 890 1600 0 Balance -180.35 -1229.725 110 Weight 89 kg 87.7 kg Intake: IV 700 360 110 .9 @ 10 60 10 .9 @ 25 125 Potassium Chloride 10 meq 100 100 In Water For Injection 1 100ml.bag @ 100 mls/hr IVPB Q1H [facility] Rx#: [id number] Sodium Chloride 0.9% 1, 225 75 000 ml In Empty Bag 1 bag @ 75 mls/hr IV .[id number] [facility] Rx#:[id number] Intake, IV Titration 9.65 10.275 Amount Nitroglycerin-D5w Pmx 50 9.65 10.275 mg In Dextrose/Water 1 250ml.bag @ 5 MCG/MIN 1.5 mls/hr IV .Q24H [facility] Rx#: [id number] Output: Urine 890 1600 0 Other: Voiding Method Urinal Urinal # Voids 0 0 - Labs CBC & Chem 7: 01/08/24 04:04 01/08/24 04:04 Labs: Abnormal Lab Results - Last 24 Hours (Table) 01/07/24 01/07/24 01/08/24 Range/Units 08:00 14:07 04:04 WBC 13.7 H (3.8-10.6) k/uL Neutrophils # 11.9 H (1.3-7.7) k/uL Lymphocytes # 0.9 L (1.0-4.8) k/uL Carbon Dioxide 31 H (22-30) mmol/L Glucose 105 H (74-99) mg/dL POC Glucose (mg/dL) 116 H (70-110) mg/dL 01/08/24 Range/Units 04:04 WBC (3.8-10.6) k/uL Neutrophils # (1.3-7.7) k/uL Lymphocytes # (1.0-4.8) k/uL Carbon Dioxide (22-30) mmol/L Glucose 137 H (74-99) mg/dL POC Glucose (mg/dL) (70-110) mg/dL
[2024-01-08] MEDS: CLOPIDOGREL 75 MG TAB PO SCH (08:35)
[2024-01-08] MEDS: ASPIRIN 81 MG PO SCH (08:35)
[2024-01-08] MEDS: DULoxetine HCL 60 MG CAPSULE.DR PO SCH (08:35)
[2024-01-08] MEDS: lisinopriL 10 MG TAB PO STA (08:35)
[2024-01-08] MEDS: METOCLOPRAMIDE 5 MG/ML 2 ML VIAL IVP PRN (08:41)
[2024-01-08] MEDS: METOPROLOL TARTRATE 50 MG TAB PO SCH (08:41)
--- NOTE | 2024-01-08 11:33 | CT ---
EXAMINATION TYPE: CT brain wo con CT DLP: 1095.6 mGycm, Automated exposure control for dose reduction was used. DATE OF EXAM: 01/08/2024 11:25 AM COMPARISON: MRI brain 12/06/2023, CT brain 12/05/2023, 12/22/2020 CLINICAL INDICATION:Male, 49 years old with history of r/o brain bleed/ headache, R/O Brain bleed/hea dache TECHNIQUE: Brain: Multiple axial CT images of the brain were obtained without IV contrast. . Coronal and sagitta l reformats reviewed. FINDINGS: Brain: Extra-axial spaces: No abnormal extra-axial fluid collections. Ventricular system: Within normal limits Cerebral parenchyma: No acute intraparenchymal hemorrhage or mass effect. The curry-white junction is well differentiated. Cerebellum: Unremarkable. Mass effect: No evidence of midline shift. Intracranial vasculature: unremarkable Soft tissues: Normal. Calvarium/osseous structures: No depressed skull fracture. Paranasal sinuses and mastoid air cells: Clear Visualized orbits: Orbital contents are intact. Bilateral posterior globe calcifications redemonstrat ed. IMPRESSION: No acute intracranial process.
[2024-01-08 11:34] VITALS: BMI 27.7
[2024-01-08] MEDS: ACETAMINOPHEN TAB 325 MG TAB PO PRN (18:21)
[2024-01-08] MEDS: lisinopriL 20 MG TAB PO SCH (20:18)
[2024-01-08 23:20] VITALS: TEMP 98.2
[2024-01-08] MEDS: ALPRAZolam 0.25 MG TAB PO PRN (23:30)
[2024-01-09 06:43] LABS: Basophils # (A) 0.1 k/uL (0-0.2); Basophils % (A) 0 %; Eosinophils % (A) 0 %; HCT 47.2 % (39.0-53.0); HGB 15.5 gm/dL (13.0-17.5); Lymphocytes # (A) 2.2 k/uL (1.0-4.8); Lymphocytes % (A) 15 %; MCHC 32.8 g/dL (31.0-37.0); MCV 88.5 fL (80.0-100.0); Monocytes # (A) 0.9 k/uL (0-1.0); Monocytes % (A) 6 %; Neutrophils # (A) 10.7 k/uL (1.3-7.7); Neutrophils % (A) 76 %; Platelet Count 265 k/uL (150-450); RBC 5.34 m/uL (4.30-5.90); RDW 14.2 % (11.5-15.5); WBC 14.1 k/uL (3.8-10.6)
[2024-01-09 07:03] LABS: African American GFR (CKD) >90 (>60 ml/min/1.73 sqM); Anion Gap 8 mmol/L; Blood Urea Nitrogen 12 mg/dL (9-20); Calcium 9.5 mg/dL (8.4-10.2); Carbon Dioxide 26 mmol/L (22-30); Chloride 106 mmol/L (98-107); Glucose 136 mg/dL (74-99); Non-African American GFR(CKD) >90 (>60 ml/min/1.73 sqM); Potassium 4.3 mmol/L (3.5-5.1); Sodium 140 mmol/L (137-145)
--- NOTE | 2024-01-09 08:00 | P.DS ---
Providers Date of admission: 01/07/24 07:53 Attending physician: Ray Berman Consults: 01/07/24 11:20 Consult Physician Routine Consulting Provider: [facility] Consult Reason/Comments: Post Interventional patient Do you want consulting provider notified?: Already Contacted Primary care physician: Dontae [facility] Course: The patient is a 49-year-old gentleman who was admitted to the hospital and underwent PCI of the left circumflex. After the procedure he was hypertensive and tachycardic and he was admitted to the intensive care unit January 09, 2024 The patient was seen and evaluated this morning with he is asymptomatic and hemodynamically stable with the pressure has been under good control on the current dose of lisinopril and metoprolol after we increase the dose. The patient is going to be discharged home on dual antiplatelet therapy along with high intensity statin along with a blood pressure medication and I will follow-up with the patient next week in the office Plan - Discharge Summary Discharge Rx Participant: Yes New Discharge Prescriptions: New Metoprolol Tartrate [Lopressor] 50 mg PO BID #180 tab Continue Atorvastatin [Lipitor] 40 mg PO HS DULoxetine HCL [Cymbalta] 60 mg PO QAM Levothyroxine Sodium [Synthroid] 100 mcg PO DAILY@0630 #30 tab Aspirin 81 mg PO QAM Clopidogrel [Plavix] 75 mg PO QAM Changed lisinopriL [Prinivil] 20 mg PO HS #30 tab Discontinued Metoprolol Tartrate 25 mg PO BID #60 tab Discharge Medication List Atorvastatin [Lipitor] 40 mg PO HS 09/30/23 [History] DULoxetine HCL [Cymbalta] 60 mg PO QAM 12/05/23 [History] Levothyroxine Sodium [Synthroid] 100 mcg PO DAILY@0630 #30 tab 12/09/23 [Rx] Aspirin 81 mg PO QAM 01/06/24 [History] Clopidogrel [Plavix] 75 mg PO QAM 01/06/24 [History] Metoprolol Tartrate [Lopressor] 50 mg PO BID #180 tab 01/09/24 [Rx] lisinopriL [Prinivil] 20 mg PO HS #30 tab 01/09/24 [Rx] Follow up Appointment(s)/Referral(s): Ray Berman MD [STAFF PHYSICIAN] - 1 Week (THE OFFICE WILL CALL YOU WITH AN APPOINTMENT DATE AND TIME) Patient Instructions/Handouts: Moderate Sedation (DC), After Radial Heart Catheterization (GEN) Activity/Diet/Wound Care/Special Instructions: *NO LIFTING, PUSHING, PULLING ANYTHING OVER 5 POUNDS FOR 5 DAYS *NO DRIVING FOR 3 DAYS *YOU CAN REMOVE YOUR DRESSING TOMORROW BUT DO NOT SUBMERSE YOUR PUNCTURE SITE IN WATER FOR AT LEAST A FEW DAYS TO PREVENT INFECTION - SO NO TUB BATHS, POOLS, HOT TUBS, DISHES...ETC *ANY SIGNS OF BLEEDING (HARDNESS, SWELLING, OR EXCESSIVE BRUISING) HOLD DIRECT PRESSURE ON YOUR PUNCTURE SITE AND COME TO THE NEAREST EMERGENCY ROOM TO GET YOUR PUNCTURE SITE LOOKED AT - DO NOT DRIVE YOURSELF! EITHER CALL EMS OR HAVE SOMEONE DRIVE YOU!
[2024-01-09 08:04] VITALS: BP 114/80; PULSE 101; RESP 16
== END 2024-01-09 09:19 | disposition home or self-care (01) | DRG 322 ==
LOC: CATHCVL 07:52 → 2SICU 07:53 → CATHCVL 11:09 → 6NMEDSUR 11:09 → 2SICU 11:09
PROVIDERS: ADMIT Internal Medicine Interventional Cardiology; ATTEND Internal Medicine Interventional Cardiology
PROC: B241ZZ3 Ultrasonography of Multiple Coronary Arteries, Intravascular (ICD-10-PCS; principal; 2024-01-07 09:00)
PROC: 027034Z Dilation of Coronary Artery, One Artery with Drug-eluting Intraluminal Device, Percutaneous Approach (ICD-10-PCS; principal; 2024-01-07 09:00)
DX: I25.10 Atherosclerotic heart disease of native coronary artery without angina pectoris (principal); I16.1 Hypertensive emergency; I10 Essential (primary) hypertension; R51.9 Headache, unspecified; R00.0 Tachycardia, unspecified; Z28.310 Unvaccinated for COVID-19; Z28.21 Immunization not carried out because of patient refusal; E66.3 Overweight; Z68.28 Body mass index [BMI] 28.0-28.9, adult; Z87.891 Personal history of nicotine dependence; Z95.1 Presence of aortocoronary bypass graft
CPT/HCPCS: 70450; 80048; 85025; 92978

== ENCOUNTER 2024-03-17 10:16 | Inpatient (IN) | payer BC, OTHER ==
[2024-03-17] MEDS: ASPIRIN 81 MG PO STA (10:35)
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
[2024-03-17] MEDS: NITROGLYCERIN OINT 1 INCH/GM PACKET TOPICAL STA (10:36)
[2024-03-17 11:04] LABS: Basophils # (A) 0.1 k/uL (0-0.2); Basophils % (A) 1 %; Eosinophils # (A) 0.1 k/uL (0-0.7); Eosinophils % (A) 1 %; HCT 49.3 % (39.0-53.0); HGB 16.2 gm/dL (13.0-17.5); Lymphocytes # (A) 1.9 k/uL (1.0-4.8); Lymphocytes % (A) 20 %; MCH 29.4 pg (25.0-35.0); MCHC 32.9 g/dL (31.0-37.0); MCV 89.5 fL (80.0-100.0); Mean Platelet Volume 8.5; Monocytes # (A) 0.5 k/uL (0-1.0); Monocytes % (A) 5 %; Neutrophils # (A) 7.1 k/uL (1.3-7.7); Neutrophils % (A) 72 %; Platelet Count 283 k/uL (150-450); RBC 5.51 m/uL (4.30-5.90); WBC 9.8 k/uL (3.8-10.6)
[2024-03-17 11:14] LABS: INR 0.9 (<1.2); Partial Thromboplastin Time 23.4 sec (22.0-30.0); Prothrombin Time 10.4 sec (10.0-12.5)
[2024-03-17 11:30] LABS: ALT 28 U/L (4-49); AST 30 U/L (17-59); African American GFR (CKD) >90 (>60 ml/min/1.73 sqM); Albumin 5.2 g/dL (3.5-5.0); Alkaline Phosphatase 111 U/L (38-126); Anion Gap 15 mmol/L; Blood Urea Nitrogen 11 mg/dL (9-20); Carbon Dioxide 18 mmol/L (22-30); Chloride 107 mmol/L (98-107); Glucose 148 mg/dL (74-99); Magnesium 1.6 mg/dL (1.6-2.3); Non-African American GFR(CKD) 89 (>60 ml/min/1.73 sqM); Potassium 4.3 mmol/L (3.5-5.1); Sodium 140 mmol/L (137-145); Total Bilirubin 0.9 mg/dL (0.2-1.3); Total Protein 8.8 g/dL (6.3-8.2)
--- NOTE | 2024-03-17 11:47 | XR ---
EXAMINATION TYPE: XR chest 2V DATE OF EXAM: 03/17/2024 11:29 AM COMPARISON: Chest radiographs from 12/23/2023 TECHNIQUE: XR chest 2V Frontal and lateral views of the chest. CLINICAL INDICATION:Male, 49 years old with history of Chest Pain; FINDINGS: Lungs/Pleura: There is no evidence of pleural effusion, focal consolidation, or pneumothorax. Pulmonary vascularity: Unremarkable. Heart/mediastinum: Cardiomediastinal silhouette is enlarged and stable. Post-CABG changes. Left atri al appendage occlusion devices present. Musculoskeletal: Multiple level degenerative disc disease changes seen throughout the spine. Midline sternotomy wires are noted and stable. IMPRESSION: No acute cardiopulmonary disease/process. [facility], , 03/17/2024 11:45 AM
[2024-03-17] MEDS: ACETAMINOPHEN TAB 500 MG TAB PO STA (14:44)
[2024-03-17] MEDS: NITROGLYCERIN SL TABS 0.4 MG TAB SUBLINGUAL PRN (16:52)
[2024-03-17] MEDS ORDERED: HEPARIN SODIUM 1,000 UN/ML (10ML VL) IV PRN (16:53)
[2024-03-17] MEDS: hydrALAZINE HCL 20 MG/ML 1 ML VIAL IVP STA ×2 (16:55→19:07)
[2024-03-17] MEDS: ONDANSETRON 4 MG/2 ML VIAL IVP STA (16:56)
[2024-03-17] MEDS ORDERED: ALPRAZolam 0.25 MG TAB PO PRN (17:12)
[2024-03-17] MEDS: HEPARIN SOD,PORK IN 0.45% NACL 25,000 UNIT in 0.45% NACL 1 250ML.BAG IV SCH (17:42)
[2024-03-17] MEDS: HEPARIN SODIUM 1,000 UN/ML (10ML VL) IV ONE (17:44)
[2024-03-17] MEDS: LABETALOL 5 MG/ML VIAL MDV IVP STA (18:53)
[2024-03-17] MEDS: NITROGLYCERIN OINT 1 INCH/GM PACKET TOPICAL SCH (19:03)
[2024-03-17] MEDS: MORPHINE SULFATE 4 MG/ML SYRINGE IVP STA (19:03)
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
[2024-03-17] MEDS: MIDAZOLAM 2 MG/2 ML VIAL IVP ONE (19:39)
[2024-03-17] MEDS: fentaNYL (PF) 50 MCG/ML 2 ML AMP IVP ONE (19:39)
[2024-03-17] MEDS: LIDOCAINE 1% INJ 10MG/ML (20 ML MDV) SQ ONE (19:41)
[2024-03-17] MEDS: VERAPAMIL SYRINGE (5 MG/10 ML) INTRAARTER ONE (19:44)
[2024-03-17] MEDS: HEPARIN SODIUM 1,000 UN/ML (10ML VL) IVP ONE (19:50)
[2024-03-17] MEDS: SODIUM CHLORIDE 0.9% 1,000 ML IV ONE (19:53)
[2024-03-17] MEDS: HEPARIN SODIUM,PORCINE 10,000 UNIT in SODIUM CHLORIDE 0.9% 1,000 ML IRRIGATION ONE (19:53)
[2024-03-17] MEDS: HEPARIN SODIUM,PORCINE (1 ML) 2,500 UNIT in SODIUM CHLORIDE 0.9% 250 ML IRRIGATION ONE (19:53)
[2024-03-17] MEDS: IOPAMIDOL-370 100ML BTL INJ ONE ×2 (19:59→20:08)
--- NOTE | 2024-03-17 20:35 | P.CARDCATH ---
Description of Procedure: PROCEDURES PERFORMED: Left heart catheterization, bilateral coronary angiography, ultrasound guided arterial access, ORTEZ to LAD angiography, left ventriculogram, abdominal aortic angiogram INDICATION: non-STEMI, ongoing discomfort concerning for angina, severe hypertension concerning for flash pulmonary edema and possible renal artery stenosis CONSENT:I have discussed the risks, benefits and alternative therapies for the above-mentioned procedure and for both sedation/analgesia as well as necessary blood product administration, if indicated, as they pertain to this patient. The patient has indicated understanding and acceptance of the risks and procedures discussed. PROCEDURE: After the risks, benefits and alternatives of the above mentioned procedure explained in detail with the patient, informed consent was obtained. Patient was taken to the catheterization lab and prepped and draped in usual fashion. Ultrasound guidance was used to assess for arterial access. 1% lidocaine was used to anesthetize the left radial artery. A 6-Burundian sheath was placed in the left radial artery using modified Seldinger technique and ultrasound guidance. Left coronary angiography was performed with a 5-Bur[place] JL 4.0 catheter and right coronary angiography was performed with a 5-Bur[place] FR4 catheter in various views. A 5-[place] FR4 catheter was inserted into the left ventricle and pressure measurements were obtained. the decision was made to perform left ventriculogram. A 6-Burundian pigtail catheter was inserted in the left ventricle and power injection was performed in the ABRAHAM projection. Additionally there was concern of renal artery stenosis causing flash pulmonary edema and hypertension and therefore abdominal angiogram was performed with DSA. The left radial sheath was removed and a TR band was placed with hemostasis achieved. The patient tolerated the procedure well. Patient was transported back to the post catheterization holding area in stable condition. Conscious Sedation: Patient was monitored under the direct supervision of myself for conscious sedation using Versed and fentanyl for a total duration of 28 minutes HEMODYNAMICS: Ao: 141/98 LV: 123/1, LVEDP 3 SELECTIVE CORONARY ARTERIOGRAPHY: LEFT MAIN: The left main is a large caliber vessel which trifurcates into the LAD, ramus and circumflex. There is no significant stenosis. LEFT ANTERIOR DESCENDING CORONARY ARTERY: LAD is a large caliber vessel which wraps around to the apex. There is a proximal LAD 90% stenosis and otherwise mild luminal irregularities. There is competitive flow with the mid to distal LAD. RAMUS INTERMEDIUS: the ramus is a small to moderate caliber vessel with mild 10-20% stenosis. there are [id number] collaterals to the RCA, acute marginal LEFT CIRCUMFLEX CORONARY ARTERY: Left circumflex is a large caliber vessel a patent proximal circumflex stent and otherwise mild mid 20-30% stenosis. The c ircumflex gives off the PDA and is the dominant vessel. There is a high OM 1 branch which is small caliber and has mild tender 20% stenosis.. RIGHT CORONARY ARTERY: The right coronary artery is a small caliber vessel which gives off a marginal branch and is nondominant and appears to be 100% occluded at the mid portion. There is backfilling of a vein on angiograms from delayed injection. LEFT VENTRICULOGRAM: left ventricular ejection fraction 35% with mid left ventricular anterior and inferior hypokinesis and sparing of the apex, possibly consistent with atypical Takotsubo's variant Abdominal angiogram: No aneurysm or dissection, widely patent renal arteries bilaterally FINAL IMPRESSION: 1. CAD as described above including 90% proximal LAD, 20-30% mid circumflex, 100% small-caliber RCA stenosis with left to right collaterals 2. Low left sided filling pressures 3. Severe hypertension, improved throughout the case with Fentanyl and Versed 4. Patent ORTEZ to LAD 5. LV EF 35% with mid anterior and mid inferior hypokinesis, likely consistent with atypical mid cavitary Takotsubo's cardiomyopathy vs myocarditis. Does not appear to be in any coronary vascular territory 6. Patent renal arteries bilaterally PLAN: 1. Aggressive risk factor modification per most recent ACC/AHA guidelines. 2. Continue with medical therapy with patent ORTEZ to LAD and circumflex stent and small caliber nondominant RCA with left to right collaterals. 3. Consider more aggressive treatment of anxiety and depression.
[2024-03-17] MEDS: METOPROLOL TARTRATE 50 MG TAB PO SCH (21:01)
[2024-03-17] MEDS: DICYCLOMINE 10 MG CAP PO SCH (21:01)
[2024-03-17] MEDS: ATORVASTATIN 40 MG TAB PO SCH (21:01)
[2024-03-17] MEDS: lisinopriL 20 MG TAB PO SCH (21:01)
[2024-03-18] MEDS: LEVOTHYROXINE 100 MCG TAB PO SCH (06:11)
[2024-03-18] MEDS: hydrALAZINE HCL 20 MG/ML 1 ML VIAL IVP STA (06:12)
[2024-03-18 06:28] LABS: Basophils % (A) 0 %; Eosinophils # (A) 0.1 k/uL (0-0.7); Eosinophils % (A) 0 %; HCT 45.8 % (39.0-53.0); HGB 14.8 gm/dL (13.0-17.5); Lymphocytes # (A) 1.5 k/uL (1.0-4.8); Lymphocytes % (A) 11 %; MCHC 32.4 g/dL (31.0-37.0); MCV 89.6 fL (80.0-100.0); Mean Platelet Volume 8.4; Monocytes # (A) 0.7 k/uL (0-1.0); Monocytes % (A) 5 %; Neutrophils % (A) 82 %; Platelet Count 248 k/uL (150-450); RBC 5.11 m/uL (4.30-5.90); RDW 14.2 % (11.5-15.5); WBC 13.4 k/uL (3.8-10.6)
[2024-03-18 06:36] LABS: Prothrombin Time 10.6 sec (10.0-12.5)
[2024-03-18 06:37] LABS: Magnesium 1.7 mg/dL (1.6-2.3)
[2024-03-18] MEDS: CLOPIDOGREL 75 MG TAB PO SCH (08:34)
[2024-03-18] MEDS: ASPIRIN 325 MG TAB PO SCH (08:34)
[2024-03-18] MEDS: ESCITALOPRAM 10 MG TAB PO SCH (08:34)
[2024-03-18] MEDS ORDERED: ASPIRIN 81 MG PO SCH (09:00)
--- NOTE | 2024-03-18 10:46 | CA ---
Transthoracic Echo Report Name: Alejandro Aden Age: 49 Gender: M : 1975 Exam Date: 03/17/2024 17:16 Exam Location: [facility] Ht (in): 70 Wt (lb): 199 Ordering Physician: Tej Hall DO ([email or web address]) Attending/Referring Phys: Concrete Bucket Unloader Meryl Olivo RDCS Procedure CPT: Indications: Chest Pain Cardiac Hx: Technical Quality: Technically difficult study Contrast 1: Total Dose (mL): Contrast 2: Total Dose (mL): MEASUREMENTS (Male / Female) Normal Values 2D ECHO LV Diastolic Diameter PLAX 5.0 cm 4.2 - 5.9 / 3.9 - 5.3 cm LV Systolic Diameter PLAX 4.7 cm IVS Diastolic Thickness 1.1 cm 0.6 - 1.0 / 0.6 - 0.9 cm LVPW Diastolic Thickness 1.3 cm 0.6 - 1.0 / 0.6 - 0.9 cm LV Relative Wall Thickness 0.5 RV Internal Dim ED PLAX 3.0 cm LA Systolic Diameter LX 3.7 cm 3.0 - 4.0 / 2.7 - 3.8 cm LV Diastolic Volume MOD BP 83.6 cm??? 67 - 155 / 56 - 104 cm??? LV Systolic Volume MOD BP 62.2 cm??? 22 - 58 / 19 - 49 cm??? LV Ejection Fraction MOD BP 25.6 % >= 55 % LV Cardiac Index MOD BP 903.7 cm???/min???m??? LV Diastolic Volume MOD 4C 95.0 cm??? LV Systolic Volume MOD 4C 60.7 cm??? LV Ejection Fraction MOD 4C 36.1 % LV Cardiac Index MOD 4C 1447.1 cm???/min???m??? LV Diastolic Length 4C 7.0 cm LV Systolic Length 4C 6.4 cm LV Diastolic Volume MOD 2C 68.2 cm??? LV Systolic Volume MOD 2C 60.7 cm??? LV Ejection Fraction MOD 2C 10.9 % LV Cardiac Index MOD 2C 315.2 cm???/min???m??? LV Diastolic Length 2C 6.4 cm LV Systolic Length 2C 6.8 cm M-MODE Aortic Root Diameter MM 2.9 cm LA Systolic Diameter MM 2.0 cm LA Ao Ratio MM 0.7 DOPPLER AV Peak Velocity 84.2 cm/s AV Peak Gradient 2.8 mmHg MV Area PHT 5.8 cm??? MV E' Velocity 4.4 cm/s FINDINGS Left Ventricle Left ventricular ejection fraction is estimated at 30-35 %. Mildly increased left ventricular systolic volume. Severely decreased left ventricular ejection fraction. Mild concentric left ventricular hypertrophy. Mid to distal anterior and anterolateral wall hypokinesia. No LV thrombus on contrast imaging Right Ventricle Normal right ventricular size. Unable to estimate the right ventricular systolic pressure. Right Atrium Normal right atrial size. No right atrial thrombus or mass seen. Left Atrium Normal left atrial size. No left atrial thrombus or mass present. Mitral Valve Structurally normal mitral valve. No evidence for mitral valve prolapse. No mitral stenosis. Mild mitral regurgitation. Aortic Valve Trileaflet aortic valve. No aortic valve stenosis or regurgitation. Tricuspid Valve Structurally normal tricuspid valve. No tricuspid stenosis, regurgitation or prolapse. Pulmonic Valve Structurally normal pulmonic valve. No pulmonic regurgitation. Pericardium No pericardial or pleural effusion. Aorta Normal size aortic root and proximal ascending aorta. CONCLUSIONS LVEF 30-35% Mild LV cavity dilatation. Severe LV systolic dysfunction. Grade III diastolic dysfunction Mid to distal anterior and anterolateral wall hypokinesia. No significant valve dysfunction Wall motion abnormality and reduction in LV systolic function is new when compared to echo from 12/06/2023 Previewed by: Dr Kai Mcginnis (Electronically Signed) Final Date: 18 March 2024 10:45
[2024-03-18 11:10] LABS: Chol/HDL Ratio 4.72 Ratio; LDL Cholesterol,Calculated 139.6 mg/dL (0.0-131.0)
[2024-03-18] MEDS: clonazePAM 0.5 MG TAB PO SCH (13:47)
--- NOTE | 2024-03-18 14:42 | P.PN ---
Subjective HISTORY OF PRESENT ILLNESS: The patient is a 49-year-old male with a history of hypertension, prior history of smoking who is followed by Dr. Berman, presented in September with non-STEMI underwent coronary angiography and subsequently CABG with ORTEZ to the LAD. He had additional episode of chest pain and eventually underwent PCI of the circumflex 01/07/2024. He had been doing relatively well however apparently had not been feeling well last 3 days. He had been checking his blood pressure and significantly elevated. He states normally when it is fine is more in the 130s over 80s. He states he was significantly elevated with diastolics in the 90s to 100s and then had a meeting at work where he was somewhat more agitated and stressed and then went up onto the roof and then started feeling extremely short of breath and diaphoretic. He states he felt pain all over however not specific for chest pain. Around the time of his original non-STEMI and ORTEZ to LAD he states he did not have classic chest pain. His blood pressure was noted to be severely elevated in the 180 to low 200s systolics and 100 to 160s diastolic. Bedside echo was performed with preliminary report 30-35% which is drop compared to prior. He is diaphoretic and does not feel well. He was given hydralazine, nitro, morphine without significant improvement. He states he just does not feel well as nauseous throwing up. He denies any abdominal pain, recent fevers, chills or sick contacts. EKG showed mild ST depressions 1 and aVL. Patient given additional morphine and labetalol without any real improvement. 03/18/2024 Patient is status post cardiac catheterization with Dr. Hall revealing 90% proximal LAD, 20-30% mid circumflex, 100% small caliber RCA stenosis with [id number] collaterals. Low left-sided filling pressures. Severe hypertension. Patent ORTEZ to LAD. Ejection fraction 35% with mid anterior and mid inferior hypokinesis, likely consistent with atypical mid cavitary Takotsubo cardiomyopathy versus myocarditis. Patient examined this afternoon at the bedside. Patient denies chest pain or pressure. Denies SOB. Blood pressures are better controlled today. PHYSICAL EXAM: VITAL SIGNS: Reviewed. GENERAL: Well-developed in no acute distress. NECK: Supple. No JVD or thyromegaly LUNGS: Respirations even and unlabored. Lungs essentially clear to auscultation bilaterally. HEART: Regular rate and rhythm. S1 and S2 heard. EXTREMITIES: Normal range of motion. No clubbing or cyanosis. Peripheral pulses intact. 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 LDL goal less than 70. Increase metoprolol to 75mg BID Smoking cessation recommended. Patient to be referred to [place] quit line upon discharge. Patient encouraged to monitor blood pressure on an outpatient basis Continue to monitor patient for an additional 24 hours Anticipate discharge home tomorrow Nurse practitioner note has been reviewed by physician. Signing provider agrees with the documented findings, assessment, and plan of care documented by SHOE PATTERNMAKER as a scribe. Objective - Vital Signs Vital signs: Vital Signs Temp 98.5 F 03/18/24 08:30 Pulse 73 03/18/24 12:00 Resp 18 03/18/24 12:00 BP 157/95 03/18/24 12:00 Pulse Ox 98 03/18/24 12:00 FiO2 Intake & Output 03/17/24 03/18/24 03/18/24 18:59 06:59 18:59 Intake Total 600 120 Output Total 800 Balance -200 120 Weight 90.265 kg 94.5 kg Intake: IV 600 Oral 120 Output: Urine 800 Other: Voiding Method Urinal Urinal - Labs CBC & Chem 7: 03/18/24 06:14 03/17/24 10:46 Labs: Abnormal Lab Results - Last 24 Hours (Table) 03/17/24 03/17/24 03/17/24 Range/Units 15:10 18:27 23:33 WBC (3.8-10.6) k/uL Neutrophils # (1.3-7.7) k/uL ESR 32 H (0-15) mm/Hr Troponin I 0.129 H* 0.126 H* (0.000-0.034) ng/mL Triglycerides (0.00-149.00) mg/dL Cholesterol (0.00-200.00) mg/dL LDL Cholesterol, Calc (0.0-131.0) mg/dL 03/18/24 03/18/24 Range/Units 06:14 06:14 WBC 13.4 H (3.8-10.6) k/uL Neutrophils # 11.0 H (1.3-7.7) k/uL ESR (0-15) mm/Hr Troponin I (0.000-0.034) ng/mL Triglycerides 169.00 H (0.00-149.00) mg/dL Cholesterol 220.00 H (0.00-200.00) mg/dL LDL Cholesterol, Calc 139.6 H (0.0-131.0) mg/dL
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
[2024-03-18] MEDS: MAGNESIUM SULFATE-D5W PMX 1 GM in DEXTROSE/WATER 1 100ML.BAG IVPB ONE (17:37)
[2024-03-18] MEDS: METOPROLOL TARTRATE 25 MG TAB PO SCH (19:53)
[2024-03-18] MEDS: ACETAMINOPHEN TAB 325 MG TAB PO PRN (21:28)
[2024-03-19 06:33] LABS: Basophils # (A) 0.1 k/uL (0-0.2); Basophils % (A) 1 %; Eosinophils # (A) 0.1 k/uL (0-0.7); Eosinophils % (A) 1 %; HCT 44.5 % (39.0-53.0); HGB 15.3 gm/dL (13.0-17.5); Lymphocytes # (A) 2.2 k/uL (1.0-4.8); Lymphocytes % (A) 19 %; MCH 30.1 pg (25.0-35.0); MCHC 34.3 g/dL (31.0-37.0); MCV 87.9 fL (80.0-100.0); Monocytes # (A) 0.7 k/uL (0-1.0); Monocytes % (A) 6 %; Neutrophils # (A) 8.4 k/uL (1.3-7.7); Neutrophils % (A) 73 %; Platelet Count 212 k/uL (150-450); RBC 5.06 m/uL (4.30-5.90); RDW 14.5 % (11.5-15.5); WBC 11.5 k/uL (3.8-10.6)
[2024-03-19 07:03] LABS: Potassium 4.2 mmol/L (3.5-5.1)
[2024-03-19 07:04] LABS: African American GFR (CKD) 88 (>60 ml/min/1.73 sqM); Anion Gap 6 mmol/L; Blood Urea Nitrogen 16 mg/dL (9-20); Calcium 9.5 mg/dL (8.4-10.2); Carbon Dioxide 29 mmol/L (22-30); Chloride 106 mmol/L (98-107); Glucose 121 mg/dL (74-99); Magnesium 1.9 mg/dL (1.6-2.3); Non-African American GFR(CKD) 76 (>60 ml/min/1.73 sqM); Sodium 141 mmol/L (137-145)
[2024-03-19] MEDS: ASPIRIN 81 MG PO SCH (08:18)
[2024-03-19 11:24] VITALS: BP 148/100; PULSE 74; RESP 20; TEMP 97.9
--- NOTE | 2024-03-19 13:12 | P.PN ---
Subjective HISTORY OF PRESENT ILLNESS: The patient is a 49-year-old male with a history of hypertension, prior history of smoking who is followed by Dr. Berman, presented in September with non-STEMI underwent coronary angiography and subsequently CABG with ORTEZ to the LAD. He had additional episode of chest pain and eventually underwent PCI of the circumflex 01/07/2024. He had been doing relatively well however apparently had not been feeling well last 3 days. He had been checking his blood pressure and significantly elevated. He states normally when it is fine is more in the 130s over 80s. He states he was significantly elevated with diastolics in the 90s to 100s and then had a meeting at work where he was somewhat more agitated and stressed and then went up onto the roof and then started feeling extremely short of breath and diaphoretic. He states he felt pain all over however not specific for chest pain. Around the time of his original non-STEMI and ORTEZ to LAD he states he did not have classic chest pain. His blood pressure was noted to be severely elevated in the 180 to low 200s systolics and 100 to 160s diastolic. Bedside echo was performed with preliminary report 30-35% which is drop compared to prior. He is diaphoretic and does not feel well. He was given hydralazine, nitro, morphine without significant improvement. He states he just does not feel well as nauseous throwing up. He denies any abdominal pain, recent fevers, chills or sick contacts. EKG showed mild ST depressions 1 and aVL. Patient given additional morphine and labetalol without any real improvement. 03/18/2024 Patient is status post cardiac catheterization with Dr. Hall revealing 90% proximal LAD, 20-30% mid circumflex, 100% small caliber RCA stenosis with [id number] collaterals. Low left-sided filling pressures. Severe hypertension. Patent ORTEZ to LAD. Ejection fraction 35% with mid anterior and mid inferior hypokinesis, likely consistent with atypical mid cavitary Takotsubo cardiomyopathy versus myocarditis. Patient examined this afternoon at the bedside. Patient denies chest pain or pressure. Denies SOB. Blood pressures are better controlled today. 03/19/2024 Patient examined this morning at the bedside. Patient currently denies chest pain or pressure. She denies shortness of breath. Blood pressure remains elevated with a recent reading of 148/100. Patient has been up ambulating in the room without difficulty. He is hoping to be discharged home today. PHYSICAL EXAM: VITAL SIGNS: Reviewed. GENERAL: Well-developed in no acute distress. NECK: Supple. No JVD or thyromegaly LUNGS: Respirations even and unlabored. Lungs essentially clear to auscultation bilaterally. HEART: Regular rate and rhythm. S1 and S2 heard. EXTREMITIES: Normal range of motion. No clubbing or cyanosis. Peripheral pulses intact. No lower extremity edema ASSESSMENT: Non-STEMI, status post cardiac catheterization revealing 90% proximal LAD, 20- 30% mid circumflex, 100% small caliber RCA stenosis with [id number] collaterals, and patent ORTEZ to LAD and patent circumflex stent Hypertensive emergency, improving Acute heart failure with reduced EF Coronary artery disease with previous CABG Takotsubo cardiomyopathy, EF 35%, favored over myocarditis Hyperlipidemia Nicotine dependence Depression PLAN: Continue dual antiplatelet therapy with aspirin and Plavix Continue with medical therapy with patent ORTEZ to LAD and circumflex stent and small caliber nondominant RCA with left to right collaterals Continue statin therapy. LDL goal less than 70. Increase lisinopril to 40 mg daily Smoking cessation recommended. Patient to be referred to [place] quit line upon discharge. Patient encouraged to monitor blood pressure on an outpatient basis Patient encouraged to keep a log of his blood pressures on an outpatient basis Patient may be discharged home today from a cardiac standpoint Nurse practitioner note has been reviewed by physician. Signing provider agrees with the documented findings, assessment, and plan of care documented by CUMULATIVE EFFECTS ANALYST as a scribe. Objective - Vital Signs Vital signs: Vital Signs Temp 98.5 F 03/19/24 08:00 Pulse 80 03/19/24 08:00 Resp 18 03/19/24 08:00 BP 142/101 03/19/24 08:00 Pulse Ox 97 03/19/24 08:53 FiO2 Intake & Output 03/18/24 03/19/24 03/19/24 18:59 06:59 18:59 Intake Total 240 240 360 Output Total 700 Balance 240 -460 360 Weight 90 kg Intake: Oral 240 240 360 Output: Urine 700 Other: Voiding Method Urinal Urinal # Voids 2 - Labs CBC & Chem 7: 03/19/24 06:12 03/19/24 06:12 Labs: Abnormal Lab Results - Last 24 Hours (Table) 03/18/24 03/18/24 03/19/24 Range/Units 06:14 06:14 06:12 WBC (3.8-10.6) k/uL Neutrophils # (1.3-7.7) k/uL Glucose 121 H (74-99) mg/dL Hemoglobin A1c 6.3 H (<=6.0) % Triglycerides 169.00 H (0.00-149.00) mg/dL Cholesterol 220.00 H (0.00-200.00) mg/dL LDL Cholesterol, Calc 139.6 H (0.0-131.0) mg/dL 03/19/24 Range/Units 06:12 WBC 11.5 H (3.8-10.6) k/uL Neutrophils # 8.4 H (1.3-7.7) k/uL Glucose (74-99) mg/dL Hemoglobin A1c (<=6.0) % Triglycerides (0.00-149.00) mg/dL Cholesterol (0.00-200.00) mg/dL LDL Cholesterol, Calc (0.0-131.0) mg/dL
[2024-03-19] MEDS ORDERED: lisinopriL 20 MG TAB PO SCH (21:00)
--- NOTE | 2024-03-20 08:17 | P.DS ---
Providers Date of admission: 03/17/24 14:29 Expected date of discharge: 03/20/24 Attending physician: Dontae Martinez Consults: 03/17/24 14:26 Consult Physician Urgent Consulting Provider: [facility] Consult Reason/Comments: Chest pain Do you want consulting provider notified?: Yes Primary care physician: Dontae Martinez Hospital Course: Final Diagnoses: NSTEMI, status post cardiac catheterization reported 90% proximal LAD, 20-30% mid circumflex, 100% small caliber RCA stenosis with [id number] collaterals, with Takotsubo cardiomyopathy, EF 35%, favored over myocarditis. Hypertensive emergency, improving Acute CHF, systolic dysfunction CAD, recent CABG September 2023, Chronic paroxysmal atrial fibrillation Hypertension Hyperlipidemia History of nicotine dependence, recently quit in September 2023 Marijuana use Prediabetic, hemoglobin A1c 6.1 10/08, recheck 6.3 03/18/24, further follow- up/recommendations outpatient with PCP Depression, anxiety, Xanax discontinued, clonazepam initiated this visit as per PCP. Recommendations for out of town psychiatrist to be discussed further at follow-up visit with PCP. 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 Reports significant stress, recently elevated blood pressures. On admission blood pressure 184/132, received Dralzine, nitroglycerin, labetalol, morphine with minimal improvement. echo reported EF of 30 to 35%, mild to distal anterior and anterior lateral wall hypokinesia, no significant valve dysfunction. Troponin less than 0.012, 0.129, 0.126, EKG reflected a NSTEMI and taken immediately to the Clinician On[facility]. Cath reported 90% proximal LAD, 20-30% mid circumflex, 100% small caliber RCA stenosis with [id number] collaterals. Low left-sided filling pressures. Severe hypertension. Patent ORTEZ to LAD. Ejection fraction 35% with mid anterior and mid inferior hypokinesis, likely consistent with atypical mid cavitary Takotsubo cardiomyopathy versus myocarditis. This morning feels significantly better, blood pressure is better controlled. Denies chest pain, palpitations or shortness of breath. Maintaining O2 sats in the high 90s on room air. Afebrile, WBC 13.4, hemoglobin 14.8, platelets 248. proBNP 5540, CRP normal, less than 0.5. Chest x-ray reported nonacute. triglycerides 169, cholesterol 220, LDL 139.6, HDL 46.6. Cardiology recommending maximizing medical therapy; dual antiplatelet therapy, statin, BB increased. Smoking cessation reinforced. Increase ambulation as tolerated. Discharge planning in progress for tomorrow pending final DC recommendations and clearance per cardiology. Significant clinical improvement. Xanax discontinued and clonazepam initiated yesterday as per PCP. Anxiety, improved. Reports he plans on seeing a psychiatrist out of town and will seek further direction from PCP at follow-up visit. Denies suicidal or homicidal ideations. Maintained on dual antiplatelet therapy with Plavix and aspirin. Hypertensive and NURIS inhibitor increased .denies chest pain, palpitations or shortness of breath. Cleared by cardiology for discharge. Maintain log of a.m. blood pressures and take to follow-up visit with PCP for further recommendations. Patient will be discharged home today in a stable condition with guarded prognosis. The impression and plan of care has been dictated as directed. : I performed a history and examination of this patient, discussed the same with the dictator. I agree with the dictator's note ,documented as a scribe. Any additional findings or plans will be noted. Patient Condition at Discharge: Stable Plan - Discharge Summary Discharge Rx Participant: No New Discharge Prescriptions: New Metoprolol Tartrate [Lopressor] 75 mg PO BID #180 tab lisinopriL [Zestril] 40 mg PO HS #60 tab clonazePAM [KlonoPIN] 0.5 mg PO Q12HR #6 tab Continue Atorvastatin [Lipitor] 40 mg PO HS Dicyclomine [Bentyl] 10 mg PO BID Aspirin 81 mg PO DAILY Clopidogrel [Plavix] 75 mg PO DAILY traMADol HCL 50 - 100 mg PO DAILY PRN PRN Reason: Pain Escitalopram [Lexapro] 10 mg PO DAILY Changed Levothyroxine Sodium [Synthroid] 100 mcg PO AC-BRKFST #30 tab Discontinued Metoprolol Tartrate [Lopressor] 50 mg PO BID #180 tab ALPRAZolam [Xanax] 0.25 mg PO TID PRN PRN Reason: Anxiety lisinopriL [Zestril] 20 mg PO HS Discharge Medication List Atorvastatin [Lipitor] 40 mg PO HS 09/30/23 [History] Aspirin 81 mg PO DAILY 01/06/24 [History] Clopidogrel [Plavix] 75 mg PO DAILY 01/06/24 [History] Dicyclomine [Bentyl] 10 mg PO BID 03/17/24 [History] Escitalopram [Lexapro] 10 mg PO DAILY 03/17/24 [History] traMADol HCL 50 - 100 mg PO DAILY PRN 03/17/24 [History] Levothyroxine Sodium [Synthroid] 100 mcg PO AC-BRKFST #30 tab 03/19/24 [Rx] Metoprolol Tartrate [Lopressor] 75 mg PO BID #180 tab 03/19/24 [Rx] clonazePAM [KlonoPIN] 0.5 mg PO Q12HR #6 tab 03/19/24 [Rx] lisinopriL [Zestril] 40 mg PO HS #60 tab 03/19/24 [Rx] Follow up Appointment(s)/Referral(s): psychiatry, out of town [Other] - 1 Week Ray Berman MD [STAFF PHYSICIAN] - 04/01/24 4:30 pm Dontae Martinez MD [Primary Care Provider] - 03/23/24 1:00 pm (WITH AMINATA MONTIEL) Patient Instructions/Handouts: After Radial Heart Catheterization (GEN) Activity/Diet/Wound Care/Special Instructions: Follow-up with PCP, for further assistance/recommendations for follow-up with a psychiatrist OOT Discharge Disposition: HOME SELF-CARE
[2024-03-20 08:24] LABS: Glucose,Whole Blood 185 mg/dL (70-110)
== END 2024-03-19 14:32 | disposition home or self-care (01) | DRG 280 ==
LOC: EC 10:16 → 6NMEDSUR 14:28 → OBSVTOIN 14:29 → 6NMEDSUR 15:29 → 2SICU 19:00 → 3SCARD 20:26
PROVIDERS: ADMIT Family Medicine; ATTEND Family Medicine
DX: I21.4 Non-ST elevation (NSTEMI) myocardial infarction (principal); I50.21 Acute systolic (congestive) heart failure; I16.1 Hypertensive emergency; I11.0 Hypertensive heart disease with heart failure; I48.0 Paroxysmal atrial fibrillation; Z95.1 Presence of aortocoronary bypass graft; F32.A Depression, unspecified; R73.03 Prediabetes; F41.9 Anxiety disorder, unspecified; I25.10 Atherosclerotic heart disease of native coronary artery without angina pectoris; E78.5 Hyperlipidemia, unspecified; Z87.19 Personal history of other diseases of the digestive system; Z79.02 Long term (current) use of antithrombotics/antiplatelets; Z79.890 Hormone replacement therapy; Z79.82 Long term (current) use of aspirin; Z79.899 Other long term (current) drug therapy; I25.2 Old myocardial infarction; Z87.891 Personal history of nicotine dependence; Z95.5 Presence of coronary angioplasty implant and graft; Z82.49 Family history of ischemic heart disease and other diseases of the circulatory system
CPT/HCPCS: 36415; 71046; 75625; 80048; 80053; 80061; 83036; 83735; 83880; 84484; 85025; 85610; 85652; 85730; 86140; 93005; 93306; 93459; 94760; 96365; 96366; 96375; 99285

== ENCOUNTER 2024-04-05 23:56 | Observation (INO) | payer BC, OTHER ==
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
[2024-04-06 00:34] LABS: Basophils # (A) 0.1 k/uL (0-0.2); Basophils % (A) 1 %; Eosinophils # (A) 0.1 k/uL (0-0.7); Eosinophils % (A) 1 %; HCT 38.5 % (39.0-53.0); HGB 13.3 gm/dL (13.0-17.5); Lymphocytes # (A) 2.6 k/uL (1.0-4.8); Lymphocytes % (A) 32 %; MCH 30.5 pg (25.0-35.0); MCHC 34.5 g/dL (31.0-37.0); MCV 88.5 fL (80.0-100.0); Mean Platelet Volume 9.1; Monocytes # (A) 0.5 k/uL (0-1.0); Monocytes % (A) 6 %; Neutrophils # (A) 4.9 k/uL (1.3-7.7); Neutrophils % (A) 59 %; Platelet Count 213 k/uL (150-450); RBC 4.35 m/uL (4.30-5.90); RDW 14.2 % (11.5-15.5); WBC 8.3 k/uL (3.8-10.6)
[2024-04-06] MEDS: MORPHINE SULFATE 4 MG/ML SYRINGE IV STA (00:47)
--- NOTE | 2024-04-06 00:47 | XR ---
EXAMINATION TYPE: XR chest 2V DATE OF EXAM: 04/06/2024 COMPARISON: Chest x-ray March 17, 2024 HISTORY: Chest pain TECHNIQUE: Frontal and lateral views of the chest are obtained. FINDINGS: Overlying sternal wires with left atrial appendage clip are redemonstrated There is no foc al air space opacity, pleural effusion, or pneumothorax seen. Stable mild cardiomegaly. Bridging oste ophytes in thoracic spine are redemonstrated. IMPRESSION: Mild Cardiomegaly without acute pulmonary process. No significant change from prior. [facility], , 04/06/2024 12:45 AM
[2024-04-06 00:50] LABS: ALT 29 U/L (4-49); AST 29 U/L (17-59); African American GFR (CKD) >90 (>60 ml/min/1.73 sqM); Albumin 4.4 g/dL (3.5-5.0); Alkaline Phosphatase 112 U/L (38-126); Anion Gap 6 mmol/L; Blood Urea Nitrogen 14 mg/dL (9-20); Calcium 9.4 mg/dL (8.4-10.2); Carbon Dioxide 24 mmol/L (22-30); Chloride 108 mmol/L (98-107); Glucose 131 mg/dL (74-99); Magnesium 1.9 mg/dL (1.6-2.3); Non-African American GFR(CKD) 79 (>60 ml/min/1.73 sqM); Potassium 3.9 mmol/L (3.5-5.1); Sodium 138 mmol/L (137-145); Total Bilirubin 0.7 mg/dL (0.2-1.3); Total Protein 7.1 g/dL (6.3-8.2)
[2024-04-06 00:53] LABS: INR 0.8 (<1.2); Prothrombin Time 9.6 sec (10.0-12.5)
[2024-04-06] MEDS: ASPIRIN 81 MG PO STA (00:54)
[2024-04-06 01:09] LABS: Partial Thromboplastin Time 20.4 sec (22.0-30.0)
[2024-04-06] MEDS: MAG HYDROX/AL HYDROX/SIMETH 30 ML, HYOSCYAMINE ELIXIR 10 ML, LIDOCAINE VISCOUS 2% 10 ML PO STA (01:52)
[2024-04-06] MEDS: FAMOTIDINE 20 MG/2 ML VIAL IV STA (01:54)
[2024-04-06] MEDS ORDERED: NITROGLYCERIN SL TABS 0.4 MG TAB SUBLINGUAL PRN (03:25)
[2024-04-06] MEDS ORDERED: traMADol 50 MG TAB PO PRN (03:27)
[2024-04-06] MEDS: LEVOTHYROXINE 100 MCG TAB PO SCH (06:00)
[2024-04-06] MEDS ORDERED: ASPIRIN 81 MG PO SCH (09:00)
[2024-04-06] MEDS: METOPROLOL TARTRATE 25 MG TAB PO SCH ×2 (10:08→10:14)
[2024-04-06] MEDS: CLOPIDOGREL 75 MG TAB PO SCH (10:08)
[2024-04-06] MEDS: clonazePAM 0.5 MG TAB PO SCH (10:09)
[2024-04-06 10:13] VITALS: RESP 18
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
--- NOTE | 2024-04-06 12:35 | CA ---
Transthoracic Echo Report Name: Alejandro Aden Age: 49 Gender: M : 1975 Exam Date: 04/06/2024 11:03 Exam Location: [facility] Ht (in): 70 Wt (lb): 212 Ordering Physician: Nuvia Kc MD ([id number]) Attending/Referring Phys: Chemical Checker Mary Ellen Shi RDCS Procedure CPT: Indications: eval wall motion Cardiac Hx: Technical Quality: Fair Contrast 1: Total Dose (mL): Contrast 2: Total Dose (mL): MEASUREMENTS (Male / Female) Normal Values 2D ECHO LV Diastolic Diameter PLAX 4.9 cm 4.2 - 5.9 / 3.9 - 5.3 cm LV Systolic Diameter PLAX 3.4 cm IVS Diastolic Thickness 1.2 cm 0.6 - 1.0 / 0.6 - 0.9 cm LVPW Diastolic Thickness 1.3 cm 0.6 - 1.0 / 0.6 - 0.9 cm LV Relative Wall Thickness 0.5 RV Internal Dim ED PLAX 1.8 cm LA Systolic Diameter LX 3.7 cm 3.0 - 4.0 / 2.7 - 3.8 cm LV Diastolic Volume MOD BP 76.1 cm??? 67 - 155 / 56 - 104 cm??? LV Systolic Volume MOD BP 31.6 cm??? 22 - 58 / 19 - 49 cm??? LV Ejection Fraction MOD BP 58.5 % >= 55 % LV Cardiac Index MOD BP 1050.9 cm???/min???m??? LV Diastolic Volume MOD 4C 85.5 cm??? LV Systolic Volume MOD 4C 33.9 cm??? LV Ejection Fraction MOD 4C 60.4 % LV Cardiac Index MOD 4C 1217.9 cm???/min???m??? LV Diastolic Length 4C 8.0 cm LV Systolic Length 4C 6.5 cm LV Diastolic Volume MOD 2C 61.9 cm??? LV Systolic Volume MOD 2C 28.2 cm??? LV Ejection Fraction MOD 2C 54.4 % LV Cardiac Index MOD 2C 794.4 cm???/min???m??? LV Diastolic Length 2C 7.2 cm LV Systolic Length 2C 7.1 cm LA Volume 46.2 cm??? 18 - 58 / 22 - 52 cm??? LA Volume Index 20.9 cm???/m??? 16 - 28 cm???/m??? M-MODE Aortic Root Diameter MM 3.0 cm LA Systolic Diameter MM 3.4 cm LA Ao Ratio MM 1.2 AV Cusp Separation MM 1.9 cm FINDINGS Left Ventricle Left ventricular ejection fraction is estimated at 50-55 %. Mildly increased septal wall thickness. Left ventricular cavity size normal. Mildly reduced global left ventricular systolic function. Previously seen wall motion abnormalities seems to have resolved Right Ventricle Normal right ventricular size and function. Right Atrium Mild right atrial dilatation. Left Atrium Mild left atrial dilatation. Mitral Valve Aortic Valve Tricuspid Valve Pulmonic Valve Pericardium No pericardial or pleural effusion. Aorta Normal size aortic root and proximal ascending aorta. CONCLUSIONS Normal LV size with preserved systolic function and improvement in wall motion abnormality that was noted 2-3 weeks ago. Previewed by: Dr. Nuvia Kc MD (Electronically Signed) Final Date: 06 April 2024 12:34
--- NOTE | 2024-04-06 17:38 | P.DS ---
Providers Date of admission: 04/06/24 03:25 Expected date of discharge: 04/06/24 Attending physician: Dontae Martinez Consults: 04/06/24 03:25 Consult Physician Routine Consulting Provider: Kai Mcginnis Consult Reason/Comments: chest pain. Do you want consulting provider notified?: Yes Primary care physician: Dontae Martinez - Discharge Diagnosis(es) (1) Syncope Current Visit: Yes Status: Acute (2) Amiodarone-induced thyroiditis Current Visit: No Status: Acute (3) Essential (primary) hypertension Current Visit: No Status: Acute (4) History of coronary artery bypass graft x 1 Current Visit: No Status: Acute (5) Hypotension Current Visit: No Status: Acute (6) Mixed hyperlipidemia Current Visit: No Status: Acute Hospital Course: Patient was admitted after syncopal episode. He has a history of myocardial infarction, coronary by Bypass graft x 1 vessel and a PCI. Troponins were negative, cardiology seen him and felt that most likely this is vasovagal related to blood pressure and heart rate being suppressed. Patient remained stable through his hospital stay was cleared by cardiology. He will be sent home and will plan outpatient follow-up. Patient Condition at Discharge: Good Plan - Discharge Summary New Discharge Prescriptions: New Metoprolol Tartrate [Lopressor] 50 mg PO BID #60 tab Aspirin 81 mg PO DAILY tab Nitroglycerin Sl Tabs [Nitrostat] 0.4 mg SUBLINGUAL Q5M PRN #30 tab PRN Reason: Chest Pain Continue Atorvastatin [Lipitor] 40 mg PO HS Dicyclomine [Bentyl] 10 mg PO BID lisinopriL [Zestril] 40 mg PO HS #60 tab Escitalopram [Lexapro] 20 mg PO DAILY Aspirin 81 mg PO DAILY Clopidogrel [Plavix] 75 mg PO DAILY traMADol HCL 50 - 100 mg PO DAILY PRN PRN Reason: Pain clonazePAM [KlonoPIN] 0.5 mg PO Q12HR #6 tab Levothyroxine Sodium [Synthroid] 100 mcg PO AC-BRKFST #30 tab Discontinued Metoprolol Tartrate [Lopressor] 75 mg PO BID #180 tab Discharge Medication List Atorvastatin [Lipitor] 40 mg PO HS 09/30/23 [History] Aspirin 81 mg PO DAILY 01/06/24 [History] Clopidogrel [Plavix] 75 mg PO DAILY 01/06/24 [History] Dicyclomine [Bentyl] 10 mg PO BID 03/17/24 [History] traMADol HCL 50 - 100 mg PO DAILY PRN 03/17/24 [History] Levothyroxine Sodium [Synthroid] 100 mcg PO AC-BRKFST #30 tab 03/19/24 [Rx] clonazePAM [KlonoPIN] 0.5 mg PO Q12HR #6 tab 03/19/24 [Rx] lisinopriL [Zestril] 40 mg PO HS #60 tab 03/19/24 [Rx] Aspirin 81 mg PO DAILY tab 04/06/24 [Rx] Escitalopram [Lexapro] 20 mg PO DAILY 04/06/24 [History] Metoprolol Tartrate [Lopressor] 50 mg PO BID #60 tab 04/06/24 [Rx] Nitroglycerin Sl Tabs [Nitrostat] 0.4 mg SUBLINGUAL Q5M PRN #30 tab 04/06/24 [Rx] Follow up Appointment(s)/Referral(s): Dontae Martinez MD [Primary Care Provider] - 1-2 days Ray Berman MD [STAFF PHYSICIAN] - 1 Week Discharge Disposition: HOME SELF-CARE
[2024-04-06] MEDS: ATORVASTATIN 40 MG TAB PO SCH (20:17)
[2024-04-06] MEDS: lisinopriL 20 MG TAB PO SCH (20:17)
[2024-04-06 21:25] VITALS: BP 118/79; PULSE 66; TEMP 98.6
[2024-04-07] MEDS ORDERED: ASPIRIN 81 MG PO SCH (09:00)
[2024-04-07] MEDS ORDERED: ASPIRIN 325 MG TAB PO SCH (09:00)
== END 2024-04-06 20:15 | disposition home or self-care (01) ==
LOC: EC 23:56 → 6NMEDSUR 04-06 03:25 → 1SOBS 04-06 12:20
PROVIDERS: ADMIT Family Medicine; ATTEND Family Medicine
DX: R55 Syncope and collapse (principal); E06.4 Drug-induced thyroiditis; T46.2X5A Adverse effect of other antidysrhythmic drugs, initial encounter; I10 Essential (primary) hypertension; I95.9 Hypotension, unspecified; E78.2 Mixed hyperlipidemia; E86.0 Dehydration; I25.2 Old myocardial infarction; I25.10 Atherosclerotic heart disease of native coronary artery without angina pectoris; R07.9 Chest pain, unspecified; F32.A Depression, unspecified; F41.9 Anxiety disorder, unspecified; Z79.82 Long term (current) use of aspirin; Z79.02 Long term (current) use of antithrombotics/antiplatelets; Z79.899 Other long term (current) drug therapy; Z79.890 Hormone replacement therapy; Z87.891 Personal history of nicotine dependence; Z95.1 Presence of aortocoronary bypass graft; Z82.49 Family history of ischemic heart disease and other diseases of the circulatory system; R06.02 Shortness of breath
CPT/HCPCS: 96374; 96375; 99285; 36415; 93005; 93308; 85379; 80053; 83735; 84484; 85025; 85610; 85730; 71046; G0378 ×2; J2270; J3490

== ENCOUNTER 2024-04-29 21:41 | Inpatient (IN) | payer BC, MEDICAID, OTHER ==
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
[2024-04-29 23:35] LABS: Phencyclidine Screen,Urine Not Detected (NotDetected); Urn Cannabinoid Scrn Detected (NotDetected)
[2024-04-29 23:36] LABS: Amphetamine Screen,Urine Not Detected (NotDetected); Barbiturate Screen,Urine Not Detected (NotDetected); Benzodiazepines Screen,Urine Detected (NotDetected); Cocaine Screen,Urine Not Detected (NotDetected); Methadone Screen, Urine Not Detected (NotDetected); Opiate Screen,Urine Not Detected (NotDetected); Oxycodone Screen, Urine Not Detected (NotDetected); Tricyclic Antidepressant,Urine Not Detected (NotDetected)
[2024-04-29] MEDS: HYDROcodone/APAP 5-325MG 1 EACH TAB PO STA (23:57)
[2024-04-30] MEDS ORDERED: HALOPERIDOL LACTATE 5 MG/ML 1 ML VIAL IM PRN (00:26)
[2024-04-30] MEDS ORDERED: MAG HYDROX/AL HYDROX/SIMETH 355 ML BOTTLE PO PRN (00:26)
[2024-04-30] MEDS ORDERED: haloperidoL 5 MG TAB PO PRN (00:26)
[2024-04-30] MEDS ORDERED: MAGNESIUM HYDROXIDE 2,400 MG/30 ML CUP PO PRN (00:26)
[2024-04-30] MEDS ORDERED: DICYCLOMINE 10 MG CAP PO PRN (00:31)
[2024-04-30 07:39] LABS: Basophils % (A) 1 %; Eosinophils # (A) 0.1 k/uL (0-0.7); Eosinophils % (A) 1 %; HCT 40.2 % (39.0-53.0); Lymphocytes # (A) 2.5 k/uL (1.0-4.8); Lymphocytes % (A) 31 %; MCH 29.1 pg (25.0-35.0); MCHC 32.2 g/dL (31.0-37.0); MCV 90.3 fL (80.0-100.0); Mean Platelet Volume 8.1; Monocytes # (A) 0.6 k/uL (0-1.0); Monocytes % (A) 7 %; Neutrophils # (A) 4.8 k/uL (1.3-7.7); Neutrophils % (A) 59 %; Platelet Count 218 k/uL (150-450); RBC 4.46 m/uL (4.30-5.90); RDW 13.4 % (11.5-15.5); WBC 8.1 k/uL (3.8-10.6)
[2024-04-30 08:48] LABS: ALT 29 U/L (4-49); AST 20 U/L (17-59); African American GFR (CKD) 87 (>60 ml/min/1.73 sqM); Albumin 3.8 g/dL (3.5-5.0); Alkaline Phosphatase 102 U/L (38-126); Anion Gap 3 mmol/L; Bilirubin,Unconjugated 0.5 mg/dL (0.0-1.1); Blood Urea Nitrogen 17 mg/dL (9-20); Calcium 9.2 mg/dL (8.4-10.2); Carbon Dioxide 28 mmol/L (22-30); Chloride 109 mmol/L (98-107); Glucose 127 mg/dL (74-99); Non-African American GFR(CKD) 76 (>60 ml/min/1.73 sqM); Potassium 4.6 mmol/L (3.5-5.1); Sodium 140 mmol/L (137-145); Total Bilirubin 0.5 mg/dL (0.2-1.3); Total Protein 6.5 g/dL (6.3-8.2)
[2024-04-30] MEDS: LEVOTHYROXINE 100 MCG TAB PO SCH (09:09)
[2024-04-30] MEDS: METOPROLOL TARTRATE 50 MG TAB PO SCH (09:09)
[2024-04-30] MEDS: SERTRALINE 25 MG TAB PO SCH (09:09)
[2024-04-30] MEDS: CLOPIDOGREL 75 MG TAB PO SCH (09:09)
[2024-04-30] MEDS: NICOTINE 14MG/24HR PATCH TRANSDERM SCH (09:10)
[2024-04-30] MEDS: VRAYLAR 3 MG PO SCH (09:10)
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
[2024-04-30] MEDS: lamoTRIgine 25 MG TAB PO SCH (12:55)
[2024-04-30] MEDS: ASPIRIN 81 MG PO SCH (12:55)
[2024-04-30] MEDS: FAMOTIDINE 20 MG TAB PO SCH (12:57)
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
[2024-04-30 16:06] LABS: Chol/HDL Ratio 4.04 Ratio
[2024-04-30] MEDS: LIDOCAINE 4% PATCH TOPICAL SCH (16:25)
[2024-04-30] MEDS: ALPRAZolam 0.5 MG TAB PO STA (21:15)
[2024-04-30 21:47] LABS: Basophils # (A) 0.1 k/uL (0-0.2); Basophils % (A) 1 %; Eosinophils # (A) 0.1 k/uL (0-0.7); Eosinophils % (A) 1 %; HCT 44.4 % (39.0-53.0); HGB 14.8 gm/dL (13.0-17.5); Lymphocytes # (A) 2.4 k/uL (1.0-4.8); Lymphocytes % (A) 26 %; MCH 29.6 pg (25.0-35.0); MCHC 33.3 g/dL (31.0-37.0); MCV 88.8 fL (80.0-100.0); Mean Platelet Volume 8.2; Monocytes # (A) 0.6 k/uL (0-1.0); Monocytes % (A) 7 %; Neutrophils # (A) 6.1 k/uL (1.3-7.7); Neutrophils % (A) 65 %; Platelet Count 245 k/uL (150-450); RDW 13.4 % (11.5-15.5); WBC 9.3 k/uL (3.8-10.6)
[2024-04-30 21:57] LABS: ALT 32 U/L (4-49); AST 25 U/L (17-59); African American GFR (CKD) 62 (>60 ml/min/1.73 sqM); Albumin 4.7 g/dL (3.5-5.0); Alkaline Phosphatase 107 U/L (38-126); Anion Gap 9 mmol/L; Blood Urea Nitrogen 16 mg/dL (9-20); Calcium 9.4 mg/dL (8.4-10.2); Carbon Dioxide 29 mmol/L (22-30); Chloride 102 mmol/L (98-107); Glucose 94 mg/dL (74-99); Non-African American GFR(CKD) 54 (>60 ml/min/1.73 sqM); Potassium 3.9 mmol/L (3.5-5.1); Sodium 140 mmol/L (137-145); Total Bilirubin 0.7 mg/dL (0.2-1.3); Total Protein 7.9 g/dL (6.3-8.2)
[2024-04-30] MEDS: ATORVASTATIN 40 MG TAB PO SCH (21:58)
[2024-04-30] MEDS: lisinopriL 20 MG TAB PO SCH (21:58)
[2024-04-30] MEDS: PRAZOSIN 1 MG CAP PO SCH (21:58)
[2024-05-01] MEDS: clonazePAM 0.5 MG TAB PO PRN (08:33)
[2024-05-01] MEDS: SERTRALINE 50 MG TAB PO SCH (08:34)
--- NOTE | 2024-05-01 11:27 | P.PN ---
Progress Note - Text Progress Note Date: 05/01/24 Interval History: Patient was seen [wandering the hallways] and was directable and agreeable to speak with resume writer in the office. [He states that he is feeling better today. He has learned to accept help when people offer. he is less irritable today with resume writer. claims that he feels he is benefitting from being in the hospital. He reports a pretty good mood, and is endorsing high anxiety. He states that he slept well last night, and he feels rested. He makes no other complaints. He endorses a good appetite. He is attending groups. At this time patient denies any suicidal or homicidal ideations, intent or plan. Patient denies any auditory, visual hallucinations and denies any paranoia or delusions. Patient denies any side effects from the medications and has been compliant with meds. MENTAL STATUS EXAM: General Appearance: Patient appears to be stated age is alert, directable, and a ttempts to cooperate. Patient appears to have mildly improving hygiene and grooming. Behavior: Patient is seated without any agitated behavior. more cooperative today. Speech: Patient's speech is fluent and nonpressured. Mood/Affect: Patient reports their mood is anxious, affect is congruent and constricted. improving mildly Suicidality/Homicidality: Patient denies having any homicidal ideation intent or plan. Denies any suicidal ideations intent or plan Perceptions: Patient denies any visual hallucinations and denies any auditory hallucinations Though content/process: There is no evidence of any delusional thought content and thought process is linear and goal-directed. Memory and concentration: AOX3, grossly intact for the purposes of this session. Judgment and insight: Poor, mildly improving IMPRESSIONS: Depressive disorder unspecified Anxiety disorder unspecified Cannabis use disorder PLAN: -Patient is admitted under voluntary status to MHU for stabilization of psychiatric symptoms and safety. Patient has signed adult voluntary form and medication consent and is placed in patient's chart. -Medications : Zoloft 50 mg daily for mood/anxiety. Lamictal 25 mg daily for m ood stabilization/irritability (increase to 50mg daily starting Saturday). Prazosin 1 mg nightly for nightmares, Add Buspar 7.5mg tid prn for anxiety -Haldol and Klonopin PRN for agitation/aggression -NRT -not needed as patient does not smoke -SW on board for discharge planning. Encourage patient to participate in groups to work on coping skills. Possible discharge early next week mon vs tues if pa morenita continues to improve.
[2024-05-01] MEDS: busPIRone HCl 5 MG TAB PO PRN (22:50)
[2024-05-02] MEDS: lamoTRIgine 25 MG TAB PO ONE (08:50)
[2024-05-02] MEDS: cloNIDine HCL 0.2 MG TAB PO STA (20:59)
[2024-05-02] MEDS: traZODone HCL 50 MG TAB PO PRN (21:56)
[2024-05-03] MEDS: lamoTRIgine 25 MG TAB PO SCH (08:51)
[2024-05-03] MEDS: ACETAMINOPHEN TAB 325 MG TAB PO PRN (09:53)
--- NOTE | 2024-05-03 13:03 | P.PN ---
Progress Note - Text Progress Note Date: 05/02/24 Interval history: Patient was seen [wandering the hallways] and was directable and agreeable to speak with board writer. no nightmares overnight. At this time patient denies any suicidal or homicidal ideations intent or plan. Denies any Auditory or visual hallucinations. Patient denies any side effects from the medications and has been compliant with meds. Mental status exam: General Appearance: [Patient appears to be older than stated age is alert, directable, and cooperative.] Behavior: [No agitated behavior. Patient is calm and directable] Speech: Patient's speech is fluent and nonpressured. Mood/Affect: Mood is improving mildly, affect is congruent and constricted. Suicidality/Homicidality: Patient denies having any suicidal or homicidal ideation intent or plan. Perceptions: Patient denies any auditory or visual hallucinations. Though content/process: [There is no evidence of any delusional thought content and thought process is linear and goal-directed.] Memory and concentration: AOX3, grossly intact for the purposes of this session Judgment and insight: improving mildly Assessment/Plan: Continue with current diagnosis. Patient continues to meet criteria for inpatient psychiatric admission for symptom stabilization and safety.[Patient will be maintained on current psychotropic medication regimen.] Monitor for medication compliance and for any psychotropic medication side effects. Will continue to monitor ongoing response to treatment. Encouraged participation in milieu.
--- NOTE | 2024-05-03 13:04 | P.PN ---
Progress Note - Text Interval history: Patient was seen and was directable and agreeable to speak with technical writer and editor. denies depression and anxiety. States that he does not remember nightmare.. At this time patient denies any suicidal or homicidal ideations intent or plan. Denies any Auditory or visual hallucinations. Patient denies any side effects from the medications and has been compliant with meds. Mental status exam: General Appearance: [Patient appears to be older thanstated age is alert, directable, and cooperative.] Behavior: [No agitated behavior. Patient is calm and directable] Speech: Patient's speech is fluent and nonpressured. Mood/Affect: Mood is improving mildly, affect is congruent and constricted. Suicidality/Homicidality: Patient denies having any suicidal or homicidal ideation intent or plan. Perceptions: Patient denies any auditory or visual hallucinations. Though content/process: [There is no evidence of any delusional thought content and thought process is linear and goal-directed.] Memory and concentration: AOX3, grossly intact for the purposes of this session Judgment and insight: improving mildly Assessment/Plan: Continue with current diagnosis. Patient continues to meet criteria for inpatient psychiatric admission for symptom stabilization and safety.[Patient will be maintained on current psychotropic medication regimen.] Monitor for medication compliance and for any psychotropic medication side effects. Will continue to monitor ongoing response to treatment. Encouraged participation in milieu.
[2024-05-04] MEDS: traMADol 50 MG TAB PO PRN (04:47)
[2024-05-04 07:12] VITALS: TEMP 97.9
[2024-05-04] MEDS: IBUPROFEN 600 MG TAB PO PRN (09:26)
[2024-05-04] MEDS: SERTRALINE 50 MG TAB PO STA (11:01)
--- NOTE | 2024-05-04 11:08 | P.PN ---
Progress Note - Text Progress Note Date: 05/04/24 Interval History: Patient was seen [wandering the hallways] and was directable and agreeable to speak with process description writer in the office. Patient claims that he feels he is getting a lot out of his experience being in the hospital. He claims that he has been going to groups. Claims that his mood has been mildly improving, continues to endorse some "anger" mild irritability however claims that he is improving significantly. Claims that his anxiety is also improving. He was asking about different ways to potentially donate to the unit. He does claim that he would like to be discharged tomorrow if possible back home to continue on with work. He states that he slept well last night, and he feels rested. He makes no other complaints. He endorses a good appetite. At this time patient denies any suicidal or homicidal ideations, intent or plan. Patient denies any auditory, visual hallucinations and denies any paranoia or delusions. Patient denies any side effects from the medications and has been compliant with meds. MENTAL STATUS EXAM: General Appearance: Patient appears to be stated age is alert, directable, and attempts to cooperate. Patient appears to have mildly improving hygiene and grooming. Behavior: Patient is seated without any agitated behavior. more cooperative today. Speech: Patient's speech is fluent and nonpressured. Mood/Affect: Patient reports their mood is better, affect is congruent and constricted. improving mildly Suicidality/Homicidality: Patient denies having any homicidal ideation intent or plan. Denies any suicidal ideations intent or plan Perceptions: Patient denies any visual hallucinations and denies any auditory hallucinations Though content/process: There is no evidence of any delusional thought content and thought process is linear and goal-directed. Memory and concentration: AOX3, grossly intact for the purposes of this session. Judgment and insight: Mildly improving IMPRESSIONS: Depressive disorder unspecified Anxiety disorder unspecified Cannabis use disorder PLAN: -Patient is admitted under voluntary status to MHU for stabilization of psychiatric symptoms and safety. Patient has signed adult voluntary form and medication consent and is placed in patient's chart. -Medications : Increase Zoloft 100 mg daily for mood/anxiety. Lamictal 50 mg daily for mood stabilization/irritability. Prazosin 1 mg nightly for nightmares, Buspar 7.5mg tid prn for anxiety, increase trazodone to 100 mg nightly for insomnia/mood. -Haldol and Klonopin PRN for agitation/aggression -NRT -not needed as patient does not smoke -SW on board for discharge planning. Encourage patient to participate in groups to work on coping skills. Possible discharge tomorrow if patient continues to improve.
[2024-05-04] MEDS: traZODone HCL 100 MG TAB PO SCH (20:29)
[2024-05-04 23:00] VITALS: RESP 17
[2024-05-05 07:01] VITALS: BP 125/65; PULSE 112
[2024-05-05] MEDS: SERTRALINE 100 MG TAB PO SCH (08:42)
--- NOTE | 2024-05-05 10:32 | P.DS ---
Providers Date of admission: 04/30/24 00:18 Expected date of discharge: 05/05/24 Attending physician: Jordan Martinez MD Consults: 04/30/24 00:26 Consult Physician Routine Consulting Provider: Dontae Martinez Consult Reason/Comments: For H & P for Medical Follow Up Do you want consulting provider notified?: Yes, Notify in am Primary care physician: Dontae Martinez - Discharge Diagnosis(es) (1) Depressive disorder Current Visit: Yes Status: Acute Priority: High (2) Anxiety disorder Current Visit: Yes Status: Acute Priority: High (3) Cannabis use disorder Current Visit: Yes Status: Acute Priority: Medium Hospital Course: Admission HPI: Admission note was completed by life underwriter "Patient is a 49-year-old male, currently lives with his in a house, he has 1 daughter, 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 Patient presented to the hospital yesterday complaining of feeling mentally unstable. Patient apparently has a history of a recent MA and CABG. Patient was endorsing depression anxiety anger issues, even hallucinations in the ER. Urine drug screen is positive for benzodiazepines and THC. Patient was seen today agreeable to speak to life underwriter. He did appear to be somewhat irritable during conversation however was directable and attempts to cooperate. He states that September 28 he had a heart attack, followed by having a stent and also open heart surgery. States that he had a lot of "problems after that". States that he started dealing more with anxiety depression. States that he even had a syncopal episode at home, blood pressure issues. States that he has been feeling more irritable, claims that a recent bid for a big job with [employer] fell through and states that he began feeling suicidal afterwards, states that even had a thought of jumping off one of the groups. He even states that he had a feeling of walking into traffic. Claims that he is not having any homicidal ideations at this time. Is not endorsing any paranoia. Claims that he is having some vivid dreams/nightmares, states that his sleep is poor. States that his appetite is fair. At this time patient denies any auditory or visual hallucinations. Patient denies any flight of ideas racing thoughts and increased in goal directed behavior. Patient admits to using marijuana daily, claims that he does not use cigarettes or any other recreational drugs." Hospital course: Upon admission to the unit patient was directable and agreeable to commence treatment and signed adult voluntary form. Patient got along well with other patients on the unit and followed unit protocol. Patient was compliant with the medications and denied any side effects throughout hospital course. Patient was started on Zoloft increased to dose of 100 mg daily for mood/anxiety, Lamictal 50 mg daily for mood/stabilization/irritability, patient was informed of the side effect of a potential rash and to monitor his skin, he did not report a rash during hospitalization and will continue to monitor. Prazosin 1 mg nightly for nightmares, BuSpar as needed for anxiety, trazodone 150 mg nightly for insomnia/mood. Patient spoke of his stressors and engaged in therapy both group and individual. Patient was also seen by medical team for history and physical exam. Throughout the course of the hospitalization patient gradually improved with regards to mood, anxiety, irritability, sleep and became more future oriented with improved insight and judgment. On the day of discharge patient denied any suicidal or homicidal ideations intent or plan denied any auditory or visual hallucinations. Patient endorsed wanting to live for their health and family. The patient denied any access to guns or weapons. Patient denied any paranoia and did not endorse any delusions. Patient does have a significant history of substance abuse and was counseled on abstaining from all substances including alcohol and marijuana. . Patient was also counseled on the medications and need for regular compliance and was encouraged to follow-up with their outpatient appointment for mental health and also for primary care. Prior to discharge a family meeting will be arranged by dialysis social worker to answer any questions and ensure safety upon discharge incuding making sure that g uns/weapons are either removed from the home or locked away. Mental status exam: General Appearance: Patient appears to be unshaven, stated age is alert, pleasant, and cooperative. Patient is in no acute distress and has improved hygiene and grooming Behavior: Patient is calmly seated without any agitated behavior. Speech: Patient's speech is fluent and nonpressured. Mood/Affect: Patient reports their mood is "good", affect is congruent and euthymic. Suicidality/Homicidality: Patient denies having any suicidal or homicidal ideation intent or plan. Perceptions: Patient denies any auditory or visual hallucinations. Though content/process: There is no evidence of any delusional thought content and thought process is linear and goal-directed. More future oriented Memory and concentration: AOX3, grossly intact for the purposes of this session. Can spell "WORLD" backwards correctly. Judgment and insight: improved with guarded prognosis Impression: Depressive disorder unspecified Anxiety disorder unspecified Cannabis use disorder Plan: -Continue with discharge today as patient has improved and stabilized psychiatrically and is not currently an imminent threat to themself and/or others. -Continue medications: Zoloft 100 mg daily for mood/anxiety, Lamictal 50 mg daily for mood stabilization/irritability, prazosin 1 mg nightly for nightmares, BuSpar 15 mg twice daily as needed for anxiety, trazodone 150 mg nightly as needed for insomnia. Patient has at home Klonopin and usually takes a home dose of 0.5 mg twice daily as needed for anxiety. -Patient was counseled on the need for medication compliance and appropriate follow-up at mental health and also primary care for medical issues. Patient verbalized understanding and agreed. -Social work to arrange for and conduct family meeting to ensure safety upon discharge and answer any questions/concerns. also to ensure safe home environment that guns/weapons are either removed from the home or locked away. Social work also to arrange for patients follow up appointments for psychiatric care along with follow up with primary care provider. -Patient counseled on abstaining from recreational drugs and marijuana and alc ohol. Was informed/educated on the adverse effects on their physical and mental health. Patient verbally agreed and understood. Patient was offered substance abuse treatment however declined at this time. -Patient was instructed to return to the hospital or seek immediate medical care if their psychiatric or medical symptoms do worsen or reoccur. Allergies Allergy/AdvReac Type Severity Reaction Status Date / Time No Known Allergies Allergy Verified 04/29/24 21:49 Laboratory Results WBC 9.3 k/uL (3.8-10.6) 04/30/24 21:28 RBC 5.00 m/uL (4.30-5.90) 04/30/24 21:28 Hgb 14.8 gm/dL (13.0-17.5) 04/30/24 21:28 Hct 44.4 % (39.0-53.0) 04/30/24 21:28 MCV 88.8 fL (80.0-100.0) 04/30/24 21: MCH 29.6 pg (25.0-35.0) 04/30/24 21: MCHC 33.3 g/dL (31.0-37.0) 04/30/24 21: RDW 13.4 % (11.5-15.5) 04/30/24 21: Plt Count 245 k/uL (150-450) 04/30/24 21: MPV 8.2 04/30/24 21: Neutrophils % 65 % 04/30/24 21:28 Lymphocytes % 26 % 04/30/24 21: Monocytes % 7 % 04/30/24 21: Eosinophils % 1 % 04/30/24 21: Basophils % 1 % 04/30/24: Neutrophils # 6.1 k/uL (1.3-7.7) 04/30/24 21: Lymphocytes # 2.4 k/uL (1.0-4.8) 04/30/24 21: Monocytes # 0.6 k/uL (0-1.0) 04/30/24 21: Eosinophils # 0.1 k/uL (0-0.7) 04/30/24 21: Basophils # 0.1 k/uL (0-0.2) 04/30/24 21: Sodium 140 mmol/L (137-145) 04/30/24 21: Potassium 3.9 mmol/L (3.5-5.1) 04/30/24 21: Chloride 102 mmol/L (98-107) 04/30/24 21: Carbon Dioxide 29 mmol/L (22-30) 04/30/24 21: Anion Gap 9 mmol/L 04/30/24 21:28 BUN 16 mg/dL (9-20) 04/30/24 21: Creatinine 1.51 mg/dL (0.66-1.25) H 04/30/24 21:28 Est GFR (CKD-EPI)AfAm 62 (>60 ml/min/1.73 sqM) 04/30/24 21:28 Est GFR (CKD-EPI)NonAf 54 (>60 ml/min/1.73 sqM) 04/30/24 21: Glucose 94 mg/dL (74-99) 04/30/24 21:[address] Glu mg/dL 131 mg/dL 04/30/24 06:58 Hemoglobin A1c 6.2 % (<=6.0) H 04/30/24 06:58 Calcium 9.4 mg/dL (8.4-10.2) 04/30/24 21:28 Total Bilirubin 0.7 mg/dL (0.2-1.3) 04/30/24 21:28 Conjugated Bilirubin 0.0 mg/dL (0.0-0.3) 04/30/24 06:58 Unconjugated Bilirubin 0.5 mg/dL (0.0-1.1) 04/30/24 06:58 Delta Bilirubin 0.0 mg/dL (0.0-0.2) 04/30/24 06:58 AST 25 U/L (17-59) 04/30/24 21:28 ALT 32 U/L (4-49) 04/30/24 21:28 Alkaline Phosphatase 107 U/L (38-126) 04/30/24 21:28 Troponin I <0.012 ng/mL (0.000-0.034) 04/30/24 21:28 Total Protein 7.9 g/dL (6.3-8.2) 04/30/24 21:28 Albumin 4.7 g/dL (3.5-5.0) 04/30/24 21:28 Triglycerides 168.00 mg/dL (0.00-149.00) H 04/30/24 06:58 Cholesterol 139.00 mg/dL (0.00-200.00) 04/30/24 06:58 LDL Cholesterol, Calc 71.0 mg/dL (0.0-131.0) 04/30/24 06:58 VLDL Cholesterol, Calc 33.60 mg/dL (5.00-40.00) 04/30/24 06:58 HDL Cholesterol 34.40 mg/dL (40.00-60.00) L 04/30/24 06:58 Cholesterol/HDL Ratio 4.04 Ratio 04/30/24 06:58 TSH 1.930 mIU/L (0.465-4.680) 04/30/24 06:58 Urine Opiates Screen Not Detected (NotDetected) 04/29/24 23:11 Ur Oxycodone Screen Not Detected (NotDetected) 04/29/24 23:11 Urine Methadone Screen Not Detected (NotDetected) 04/29/24 23:11 Ur Barbiturates Screen Not Detected (NotDetected) 04/29/24 23:11 U Tricyclic Antidepress Not Detected (NotDetected) 04/29/24 23:11 Ur Phencyclidine Scrn Not Detected (NotDetected) 04/29/24 23:11 Ur Amphetamines Screen Not Detected (NotDetected) 04/29/24 23:11 U Methamphetamines Scrn Not Detected (NotDetected) 04/29/24 23:11 U Benzodiazepines Scrn Detected (NotDetected) H 04/29/24 23:11 Urine Cocaine Screen Not Detected (NotDetected) 04/29/24 23:11 U Marijuana (THC) Screen Detected (NotDetected) H 04/29/24 23:11 SARS-CoV-2 (PCR) Not Detected (Not Detectd) 04/29/24 22:05 Vital Signs Temp 97.9 F 05/04/24 22:59 Pulse 112 H 05/05/24 07:00 Resp 17 05/04/24 22:59 BP 125/65 05/05/24 07:00 Pulse Ox 98 05/04/24 22:59 FiO2 Patient Condition at Discharge: Stable Plan - Discharge Summary Discharge Rx Participant: No New Discharge Prescriptions: New Famotidine [Pepcid] 20 mg PO BID 30 Days #60 tab Sertraline [Zoloft] 100 mg PO DAILY 30 Days #30 tab busPIRone HCl [Buspar] 10 mg PO BID PRN 30 Days #60 tab PRN Reason: Anxiety lamoTRIgine [LaMICtal] 50 mg PO DAILY 30 Days #60 tab Lidocaine 4% Patch 1 patch TOPICAL DAILY patch Prazosin [Minipress] 1 mg PO HS 30 Days #30 cap traZODone HCL 150 mg PO HS PRN 30 Days #30 tablet PRN Reason: Insomnia Continue Atorvastatin [Lipitor] 40 mg PO HS Dicyclomine [Bentyl] 10 mg PO BID lisinopriL [Zestril] 40 mg PO HS #60 tab Metoprolol Tartrate [Lopressor] 50 mg PO BID #60 tab Aspirin 81 mg PO DAILY Clopidogrel [Plavix] 75 mg PO DAILY traMADol HCL 50 - 100 mg PO DAILY PRN PRN Reason: Pain clonazePAM [KlonoPIN] 0.5 mg PO Q12HR #6 tab Levothyroxine Sodium [Synthroid] 100 mcg PO AC-BRKFST #30 tab Nitroglycerin Sl Tabs [Nitrostat] 0.4 mg SUBLINGUAL Q5M PRN #30 tab PRN Reason: Chest Pain Discontinued Escitalopram [Lexapro] 20 mg PO DAILY Aspirin 81 mg PO DAILY tab Discharge Medication List Atorvastatin [Lipitor] 40 mg PO HS 09/30/23 [History] Aspirin 81 mg PO DAILY 01/06/24 [History] Clopidogrel [Plavix] 75 mg PO DAILY 01/06/24 [History] Dicyclomine [Bentyl] 10 mg PO BID 03/17/24 [History] traMADol HCL 50 - 100 mg PO DAILY PRN 03/17/24 [History] Levothyroxine Sodium [Synthroid] 100 mcg PO AC-BRKFST #30 tab 03/19/24 [Rx] clonazePAM [KlonoPIN] 0.5 mg PO Q12HR #6 tab 03/19/24 [Rx] lisinopriL [Zestril] 40 mg PO HS #60 tab 03/19/24 [Rx] Metoprolol Tartrate [Lopressor] 50 mg PO BID #60 tab 04/06/24 [Rx] Nitroglycerin Sl Tabs [Nitrostat] 0.4 mg SUBLINGUAL Q5M PRN #30 tab 04/06/24 [Rx] Famotidine [Pepcid] 20 mg PO BID 30 Days #60 tab 05/05/24 [Rx] Lidocaine 4% Patch 1 patch TOPICAL DAILY patch 05/05/24 [Rx] Prazosin [Minipress] 1 mg PO HS 30 Days #30 cap 05/05/24 [Rx] Sertraline [Zoloft] 100 mg PO DAILY 30 Days #30 tab 05/05/24 [Rx] busPIRone HCl [Buspar] 10 mg PO BID PRN 30 Days #60 tab 05/05/24 [Rx] lamoTRIgine [LaMICtal] 50 mg PO DAILY 30 Days #60 tab 05/05/24 [Rx] traZODone HCL 150 mg PO HS PRN 30 Days #30 tablet 05/05/24 [Rx] Follow up Appointment(s)/Referral(s): [facility] [Outside] - 05/04/24 12:30 pm (05/12 @ 12:30 with Mikey ) Dontae Martinez MD [Primary Care Provider] - 1-2 days Patient Instructions/Handouts: Depression (DC), Anxiety (GEN) Activity/Diet/Wound Care/Special Instructions: Avoid the use of street drugs and alcohol. Take all medications as prescribed. When you are in need of refills on your medications, please contact your medical provider and/or outpatient psychiatrist/provider to have this done. Please go to your scheduled outpatient appointment for aftercare treatment. If symptoms return or become worse, call the crisis line at and/or go to the nearest emergency room for evaluation. National Suicide Hotline 988 Discharge Disposition: HOME SELF-CARE
== END 2024-05-05 11:51 | disposition home or self-care (01) | DRG 754 ==
LOC: EC 21:41 → 3MHU 04-30 00:18
PROVIDERS: ADMIT Psychiatry & Neurology Psychiatry; ATTEND Psychiatry & Neurology Psychiatry
DX: F32.A Depression, unspecified (principal); R73.03 Prediabetes; R45.851 Suicidal ideations; E78.5 Hyperlipidemia, unspecified; F12.10 Cannabis abuse, uncomplicated; F23 Brief psychotic disorder; F41.9 Anxiety disorder, unspecified; I10 Essential (primary) hypertension; I25.2 Old myocardial infarction; I25.10 Atherosclerotic heart disease of native coronary artery without angina pectoris; K57.90 Diverticulosis of intestine, part unspecified, without perforation or abscess without bleeding; I48.0 Paroxysmal atrial fibrillation; Z79.02 Long term (current) use of antithrombotics/antiplatelets; Z79.82 Long term (current) use of aspirin; Z79.890 Hormone replacement therapy; Z79.899 Other long term (current) drug therapy; Z82.49 Family history of ischemic heart disease and other diseases of the circulatory system; Z95.1 Presence of aortocoronary bypass graft; Z87.891 Personal history of nicotine dependence; Z85.830 Personal history of malignant neoplasm of bone; Z90.49 Acquired absence of other specified parts of digestive tract
CPT/HCPCS: 80053; 80061; 80306; 82075; 82248; 83036; 84443; 84484; 85025; 87635; 93005; 99285

== ENCOUNTER 2024-05-05 15:25 | Emergency (ER) | payer BC, OTHER ==
[2024-05-05 16:10] VITALS: PULSE 80; TEMP 98.2
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
[2024-05-05 18:45] LABS: Basophils % (A) 0 %; Eosinophils % (A) 0 %; HGB 14.2 gm/dL (13.0-17.5); Lymphocytes # (A) 1.6 k/uL (1.0-4.8); Lymphocytes % (A) 16 %; MCH 29.9 pg (25.0-35.0); MCHC 33.8 g/dL (31.0-37.0); MCV 88.2 fL (80.0-100.0); Mean Platelet Volume 8.9; Monocytes # (A) 0.5 k/uL (0-1.0); Monocytes % (A) 5 %; Neutrophils # (A) 8.1 k/uL (1.3-7.7); Neutrophils % (A) 78 %; Platelet Count 224 k/uL (150-450); RBC 4.76 m/uL (4.30-5.90); RDW 13.7 % (11.5-15.5); WBC 10.4 k/uL (3.8-10.6)
[2024-05-05 18:56] LABS: ALT 32 U/L (4-49); AST 21 U/L (17-59); Acetaminophen <10.0 ug/mL; African American GFR (CKD) 88 (>60 ml/min/1.73 sqM); Albumin 4.8 g/dL (3.5-5.0); Alkaline Phosphatase 117 U/L (38-126); Anion Gap 8 mmol/L; Blood Urea Nitrogen 16 mg/dL (9-20); Calcium 9.7 mg/dL (8.4-10.2); Carbon Dioxide 27 mmol/L (22-30); Chloride 104 mmol/L (98-107); Glucose 145 mg/dL (74-99); Non-African American GFR(CKD) 76 (>60 ml/min/1.73 sqM); Potassium 4.5 mmol/L (3.5-5.1); Salicylate <1.0 mg/dL; Sodium 139 mmol/L (137-145); Total Bilirubin 0.7 mg/dL (0.2-1.3)
[2024-05-05 20:18] LABS: Amphetamine Screen,Urine Not Detected (NotDetected); Barbiturate Screen,Urine Not Detected (NotDetected); Benzodiazepines Screen,Urine Not Detected (NotDetected); Cocaine Screen,Urine Not Detected (NotDetected); Methadone Screen, Urine Not Detected (NotDetected); Opiate Screen,Urine Not Detected (NotDetected); Oxycodone Screen, Urine Not Detected (NotDetected); Phencyclidine Screen,Urine Not Detected (NotDetected); Tricyclic Antidepressant,Urine Not Detected (NotDetected); Urn Cannabinoid Scrn Detected (NotDetected)
[2024-05-05] MEDS: traZODone HCL 50 MG TAB PO ONE (21:05)
[2024-05-05] MEDS: busPIRone HCl 10 MG TAB PO STA (21:06)
[2024-05-05] MEDS: PRAZOSIN 1 MG CAP PO STA (21:06)
[2024-05-05 21:10] VITALS: BP 129/86; RESP 16
== END 2024-05-05 21:10 | disposition home or self-care (01) ==
LOC: EC 15:25
DX: Z13.30 Encounter for screening examination for mental health and behavioral disorders, unspecified (principal); F12.90 Cannabis use, unspecified, uncomplicated; Z11.52 Encounter for screening for COVID-19; Z87.891 Personal history of nicotine dependence
CPT/HCPCS: 36415; 80053; 80143; 80179; 80306; 82075; 85025; 87636; 93005; 99285

== ENCOUNTER 2024-05-11 15:38 | Inpatient (IN) | payer MEDICAID, OTHER ==
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
[2024-05-11 17:42] LABS: Basophils # (A) 0.1 k/uL (0-0.2); Basophils % (A) 1 %; Eosinophils # (A) 0.2 k/uL (0-0.7); Eosinophils % (A) 2 %; HCT 39.9 % (39.0-53.0); HGB 13.4 gm/dL (13.0-17.5); Lymphocytes # (A) 2.1 k/uL (1.0-4.8); Lymphocytes % (A) 33 %; MCH 29.6 pg (25.0-35.0); MCHC 33.6 g/dL (31.0-37.0); MCV 88.2 fL (80.0-100.0); Mean Platelet Volume 8.2; Monocytes # (A) 0.5 k/uL (0-1.0); Monocytes % (A) 7 %; Neutrophils # (A) 3.6 k/uL (1.3-7.7); Neutrophils % (A) 56 %; Platelet Count 243 k/uL (150-450); RBC 4.52 m/uL (4.30-5.90); RDW 13.1 % (11.5-15.5); WBC 6.5 k/uL (3.8-10.6)
[2024-05-11 17:58] LABS: ALT 34 U/L (4-49); Acetaminophen <10.0 ug/mL; African American GFR (CKD) >90 (>60 ml/min/1.73 sqM); Albumin 4.3 g/dL (3.5-5.0); Alcohol <10 mg/dL; Anion Gap 5 mmol/L; Blood Urea Nitrogen 12 mg/dL (9-20); Calcium 9.2 mg/dL (8.4-10.2); Carbon Dioxide 30 mmol/L (22-30); Chloride 106 mmol/L (98-107); Glucose 112 mg/dL (74-99); Magnesium 1.9 mg/dL (1.6-2.3); Non-African American GFR(CKD) 89 (>60 ml/min/1.73 sqM); Salicylate <1.0 mg/dL; Sodium 141 mmol/L (137-145); Total Bilirubin 0.6 mg/dL (0.2-1.3); Total Protein 7.5 g/dL (6.3-8.2)
[2024-05-11 17:59] LABS: AST 32 U/L (17-59); Alkaline Phosphatase 116 U/L (38-126); Potassium 4.8 mmol/L (3.5-5.1)
[2024-05-11 19:50] LABS: Cocaine Screen,Urine Not Detected (NotDetected); Phencyclidine Screen,Urine Not Detected (NotDetected); Urn Cannabinoid Scrn Detected (NotDetected)
[2024-05-11 19:51] LABS: Amphetamine Screen,Urine Not Detected (NotDetected); Barbiturate Screen,Urine Not Detected (NotDetected); Benzodiazepines Screen,Urine Detected (NotDetected); Methadone Screen, Urine Not Detected (NotDetected); Opiate Screen,Urine Not Detected (NotDetected); Oxycodone Screen, Urine Not Detected (NotDetected); Tricyclic Antidepressant,Urine Not Detected (NotDetected)
[2024-05-11] MEDS ORDERED: LORazepam 2 MG/ML INJ IM PRN (23:12)
[2024-05-11] MEDS ORDERED: MAG HYDROX/AL HYDROX/SIMETH 355 ML BOTTLE PO PRN (23:12)
[2024-05-11] MEDS ORDERED: HALOPERIDOL LACTATE 5 MG/ML 1 ML VIAL IM PRN (23:12)
[2024-05-11] MEDS ORDERED: MAGNESIUM HYDROXIDE 2,400 MG/30 ML CUP PO PRN (23:12)
[2024-05-11] MEDS ORDERED: traZODone HCL 50 MG TAB PO PRN (23:15)
[2024-05-12] MEDS: ATORVASTATIN 40 MG TAB PO SCH (00:06)
[2024-05-12] MEDS: PRAZOSIN 1 MG CAP PO SCH ×2 (00:06→20:47)
[2024-05-12] MEDS: FAMOTIDINE 20 MG TAB PO SCH (00:06)
[2024-05-12] MEDS: METOPROLOL TARTRATE 50 MG TAB PO SCH (00:06)
[2024-05-12] MEDS: lisinopriL 20 MG TAB PO SCH (00:06)
[2024-05-12] MEDS: ACETAMINOPHEN TAB 325 MG TAB PO PRN (00:07)
[2024-05-12] MEDS: LEVOTHYROXINE 100 MCG TAB PO SCH (05:38)
[2024-05-12] MEDS: NICOTINE 14MG/24HR PATCH TRANSDERM SCH (08:40)
[2024-05-12] MEDS: SERTRALINE 100 MG TAB PO SCH (08:41)
[2024-05-12] MEDS: CLOPIDOGREL 75 MG TAB PO SCH (08:41)
[2024-05-12] MEDS: lamoTRIgine 25 MG TAB PO SCH ×2 (08:41→14:55)
[2024-05-12] MEDS: ASPIRIN 81 MG PO SCH (08:41)
[2024-05-12] MEDS ORDERED: traZODone HCL 100 MG TAB PO PRN (12:05)
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
[2024-05-12] MEDS: LORazepam 1 MG TAB PO PRN (14:53)
[2024-05-12] MEDS: NITROGLYCERIN SL TABS 0.4 MG TAB SUBLINGUAL PRN (18:54)
[2024-05-13] MEDS: SERTRALINE 100 MG TAB PO SCH (08:44)
--- NOTE | 2024-05-13 11:20 | P.PN ---
Progress Note - Text Progress Note Date: 05/13/24 Interval history: Patient was seen today for psychiatric follow up. he was seen taking part in [facility] this morning. he states that he is still feeling anxious today and claims that his mood is improving mildly. he continues to be focusing on his symptoms specifically his irritability. Kid he is very focused on the episode of agitation before he came into the hospital. He claims that he is trying hard to go to groups and participate as best as he can. He claims that he is feeling optimistic about the changes in his medications. States that he is still struggling with sleep claims that he has racing thoughts at nighttime mainly. Was agreeable to try Seroquel tonight. Claims that his appetite is fair. At this time he is denying any auditory hallucinations or visual hallucinations, denies any suicidal homicidal ideations intent or plan MENTAL STATUS EXAM: General Appearance: Patient appears to be stated age is alert, directable, and attempts to cooperate. Patient appears to have fair r hygiene and grooming. Behavior: Patient is seated without any agitated behavior. Less irritable today, directable Speech: Patient's speech is fluent and nonpressured. Mood/Affect: Patient reports their mood is "still anxious", affect is congruent and constricted. Suicidality/Homicidality: Patient denies having any homicidal ideation intent or plan. Denies any suicidal ideations intent or plan Perceptions: Patient denies any visual hallucinations and denies any auditory hallucinations Though content/process: There is no evidence of any delusional thought content and thought process is linear and goal-directed. Rambles at times, focused on his symptoms Memory and concentration: AOX3, grossly intact for the purposes of this session Judgment and insight: Fair IMPRESSIONS: Depressive disorder unspecified Anxiety disorder unspecified Cannabis use disorder PLAN: -Patient is admitted under voluntary status to MHU for stabilization of psychiatric symptoms and safety. Patient has signed adult voluntary form and medication consent and is placed in patient's chart. -Medications : Zoloft 150 mg daily for mood/anxiety. Lamictal 25 mg 3 times daily for mood stabilization/irritability. prazosin 2 mg nightly for nightmares. d/c Trazodone and replace with seroquel 50 mg qhs for mood stabilization/psychosis/sleep. -Haldol and Klonopin PRN for agitation/aggression -NRT -not needed as patient does not smoke -SW on board for discharge planning. Encourage patient to participate in groups to work on coping skills.
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
[2024-05-13] MEDS: QUEtiapine 50 MG TAB PO SCH (20:09)
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
[2024-05-14] MEDS: lamoTRIgine 25 MG TAB PO SCH (20:30)
[2024-05-14] MEDS: QUEtiapine 25 MG TAB PO SCH (20:31)
[2024-05-15] MEDS ORDERED: LIDOCAINE 4% PATCH TOPICAL PRN (09:02)
--- NOTE | 2024-05-15 10:53 | P.PN ---
Progress Note - Text Progress Note Date: 05/15/24 Interval history: Patient was seen today for psychiatric follow up. Patient claims that he is d oing a bit better today, claims that he was visited by his yesterday. States that the interaction went well. He claims that he is trying his best to go to groups and working on his coping skills. He states that he is becoming more "levelheaded" and states that the mood and anxiety been improving. States that he continues to have on and off sleep however it is mildly improving since yesterday. We spoke about increasing the Seroquel which she is okay with. Also the Zoloft will be increased. Patient claims that he is trying to interact with others, go to his many groups as he can. He claims that he is feeling optimistic about the changes in his medications. Claims that his appetite is fair. At this time he is denying any auditory hallucinations or visual hallucinations, denies any suicidal homicidal ideations intent or plan MENTAL STATUS EXAM: General Appearance: Patient appears to be stated age is alert, directable, and attempts to cooperate. Patient appears to have fair r hygiene and grooming. Behavior: Patient is seated without any agitated behavior. More directable Speech: Patient's speech is fluent and nonpressured. Mood/Affect: Patient reports their mood is "a bit better", affect is congruent and constricted. Proving mildly Suicidality/Homicidality: Patient denies having any homicidal ideation intent or plan. Denies any suicidal ideations intent or plan Perceptions: Patient denies any visual hallucinations and denies any auditory hallucinations Though content/process: There is no evidence of any delusional thought content and thought process is linear and goal-directed. focused on his symptoms, appears more future oriented today Memory and concentration: AOX3, grossly intact for the purposes of this session Judgment and insight: Fair IMPRESSIONS: Depressive disorder unspecified Anxiety disorder unspecified Cannabis use disorder PLAN: -Patient is admitted under voluntary status to MHU for stabilization of psychiatric symptoms and safety. Patient has signed adult voluntary form and medication consent and is placed in patient's chart. -Medications : Increase Zoloft 200 mg daily for mood/anxiety. Lamictal 50 mg BID for mood stabilization/irritability. prazosin 2 mg nightly for nightmares. increase seroquel 100 mg qhs for mood stabilization/psychosis/sleep. -Haldol and Klonopin PRN for agitation/aggression -NRT -not needed as patient does not smoke -SW on board for discharge planning. Encourage patient to participate in groups to work on coping skills. hopeful for discharge early next week if patient is improving psychiatrically.
[2024-05-15] MEDS: haloperidoL 5 MG TAB PO PRN (14:57)
[2024-05-15] MEDS: QUEtiapine 100 MG TAB PO SCH (20:39)
[2024-05-15] MEDS: PREGABALIN 50 MG CAP PO PRN (23:06)
[2024-05-16] MEDS: SERTRALINE 100 MG TAB PO SCH (08:31)
--- NOTE | 2024-05-16 11:33 | P.PN ---
Progress Note - Text Progress Note Date: 05/16/24 Interval history: Patient was seen today for psychiatric follow up. Patient claims that he is d oing a bit better today. Aims that his visited him today, states that he felt better after the visit. States that he is looking forward to going home once he is feeling even better. States that the depression and anxiety been improving. Denying any side effects at this time. Did state that last night he had an episode of restlessness after he took the Seroquel, offered Requip he was agreeable to take that for tonight. Claims that his appetite is fair. At this time he is denying any auditory hallucinations or visual hallucinations, denies any suicidal homicidal ideations intent or plan MENTAL STATUS EXAM: General Appearance: Patient appears to be stated age is alert, directable, and attempts to cooperate. Patient appears to have fair r hygiene and grooming. Behavior: Patient is seated without any agitated behavior. More directable Speech: Patient's speech is fluent and nonpressured. Mood/Affect: Patient reports their mood is "better", affect is congruent and improving mildly Suicidality/Homicidality: Patient denies having any homicidal ideation intent or plan. Denies any suicidal ideations intent or plan Perceptions: Patient denies any visual hallucinations and denies any auditory hallucinations Though content/process: There is no evidence of any delusional thought content and thought process is linear and goal-directed. appears more future oriented today Memory and concentration: AOX3, grossly intact for the purposes of this session Judgment and insight: Fair IMPRESSIONS: Depressive disorder unspecified Anxiety disorder unspecified Cannabis use disorder PLAN: -Patient is admitted under voluntary status to MHU for stabilization of psychiatric symptoms and safety. Patient has signed adult voluntary form and medication consent and is placed in patient's chart. -Medications : Zoloft 200 mg daily for mood/anxiety. Lamictal 50 mg BID for mood stabilization/irritability. prazosin 2 mg nightly for nightmares. seroquel 100 mg qhs for mood stabilization/psychosis/sleep. added requip 0.25 hs for RLS. -Haldol and Klonopin PRN for agitation/aggression -NRT -not needed as patient does not smoke -SW on board for discharge planning. Encourage patient to participate in groups to work on coping skills. hopeful for discharge saturday if patient is improving psychiatrically.
[2024-05-17 06:52] VITALS: RESP 16
--- NOTE | 2024-05-17 10:38 | P.PN ---
Progress Note - Text Progress Note Date: 05/17/24 Interval history: Patient was seen today for psychiatric follow up. Patient states that he is d oing better today, feels more optimistic about his symptoms and his future. States that he is talking to his . He was hoping for discharge probably tomorrow. Claims mood and anxiety have been improving. Did state that he had a minor odd dream last night however was not too distracted by it. Denying any side effects at this time. Claims that his appetite is fair. At this time he is denying any auditory hallucinations or visual hallucinations, denies any suicidal homicidal ideations intent or plan MENTAL STATUS EXAM: General Appearance: Patient appears to be stated age is alert, directable, and attempts to cooperate. Patient appears to have fair r hygiene and grooming. Behavior: Patient is seated without any agitated behavior. More directable Speech: Patient's speech is fluent and nonpressured. Mood/Affect: Patient reports their mood is "good", affect is congruent and improving mildly Suicidality/Homicidality: Patient denies having any homicidal ideation intent or plan. Denies any suicidal ideations intent or plan Perceptions: Patient denies any visual hallucinations and denies any auditory hallucinations Though content/process: There is no evidence of any delusional thought content and thought process is linear and goal-directed. appears more future oriented today Memory and concentration: AOX3, grossly intact for the purposes of this session Judgment and insight: Fair IMPRESSIONS: Depressive disorder unspecified Anxiety disorder unspecified Cannabis use disorder PLAN: -Patient is admitted under voluntary status to MHU for stabilization of psychiatric symptoms and safety. Patient has signed adult voluntary form and medication consent and is placed in patient's chart. -Medications : Zoloft 200 mg daily for mood/anxiety. Lamictal 50 mg BID for mood stabilization/irritability. prazosin 2 mg nightly for nightmares. seroquel 100 mg qhs for mood stabilization/psychosis/sleep. requip 0.25 hs for RLS. -Haldol and Klonopin PRN for agitation/aggression -NRT -not needed as patient does not smoke -SW on board for discharge planning. Encourage patient to participate in groups to work on coping skills. hopeful for discharge saturday if patient is improving psychiatrically.
[2024-05-17] MEDS: OFLOXACIN 0.3% OPHTH DROPS 5 ML BOTTLE BOTH EARS PRN (15:38)
[2024-05-18 07:07] VITALS: BP 107/76; PULSE 109; TEMP 98.1
--- NOTE | 2024-05-18 10:03 | P.DS ---
Providers Date of admission: 05/11/24 22:59 Expected date of discharge: 05/18/24 Attending physician: Jordan Martinez MD Consults: 05/11/24 23:12 Consult Physician Routine Consulting Provider: Dontae Martinez Consult Reason/Comments: medical H&P Do you want consulting provider notified?: Yes Primary care physician: Dontae Martinez - Discharge Diagnosis(es) (1) Depression, unspecified Current Visit: Yes Status: Acute Priority: High (2) Anxiety disorder Current Visit: Yes Status: Acute Priority: High (3) Cannabis use disorder Current Visit: Yes Status: Acute Priority: Medium Hospital Course: Admission HPI: Admission note was completed by investment underwriter "patient is a 49-year-old male, currently lives with his in a house, he has 1 daughter, 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 Patient presented to the hospital yesterday to the ER complaining of feeling suicidal iudeations and a suicide attempt where he overdosed on 4 tabs of xanax yesterday. Patient has a history of a recent [place] and CABG. patient was just discharged from the mental health unit on 05/05. Patient tested positive in his urine for THC and benzodiazepines. Blood alcohol level was negative. Patient attempted to come back to the ER for evaluation on 05/05 was discharged home. He presented again to the ER for psychiatric concerns yesterday. After patient overdosed he was complaining of ongoing suicidal thoughts, depression and anxiety. Patient claims that he was not feeling right when he went back to work. He claims that he went onto the roof and began having suicidal thoughts again and was feeling depressed crying irritable. He states that he did have some outburst at home around his who brought him back to the hospital. Claims that his has been helping him with the medications and the appointments. He did state that for the past day or so he was seeing "bugs" running around however they are not actually there. Claims that his sleep and appetite are poor. He is still complaining of nightmares. At this time patient denies any auditory or visual hallucinations. Patient denies any flight of ideas racing thoughts and increased in goal directed behavior. Patient admits to using marijuana daily, claims that he does not use cigarettes or any other recreational drugs." Hospital course: Upon admission to the unit patient was directable and agreeable to commence treatment and signed adult voluntary form. Patient got along well with other patients on the unit and followed unit protocol. Patient was compliant with the medications and denied any side effects throughout hospital course. Patient was started on Zoloft increased to dose of 200 mg daily for mood/anxiety, Lamictal was increased to a total dose of 100 mg/day for mood stabilization/depression, prazosin increased to 2 mg nightly for nightmares, Seroquel increased to dose of 100 mg nightly for mood stabilization/psychosis/insomnia, Requip 0.25 mg nightly for restless leg symptoms. Patient spoke of his stressors and engaged in therapy both group and individual. Patient was also seen by medical team for history and physical exam. Throughout the course of the hospitalization patient gradually improved with regards to mood, anxiety, mood lability,, sleep and became more future oriented with improved insight and judgment. On the day of discharge patient denied any suicidal or homicidal ideations intent or plan denied any auditory or visual hallucinations. Patient endorsed wanting to live for their health and family. The patient denied any access to guns or weapons. Patient denied any paranoia and did not endorse any delusions. Patient does have a significant history of substance abuse and was counseled on abstaining from all substances including alcohol and marijuana. Patient elected to do outpatient substance use treatment program through their outpatient provider.. Patient was also counseled on the medications and need for regular compliance and was encouraged to follow-up with their outpatient appointment for mental health and also for primary care. Prior to discharge a family meeting will be arranged by social service agency director to answer any questions and ensure safety upon discharge incuding making sure that guns/weapons are either removed from the home or locked away. Mental status exam: General Appearance: Patient appears to be stated age is alert, pleasant, and cooperative. Patient is in no acute distress and has improved hygiene and grooming Behavior: Patient is calmly seated without any agitated behavior. Speech: Patient's speech is fluent and nonpressured. Mood/Affect: Patient reports their mood is "better", affect is congruent and euthymic. Suicidality/Homicidality: Patient denies having any suicidal or homicidal ideation intent or plan. Perceptions: Patient denies any auditory or visual hallucinations. Though content/process: There is no evidence of any delusional thought content and thought process is linear and goal-directed. More future oriented Memory and concentration: AOX3, grossly intact for the purposes of this session. Can spell "WORLD" backwards correctly. Judgment and insight: improved with guarded prognosis Impression: Depressive disorder unspecified, rule out bipolar depression Anxiety disorder unspecified Cannabis use disorder Plan: -Continue with discharge today as patient has improved and stabilized psychiatrically and is not currently an imminent threat to themself and/or others. -Continue medications: Zoloft 200 mg daily for mood/anxiety, Lamictal 100 mg daily for mood stabilization/depression. Patient did not report a rash while on this medication and will continue to monitor his skin for this. Prazosin 2 mg nightly for nightmares, Seroquel 100 mg nightly for mood stabilization/psychosis/insomnia, Requip 0.25 mg nightly for restless leg symptoms. -Patient was counseled on the need for medication compliance and appropriate follow-up at mental health and also primary care for medical issues. Patient verbalized understanding and agreed. -Social work to arrange for and conduct family meeting to ensure safety upon discharge and answer any questions/concerns. also to ensure safe home environment that guns/weapons are either removed from the home or locked away. Social work also to arrange for patients follow up appointments with [facility] for psychiatric care along with follow up with primary care provider. -Patient counseled on abstaining from recreational drugs and marijuana and alcohol. Was informed/educated on the adverse effects on their physical and mental health. Patient verbally agreed and understood. -Patient was instructed to return to the hospital or seek immediate medical care if their psychiatric or medical symptoms do worsen or reoccur. Allergies Allergy/AdvReac Type Severity Reaction Status Date / Time No Known Allergies Allergy Verified 05/11/24 19:04 Laboratory Results WBC 6.5 k/uL (3.8-10.6) 05/11/24 17: RBC 4.52 m/uL (4.30-5.90) 05/11/24 17:31 Hgb 13.4 gm/dL (13.0-17.5) 05/11/24 17: Hct 39.9 % (39.0-53.0) 05/11/24 17: MCV 88.2 fL (80.0-100.0) 05/11/24 17: MCH 29.6 pg (25.0-35.0) 05/11/24 17:31 MCHC 33.6 g/dL (31.0-37.0) 05/11/24 17:31 RDW 13.1 % (11.5-15.5) 05/11/24 17:31 Plt Count 243 k/uL (150-450) 05/11/24 17:31 MPV 8.2 05/11/24 17:31 Neutrophils % 56 % 05/11/24 17:31 Lymphocytes % 33 % 05/11/24 17:31 Monocytes % 7 % 05/11/24 17:31 Eosinophils % 2 % 05/11/24 17: Basophils % 1 % 05/11/24 17:31 Neutrophils # 3.6 k/uL (1.3-7.7) 05/11/24 17:31 Lymphocytes # 2.1 k/uL (1.0-4.8) 05/11/24 17:31 Monocytes # 0.5 k/uL (0-1.0) 05/11/24 17:31 Eosinophils # 0.2 k/uL (0-0.7) 05/11/24 17:31 Basophils # 0.1 k/uL (0-0.2) 05/11/24 17:31 Sodium 141 mmol/L (137-145) 05/11/24 17:31 Potassium 4.8 mmol/L (3.5-5.1) 05/11/24 17:31 Chloride 106 mmol/L (98-107) 05/11/24 17:31 Carbon Dioxide 30 mmol/L (22-30) 05/11/24 17:31 Anion Gap 5 mmol/L 05/11/24 17:31 BUN 12 mg/dL (9-20) 05/11/24 17:31 Creatinine 0.99 mg/dL (0.66-1.25) 05/11/24 17:31 Est GFR (CKD-EPI)AfAm >90 (>60 ml/min/1.73 sqM) 05/11/24 17:31 Est GFR (CKD-EPI)NonAf 89 (>60 ml/min/1.73 sqM) 05/11/24 17:31 Glucose 112 mg/dL (74-99) H 05/11/24 17:31 Lactic Ac Sepsis Rflx Y 05/11/24 19:39 Plasma Lactic Acid Chaparro 2.9 mmol/L (0.7-2.0) H* 05/11/24 17:31 Calcium 9.2 mg/dL (8.4-10.2) 05/11/24 17:31 Magnesium 1.9 mg/dL (1.6-2.3) 05/11/24 17:31 Total Bilirubin 0.6 mg/dL (0.2-1.3) 05/11/24 17:31 AST 32 U/L (17-59) 05/11/24 17:31 ALT 34 U/L (4-49) 05/11/24 17:31 Alkaline Phosphatase 116 U/L (38-126) 05/11/24 17:31 Troponin I <0.012 ng/mL (0.000-0.034) 05/13/24 15:02 Total Protein 7.5 g/dL (6.3-8.2) 05/11/24 17:31 Albumin 4.3 g/dL (3.5-5.0) 05/11/24 17:31 TSH 4.310 mIU/L (0.465-4.680) 05/13/24 07:16 Salicylates <1.0 mg/dL 05/11/24 17:31 Urine Opiates Screen Not Detected (NotDetected) 05/11/24 19:31 Ur Oxycodone Screen Not Detected (NotDetected) 05/11/24 19:31 Urine Methadone Screen Not Detected (NotDetected) 05/11/24 19:31 Acetaminophen <10.0 ug/mL 05/11/24 17:31 Ur Barbiturates Screen Not Detected (NotDetected) 05/11/24 19:31 U Tricyclic Antidepress Not Detected (NotDetected) 05/11/24 19:31 Ur Phencyclidine Scrn Not Detected (NotDetected) 05/11/24 19:31 Ur Amphetamines Screen Not Detected (NotDetected) 05/11/24 19:31 U Methamphetamines Scrn Not Detected (NotDetected) 05/11/24 19:31 U Benzodiazepines Scrn Detected (NotDetected) H 05/11/24 19:31 Urine Cocaine Screen Not Detected (NotDetected) 05/11/24 19:31 U Marijuana (THC) Screen Detected (NotDetected) H 05/11/24 19:31 Serum Alcohol <10 mg/dL 05/11/24 17:31 SARS-CoV-2 (PCR) Not Detected (Not Detectd) 05/11/24 21:35 Vital Signs Temp 98.1 F 05/18/24 06:13 Pulse 109 H 05/18/24 06:13 Resp 16 05/18/24 06:13 BP 107/76 05/18/24 06:13 Pulse Ox 97 05/18/24 06:13 FiO2 Intake & Output 05/17/24 05/18/24 05/18/24 18:59 06:59 18:59 Weight 95.3 kg Patient Condition at Discharge: Stable Plan - Discharge Summary Discharge Rx Participant: Yes New Discharge Prescriptions: New busPIRone HCL [Buspar] 15 mg PO BID PRN 30 Days #120 tablet PRN Reason: Anxiety lamoTRIgine [LaMICtal] 100 mg PO DAILY 30 Days #30 tab Lidocaine 4% Patch 1 patch TOPICAL DAILY PRN patch PRN Reason: Pain Pregabalin [Lyrica] 50 mg PO HS PRN 3 Days #3 cap PRN Reason: nerve pain Prazosin [Minipress] 2 mg PO HS 30 Days #60 cap QUEtiapine [SEROquel] 100 mg PO HS 30 Days #30 tab rOPINIRole HCL [Requip] 0.25 mg PO HS 30 Days #30 tab Sertraline [Zoloft] 200 mg PO DAILY 30 Days #60 tab Continue Atorvastatin [Lipitor] 40 mg PO HS lisinopriL [Zestril] 40 mg PO HS #60 tab Metoprolol Tartrate [Lopressor] 50 mg PO BID #60 tab Famotidine [Pepcid] 20 mg PO BID 30 Days #60 tab Aspirin 81 mg PO DAILY Clopidogrel [Plavix] 75 mg PO DAILY Levothyroxine Sodium [Synthroid] 100 mcg PO AC-BRKFST #30 tab Nitroglycerin Sl Tabs [Nitrostat] 0.4 mg SUBLINGUAL Q5M PRN #30 tab PRN Reason: Chest Pain clonazePAM [KlonoPIN] 0.5 mg PO BID PRN PRN Reason: Anxiety Discontinued Dicyclomine [Bentyl] 10 mg PO BID PRN PRN Reason: Gi Upset Sertraline [Zoloft] 100 mg PO DAILY 30 Days #30 tab busPIRone HCl [Buspar] 10 mg PO BID PRN 30 Days #60 tab PRN Reason: Anxiety lamoTRIgine [LaMICtal] 50 mg PO DAILY 30 Days #60 tab Prazosin [Minipress] 1 mg PO HS 30 Days #30 cap traZODone HCL 150 mg PO HS PRN 30 Days #30 tablet PRN Reason: Insomnia Discharge Medication List Atorvastatin [Lipitor] 40 mg PO HS 09/30/23 [History] Aspirin 81 mg PO DAILY 01/06/24 [History] Clopidogrel [Plavix] 75 mg PO DAILY 01/06/24 [History] Levothyroxine Sodium [Synthroid] 100 mcg PO AC-BRKFST #30 tab 03/19/24 [Rx] lisinopriL [Zestril] 40 mg PO HS #60 tab 03/19/24 [Rx] Metoprolol Tartrate [Lopressor] 50 mg PO BID #60 tab 04/06/24 [Rx] Nitroglycerin Sl Tabs [Nitrostat] 0.4 mg SUBLINGUAL Q5M PRN #30 tab 04/06/24 [Rx] Famotidine [Pepcid] 20 mg PO BID 30 Days #60 tab 05/05/24 [Rx] clonazePAM [KlonoPIN] 0.5 mg PO BID PRN 05/11/24 [History] Lidocaine 4% Patch 1 patch TOPICAL DAILY PRN patch 05/18/24 [Rx] Prazosin [Minipress] 2 mg PO HS 30 Days #60 cap 05/18/24 [Rx] Pregabalin [Lyrica] 50 mg PO HS PRN 3 Days #3 cap 05/18/24 [Rx] QUEtiapine [SEROquel] 100 mg PO HS 30 Days #30 tab 05/18/24 [Rx] Sertraline [Zoloft] 200 mg PO DAILY 30 Days #60 tab 05/18/24 [Rx] busPIRone HCL [Buspar] 15 mg PO BID PRN 30 Days #120 tablet 05/18/24 [Rx] lamoTRIgine [LaMICtal] 100 mg PO DAILY 30 Days #30 tab 05/18/24 [Rx] rOPINIRole HCL [Requip] 0.25 mg PO HS 30 Days #30 tab 05/18/24 [Rx] Follow up Appointment(s)/Referral(s): [facility] [Outside] - 05/19/24 8:00 am (05/19 at 8am with Xiao Diaz 05/[address] Dawson) Dontae Martinez MD [Primary Care Provider] - 1-2 days Activity/Diet/Wound Care/Special Instructions: [facility] Discharge Info Avoid the use of street drugs and alcohol. Take all medications as prescribed. When you are in need of refills on your medications, please contact your outpatient medical provider and/or outpatient psychiatrist. Please go to your scheduled outpatient appointments for aftercare treatment. If symptoms return or become worse, call the crisis line at or and/or visit the nearest emergency room for assistance. National Suicide and Crisis Lifeline - call or text 988 Discharge Disposition: HOME SELF-CARE
== END 2024-05-18 11:51 | disposition home or self-care (01) | DRG 753 ==
LOC: EC 15:38 → 3MHU 22:59
PROVIDERS: ADMIT Psychiatry & Neurology Psychiatry; ATTEND Psychiatry & Neurology Psychiatry
DX: F31.9 Bipolar disorder, unspecified (principal); F41.9 Anxiety disorder, unspecified; I25.2 Old myocardial infarction; M25.511 Pain in right shoulder; I51.81 Takotsubo syndrome; T42.4X2A Poisoning by benzodiazepines, intentional self-harm, initial encounter; E07.9 Disorder of thyroid, unspecified; K21.9 Gastro-esophageal reflux disease without esophagitis; E78.2 Mixed hyperlipidemia; M54.50 Low back pain, unspecified; M19.90 Unspecified osteoarthritis, unspecified site; G89.29 Other chronic pain; F12.10 Cannabis abuse, uncomplicated; Z87.891 Personal history of nicotine dependence; G25.81 Restless legs syndrome; G47.00 Insomnia, unspecified; I10 Essential (primary) hypertension; T75.0 Effects of lightning; I25.10 Atherosclerotic heart disease of native coronary artery without angina pectoris; Z79.02 Long term (current) use of antithrombotics/antiplatelets; Z79.82 Long term (current) use of aspirin; Z79.890 Hormone replacement therapy; Z79.899 Other long term (current) drug therapy; Z95.1 Presence of aortocoronary bypass graft; Z95.5 Presence of coronary angioplasty implant and graft; Z28.310 Unvaccinated for COVID-19; Z28.21 Immunization not carried out because of patient refusal
CPT/HCPCS: 36415; 80053; 80143; 80179; 80306; 80320; 82075; 83605; 83735; 84443; 84484; 85025; 87635; 93005; 99285

== ENCOUNTER 2024-08-05 04:05 | Observation (INO) | payer OTHER ==
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
[2024-08-05 04:43] LABS: Basophils # (A) 0.1 k/uL (0-0.2); Basophils % (A) 1 %; Eosinophils # (A) 0.1 k/uL (0-0.7); Eosinophils % (A) 1 %; HGB 14.2 gm/dL (13.0-17.5); Lymphocytes # (A) 2.5 k/uL (1.0-4.8); Lymphocytes % (A) 24 %; MCH 28.1 pg (25.0-35.0); MCHC 32.9 g/dL (31.0-37.0); MCV 85.5 fL (80.0-100.0); Mean Platelet Volume 8.1; Monocytes # (A) 0.7 k/uL (0-1.0); Monocytes % (A) 7 %; Neutrophils # (A) 6.8 k/uL (1.3-7.7); Neutrophils % (A) 65 %; Platelet Count 226 k/uL (150-450); RBC 5.03 m/uL (4.30-5.90); RDW 13.8 % (11.5-15.5); WBC 10.4 k/uL (3.8-10.6)
[2024-08-05 04:58] LABS: Partial Thromboplastin Time 21.3 sec (22.0-30.0); Prothrombin Time 10.9 sec (10.0-12.5)
[2024-08-05 05:04] LABS: ALT 40 U/L (4-49); AST 29 U/L (17-59); African American GFR (CKD) 80 (>60 ml/min/1.73 sqM); Albumin 4.6 g/dL (3.5-5.0); Alkaline Phosphatase 132 U/L (38-126); Anion Gap 10 mmol/L; Blood Urea Nitrogen 14 mg/dL (9-20); Carbon Dioxide 28 mmol/L (22-30); Chloride 101 mmol/L (98-107); Glucose 141 mg/dL (74-99); Magnesium 1.8 mg/dL (1.6-2.3); Non-African American GFR(CKD) 70 (>60 ml/min/1.73 sqM); Potassium 4.2 mmol/L (3.5-5.1); Sodium 139 mmol/L (137-145); Total Bilirubin 0.5 mg/dL (0.2-1.3); Total Protein 7.7 g/dL (6.3-8.2)
--- NOTE | 2024-08-05 05:39 | XR ---
EXAM: XR Chest, 2 Views CLINICAL HISTORY: c/o intermittent chest pain that radiates to his jaw, SOB, and nausea TECHNIQUE: Frontal and lateral views of the chest. COMPARISON: 04/06/24 FINDINGS: Lungs: Unremarkable. No consolidation. Pleural space: Unremarkable. Mediastinum: Unremarkable. Normal mediastinal contour. Bones/joints: No acute findings. Sternal wires, mediastinal clips, atrial appendage clip are again noted IMPRESSION: No acute findings or substantial change.
[2024-08-05 06:24] LABS: Lipase 1325 U/L (23-300)
[2024-08-05] MEDS ORDERED: ONDANSETRON 4 MG/2 ML VIAL IVP PRN ×2 (06:25)
[2024-08-05] MEDS ORDERED: NALOXONE 0.4 MG/ML 1 ML VIAL IV PRN (06:25)
[2024-08-05 06:34] LABS: NT-Pro-B-Type Natriuretic Pept <20 pg/mL
[2024-08-05] MEDS: SODIUM CHLORIDE 0.9% 1,000 ML IV SCH (06:57)
[2024-08-05] MEDS: SODIUM CHLORIDE 0.9% 500 ML 500 ML IV STA (06:57)
[2024-08-05] MEDS: ONDANSETRON 4 MG/2 ML VIAL IVP STA (07:56)
[2024-08-05] MEDS: MAG HYDROX/AL HYDROX/SIMETH 30 ML CUP PO STA (07:56)
[2024-08-05] MEDS: FAMOTIDINE 20 MG/2 ML VIAL IV STA (07:56)
[2024-08-05] MEDS: PANTOPRAZOLE 40 MG/10 ML VIAL IVP STA (07:56)
[2024-08-05] MEDS: PANTOPRAZOLE 40 MG/10 ML VIAL IVP SCH (08:05)
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
--- NOTE | 2024-08-05 16:03 | CT ---
EXAMINATION TYPE: CT abdomen pelvis wo con DATE OF EXAM: 08/05/2024 COMPARISON: 09/29/2023 CLINICAL INDICATION: Male, 49 years old with history of with focus on pancreas; PHH, Mid-Lower abdomi nal pain x 1 day TECHNIQUE: CT scan of the abdomen and pelvis is performed without oral or IV contrast. CT DLP: 816.[address] CTDI: mGy Automated exposure control for dose reduction was used. FINDINGS: Within the limitations of a non-contrast study, the following observations are made. There is groundglass opacity in the posterior lung bases which could be on the basis of atelectasis.. There is surgical absence of the gallbladder. There is no biliary ductal dilatation. There is no organomegaly of the liver, pancreas, spleen or adrenal glands. There are no inflammatory changes of the pancreas. There is a 7 mm nonobstructing right renal calcification. There are no left renal calcifications. The re is no hydronephrosis. The caliber of the abdominal aorta is normal and there is no retroperitoneal adenopathy or hemorrhage . The bowel loops are normal in caliber is no evidence of obstruction. No inflammatory changes are iden tified in the mesentery and there is no free intraperitoneal air or fluid. There is no pelvic mass, free fluid, abscess or adenopathy. There is mild diverticulosis of the colon without CT evidence of diverticulitis. The osseous structures and soft tissues are unremarkable. IMPRESSION: 1. Groundglass opacity in the posterior lung bases possibly indicating atelectasis. 2. Unremarkable pancreas. 3. Nonobstructing 7 mm right renal calculus. 4. No acute changes within the abdomen or pelvis. [facility], , 08/05/2024 4:01 PM
[2024-08-05] MEDS: MORPHINE SULFATE 4 MG/ML SYRINGE IV PRN (17:23)
[2024-08-06 08:32] VITALS: BP 103/67; PULSE 78; TEMP 97.4
[2024-08-06 09:04] LABS: Basophils # (A) 0.05 X 10*3/uL (0.00-0.10); Basophils % (A) 0.5 %; Eosinophils # (A) 0.15 X 10*3/uL (0.04-0.35); Eosinophils % (A) 1.6 %; HCT 43.7 % (39.6-50.0); HGB 14.1 g/dL (13.0-17.0); Lymphocytes # (A) 2.82 X 10*3/uL (0.90-5.00); Lymphocytes % (A) 29.5 %; MCHC 32.3 g/dL (32.0-37.0); MCV 86.7 FL (80.0-97.0); Mean Platelet Volume 11.6 FL (9.5-12.2); Monocytes % (A) 9.4 %; NRBC Per 100 WBC 0 X 10*3/uL (0.00-0.01); Neutrophils # (A) 5.59 X 10*3/uL (1.80-7.70); Neutrophils % (A) 58.5 %; Platelet Count 241 X 10*3/uL (140-440); RBC 5.04 X 10*6/uL (4.40-5.60); RDW 13.6 % (11.5-14.5); WBC 9.56 X 10*3/uL (4.50-10.00)
[2024-08-06 09:30] LABS: ALT 43 U/L (10-49); AST 32 U/L (14-35); Albumin 4.2 g/dL (3.8-4.9); Albumin/Globulin Ratio 1.45 Ratio (1.60-3.17); Alkaline Phosphatase 146 U/L (41-126); BUN/Creat Ratio 9.09 Ratio (12.00-20.00); Chloride 103 mmol/L (96-109); Globulin 2.9 g/dL (1.6-3.3); Glucose 139 mg/dL (70-110); Lipase 29 U/L (14-60); Magnesium 1.8 mg/dL (1.5-2.4); Potassium 4.5 mmol/L (3.5-5.5); Sodium 139 mmol/L (135-145); Total Bilirubin 0.4 mg/dL (0.3-1.2); Total Protein 7.1 g/dL (6.2-8.2)
[2024-08-06 10:14] VITALS: RESP 16
--- NOTE | 2024-08-06 10:26 | CA ---
Transthoracic Echo Report Name: Alejandro Aden Age: 49 Gender: M : 1975 Exam Date: 08/06/2024 08:01 Exam Location: [place] [facility] Ht (in): 70 Wt (lb): 220 Ordering Physician: Ira Ortiz Attending/Referring Phys: [id number], Diana Business Rules Developer Mary Ellen Shi, DANIELLE Procedure CPT: Indications: pericardial effusion Cardiac Hx: Technical Quality: Good Contrast 1: Total Dose (mL): Contrast 2: Total Dose (mL): MEASUREMENTS (Male / Female) Normal Values 2D ECHO LV Diastolic Diameter PLAX 4.7 cm 4.2 - 5.9 / 3.9 - 5.3 cm LV Systolic Diameter PLAX 3.3 cm IVS Diastolic Thickness 1.3 cm 0.6 - 1.0 / 0.6 - 0.9 cm LVPW Diastolic Thickness 1.2 cm 0.6 - 1.0 / 0.6 - 0.9 cm LV Relative Wall Thickness 0.5 RV Internal Dim ED PLAX 2.5 cm LA Systolic Diameter LX 4.4 cm 3.0 - 4.0 / 2.7 - 3.8 cm LV Diastolic Volume MOD BP 65.8 cm??? 67 - 155 / 56 - 104 cm??? LV Systolic Volume MOD BP 22.7 cm??? 22 - 58 / 19 - 49 cm??? LV Ejection Fraction MOD BP 65.4 % >= 55 % LV Cardiac Index MOD BP 1398.0 cm???/min???m??? LV Diastolic Volume MOD 4C 56.7 cm??? LV Systolic Volume MOD 4C 18.3 cm??? LV Ejection Fraction MOD 4C 67.7 % LV Cardiac Index MOD 4C 1245.5 cm???/min???m??? LV Diastolic Length 4C 8.3 cm LV Systolic Length 4C 6.6 cm LV Diastolic Volume MOD 2C 71.3 cm??? LV Systolic Volume MOD 2C 26.8 cm??? LV Ejection Fraction MOD 2C 62.4 % LV Cardiac Index MOD 2C 1444.9 cm???/min???m??? LV Diastolic Length 2C 7.7 cm LV Systolic Length 2C 7.1 cm LA Volume 48.4 cm??? 18 - 58 / 22 - 52 cm??? LA Volume Index 21.5 cm???/m??? 16 - 28 cm???/m??? M-MODE Aortic Root Diameter MM 3.0 cm LA Systolic Diameter MM 4.2 cm LA Ao Ratio MM 1.4 AV Cusp Separation MM 2.1 cm FINDINGS Left Ventricle Left ventricular ejection fraction is estimated at 55-60 %. Mildly increased septal wall thickness. Normal left ventricular systolic function with no obvious regional wall motion abnormalities. Right Ventricle Right Atrium Left Atrium Mildly increased left atrial diameter. Mitral Valve Aortic Valve Tricuspid Valve Pulmonic Valve Pericardium Minimal pericardial effusion (normal variant). No pleural effusion. Aorta Aortic root and proximal ascending aorta not well visualized. CONCLUSIONS Limited study. Normal LV systolic function Minimal pericardial effusion Previewed by: Dr. Ray Berman MD (Electronically Signed) Final Date: 06 August 2024 10:25
[2024-08-06] MEDS ORDERED: NITROGLYCERIN SL TABS 0.4 MG TAB SUBLINGUAL PRN (10:32)
[2024-08-06] MEDS: ACETAMINOPHEN TAB 325 MG TAB PO PRN (11:23)
[2024-08-06] MEDS: ASPIRIN 81 MG PO SCH (11:24)
[2024-08-06] MEDS: busPIRone HCl 5 MG TAB PO SCH (11:24)
[2024-08-06] MEDS: LEVOTHYROXINE 100 MCG TAB PO SCH (11:24)
[2024-08-06] MEDS: METOPROLOL TARTRATE 25 MG TAB PO SCH (11:24)
[2024-08-06] MEDS: ATORVASTATIN 40 MG TAB PO SCH (11:24)
[2024-08-06] MEDS: FAMOTIDINE 20 MG TAB PO SCH (11:25)
[2024-08-06] MEDS: lamoTRIgine 100 MG TAB PO SCH (11:25)
[2024-08-06] MEDS: CLOPIDOGREL 75 MG TAB PO SCH (11:25)
[2024-08-06] MEDS: SERTRALINE 100 MG TAB PO SCH (11:52)
--- NOTE | 2024-08-06 12:18 | P.PN ---
Subjective Progress Note Date: 08/06/24 Consult reason: chest pain History of present illness: This is a 49-year-old male patient of Dr. Berman with past medical history of coronary artery disease status post CABG with ORTEZ to LAD and subsequent stenting of the left circumflex, nonischemic cardiomyopathy/stress-induced cardiomyopathy, hypertension, dyslipidemia, valvular heart disease, history of smoking. We have been asked to evaluate the patient for chest pain. Patient states that he went to bed last evening and then felt that his heart was pounding and it was hard for him to catch his breath. He states this kept occurring every time he tried to lay down. Then he could not catch his breath and his tongue became numb and he had tingling in his feet and heaviness in his chest. He denies any loss of consciousness. No abdominal pain. He denies any nausea or vomiting. No alcohol use. He has some mild tenderness to the chest wall. Blood pressure 112/72, heart rate 79, pulse ox 97% on room air. Patient is seen today in the emergency center waiting for a bed on the observation unit. -EKG: Sinus rhythm with no acute ST-T wave changes. -Chest x-ray: No acute findings. -Laboratory studies: CBC, INR, electrolytes and renal function all within normal limits. Alkaline phosphatase 132 and lipase 1325. Troponin negative x 2. -Home cardiac medications: Aspirin 81 mg daily, atorvastatin 40 mg daily, Plavix 75 mg daily, hydrochlorothiazide 25 mg daily, lisinopril 40 mg at bedtime, metoprolol tartrate 50 mg twice daily, Nitrostat as needed, also on levothyroxine. -CABG performed 09/29/2023 with ORTEZ to LAD. Cardiac catheterization 03/17/2024 with patent stent in the left circumflex and PCI of the proximal circumflex was performed 01/07/2024. -Echocardiogram performed 05/25/2024 revealed EF of 50%, moderate MR, mild AR. 08/06 Patient seen and examined on the observation unit. Patient denies having any chest pain or chest pressure. He is currently on clear liquid diet and IV fluids. Blood pressure 103/67, heart rate 70, pulse ox 97% on room air. Repeat blood work reveals normal CBC, normal electrolytes and renal function. Liver function test are normal. Lipase 29. Limited echocardiogram reveals EF of 55 to 60%, minimal pericardial effusion. Physical examination: Gen: This is a 49-year-old male in no acute distress VS: reviewed HEENT: Head is atraumatic, normocephalic. Pupils equal, round. Sclerae is anicteric. NECK: Supple. No JVD. LUNGS: Clear to auscultation. No wheezes or rhonchi. No intercostal retractions. HEART: Regular rate and rhythm. Systolic murmur at the right and left upper sternal border. No chest wall tenderness. ABDOMEN: Soft No tenderness. EXTREMITIES: No pedal edema. No calf tenderness. NEUROLOGICAL: Patient is awake, alert and oriented x3. Assessment: Atypical chest pain, acute coronary syndrome ruled out Elevated lipase History of coronary artery disease status post CABG with ORTEZ to LAD and subsequent stenting of the left circumflex Nonischemic cardiomyopathy/stress-induced cardiomyopathy with most recent EF of 50% Hypertension Dyslipidemia Valvular heart disease with moderate MR and mild AR Plan: Continue patient's home cardiac medications No further cardiac workup at this time Cardiology will sign off this case and follow on an as-needed basis. Please reconsult for any new concerns. Patient may follow-up in the office in one to 2 weeks. Nurse practitioner note has been reviewed, I agree with documented findings and plan of care. Patient was seen and examined. Objective - Vital Signs Vital signs: Vital Signs Temp 97.4 F L 08/06/24 07:00 Pulse 78 08/06/24 07:00 Resp 14 08/06/24 07:00 BP 103/67 08/06/24 07:00 Pulse Ox 97 08/06/24 07:00 FiO2 Intake & Output 08/05/24 08/06/24 08/06/24 18:59 06:59 18:59 Intake Total 118 Balance 118 Weight 99.79 kg Intake: Oral 118 Other: # Voids 1 - Labs CBC & Chem 7: 08/06/24 05:42 08/06/24 05:42 Labs: Abnormal Lab Results - Last 24 Hours (Table) 08/05/24 08/06/24 Range/Units 04:33 05:42 Immature Gran # 0.05 H (0.00-0.04) X 10*3/uL Hemoglobin A1c 6.8 H (<=6.0) %
--- NOTE | 2024-08-06 12:37 | P.DS ---
Providers Date of admission: 08/05/24 06:25 Expected date of discharge: 08/06/24 Attending physician: Ilia Alonzo Consults: 08/05/24 06:25 Consult Physician Routine Consulting Provider: Ahmet Dotson Consult Reason/Comments: pancreatitis Do you want consulting provider notified?: Yes Consult Physician Routine Consulting Provider: Graeme Laughlin Consult Reason/Comments: cp Do you want consulting provider notified?: Yes Primary care physician: Dontae Martinez Hospital Course: Final Diagnosis: Acute pancreatitis Gastroesophageal reflux disease Chest pain, troponin negative, acute coronary syndrome ruled out, cardiology following Nonischemic cardiomyopathy CAD, OR, CABG, PCI Chronic paroxysmal atrial fibrillation Hypertension Hyperlipidemia Prior nicotine dependence Marijuana use Diabetes mellitus, hemoglobin A1c 6.8, new diagnosis,further recommendations and diabetic education in clinic at follow-up visit with PCP Depression Anxiety Hospital course: 08/05/2024 this is a 49-year-old male with past medical history significant for CAD, OR, PCI, CABG, CHF, paroximal atrial fibrillation, cholecystectomy ,prior nicotine dependence, marijuana use, prediabetic with A1c of 6.3, depression, anxiety and multiple other medical issues presented to the ER with complaints of awakening this morning with continuous burning midepigastric, left chest heaviness radiating to jaw, teeth and back accompanied by palpitations, shortness of breath. Denies diaphoresis. Denies fever or chills. Afebrile, normal WBC. Hematology unremarkable, INR 1, electrolytes within normal limits, creatinine 1.22, near baseline of 1, glucose 141. Alk phos 132, proBNP less than 20, lipase 1325. Chest x-ray reported no acute findings. EKG reported sinus rhythm. Troponin negative x 1, repeat level pending. IV fluid hydration, antiemetics and bowel rest. Pain management. General surgery and cardiology consults in place, recommendations pending. Repeat labs ordered for a.m. 08/06/2024 CT of abdomen pelvis completed reported groundglass opacity in the posterior lung bases possibly indicating atelectasis, unremarkable pancreas, nonobstructing 7 mm right renal calculus, no acute changes within the abdomen or pelvis. Maintained on IV fluid hydration, clear liquid diet. Denies nausea, vomiting or diarrhea. Denies abdominal pain. Denies chest pain, palpitations or shortness of breath. Limited echocardiogram reported EF of 55 to 60%, minimal pericardial effusion (normal variant). Aortic root and proximal ascending aorta not well-visualized ambulating, tolerating exertion well. Denies lightheadedness, dizziness or focal deficits. Hematology, LFTs unremarkable. Electrolytes, renal function stable. Hemoglobin A1c 6.8, cleared by cardiology for discharge. Patient will be discharged home today in a stable condition with guarded prognosis, pending tolerating advanced diet and cleared by general surgery. Glucometer/testing supplies to be arranged per case management. Dietitian consulted for new onset diabetes mellitus. Diabetic teaching prior to discharge. At discharge patient will be DC'd on metformin 500 mg daily as recommended per PCP. Further diabetic education in clinic at follow-up with PCP. The impression and plan of care has been dictated as directed. : I performed a history and examination of this patient, discussed the same with the dictator. I agree with the dictator's note ,documented as a scribe. Any additional findings or plans will be noted. Patient Condition at Discharge: Stable Plan - Discharge Summary New Discharge Prescriptions: No Action Atorvastatin [Lipitor] 40 mg PO DAILY Metoprolol Tartrate [Lopressor] 50 mg PO BID #60 tab Famotidine [Pepcid] 20 mg PO BID 30 Days #60 tab QUEtiapine [SEROquel] 100 mg PO HS 30 Days #30 tab rOPINIRole HCL [Requip] 0.5 mg PO HS hydroCHLOROthiazide [Hydrodiuril] 25 mg PO DAILY busPIRone HCL [Buspirone HCl] 15 mg PO TID lisinopriL [Zestril] 40 mg PO HS Aspirin 81 mg PO DAILY Clopidogrel [Plavix] 75 mg PO DAILY Levothyroxine Sodium [Synthroid] 100 mcg PO AC-BRKFST #30 tab Nitroglycerin Sl Tabs [Nitrostat] 0.4 mg SUBLINGUAL Q5M PRN #30 tab PRN Reason: Chest Pain Sertraline [Zoloft] 200 mg PO DAILY 30 Days #60 tab Pregabalin [Lyrica] 50 mg PO HS Prazosin HCl [Minipress] 2 mg PO HS lamoTRIgine [LaMICtal] 200 mg PO DAILY Discharge Medication List Atorvastatin [Lipitor] 40 mg PO DAILY 09/30/23 [History] Aspirin 81 mg PO DAILY 01/06/24 [History] Clopidogrel [Plavix] 75 mg PO DAILY 01/06/24 [History] Levothyroxine Sodium [Synthroid] 100 mcg PO AC-BRKFST #30 tab 03/19/24 [Rx] Metoprolol Tartrate [Lopressor] 50 mg PO BID #60 tab 04/06/24 [Rx] Nitroglycerin Sl Tabs [Nitrostat] 0.4 mg SUBLINGUAL Q5M PRN #30 tab 04/06/24 [Rx] Famotidine [Pepcid] 20 mg PO BID 30 Days #60 tab 05/05/24 [Rx] QUEtiapine [SEROquel] 100 mg PO HS 30 Days #30 tab 05/18/24 [Rx] Sertraline [Zoloft] 200 mg PO DAILY 30 Days #60 tab 05/18/24 [Rx] Prazosin HCl [Minipress] 2 mg PO HS 08/05/24 [History] Pregabalin [Lyrica] 50 mg PO HS 08/05/24 [History] busPIRone HCL [Buspirone HCl] 15 mg PO TID 08/05/24 [History] hydroCHLOROthiazide [Hydrodiuril] 25 mg PO DAILY 08/05/24 [History] lamoTRIgine [LaMICtal] 200 mg PO DAILY 08/05/24 [History] lisinopriL [Zestril] 40 mg PO HS 08/05/24 [History] rOPINIRole HCL [Requip] 0.5 mg PO HS 08/05/24 [History] Follow up Appointment(s)/Referral(s): Dontae Martinez MD [Primary Care Provider] - 1-2 days Activity/Diet/Wound Care/Special Instructions: Case management to arrange glucometer and testing supplies
--- NOTE | 2024-08-06 12:50 | P.PN ---
Subjective Progress Note Date: 08/06/24 SURGICAL PROGRESS NOTE CHIEF COMPLAINT: Pancreatitis HISTORY OF PRESENT ILLNESS: Patient reports his pain is improving. He is tolerating the clear liquids. Afebrile. Lipase has normalized at 29. Total bilirubin 0.4 AST 32 ALT 43 alk phos 146 PHYSICAL EXAM: VITAL SIGNS: Reviewed. GENERAL: Well-developed in no acute distress. ABDOMEN: Soft. Nondistended. Minimal tenderness with palpation epigastric area NEUROLOGIC: Alert and oriented. Cranial nerves II through XII grossly intact. ASSESSMENT: 1. Acute pancreatitis possibly due to passing of a contained gallstone 2. History of gallstone pancreatitis and cholecystectomy 10 years ago 3. History of CABG and coronary disease with stent PLAN: -Diet advanced to full liquids -Patient can be discharged from surgical standpoint -No surgical intervention planned -Continue to advance diet as tolerated at home Physician Corporate Development Officer note has been reviewed by physician. Signing provider agrees with the documented findings, assessment, and plan of care. Objective - Vital Signs Vital signs: Vital Signs Temp 97.4 F L 08/06/24 07:00 Pulse 78 08/06/24 07:00 Resp 16 08/06/24 08:00 BP 103/67 08/06/24 07:00 Pulse Ox 97 08/06/24 07:00 FiO2 Intake & Output 08/05/24 08/06/24 08/06/24 18:59 06:59 18:59 Intake Total 118 Balance 118 Weight 99.79 kg Intake: Oral 118 Other: # Voids 1 - Labs CBC & Chem 7: 08/06/24 05:42 08/06/24 05:42 Labs: Abnormal Lab Results - Last 24 Hours (Table) 08/05/24 08/06/24 08/06/24 Range/Units 04:33 05:42 05:42 Immature Gran # 0.05 H (0.00-0.04) X 10*3/uL BUN/Creatinine Ratio 9.09 L (12.00-20.00) Ratio Glucose 139 H (70-110) mg/dL Hemoglobin A1c 6.8 H (<=6.0) % Alkaline Phosphatase 146 H (41-126) U/L Albumin/Globulin Ratio 1.45 L (1.60-3.17) Ratio
[2024-08-06 14:42] VITALS: BMI 31.5
[2024-08-06] MEDS ORDERED: PREGABALIN 50 MG CAP PO SCH (21:00)
[2024-08-06] MEDS ORDERED: PRAZOSIN 1 MG CAP PO SCH (21:00)
[2024-08-06] MEDS ORDERED: QUEtiapine 100 MG TAB PO SCH (21:00)
== END 2024-08-06 16:15 | disposition home or self-care (01) ==
LOC: EC 04:05 → 6NMEDSUR 06:25 → INTOOBSV 06:25 → OBSVTOIN 06:25 → 6NMEDSUR 11:59
PROVIDERS: ADMIT Family Medicine; ATTEND Family Medicine
DX: K85.90 Acute pancreatitis without necrosis or infection, unspecified (principal); I42.8 Other cardiomyopathies; R74.8 Abnormal levels of other serum enzymes; R07.89 Other chest pain; I25.10 Atherosclerotic heart disease of native coronary artery without angina pectoris; I11.0 Hypertensive heart disease with heart failure; I50.9 Heart failure, unspecified; E11.9 Type 2 diabetes mellitus without complications; K21.9 Gastro-esophageal reflux disease without esophagitis; E78.5 Hyperlipidemia, unspecified; I48.0 Paroxysmal atrial fibrillation; F41.9 Anxiety disorder, unspecified; F32.A Depression, unspecified; I08.0 Rheumatic disorders of both mitral and aortic valves; F12.90 Cannabis use, unspecified, uncomplicated; I25.2 Old myocardial infarction; Z87.891 Personal history of nicotine dependence; Z90.49 Acquired absence of other specified parts of digestive tract; Z95.5 Presence of coronary angioplasty implant and graft; Z79.02 Long term (current) use of antithrombotics/antiplatelets; Z79.82 Long term (current) use of aspirin; Z79.899 Other long term (current) drug therapy
CPT/HCPCS: 96376 ×3; 96361 ×3; 96374; 96375; 99291; 36415; 93005; 93308; 83880; 80053 ×2; 83690 ×2; 83735 ×2; 84100; 84484; 85025 ×2; 85610; 85730; 83036; 71046; 74176; G0378 ×2; J2270 ×2; J2405; J3490; J2470 ×2

== ENCOUNTER 2025-01-08 18:57 | Emergency (ER) | payer OTHER ==
[2025-01-08 19:38] VITALS: RESP 18; TEMP 98.6
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
[2025-01-08 20:15] LABS: Basophils # (A) 0.06 10*3/uL (0.00-0.10); Basophils % (A) 0.7 %; Eosinophils # (A) 0.09 10*3/uL (0.04-0.35); Eosinophils % (A) 1.0 %; HCT 37.5 % (39.6-50.0); HGB 13.0 g/dL (13.0-17.0); Lymphocytes # (A) 2.34 10*3/uL (0.90-5.00); Lymphocytes % (A) 26.0 %; MCH 30.0 pg (27.0-32.0); MCHC 34.7 g/dL (32.0-37.0); MCV 86.6 fL (80.0-97.0); Monocytes # (A) 0.79 10*3/uL (0.20-1.00); Monocytes % (A) 8.8 %; Neutrophils # (A) 5.69 10*3/uL (1.80-7.70); Neutrophils % (A) 63.2 %; Platelet Count 242 10*3/uL (140-440); RBC 4.33 10*6/uL (4.40-5.60); RDW 13.7 % (11.5-14.5); WBC 9.00 10*3/uL (4.50-10.00)
[2025-01-08 20:36] LABS: ALT 30 U/L (4-49); AST 24 U/L (17-59); African American GFR (CKD) 68 (>60 ml/min/1.73 sqM); Albumin 4.6 g/dL (3.5-5.0); Alkaline Phosphatase 110 U/L (38-126); Anion Gap 14 mmol/L; Blood Urea Nitrogen 19 mg/dL (9-20); Calcium 9.4 mg/dL (8.4-10.2); Carbon Dioxide 25 mmol/L (22-30); Chloride 102 mmol/L (98-107); Glucose 107 mg/dL (74-99); Magnesium 1.4 mg/dL (1.6-2.3); Non-African American GFR(CKD) 59 (>60 ml/min/1.73 sqM); Potassium 4.1 mmol/L (3.5-5.1); Sodium 141 mmol/L (137-145); Total Protein 7.7 g/dL (6.3-8.2)
--- NOTE | 2025-01-08 20:37 | XR ---
EXAMINATION TYPE: XR chest 2V DATE OF EXAM: 01/08/2025 8:34 PM COMPARISON: 08/05/2024 CLINICAL INDICATION: Male, 50 years old with history of Weakness: Shortness of breath TECHNIQUE: XR chest 2V views of the chest are obtained. FINDINGS: Scattered senescent parenchymal changes noted. Hyperinflation compatible with COPD. No evidence for infiltrate. No evidence for atelectasis. Heart size is stable. Mediastinal structures are stable and grossly unremarkable. No evidence for hilar prominence. Degenerative changes dorsal spine. IMPRESSION: 1. No evidence for acute pulmonary disease. [facility], , 01/08/2025 8:35 PM
--- NOTE | 2025-01-08 20:38 | CT ---
EXAMINATION TYPE: CT brain wo con DATE OF EXAM: 01/08/2025 COMPARISON: 01/08/2024 CLINICAL INDICATION: Male, 50 years old with history of weakness; [facility], TECHNIQUE: CT of the brain performed without contrast with sagittal and coronal reformats. CT DLP: mGycm CT CTDI: mGy Automated exposure control for dose reduction was used. FINDINGS: There is no acute intracranial hemorrhage, mass effect, or midline shift identified. The ventricles and sulci are within normal limits in size. The globes are intact and the visualized sinuses are kenna ar. IMPRESSION: No acute intracranial hemorrhage, mass effect, or midline shift is seen. [facility], , 01/08/2025 8:36 PM
[2025-01-08] MEDS: SODIUM CHLORIDE 0.9% 1,000 ML IV ONE ×2 (20:39→21:34)
[2025-01-08 20:59] LABS: INR 0.9 (<1.2); Prothrombin Time 10.5 sec (10.0-12.5)
[2025-01-08] MEDS: KETOROLAC 15 MG/ML 1 ML VIAL IVP STA (21:02)
[2025-01-08 21:04] LABS: Partial Thromboplastin Time 21.2 sec (22.0-30.0)
[2025-01-08] MEDS: MAGNESIUM SULFATE-D5W PMX 1 GM in DEXTROSE/WATER 1 100ML.BAG IVPB SCH (21:24)
[2025-01-08 21:56] LABS: Bilirubin,Urine Negative (Negative); Blood,Urine Negative (Negative); Color,Urine Yellow; Glucose,Urine (UA) Negative (Negative); Ketones,Urine Negative (Negative); Leukocyte Esterase,Urine Negative (Negative); Nitrite,Urine Negative (Negative); PH, Urine 5.5 (5.0-8.0); Protein,Urine Negative (Negative); Specific Gravity,Urine 1.019 (1.001-1.035); Urobilinogen,Urine <2.0 mg/dL (<2.0)
[2025-01-08] MEDS: ACETAMINOPHEN TAB 500 MG TAB PO STA (22:03)
[2025-01-08 22:28] VITALS: BP 100/70; PULSE 57
== END 2025-01-08 22:40 | disposition home or self-care (01) ==
LOC: EC 18:57
DX: R53.1 Weakness (principal); E86.0 Dehydration; I10 Essential (primary) hypertension; I25.10 Atherosclerotic heart disease of native coronary artery without angina pectoris; Z87.891 Personal history of nicotine dependence
CPT/HCPCS: 36415; 70450; 71046; 80053; 81003; 83605; 83735; 84484; 85025; 85610; 85730; 93005; 96361; 96365; 96375; 99285